=== PATIENT | female | born 1960 | race Caucasian/White ===

== ENCOUNTER 2016-04-01 16:48 | Inpatient (IN) | payer BC ==
[~2016-04-01] VITALS: Ht 170.2 cm; Wt 164.0 kg
[~2016-04-01 16:48] MED LIST: CHOL100027 PO; HYDR-5688 PO; LISI-787 PO
[2016-04-01] MEDS ORDERED: TPRSR/50 PO (17:02)
[2016-04-01] MEDS ORDERED: WARF-246 PO (17:02)
[2016-04-01] MEDS ORDERED: FUROSEMIDE 40 MG/4 ML VIAL IV STA ×2 (17:02→20:55)
[2016-04-01] MEDS ORDERED: SPR25 PO (17:02)
[2016-04-01] MEDS ORDERED: LSX20 PO (17:02)
[2016-04-01] MEDS ORDERED: LSN20 PO (17:02)
--- NOTE | 2016-04-01 17:03 | EMERGENCY ROOM VISIT NOTE ---
History Report prepared by [place]: Alessio Warren Under the Supervision of: Dr. Kenneth Bush M.D. First contact with patient: 16:51 Chief Complaint: SHORTNESS OF BREATH Stated Complaint: SOB,BLOATING,REFERRED BY History of Present Illness The patient is a 56 year old female who presents to the Emergency Room with complaints of constant shortness of breath starting in February. The patient additionally states that she has been having leg swelling and abdominal bloating. She states that in February she was diagnosed with bronchitis, and she was given a Z-pack which did not help. She states that she went to her doctor again, and they found that she had an irregular heart rate. 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 Source of History: patient Onset: February Quality: other (shortness of breath) Timing: constant Note: Associated symptoms: Leg swelling and abdominal bloating Review of Systems See HPI for pertinent positives & negatives. A total of 10 systems reviewed and were otherwise negative. Past Medical & Surgical Medical Problems: (1) Afib (2) Depression (3) HLD (hyperlipidemia) (4) HTN (hypertension) (5) Systolic CHF Surgical Problems: (1) S/P cholecystectomy Family History FH: gallbladder disease FH: heart disease FH: lung disease Hypertension Social History Smoking Status: Former Smoker Alcohol Use: occasionally Marital Status: Occupation Status: employed Current/Historical Medications Scheduled Furosemide (Furosemide), 10 MG PO DAILY Lisinopril (Lisinopril), 20 MG PO DAILY Metoprolol Succinate (Metoprolol Succinate ER), 100 MG PO DAILY Spironolactone (Spironolactone), 12.5 MG PO DAILY Miscellaneous Medications Warfarin Sodium (Warfarin Sodium) Allergies Coded Allergies: Codeine (Verified Allergy, Severe, SHORTNESS OF BREATH, 04/01/16) Penicillins (Verified Allergy, Severe, THROAT SWELLING, 04/01/16) Physical Exam Vital Signs Date Time Temp Pulse Resp B/P Pulse Ox O2 Delivery O2 Flow Rate FiO2 04/01/16 17:46 Room Air 94 04/01/16 16:49 36.9 124 18 141/78 99 Room Air Physical Exam CONSTITUTIONAL: Morbidly obese HEENT: No icterus, moist mucous membranes NECK: No meningismus, trachea is midline. CARDIOVASCULAR: Regular rate, normal perfusion RESPIRATORY: Unlabored breathing. Clear to auscultation. GASTROINTESTINAL: Non-tender GENITOURINARY: No flank tenderness MUSCULOSKELETAL: Leg size similar to body habitus suspect for edema. Full range of motion NEUROLOGIC: No acute gross focal deficits. PSYCHIATRIC: Normal affect SKIN: Normal for ethnicity. Medical Decision & Procedures ER Provider Diagnostic Interpretation: X-ray results as stated below per interpretation by me and the radiologist. SINGLE VIEW CHEST CLINICAL HISTORY: Dyspnea. FINDINGS: An AP, portable, upright chest radiograph is obtained. No prior studies are available for comparison at the time of dictation. The examination is degraded by portable technique, large body habitus, and patient rotation. The heart is mildly enlarged. The pulmonary vasculature is noncongested. The lungs and pleural spaces are clear. No pneumothorax is seen. The bony thorax is grossly intact. IMPRESSION: Mild cardiac enlargement with no acute cardiopulmonary abnormality. Electronically signed by: Lee Guillory M.D. 04/01/2016 5:24 PM Dictated Date/Time: 04/01/2016 5:[address] ANGIOGRAM OF THE CHEST CLINICAL HISTORY: Dyspnea. COMPARISON STUDY: Chest x-ray dated 04/01/2016. TECHNIQUE: Following the IV administration of 116 cc of Optiray 320, CT angiogram of the chest was performed from the upper abdomen to the thoracic inlet utilizing the pulmonary embolus protocol. Images are reviewed in the axial, sagittal, and coronal planes. 3-D MIPS images are created and assessed. IV contrast was administered without complication. The examination is degraded by large body habitus, and by streak artifact from the body wall abutting the CT gantry. CT DOSE: 713.63 mGy.cm FINDINGS: Thyroid: Imaged portions of the thyroid gland are normal in size and attenuation. Thoracic aorta: There is mild after carotid calcification of the thoracic aorta, which is normal in caliber and demonstrates standard 3-vessel arch anatomy. No dissection is seen. Pulmonary vasculature: The pulmonary trunk is normal in caliber. There are no filling defects identified in main, lobar, or segmental pulmonary branches to suggest pulmonary embolus. Heart: The heart is enlarged and without pericardial effusion. Lungs and pleural spaces: Evaluation of the lung parenchyma is mildly degraded by motion artifact. A small calcified granulomas noted in the left lower lobe. The lungs and pleural spaces are otherwise clear. The trachea and central airways are patent. Mediastinum: There are prominent subcentimeter mediastinal lymph nodes. These are not pathologically enlarged by size criteria end measure up to 8 mm in short axis. [place]: Clear. Axillae: There is no axillary lymphadenopathy. Upper abdomen: There is evidence of hepatic steatosis. Cholecystectomy clips are noted. A small hiatal hernia is identified. There is glandular atrophy of the partially imaged pancreas. Skeletal structures: The skeletal structures are osteopenic. Degenerative change and mild hyperkyphosis are noted in the thoracic spine. No lytic or blastic bony lesions are seen. There are healed left-sided rib fractures. IMPRESSION: 1. There is no evidence of pulmonary embolus in the main, lobar, or segmental pulmonary arteries. 2. The lungs are clear. 3. Cardiomegaly. 4. Hepatic steatosis. Electronically signed by: Lee Guillory M.D. 04/01/2016 7:50 PM Dictated Date/Time: 04/01/2016 7:46 PM Laboratory Results 04/01/16 17:50 Red Blood Count 4.24, Mean Corpuscular Volume 77.8, Mean Corpuscular Hemoglobin 24.1, Mean Corpuscular Hemoglobin Concent 30.9, Mean Platelet Volume 10.0, Neutrophils (%) (Auto) 67.6, Lymphocytes (%) (Auto) 23.6, Monocytes (%) (Auto) 6.3, Eosinophils (%) (Auto) 1.9, Basophils (%) (Auto) 0.3, Neutrophils # (Auto) 7.68, Lymphocytes # (Auto) 2.68, Monocytes # (Auto) 0.71, Eosinophils # (Auto) 0.21, Basophils # (Auto) 0.03 04/01/16 17:50 Test 04/01/16 17:29 04/01/16 17:50 Urine Color YELLOW Urine Appearance CLEAR (CLEAR) Urine pH 6.0 (4.5-7.5) Urine Specific [place] 1.006 (1.000-1.030) Urine Protein NEG (NEG) Urine Glucose (UA) NEG (NEG) Urine Ketones NEG (NEG) Urine Occult Blood NEG (NEG) Urine Nitrite NEG (NEG) Urine Bilirubin NEG (NEG) Urine Urobilinogen NEG (NEG) Urine Leukocyte Esterase NEG (NEG) White Blood Count 11.34 K/uL (4.8-10.8) Red Blood Count 4.24 M/uL (4.2-5.4) Hemoglobin 10.2 g/dL (12.0-16.0) Hematocrit 33.0 % (37-47) Mean Corpuscular Volume 77.8 fL (80-100) Mean Corpuscular Hemoglobin 24.1 pg (25-34) Mean Corpuscular Hemoglobin Concent 30.9 g/dl (32-36) Platelet Count 334 K/uL (130-400) Mean Platelet Volume 10.0 fL (7.4-10.4) Neutrophils (%) (Auto) 67.6 % Lymphocytes (%) (Auto) 23.6 % Monocytes (%) (Auto) 6.3 % Eosinophils (%) (Auto) 1.9 % Basophils (%) (Auto) 0.3 % Neutrophils # (Auto) 7.68 K/uL (1.4-6.5) Lymphocytes # (Auto) 2.68 K/uL (1.2-3.4) Monocytes # (Auto) 0.71 K/uL (0.11-0.59) Eosinophils # (Auto) 0.21 K/uL (0-0.5) Basophils # (Auto) 0.03 K/uL (0-0.2) RDW Standard Deviation 42.9 fL (36.4-46.3) RDW Coefficient of Variation 15.1 % (11.5-14.5) Immature Granulocyte % (Auto) 0.3 % Immature Granulocyte # (Auto) 0.03 K/uL (0.00-0.02) Prothrombin Time 25.7 SECONDS (9.0-12.0) Prothromb Time International Ratio 2.3 (0.9-1.1) Activated Partial Thromboplast Time 34.1 SECONDS (21.0-31.0) Partial Thromboplastin Ratio 1.3 D-Dimer 620 ug/L FEU (0-500) Anion Gap 9.0 mmol/L (3-11) Est Creatinine Clear Calc Drug Dose 88.9 ml/min Estimated GFR () 64.5 Estimated GFR (Non- 55.7 BUN/Creatinine Ratio 17.9 (10-20) Calcium Level 8.4 mg/dl (8.5-10.1) Magnesium Level 2.1 mg/dl (1.8-2.4) Troponin I < 0.015 ng/ml (0-0.045) Pro-B-Type Natriuretic Peptide 2549 pg/ml (0-900) Thyroid Stimulating Hormone (TSH) 3.330 uIu/ml (0.300-4.500) Labs reviewed by ED physician. Medications Administered Medications (Trade) Dose Ordered Sig/Binta Route Start Time Stop Time Status Last Admin Dose Admin Furosemide (Lasix Inj) 40 mg NOW STAT IV 04/01/16 17:02 04/01/16 17:03 DC 04/01/16 18:11 40 MG Furosemide (Lasix Inj) 40 mg NOW STAT IV 04/01/16 20:55 04/01/16 20:56 DC 04/01/16 21:00 40 MG ECG Indication: SOB/dyspnea Rate (beats per minute): 98 Rhythm: atrial fibrillation Findings: other (Normal axis, non-specific ST findings) ED Course 1650: Past medical records reviewed. The patient was evaluated in room B3. A complete history and physical examination was performed. 1701: Lasix Inj 40mg IV 2054: Lasix Inj 40mg IV 2150: I discussed the patient's case with Dr. Quiroz. He is going to evaluate the patient for further treatment. Medical Decision Differential diagnoses include but are not limited to; congestive heart failure , pulmonary embolus, heart disease. 56-year-old presents to the emergency room after being seen by Dr. Mariscal in the outpatient setting to be admitted for CHF. History of A. fib. She notes increasing nonspecific chest pain and shortness of breath for several weeks and while Dr. Mariscal attempted to admit patient directly there is no beds available and she was subsequently relatively emergency room. Lasix 40 mg IV given. Consults Time Called: 2139 Consulting Physician: Dr. Quiroz Returned Call: 2150 I discussed the patient's case with Dr. Quiroz. He is going to evaluate the patient for further treatment. Impression Primary Impression: Congestive heart failure Scribe Attestation The scribe's documentation has been prepared under my direction and personally reviewed by me in its entirety. I confirm that the note above accurately reflects all work, treatment, procedures, and medical decision making performed by me. Departure Information Dispostion Being Evaluated By Hospitalist Referrals Danny Ibarra M.D. ([facility]) (PCP)
--- NOTE | 2016-04-01 17:25 | DIAGNOSTIC IMAGING REPORT ---
SINGLE VIEW CHEST CLINICAL HISTORY: Dyspnea. FINDINGS: An AP, portable, upright chest radiograph is obtained. No prior studies are available for comparison at the time of dictation. The examination is degraded by portable technique, large body habitus, and patient rotation. The heart is mildly enlarged. The pulmonary vasculature is noncongested. The lungs and pleural spaces are clear. No pneumothorax is seen. The bony thorax is grossly intact. IMPRESSION: Mild cardiac enlargement with no acute cardiopulmonary abnormality. Electronically signed by: Lee Guillory M.D. 04/01/2016 5:24 PM Dictated Date/Time: 04/01/2016 5:23 PM
[2016-04-01 17:57] LABS: URINE APPEARANCE CLEAR (CLEAR); URINE BILIRUBIN NEG (NEG); URINE COLOR YELLOW; URINE NITRITE NEG (NEG); URINE SPECIFIC GRAVITY 1.006 (1.000-1.030); UROBILINOGEN NEG (NEG)
[2016-04-01 18:02] LABS: MANUAL MICROSCOPIC REQUIRED? NO; REVIEW REQ? NO
[2016-04-01 18:04] LABS: BASO % 0.3 %; BASO ABS # 0.03 K/uL (0-0.2); COMPLETE YES; EOS % 1.9 %; IG% 0.3 %; LYMPH % 23.6 %; LYMPH ABS # 2.68 K/uL (1.2-3.4); MEAN CELL VOLUME 77.8 fL (80-100); MEAN CORPUSCULAR HEMOGLOBIN 24.1 pg (25-34); MEAN CORPUSCULAR HGB CONC 30.9 g/dl (32-36); MONO % 6.3 %; NEUT % 67.6 %; PLATELET COUNT 334 K/uL (130-400); RED BLOOD COUNT 4.24 M/uL (4.2-5.4); WHITE BLOOD COUNT 11.34 K/uL (4.8-10.8)
[2016-04-01 18:20] LABS: BLOOD UREA NITROGEN 20 mg/dl (7-18); BUN/CREATININE RATIO 17.9 (10-20); CALCIUM 8.4 mg/dl (8.5-10.1); CARBON DIOXIDE 27 mmol/L (21-32); CHLORIDE 105 mmol/L (98-107); GLUCOSE 92 mg/dl (70-99); MAGNESIUM 2.1 mg/dl (1.8-2.4); POTASSIUM 4.3 mmol/L (3.5-5.1); SODIUM 141 mmol/L (136-145)
[2016-04-01 18:22] LABS: INR 2.3 (0.9-1.1); PROTHROMBIN TIME (PATIENT) 25.7 SECONDS (9.0-12.0)
[2016-04-01 18:37] LABS: PARTIAL THROMBOPLASTIN RATIO 1.3
[2016-04-01] MEDS ORDERED: OPTIRAY 320 IV PRN (19:15)
--- NOTE | 2016-04-01 19:51 | DIAGNOSTIC IMAGING REPORT ---
CT ANGIOGRAM OF THE CHEST CLINICAL HISTORY: Dyspnea. COMPARISON STUDY: Chest x-ray dated 04/01/2016. TECHNIQUE: Following the IV administration of 116 cc of Optiray 320, CT angiogram of the chest was performed from the upper abdomen to the thoracic inlet utilizing the pulmonary embolus protocol. Images are reviewed in the axial, sagittal, and coronal planes. 3-D MIPS images are created and assessed. IV contrast was administered without complication. The examination is degraded by large body habitus, and by streak artifact from the body wall abutting the CT gantry. CT DOSE: 713.63 mGy.cm FINDINGS: Thyroid: Imaged portions of the thyroid gland are normal in size and attenuation. Thoracic aorta: There is mild after carotid calcification of the thoracic aorta, which is normal in caliber and demonstrates standard 3-vessel arch anatomy. No dissection is seen. Pulmonary vasculature: The pulmonary trunk is normal in caliber. There are no filling defects identified in main, lobar, or segmental pulmonary branches to suggest pulmonary embolus. Heart: The heart is enlarged and without pericardial effusion. Lungs and pleural spaces: Evaluation of the lung parenchyma is mildly degraded by motion artifact. A small calcified granulomas noted in the left lower lobe. The lungs and pleural spaces are otherwise clear. The trachea and central airways are patent. Mediastinum: There are prominent subcentimeter mediastinal lymph nodes. These are not pathologically enlarged by size criteria end measure up to 8 mm in short axis. [place]: Clear. Axillae: There is no axillary lymphadenopathy. Upper abdomen: There is evidence of hepatic steatosis. Cholecystectomy clips are noted. A small hiatal hernia is identified. There is glandular atrophy of the partially imaged pancreas. Skeletal structures: The skeletal structures are osteopenic. Degenerative change and mild hyperkyphosis are noted in the thoracic spine. No lytic or blastic bony lesions are seen. There are healed left-sided rib fractures. IMPRESSION: 1. There is no evidence of pulmonary embolus in the main, lobar, or segmental pulmonary arteries. 2. The lungs are clear. 3. Cardiomegaly. 4. Hepatic steatosis. Electronically signed by: Lee Guillory M.D. 04/01/2016 7:50 PM Dictated Date/Time: 04/01/2016 7:46 PM
[2016-04-01] MEDS ORDERED: ATORVASTATIN 40 MG TAB PO SCH (21:00)
[2016-04-01] MEDS ORDERED: ONDANSETRON INJ 2 MG/ML 2 ML VIAL IV PRN (22:45)
[2016-04-01] MEDS ORDERED: ENOXAPARIN 40 MG/0.4 ML SYR SC SCH (22:45)
[2016-04-01] MEDS ORDERED: NITROGLYCERIN 0.4 MG SL PER TAB CHARGE SL PRN (22:45)
[2016-04-01] MEDS ORDERED: ACETAMINOPHEN 325 MG TAB PO PRN (22:45)
[2016-04-01] MEDS ORDERED: POLYETHYLENE (MIRALAX) 17 GM PACK PO PRN (22:45)
[2016-04-01] MEDS ORDERED: DMD20 PO (22:55)
[2016-04-01] MEDS ORDERED: VTMD PO (22:55)
--- NOTE | 2016-04-01 23:05 | History and Physical ---
History & Physical Date & Time of Service: Apr 01, 2016 at 22:42 Chief Complaint: Sob,Bloating,Referred By Primary Care Physician: Danny Ibarra M.D.([facility]) History of Present Illness Source: patient, family, clinic records, hospital records Patient seen and examined. 56 year old female with PMHx of obesity, HTN, HLD, depression, and newly diagnosed CHF and afib presents to the ED from Dr. Mariscal's office for increased SOB. Patient had URI like symptoms and SOB in . She was treated for bronchitis with a Zpak after finishing the course patient continued to SOB. She returned to her PCP's office at this time she was found to be tachycardic to the 140s and was found to have new onset afib. She was started on a BB and Coumadin as well as Lasix for increased edema. She followed up with Cardiology and saw Mel Funes. A Echo was completed and showed an EF of 35-39% and valvular disease. Her Lasix was changed to Demadex. She states throughout the last week her symptoms have persisted. She complains of SOB, PND and orthopnea (uses 4 pillows HS). She reports abdominal bloating and peripheral edema. She reports some residual cough with some phlegm production. She denies fevers, chills, chest pain, palpitations, nausea, vomiting, diarrhea, dysuria, calf pain. She does not weigh herself at home. She denies excessive salt intake. She was seen today by Dr. Mariscal for followup. Symptoms had not been improving since previous visit and he suggested admission for IV diuretics. In the ED VS are stable, Afib is rate controlled, Brianna are negative x1, INR is 2.[address] chest is negative for PE. BNP is 2K. She received a total of 80mg IV Lasix. She will be admitted for further workup and treatment. Past Medical/Surgical History Medical Problems: (1) Afib Status: Chronic (2) Depression Status: Chronic (3) HLD (hyperlipidemia) Status: Chronic (4) HTN (hypertension) Status: Chronic (5) Systolic CHF Status: Chronic Surgical Problems: (1) S/P cholecystectomy Status: Chronic Family History FH: gallbladder disease FH: heart disease FH: lung disease Hypertension Social History Smoking Status: Former Smoker Alcohol Use: none Marital Status: Housing status: lives with family Occupational Status: employed Multi-Drug Resistant Organisms History of MDRO: No Allergies Coded Allergies: Codeine (Verified Allergy, Severe, SHORTNESS OF BREATH, 04/01/16) Penicillins (Verified Allergy, Severe, THROAT SWELLING, 04/01/16) Home Medications Scheduled Ergocalciferol (Vitamin D), 1 CAP PO twice per week Lisinopril (Lisinopril), 20 MG PO DAILY Metoprolol Succinate (Metoprolol Succinate ER), 100 MG PO DAILY Spironolactone (Spironolactone), 12.5 MG PO DAILY Torsemide (Torsemide), 10 MG PO DAILY Warfarin Sodium (Warfarin Sodium), 10 MG PO UD Review of Systems See above for pertinent positives & negatives. A total of 10 systems reviewed and were otherwise negative. Physical Exam Vital Signs Date Time Temp Pulse Resp B/P Pulse Ox O2 Delivery O2 Flow Rate FiO2 04/01/16 17:46 Room Air 94 04/01/16 16:49 36.9 124 18 141/78 99 Room Air General Appearance: + pertinent finding (Obese 56 year old female lying in bed in NAD with family at bedside ) Head: normocephalic, atraumatic Eyes: EOMI, sclerae normal ENT: TMs normal, + pertinent finding (BL tonsilar enlargement, no exudates or erythema ) Neck: supple, no JVD, trachea midline Respiratory/Chest: chest non-tender, lungs clear, normal breath sounds, no respiratory distress, no accessory muscle use Cardiovascular: no gallop, no JVD, no murmur, normal peripheral pulses, + irregularly irregular (rate in the 80s ) Abdomen/GI: normal bowel sounds, non tender, soft Back: normal inspection, no muscle spasm Extremities/Musculoskelatal: no calf tenderness, normal capillary refill, + pedal edema (L>R) Neurologic/Psych: alert, oriented x 3, + pertinent finding (no motor or sensory deficits noted on gross exam ) Skin: normal color, warm/dry, no rash Lymphatic: no adenopathy Diagnostics Laboratory Results Results Past 24 Hours Test 04/01/16 17:29 04/01/16 17:50 Range/Units Urine Color YELLOW Urine Appearance CLEAR CLEAR Urine pH 6.0 4.5-7.5 Urine Specific [place] 1.006 1.000-1.030 Urine Protein NEG NEG Urine Glucose (UA) NEG NEG Urine Ketones NEG NEG Urine Occult Blood NEG NEG Urine Nitrite NEG NEG Urine Bilirubin NEG NEG Urine Urobilinogen NEG NEG Urine Leukocyte Esterase NEG NEG White Blood Count 11.34 4.8-10.8 K/uL Red Blood Count 4.24 4.2-5.4 M/uL Hemoglobin 10.2 12.0-16.0 g/dL Hematocrit 33.0 37-47 % Mean Corpuscular Volume 77.8 80-100 fL Mean Corpuscular Hemoglobin 24.1 25-34 pg Mean Corpuscular Hemoglobin Concent 30.9 32-36 g/dl Platelet Count 334 130-400 K/uL Mean Platelet Volume 10.0 7.4-10.4 fL Neutrophils (%) (Auto) 67.6 % Lymphocytes (%) (Auto) 23.6 % Monocytes (%) (Auto) 6.3 % Eosinophils (%) (Auto) 1.9 % Basophils (%) (Auto) 0.3 % Neutrophils # (Auto) 7.68 1.4-6.5 K/uL Lymphocytes # (Auto) 2.68 1.2-3.4 K/uL Monocytes # (Auto) 0.71 0.11-0.59 K/uL Eosinophils # (Auto) 0.21 0-0.5 K/uL Basophils # (Auto) 0.03 0-0.2 K/uL RDW Standard Deviation 42.9 36.4-46.3 fL RDW Coefficient of Variation 15.1 11.5-14.5 % Immature Granulocyte % (Auto) 0.3 % Immature Granulocyte # (Auto) 0.03 0.00-0.02 K/uL Prothrombin Time 25.7 9.0-12.0 SECONDS Prothromb Time International Ratio 2.3 0.9-1.1 Activated Partial Thromboplast Time 34.1 21.0-31.0 SECONDS Partial Thromboplastin Ratio 1.3 D-Dimer 620 0-500 ug/L FEU Sodium Level 141 136-145 mmol/L Potassium Level 4.3 3.5-5.1 mmol/L Chloride Level 105 98-107 mmol/L Carbon Dioxide Level 27 21-32 mmol/L Anion Gap 9.0 3-11 mmol/L Blood Urea Nitrogen 20 7-18 mg/dl Creatinine 1.10 0.60-1.20 mg/dl Est Creatinine Clear Calc Drug Dose 88.9 ml/min Estimated GFR () 64.5 Estimated GFR (Non- 55.7 BUN/Creatinine Ratio 17.9 10-20 Random Glucose 92 70-99 mg/dl Calcium Level 8.4 8.5-10.1 mg/dl Magnesium Level 2.1 1.8-2.4 mg/dl Troponin I < 0.015 0-0.045 ng/ml Pro-B-Type Natriuretic Peptide 2549 0-900 pg/ml Thyroid Stimulating Hormone (TSH) 3.330 0.300-4.500 uIu/ml Diagnostic Radiology CHEST CTA Per radiologist read: IMPRESSION: 1. There is no evidence of pulmonary embolus in the main, lobar, or segmental pulmonary arteries. 2. The lungs are clear. 3. Cardiomegaly. 4. Hepatic steatosis CXR Per radiologist read: IMPRESSION: Mild cardiac enlargement with no acute cardiopulmonary abnormality. EKG Afib 98 BPM, Qtc 503 Impression Assessment and Plan 56 year old female with recent diagnosis of systolic CHF and atrial fibrillation presents to the ED from Dr. Mariscal's office for worsening SOB ACUTE EXACERBATION OF SYSTOLIC CHF -Admit to tele -BNP 2543, CXR clear, significant peripheral edema noted -? cause for worsening CHF, R/O ACS -Received 80mg IV Lasix in ED -Serial Brianna, EKGs, Brianna negative x 1 -ASA 324 mg now and 81 mg daily -Atorvastatin 80mg for plaque stabilization -Last echo on 03/26/16 EF 35-39%, severe left atrial enlargement, moderate to severe mitral regurgitation -Cardiology consult for further recommendations, Dr. Mariscal will personally see patient tomorrow, defer further diuresis to him -strict I&Os, Daily Weights -AHA, low sodium diet, fluid restriction -CBC, PRP, Mg in AM ELEVATED DDIMER -CTA negative for PE -check BLLE Doppler US, RLE edema > LLE ATRIAL FIBRILLATION -rate controlled with Metoprolol -Anticoagulated with Coumadin -INR 2.3 -monitor in tele -INR daily HTN -stable -continue lisinopril, BB -monitor in tele HLD -per chart -check lipid panel DEPRESSION -stable DVT PROPHYLAXIS: Coumadin CODE STATUS: FULL CODE DISPO:In my clinical judgment this beneficiary meets acute admission criteria, established by [facility], that includes being hospitalized through two midnights. Patient seen in collaboration with Dr. Barron Level of Care Telemetry Resuscitation Status FULL RESUSCITATION VTE Prophylaxis VTE Risk Assessment Done? Y/N: Yes Risk Level: Moderate Given or contraindicated: Warfarin (Coumadin) Note ADDENDUM: I have seen and examined the patient and agree with the assessment and plan as stated above. Yani Barron DO (Hospitalist)
[2016-04-02] VITALS (8 sets, daily range): BP systolic 93–126; BP diastolic 61–82; PULSE 86–98; TEMP 36.4–36.9; O2SAT 93–98; Ht 170.2 cm; Wt 164.0 kg
[2016-04-02 00:31] LABS: CKMB/CK RATIO 1.3 (0-3.0)
[2016-04-02] MEDS ORDERED: ASPIRIN 325 MG ECTAB PO STA (00:32)
[2016-04-02] MEDS ORDERED: COUGH DROP (SUGAR FREE) LOZ 24 LOZ/1 BOX ONE (00:34)
[2016-04-02 06:15] LABS: HEMATOCRIT 31.4 % (37-47); MEAN CELL VOLUME 76.6 fL (80-100); MEAN CORPUSCULAR HEMOGLOBIN 23.9 pg (25-34); MEAN CORPUSCULAR HGB CONC 31.2 g/dl (32-36); MEAN PLATELET VOLUME 9.6 fL (7.4-10.4); PLATELET COUNT 291 K/uL (130-400); WHITE BLOOD COUNT 11.27 K/uL (4.8-10.8)
[2016-04-02 06:23] LABS: INR 2.1 (0.9-1.1); PROTHROMBIN TIME (PATIENT) 23.7 SECONDS (9.0-12.0)
[2016-04-02 06:44] LABS: BLOOD UREA NITROGEN 22 mg/dl (7-18); BUN/CREATININE RATIO 20.3 (10-20); CALCIUM 8.6 mg/dl (8.5-10.1); CARBON DIOXIDE 31 mmol/L (21-32); CHLORIDE 102 mmol/L (98-107); CHOLESTEROL 141 mg/dl (0-200); GLUCOSE 89 mg/dl (70-99); POTASSIUM 3.7 mmol/L (3.5-5.1); SODIUM 142 mmol/L (136-145)
[2016-04-02 06:52] LABS: CKMB/CK RATIO 1.2 (0-3.0); HDL CHOLESTEROL 28 mg/dl; LDL CHOLESTEROL CALCULATED 95 mg/dl; MAGNESIUM 2.3 mg/dl (1.8-2.4); TRIGLYCERIDES 92 mg/dl (0-150); VERY LOW DENSITY LIPOPROT CALC 18 mg/dl
--- NOTE | 2016-04-02 07:15 | DIAGNOSTIC IMAGING REPORT ---
BILATERAL LOWER EXTREMITY VENOUS DOPPLER HISTORY: Pain. Edema. LE swelling and discomfort L>R acutely, elevated D-dimer COMPARISON STUDY: None. FINDINGS: There is normal compressibility, flow, and augmentation within the bilateral lower extremity deep venous systems. IMPRESSION: No DVT within the right or left lower extremity. Electronically signed by: Amrit Felipe M.D. 04/02/2016 7:13 AM Dictated Date/Time: 04/02/2016 7:13 AM
[2016-04-02] MEDS ORDERED: ASPIRIN 81 MG ECTAB PO SCH (09:00)
[2016-04-02] MEDS ORDERED: METOPROLOL SUCC 50MG EXT REL TAB PO SCH (09:00)
--- NOTE | 2016-04-02 09:59 | Cardiology Consultation ---
Cardiology Consultation Date of Consultation: Apr 02, 2016 History of Present Illness Charity Holcomb is a 56-year-old female seen in cardiology consultation per the request of Dr. Barron for cardiac management of acute systolic heart failure, and atrial fibrillation. The patient's recent history dates back to December 2015 when she experienced symptoms of facial pain, headache, nasal drip, sore throat, and upper respiratory congestion with nonproductive cough. She was seen by family practice and had been placed on a course of azithromycin. Her symptoms persisted and on 03/07/16 she was seen again in follow-up by family practice and in addition to respiratory tract symptoms she noted shortness of breath and edema. Her heart rate was stable during that visit at 70 bpm. Hydrochlorothiazide was discontinued and she was transitioned to Lasix 20 mg by mouth daily. On 03/13/16 she was seen again by primary care with worsening lower extremity edema, shortness of breath, and weight gain. Vital signs reveal tachycardia, EKG confirmed the presence of atrial fibrillation with rapid ventricular rate of 144 bpm. Metoprolol succinate 50 mg by mouth daily was started, Coumadin was initiated, the patient was scheduled to see cardiology and to have a 2-D echocardiogram. She had thus been seen by Mel MOROCHO of our practice along with the undersigned on 03/22/16 and outpatient cardiology consultation. She continued to have shortness of breath as well as lower extremity edema and felt abdominal bloating. EKG confirmed that she was still in atrial fibrillation with heart rate of 89 bpm at that time. Metoprolol succinate was increased from 50 mg daily to 100 mg daily. Furosemide 20 mg was discontinued. The patient was transitioned to torsemide 10 mg by mouth daily and spironolactone 12.5 mg daily. I had seen the patient in outpatient follow-up yesterday 04/01/16. She noted only partial improvement with transition to torsemide. She noted significant abdominal bloating, continue lower extremity edema, and exertional shortness of breath. An echocardiogram had been performed in the interim on 03/26/16 revealing moderate LV systolic dysfunction with moderate global hypokinesis LVEF 35-39%. The left atrium was noted to be severely enlarged. Moderate to severe mitral regurgitation was present along with mild tricuspid regurgitation and mild pulmonary hypertension with calculated PA systolic pressure 40 years of Hg. I discussed treatment options with the patient yesterday and we decided that she had not improved with multiple attempts at outpatient therapy and therefore hospitalization was going to be necessary. To direct admit the patient but there is no bed availability and therefore she was referred to the emergency department. Arrival to the emergency department EKG revealed atrial fibrillation with controlled ventricular rate. Her d-dimer is elevated as was her BNP level. CT of the chest was performed with contrast which excluded pulmonary embolism. Hepatic steatosis was noted incidentally. The patient received a total of 80 mg of IV furosemide overnight last night. Her intake and output was not recorded however until after midnight snow takeout took data from her diuresis overnight is available. She notes feeling comfortable today. History PAST MEDICAL HISTORY: 1. Hypertension 2. Depression 3. Bronchitis PAST SURGICAL HISTORY: Laparoscopic cholecystectomy FAMILY HISTORY: Her brother has psoriasis. Family history of stroke and both her mother and father. No family history of premature CAD. SOCIAL HISTORY: She is . 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 She is a former smoker having smoked a half a pack of cigarettes per day starting at age 15 quit for 7 years but then resumed and then ultimately quit in 03/15/16 and has been cigarette free for the last few weeks Review Of Systems See above for pertinent positives & negatives. A total of 10 systems reviewed and were otherwise negative. Allergies Coded Allergies: Codeine (Verified Allergy, Severe, SHORTNESS OF BREATH, 04/01/16) Penicillins (Verified Allergy, Severe, THROAT SWELLING, 04/01/16) Medications Reported Home Medications Medications Dose Route/Sig Max Daily Dose Days Date Category Dose Instructions Vitamin D (Ergocalciferol) 50,000 Interunit Cap 1 Cap PO TWICE PER WEEK 04/01/16 Reported Torsemide 20 Mg Tab 10 Mg PO DAILY 04/01/16 Reported Spironolactone 25 Mg Tab 12.5 Mg PO DAILY 04/01/16 Reported Metoprolol Succinate ER (Metoprolol Succinate) 50 Mg Tabcr 100 Mg PO DAILY 04/01/16 Reported Warfarin Sodium 5 Mg Tab 10 Mg PO UD 04/01/16 Reported Sat-Thurs 10mg daily, 7.5mg qFri Lisinopril 20 Mg Tab 20 Mg PO DAILY 04/01/16 Reported Physical Exam Vital Signs (Last 8hrs): Last 8 Hrs Date Time Temp Pulse Resp B/P Pulse Ox O2 Delivery O2 Flow Rate FiO2 04/02/16 08:00 Room Air 04/02/16 07:57 36.5 96 18 115/73 98 Room Air 04/02/16 04:05 36.5 86 18 119/75 96 Room Air 04/02/16 04:00 96 Room Air General Appearance: Alert and Oriented x3. NAD. Head: Normocephalic Atraumatic. Eyes: PERRLA, EOMI, conjunctiva and sclera clear Neck: Supple. No carotid bruits noted. No JVD. No HJD. Respiratory: Breath sounds clear to auscultation bilaterally. No w/r/r. Cardiovascular: Regular rhythm, 1/6 systolic murmur Abdomen: Normal bowel sounds, soft nontender. no abdominal bruits. Extremities: 1+ lower extremity edema Neuro: No focal deficits. Psychiatric: Normal affect. Data Last Resulted 04/02/16 05:58 Last Resulted 04/02/16 05:58 Past 24 Hours Test 04/01/16 17:50 04/01/16 23:50 04/02/16 05:58 Range/Units Prothromb Time International Ratio 2.3 H 2.1 H 0.9-1.1 Prothrombin Time 25.7 H 23.7 H 9.0-12.0 SECONDS Troponin I < 0.015 < 0.015 < 0.015 0-0.045 ng/ml Creatine Kinase MB 0.6 0.5 0.5-3.6 ng/ml Creatine Kinase MB Ratio 1.3 1.2 0-3.0 Total Creatine Kinase 48 42 26-192 U/L Her first therapeutic INR was on 03/21/16 at 2.1 INR 03/25/16:2.5 INR 04/01/16:2.4 Imaging: As per history of present illness EKG: As per history of present illness Telemetry reviewed: Rate controlled atrial fibrillation, for the most part between 70 and 80 bpm overnight and this morning Summary of outpatient transthoracic echocardiogram performed 03/26/2016: The qualitative LV ejection fraction is 35-39% (moderately reduced). There is moderate diffuse left ventricular hypokinesis. The left atrium is severely enlarged (>48 ml/m^2,). Moderate to severe mitral regurgitation. Mild tricuspid regurgitation is present. The estimated pulmonary artery systolic pressure is 48mm Hg. Assessment & Plan Impression: 56-year-old female 1. Acute systolic heart failure, newly diagnosed 2. Rate controlled atrial fibrillation 3. Underlying hypertension 4. Past cigarette smoker, quit several weeks ago 5. Suspected underlying obstructive sleep apnea with history of snoring, witnessed apneic events per 6. Microcytic anemia, hemoglobin on 11/17/1511.8, 03/13/16 which was a day Coumadin was started her hemoglobin was 10.2 Plan: 1. Continue cautious anticoagulation for stroke prophylaxis with Coumadin. Monitor INR and hemoglobin 2. Continue diuretic therapy. I'm going to back off on her furosemide dose to 40 mg 1 today and she had 80 mg yesterday in addition to her oral torsemide she received iodinated IV contrast last evening as well. 3. 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 It is difficult to determine based on the echo images available if she has a primary anatomical valve problem or if the severity of mitral regurgitation appears worse because of her volume overloaded state. Plan for rate control, anticoagulation, and diuretics. Ultimately will plan for direct-current cardioversion after she has been therapeutic dose of Coumadin for 3 weeks. Coumadin was started 3 weeks ago, and her INR has been at goal for at least 2 weeks. We'll start low-dose amiodarone loading to help promote sinus rhythm and increase the likelihood of success with holiness of sinus rhythm. Will plan for a short-term course of amiodarone, perhaps 6 weeks- three months depending on her progress. STEVAN Mariscal DO
[2016-04-02] MEDS ORDERED: FUROSEMIDE INJ 40 MG in SYRINGE 0 ML IV ONE (10:00)
[2016-04-02] MEDS: LISINOPRIL 20 MG TAB PO SCH (11:10)
[2016-04-02] MEDS: SPIRONOLACTONE 25 MG TAB PO SCH (11:10)
[2016-04-02] MEDS: METOPROLOL SUCC 50MG EXT REL TAB PO SCH (16:32)
[2016-04-02] MEDS: WARFARIN SOD 10 MG TAB PO SCH (16:32)
--- NOTE | 2016-04-02 20:13 | Progress Note ---
Medicine Progress Note Date & Time of Visit: Apr 02, 2016 at 20:02. Subjective Pt was seen and examined Lying in bed very comfortable with no distress Pt said that her SOB improved denies any chest pain, palpitation, dizziness Objective Last 8 Hrs Date Time Temp Pulse Resp B/P Pulse Ox O2 Delivery O2 Flow Rate FiO2 04/02/16 19:31 36.9 92 20 103/61 95 Room Air 04/02/16 16:00 Room Air 04/02/16 15:32 36.6 87 18 114/76 93 Room Air Physical Exam: General- no acute distress Head- atraumatic Eyes- PERRL, EOMI ENT- oropharynx clear Neck- supple, no JVD Lungs- clear to auscultation and percussion Heart- regular rhythm, +systolic murmur Abdomen- normal bowel sounds, soft Extremities- + edema, no calf tenderness Neuro- alert, oriented x 3; PERRL, EOMI Skin- warm & dry Laboratory Results: Last 24 Hours Test 04/01/16 23:50 04/02/16 05:58 Total Creatine Kinase 48 U/L 42 U/L Creatine Kinase MB 0.6 ng/ml 0.5 ng/ml Creatine Kinase MB Ratio 1.3 1.2 Troponin I < 0.015 ng/ml < 0.015 ng/ml White Blood Count 11.27 K/uL Red Blood Count 4.10 M/uL Hemoglobin 9.8 g/dL Hematocrit 31.4 % Mean Corpuscular Volume 76.6 fL Mean Corpuscular Hemoglobin 23.9 pg Mean Corpuscular Hemoglobin Concent 31.2 g/dl RDW Standard Deviation 43.1 fL RDW Coefficient of Variation 15.2 % Platelet Count 291 K/uL Mean Platelet Volume 9.6 fL Prothrombin Time 23.7 SECONDS Prothromb Time International Ratio 2.1 Sodium Level 142 mmol/L Potassium Level 3.7 mmol/L Chloride Level 102 mmol/L Carbon Dioxide Level 31 mmol/L Anion Gap 9.0 mmol/L Blood Urea Nitrogen 22 mg/dl Creatinine 1.10 mg/dl Est Creatinine Clear Calc Drug Dose 92.4 ml/min Estimated GFR () 64.5 Estimated GFR (Non- 55.7 BUN/Creatinine Ratio 20.3 Random Glucose 89 mg/dl Calcium Level 8.6 mg/dl Magnesium Level 2.3 mg/dl Pro-B-Type Natriuretic Peptide 2022 pg/ml Triglycerides Level 92 mg/dl Cholesterol Level 141 mg/dl HDL Cholesterol 28 mg/dl LDL Cholesterol, Calculated 95 mg/dl VLDL Cholesterol, Calculated 18 mg/dl Cholesterol/HDL Ratio 5.0 Assessment & Plan ACUTE EXACERBATION OF SYSTOLIC CHF -has been having worsening SOB -Received 80mg IV lasix on admission - will start on lasix 40mg - CM are negative an EKG shown no significant ST changes -Continue asa 81 mg and statin daily -Last echo on 03/26/16 EF 35-39%, severe left atrial enlargement, moderate to severe mitral regurgitation -Monitor BMP ELEVATED DDIMER -CTA thorax negative for PE - BLLE Doppler US negative for DVT ATRIAL FIBRILLATION -rate controlled with Metoprolol -Anticoagulated with Coumadin Cardiology on board -INR 2.1 -INR daily HTN -Control -continue lisinopril, BB HLD Continue statin DEPRESSION -stable DVT PROPHYLAXIS: Coumadin CODE STATUS: FULL CODE Current Inpatient Medications: Current Inpatient Medications Medications (Trade) Dose Ordered Sig/Binta Route Start Time Stop Time Status Last Admin Dose Admin Ioversol (Optiray 320) 125 ml UD PRN IV 04/01/16 19:15 04/05/16 19:14 Acetaminophen (Tylenol Tab) 650 mg Q4H PRN PO 04/01/16 22:45 05/01/16 22:44 Ondansetron HCl (Zofran Inj) 4 mg Q6H PRN IV 04/01/16 22:45 05/01/16 22:44 Nitroglycerin (Nitrostat Tab) 0.4 mg UD PRN SL 04/01/16 22:45 05/01/16 22:44 Polyethylene (Miralax Powder Packet) 17 gm DAILY PRN PO 04/01/16 22:45 05/01/16 22:44 Lisinopril (Zestril Tab) 20 mg DAILY PO 04/02/16 09:00 05/02/16 08:59 04/02/16 11:10 20 MG Spironolactone (Aldactone Tab) 12.5 mg DAILY PO 04/02/16 09:00 05/02/16 08:59 04/02/16 11:10 12.5 MG Warfarin Sodium (Coumadin Tab) 10 mg SuMoTuWeThSa@1600 PO 04/02/16 16:00 05/02/16 15:59 04/02/16 16:32 10 MG Warfarin Sodium (Coumadin Tab) 7.5 mg Fr@1600 PO 04/05/16 16:00 05/05/16 15:59 Amiodarone HCl (Cordarone Tab) 200 mg BID PO 04/02/16 21:00 05/02/16 20:59 Metoprolol Succinate (Toprol Xl Tab) 100 mg DAILY@1700 PO 04/02/16 17:00 05/02/16 16:59 04/02/16 16:32 100 MG
[2016-04-02] MEDS: AMIODARONE 200 MG TAB PO SCH (21:19)
[2016-04-03] VITALS (8 sets, daily range): BP systolic 105–129; BP diastolic 67–77; PULSE 78–108; TEMP 36.3–36.7; O2SAT 92–98
[2016-04-03 07:11] LABS: BASO % 0.3 %; BASO ABS # 0.03 K/uL (0-0.2); COMPLETE YES; HEMATOCRIT 32.5 % (37-47); IG% 0.2 %; LYMPH % 23.8 %; LYMPH ABS # 2.54 K/uL (1.2-3.4); MEAN CELL VOLUME 78.5 fL (80-100); MEAN CORPUSCULAR HEMOGLOBIN 24.6 pg (25-34); MEAN CORPUSCULAR HGB CONC 31.4 g/dl (32-36); MONO % 8.4 %; NEUT % 65.3 %; PLATELET COUNT 312 K/uL (130-400); RED BLOOD COUNT 4.14 M/uL (4.2-5.4); WHITE BLOOD COUNT 10.66 K/uL (4.8-10.8)
[2016-04-03 07:42] LABS: CALCIUM 8.8 mg/dl (8.5-10.1); MAGNESIUM 2.4 mg/dl (1.8-2.4); POTASSIUM 3.9 mmol/L (3.5-5.1)
[2016-04-03 07:45] LABS: ALB/GLOB RATIO 0.7 (0.9-2)
[2016-04-03] MEDS: AMIODARONE 200 MG TAB PO SCH ×2 (09:00→20:31)
[2016-04-03] MEDS: LISINOPRIL 20 MG TAB PO SCH (09:01)
[2016-04-03] MEDS: SPIRONOLACTONE 25 MG TAB PO SCH (09:02)
[2016-04-03 09:47] LABS: INR 1.7 (0.9-1.1); PROTHROMBIN TIME (PATIENT) 18.7 SECONDS (9.0-12.0)
--- NOTE | 2016-04-03 10:05 | Progress Note ---
Medicine Progress Note Date & Time of Visit: Apr 03, 2016 at 09:55. Subjective Pt was seen and examined Sitting in chair comfortable with no distress Pt said that her breathing is much better She denies any chest pain, palpitation, dizziness Objective Last 8 Hrs Date Time Temp Pulse Resp B/P Pulse Ox O2 Delivery O2 Flow Rate FiO2 04/03/16 07:40 Room Air 04/03/16 07:11 36.5 78 16 114/69 93 Room Air 04/03/16 04:09 36.7 90 20 110/71 92 Room Air 04/03/16 04:00 Room Air Physical Exam: General- no acute distress Head- atraumatic Eyes- PERRL, EOMI ENT- oropharynx clear Neck- supple, no JVD Lungs- clear to auscultation and percussion Heart- irregular rhythm, +systolic murmur Abdomen- normal bowel sounds, soft Extremities- + edema, no calf tenderness Neuro- alert, oriented x 3; PERRL, EOMI Skin- warm & dry Laboratory Results: Last 24 Hours Test 04/03/16 06:40 04/03/16 09:17 White Blood Count 10.66 K/uL Red Blood Count 4.14 M/uL Hemoglobin 10.2 g/dL Hematocrit 32.5 % Mean Corpuscular Volume 78.5 fL Mean Corpuscular Hemoglobin 24.6 pg Mean Corpuscular Hemoglobin Concent 31.4 g/dl Platelet Count 312 K/uL Mean Platelet Volume 10.0 fL Neutrophils (%) (Auto) 65.3 % Lymphocytes (%) (Auto) 23.8 % Monocytes (%) (Auto) 8.4 % Eosinophils (%) (Auto) 2.0 % Basophils (%) (Auto) 0.3 % Neutrophils # (Auto) 6.96 K/uL Lymphocytes # (Auto) 2.54 K/uL Monocytes # (Auto) 0.90 K/uL Eosinophils # (Auto) 0.21 K/uL Basophils # (Auto) 0.03 K/uL RDW Standard Deviation 44.3 fL RDW Coefficient of Variation 15.3 % Immature Granulocyte % (Auto) 0.2 % Immature Granulocyte # (Auto) 0.02 K/uL Sodium Level 139 mmol/L Potassium Level 3.9 mmol/L Chloride Level 102 mmol/L Carbon Dioxide Level 27 mmol/L Anion Gap 10.0 mmol/L Blood Urea Nitrogen 21 mg/dl Creatinine 1.00 mg/dl Est Creatinine Clear Calc Drug Dose 100.7 ml/min Estimated GFR () 72.4 Estimated GFR (Non- 62.5 BUN/Creatinine Ratio 21.0 Random Glucose 93 mg/dl Calcium Level 8.8 mg/dl Magnesium Level 2.4 mg/dl Total Bilirubin 0.9 mg/dl Aspartate Amino Transf (AST/SGOT) 15 U/L Alanine Aminotransferase (ALT/SGPT) 19 U/L Alkaline Phosphatase 114 U/L Total Protein 7.2 gm/dl Albumin 3.0 gm/dl Globulin 4.2 gm/dl Albumin/Globulin Ratio 0.7 Prothrombin Time 18.7 SECONDS Prothromb Time International Ratio 1.7 Assessment & Plan ACUTE EXACERBATION OF SYSTOLIC CHF -has been having worsening SOB -Received 80mg IV lasix on admission - Continue lasix 40mg - CM are negative an EKG shown no significant ST changes -Continue asa 81 mg and statin daily -Last echo on 03/26/16 EF 35-39%, severe left atrial enlargement, moderate to severe mitral regurgitation -Electrolytes stable -Continue to diuresis ELEVATED DDIMER -CTA thorax negative for PE - BLLE Doppler US negative for DVT ATRIAL FIBRILLATION -rate controlled with Metoprolol -Anticoagulated with Coumadin -Cardiology on board -Was started on amiodarone 200mg BID daily last night -Hope she can convert to SR in the next few weeks, if not possible cardiovert -INR 1.7 today -INR daily HTN -Control -continue lisinopril, BB HLD Continue statin DEPRESSION -stable DVT PROPHYLAXIS: Coumadin CODE STATUS: FULL CODE Current Inpatient Medications: Current Inpatient Medications Medications (Trade) Dose Ordered Sig/Binta Route Start Time Stop Time Status Last Admin Dose Admin Ioversol (Optiray 320) 125 ml UD PRN IV 04/01/16 19:15 04/05/16 19:14 Acetaminophen (Tylenol Tab) 650 mg Q4H PRN PO 04/01/16 22:45 05/01/16 22:44 Ondansetron HCl (Zofran Inj) 4 mg Q6H PRN IV 04/01/16 22:45 05/01/16 22:44 Nitroglycerin (Nitrostat Tab) 0.4 mg UD PRN SL 04/01/16 22:45 05/01/16 22:44 Polyethylene (Miralax Powder Packet) 17 gm DAILY PRN PO 04/01/16 22:45 05/01/16 22:44 Lisinopril (Zestril Tab) 20 mg DAILY PO 04/02/16 09:00 05/02/16 08:59 04/03/16 09:01 20 MG Spironolactone (Aldactone Tab) 12.5 mg DAILY PO 04/02/16 09:00 05/02/16 08:59 04/03/16 09:02 12.5 MG Warfarin Sodium (Coumadin Tab) 10 mg SuMoTuWeThSa@1600 PO 04/02/16 16:00 05/02/16 15:59 04/02/16 16:32 10 MG Warfarin Sodium (Coumadin Tab) 7.5 mg Fr@1600 PO 04/05/16 16:00 05/05/16 15:59 Amiodarone HCl (Cordarone Tab) 200 mg BID PO 04/02/16 21:00 05/02/16 20:59 04/03/16 09:00 200 MG Metoprolol Succinate (Toprol Xl Tab) 100 mg DAILY@1700 PO 04/02/16 17:00 05/02/16 16:59 04/02/16 16:32 100 MG
[2016-04-03] MEDS ORDERED: FUROSEMIDE INJ 60 MG in SYRINGE 0 ML IV ONE (11:45)
--- NOTE | 2016-04-03 11:47 | Cardiology Follow-Up ---
Subjective General Date of Service: Apr 03, 2016. Chief Complaint: follow up shortness of breath, abdominal bloating Pt evaluation today including: conversation w/ patient, physical exam History of Present Illness The patient is a 56 year old female seen in cardiology follow up. Pt states she feels a little improved. Telemetry reveals continued rate controlled AF. Allergies Coded Allergies: Codeine (Verified Allergy, Severe, SHORTNESS OF BREATH, 04/01/16) Penicillins (Verified Allergy, Severe, THROAT SWELLING, 04/01/16) Social History Smoking Status: Former Smoker Hx Tobacco Use In Past Year?: No Problem List Medical Problems: (1) Congestive heart failure Status: Acute (2) Flank pain Status: Acute Physical Exam Vital Signs Last Vital Signs Documentation Date Time Temp Pulse Resp B/P Pulse Ox O2 Delivery O2 Flow Rate FiO2 04/03/16 11:32 Room Air 04/03/16 11:30 36.7 108 16 105/67 94 04/02/16 00:00 94 Physical Exam Constitutional: Level of Distress: NAD Neck: supple Lungs: Auscultation: pertinent finding (mildly decreased breath sounds at the bases ) Cardiovascular: Heart Auscultation: I/ WSM, irregular rate rhythm Extremities: pertinent finding (1+ BL LE edema ) Assessment and Plan Assessment and Plan Impression: 56-year-old female 1. Acute systolic heart failure, newly diagnosed 2. Rate controlled atrial fibrillation 3. Underlying hypertension 4. Past cigarette smoker, quit several weeks ago 5. Suspected underlying obstructive sleep apnea with history of snoring, witnessed apneic events per 6. Microcytic anemia, hemoglobin on 11/17/1511.8, 03/13/16 which was a day Coumadin was started her hemoglobin was 10.2 Plan: Outpatient echocardiogram images were reviewed independently. History and echo findings suggest non ischemic CM. Plan to continue IV diuretics. Will ultimately plan to have pt return for outpt cardioversion after 3 weeks of anticoagulation and amiodarone. INR is below goal today, continue current dose of coumadin, anticipate INR will increase with amiodarone administration. Repeat BMP and INR in am. Digna Mariscal DO Laboratory Results Last 24 Hours Test 04/03/16 06:40 04/03/16 09:17 White Blood Count 10.66 K/uL Red Blood Count 4.14 M/uL Hemoglobin 10.2 g/dL Hematocrit 32.5 % Mean Corpuscular Volume 78.5 fL Mean Corpuscular Hemoglobin 24.6 pg Mean Corpuscular Hemoglobin Concent 31.4 g/dl Platelet Count 312 K/uL Mean Platelet Volume 10.0 fL Neutrophils (%) (Auto) 65.3 % Lymphocytes (%) (Auto) 23.8 % Monocytes (%) (Auto) 8.4 % Eosinophils (%) (Auto) 2.0 % Basophils (%) (Auto) 0.3 % Neutrophils # (Auto) 6.96 K/uL Lymphocytes # (Auto) 2.54 K/uL Monocytes # (Auto) 0.90 K/uL Eosinophils # (Auto) 0.21 K/uL Basophils # (Auto) 0.03 K/uL RDW Standard Deviation 44.3 fL RDW Coefficient of Variation 15.3 % Immature Granulocyte % (Auto) 0.2 % Immature Granulocyte # (Auto) 0.02 K/uL Sodium Level 139 mmol/L Potassium Level 3.9 mmol/L Chloride Level 102 mmol/L Carbon Dioxide Level 27 mmol/L Anion Gap 10.0 mmol/L Blood Urea Nitrogen 21 mg/dl Creatinine 1.00 mg/dl Est Creatinine Clear Calc Drug Dose 100.7 ml/min Estimated GFR () 72.4 Estimated GFR (Non- 62.5 BUN/Creatinine Ratio 21.0 Random Glucose 93 mg/dl Calcium Level 8.8 mg/dl Magnesium Level 2.4 mg/dl Total Bilirubin 0.9 mg/dl Aspartate Amino Transf (AST/SGOT) 15 U/L Alanine Aminotransferase (ALT/SGPT) 19 U/L Alkaline Phosphatase 114 U/L Total Protein 7.2 gm/dl Albumin 3.0 gm/dl Globulin 4.2 gm/dl Albumin/Globulin Ratio 0.7 Prothrombin Time 18.7 SECONDS Prothromb Time International Ratio 1.7
--- NOTE | 2016-04-03 14:39 | Clinical Documentation Query ---
CLINICAL DOCUMENTATION QUERY Dr. CASTRO, In your clinical opinion is this patient being managed for: ( ) Chronic kidney disease, stage 2 ( ) Chronic kidney disease, stage 2-3 ( ) Other explanation of clinical findings (Please Explain) ( ) Unable to determine (Please Define) ( ) Need to Discuss ( ) Not Agree The medical record reflects the following clinical findings, treatment, and risk factors. Clinical Indicators: 56 yo female presenting with newly diagnosed systolic CHF with acute exacerbation. Review of historical GFR showed a range of 55.7-85 over the past 2 years. Treatment: monitor PRP's, lisinopril and metoprolol Risk Factors: HTN Chronic Kidney Disease (CKD), stages 1-5. Documenting the stage of CKD will improve data integrity and will help clarify vague terms such as "renal insufficiency" or "chronic renal failure." The stages of CKD according to the [employer] are as follows: Stage I: GFR >90 Stage II: GFR 60-89 Stage III: GFR 30-59 Stage IV: GFR 15-29 Stage V: GFR <15 Please clarify and document your clinical opinion in the progress notes and discharge summary. Terms such as "probable", "suspected", "likely", "questionable", "possible", or "still to be ruled out" are acceptable. IF IN AGREEMENT, YOU MUST DOCUMENT ABOVE DIAGNOSTIC STATEMENT IN DAILY PROGRESS NOTES AND DISCHARGE SUMMARY. This document is not part of the patient's record. Thank You, Thuy Stockton, RN [phone]
[2016-04-03] MEDS: WARFARIN SOD 10 MG TAB PO SCH (16:26)
[2016-04-03] MEDS: METOPROLOL SUCC 50MG EXT REL TAB PO SCH (16:27)
[2016-04-04 04:00] VITALS: BP 93/61; PULSE 73; TEMP 36.7; O2SAT 93
[2016-04-04 07:51] VITALS: BP 106/66; PULSE 76; TEMP 36.7; O2SAT 95
[2016-04-04 07:52] LABS: INR 1.8 (0.9-1.1); PROTHROMBIN TIME (PATIENT) 19.4 SECONDS (9.0-12.0)
[2016-04-04 08:57] LABS: BUN/CREATININE RATIO 23.8 (10-20); CALCIUM 8.5 mg/dl (8.5-10.1); CREATININE 1.1 mg/dl (0.60-1.20); POTASSIUM 4.1 mmol/L (3.5-5.1)
[2016-04-04] MEDS ORDERED: SPIRONOLACTONE 25 MG TAB PO SCH (09:00)
[2016-04-04] MEDS: AMIODARONE 200 MG TAB PO SCH (09:25)
[2016-04-04] MEDS: LISINOPRIL 20 MG TAB PO SCH (09:25)
[2016-04-04] MEDS ORDERED: WARFARIN SOD 2.5 MG TAB PO ONE (09:45)
[2016-04-04] MEDS ORDERED: FUROSEMIDE INJ 60 MG in SYRINGE 0 ML IV ONE (10:00)
--- NOTE | 2016-04-04 10:05 | Cardiology Follow-Up ---
Subjective General Date of Service: Apr 04, 2016. Chief Complaint: follow up shortness of breath, abdominal bloating Pt evaluation today including: conversation w/ patient, physical exam History of Present Illness The patient is a 56 year old female seen in cardiology follow up. Patient states she continues to feel better. Denies palpitations. Remains in AF with controlled ventricular rate. Allergies Coded Allergies: Codeine (Verified Allergy, Severe, SHORTNESS OF BREATH, 04/01/16) Penicillins (Verified Allergy, Severe, THROAT SWELLING, 04/01/16) Social History Smoking Status: Former Smoker Hx Tobacco Use In Past Year?: No Problem List Medical Problems: (1) Congestive heart failure Status: Acute (2) Flank pain Status: Acute Physical Exam Vital Signs Last Vital Signs Documentation Date Time Temp Pulse Resp B/P Pulse Ox O2 Delivery O2 Flow Rate FiO2 04/04/16 07:51 36.7 76 18 106/66 95 Room Air 04/02/16 00:00 94 Physical Exam Constitutional: Level of Distress: NAD Neck: supple Lungs: Auscultation: pertinent finding (mildly decreased breath sounds at the bases ) Cardiovascular: Heart Auscultation: I/ WSM, irregular rate rhythm Extremities: pertinent finding (1+ BL LE edema ) Assessment and Plan Assessment and Plan Last Resulted 04/03/16 06:40 Red Blood Count 4.14, Mean Corpuscular Volume 78.5, Mean Corpuscular Hemoglobin 24.6, Mean Corpuscular Hemoglobin Concent 31.4, Mean Platelet Volume 10.0, Neutrophils (%) (Auto) 65.3, Lymphocytes (%) (Auto) 23.8, Monocytes (%) (Auto) 8.4, Eosinophils (%) (Auto) 2.0, Basophils (%) (Auto) 0.3, Neutrophils # (Auto) 6.96, Lymphocytes # (Auto) 2.54, Monocytes # (Auto) 0.90, Eosinophils # (Auto) 0.21, Basophils # (Auto) 0.03 Last Resulted 04/04/16 07:28 Past 24 Hours Test 04/04/16 07:28 Range/Units Prothromb Time International Ratio 1.8 H 0.9-1.1 Prothrombin Time 19.4 H 9.0-12.0 SECONDS Impression: 56-year-old female 1. Acute systolic heart failure, newly diagnosed, suspected nonischemic CM 2. Rate controlled atrial fibrillation 3. Underlying hypertension 4. Past cigarette smoker, quit several weeks ago 5. Suspected underlying obstructive sleep apnea with history of snoring, witnessed apneic events per 6. Microcytic anemia, hemoglobin on 11/17/1511.8, 03/13/16 which was the day Coumadin was started her hemoglobin was 10.2 Nocturnal pulse oximetry test was performed overnight. The lowest oxygen saturation was 90%. There was no time spent with a saturation less than or equal to 89%. There are no desaturation events over 3 minutes in duration. There are no desaturation events of less than 3 minutes. Plan: Outpatient echocardiogram images were reviewed independently. History and echo findings suggest non ischemic CM. Lasix 60 mg IV today, 04/04/16. Stable for discharge from cardiac standpoint on following medications. 1. Coumadin, Had been on 7.5 milligrams 1 day per week and 10 milligrams remaining days, given INR that is below goal of 1.8 and addition of amiodarone will need close follow up with the anti coagulation clinic. I am going to give her 12.5 milligrams of Coumadin today 04/04/2016, and recommend that we discharge her on 10 milligrams daily for the time being with plan for INR again on Friday. 2. metoprolol succinate 100 milligrams by mouth daily 3. Amiodarone 200 milligrams p.o. twice daily 4. Torsemide 20 milligrams by mouth daily, next dose am 04/05/16. 5. spironolactone 25 milligrams by mouth daily 6. Lisinopril 20 milligrams by mouth daily. Plan for outpatient heart failure visit early next week. Future plans include outpatient direct current cardioversion. Unfortunately her INR has trended to being below goal, and therefore we will need to get her back at a therapeutic dose of Coumadin and reconsider cardioversion after 3 weeks of therapeutic anticoagulation. She may however convert spontaneously in the interim time now that her volume status is improved. Digna Mariscal, Laboratory Results Last 24 Hours Test 04/04/16 07:28 Prothrombin Time 19.4 SECONDS Prothromb Time International Ratio 1.8 Sodium Level 141 mmol/L Potassium Level 4.1 mmol/L Chloride Level 103 mmol/L Carbon Dioxide Level 28 mmol/L Anion Gap 10.0 mmol/L Blood Urea Nitrogen 26 mg/dl Creatinine 1.10 mg/dl Est Creatinine Clear Calc Drug Dose 91.4 ml/min Estimated GFR () 64.5 Estimated GFR (Non- 55.7 BUN/Creatinine Ratio 23.8 Random Glucose 91 mg/dl Calcium Level 8.5 mg/dl
[2016-04-04 11:22] VITALS: BP 125/90; PULSE 82; TEMP 36.2; O2SAT 97
[2016-04-04 14:30] VITALS: BP 125/90; PULSE 82; TEMP 36.2; O2SAT 97
--- NOTE | 2016-04-04 15:56 | Progress Note ---
Medicine Progress Note Date & Time of Visit: Apr 04, 2016 at 15:40. Subjective Pt was seen and examined Sitting in bed with no distress Pt said that she feels much better She denies any chest pain, palpitation, dizziness and sob Objective Last 8 Hrs Date Time Temp Pulse Resp B/P Pulse Ox O2 Delivery O2 Flow Rate FiO2 04/04/16 14:30 36.2 82 18 97 Room Air 04/04/16 11:22 36.2 82 18 125/90 97 Room Air 04/04/16 08:00 Room Air 04/04/16 07:51 36.7 76 18 106/66 95 Room Air Physical Exam: General- no acute distress Head- atraumatic Eyes- PERRL, EOMI ENT- oropharynx clear Neck- supple, no JVD Lungs- clear to auscultation and percussion Heart- irregular rhythm, +systolic murmur Abdomen- normal bowel sounds, soft Extremities- + edema, no calf tenderness Neuro- alert, oriented x 3; PERRL, EOMI Skin- warm & dry Laboratory Results: Last 24 Hours Test 04/04/16 07:28 Prothrombin Time 19.4 SECONDS Prothromb Time International Ratio 1.8 Sodium Level 141 mmol/L Potassium Level 4.1 mmol/L Chloride Level 103 mmol/L Carbon Dioxide Level 28 mmol/L Anion Gap 10.0 mmol/L Blood Urea Nitrogen 26 mg/dl Creatinine 1.10 mg/dl Est Creatinine Clear Calc Drug Dose 91.4 ml/min Estimated GFR () 64.5 Estimated GFR (Non- 55.7 BUN/Creatinine Ratio 23.8 Random Glucose 91 mg/dl Calcium Level 8.5 mg/dl Assessment & Plan ACUTE EXACERBATION OF SYSTOLIC CHF -has been having worsening SOB -Received 80mg IV lasix on admission - received lasix 60mg IV today - CM are negative an EKG shown no significant ST changes -Continue asa 81 mg and statin daily -Last echo on 03/26/16 EF 35-39%, severe left atrial enlargement, moderate to severe mitral regurgitation -Electrolytes stable Clinically stable Cardiology recommend to discharge on metoprolol succinate 100 milligrams by mouth daily Torsemide 20 milligrams by mouth daily, next dose am 04/05/16. spironolactone 25 milligrams by mouth daily Lisinopril 20 milligrams by mouth daily. Follow up with cardiology next week ELEVATED DDIMER -CTA thorax negative for PE - BLLE Doppler US negative for DVT ATRIAL FIBRILLATION -rate controlled with Metoprolol -Anticoagulated with Coumadin -Cardiology on board -Continue amiodarone 200mg BID daily -Hope she can convert to SR in the next few weeks, if not possible cardiovert in 3 weeks -INR 1.8 today -received coumadin 12.5mg today -will discharge on coumadin 10mg daily -continue follow with the coag clinic HTN -Control -continue lisinopril, BB HLD Continue statin DEPRESSION -stable DVT PROPHYLAXIS: Coumadin CODE STATUS: FULL CODE DISPOSITION Follow up with your primary care provider Dr. Ibarra on Apr 11 at 3pm Follow up with Cardiology on Apr 09 at 10:15 am with SOLO Funes Consultants: Cardio Current Inpatient Medications: Current Inpatient Medications Medications (Trade) Dose Ordered Sig/Binta Route Start Time Stop Time Status Last Admin Dose Admin Ioversol (Optiray 320) 125 ml UD PRN IV 04/01/16 19:15 04/05/16 19:14 Acetaminophen (Tylenol Tab) 650 mg Q4H PRN PO 04/01/16 22:45 05/01/16 22:44 Nitroglycerin (Nitrostat Tab) 0.4 mg UD PRN SL 04/01/16 22:45 05/01/16 22:44 Polyethylene (Miralax Powder Packet) 17 gm DAILY PRN PO 04/01/16 22:45 05/01/16 22:44 Lisinopril (Zestril Tab) 20 mg DAILY PO 04/02/16 09:00 05/02/16 08:59 04/04/16 09:25 20 MG Amiodarone HCl (Cordarone Tab) 200 mg BID PO 04/02/16 21:00 05/02/16 20:59 04/04/16 09:25 200 MG Metoprolol Succinate (Toprol Xl Tab) 100 mg DAILY@1700 PO 04/02/16 17:00 05/02/16 16:59 04/03/16 16:27 100 MG Spironolactone (Aldactone Tab) 25 mg QAM PO 04/04/16 09:00 05/04/16 08:59 04/04/16 09:24 25 MG
[2016-04-04] MEDS ORDERED: CRD200 PO (16:01)
[2016-04-04] MEDS ORDERED: SPR25 PO (16:01)
[2016-04-04] MEDS ORDERED: DMD20 PO (16:01)
[2016-04-04] MEDS ORDERED: WARF-246 PO (16:01)
--- NOTE | 2016-04-04 16:11 | Discharge Instructions ---
Discharge Instructions Admission Reason for Admission: Acute Exacerbation Of Chf Discharge Discharge Diagnosis / Problem: ACUTE EXACERBATION OF SYSTOLIC CHF , Afib, HTN, Elevated DDimer Discharge Goals Goal(s): Decrease discomfort, Improve function, Improve disease control Activity Recommendations Activity Limitations: resume your previous activity (as tolerated) . Instructions / Follow-Up Instructions / Follow-Up Follow up with your primary care provider Dr. Ibarra on Apr 11 at 3pm Follow up with Cardiology on Apr 09 at 10:15 am with SOLO Funes Follow up with the coumadin clinic INR today 1.8 Check INR on Friday Continue coumadin 10mg daily for now, until dosage change as directed. Change and new medications Amiodarone 200 milligrams p.o. twice daily, next dose tonight Torsemide 20 milligrams by mouth daily, next dose am 04/05/16. spironolactone 25 milligrams by mouth daily, next dose 04/05/16 Lisinopril 20 milligrams by mouth daily, next dose 04/05/16 Current Hospital Diet Patient's current hospital diet: AHA Diet (Heart Healthy) Discharge Diet Recommended Diet: AHA Diet (Heart Healthy) Pending Studies Studies pending at discharge: no Laboratory Results Lipid Panel Test 04/02/16 05:58 Range/Units Triglycerides Level 92 0-150 mg/dl Cholesterol Level 141 0-200 mg/dl HDL Cholesterol 28 mg/dl Cholesterol/HDL Ratio 5.0 LDL Cholesterol, Calculated 95 mg/dl Medical Emergencies . Who to Call and When: Medical Emergencies: If at any time you feel your situation is an emergency, please call 911 immediately. . Non-Emergent Contact Non-Emergency issues call your: Primary Care Provider Call Non-Emergent contact if: you have any medication questions . . "Provider Documentation" section prepared by Veronica Edwards. VTE Core Measure Inpt VTE Proph given/why not?: Warfarin (Coumadin)
[2016-04-05] MEDS ORDERED: WARFARIN SOD 7.5 MG TAB PO SCH (16:00)
--- NOTE | 2016-04-07 20:36 | Discharge Summary ---
Discharge Summary Admission Date: Apr 01, 2016 at 22:48 Discharge Date: Apr 04, 2016 Discharge Disposition: Home Principal Diagnosis: Acute exacerbation systolic CHF Secondary Diagnoses/Problems: ACUTE EXACERBATION OF SYSTOLIC CHF AFib HTN Elevated DDimer Procedures: [~ rep ct add3]] CT ANGIOGRAM OF THE CHEST CLINICAL HISTORY: Dyspnea. COMPARISON STUDY: Chest x-ray dated 04/01/2016. TECHNIQUE: Following the IV administration of 116 cc of Optiray 320, CT angiogram of the chest was performed from the upper abdomen to the thoracic inlet utilizing the pulmonary embolus protocol. Images are reviewed in the axial, sagittal, and coronal planes. 3-D MIPS images are created and assessed. IV contrast was administered without complication. The examination is degraded by large body habitus, and by streak artifact from the body wall abutting the CT gantry. CT DOSE: 713.63 mGy.cm FINDINGS: Thyroid: Imaged portions of the thyroid gland are normal in size and attenuation. Thoracic aorta: There is mild after carotid calcification of the thoracic aorta, which is normal in caliber and demonstrates standard 3-vessel arch anatomy. No dissection is seen. Pulmonary vasculature: The pulmonary trunk is normal in caliber. There are no filling defects identified in main, lobar, or segmental pulmonary branches to suggest pulmonary embolus. Heart: The heart is enlarged and without pericardial effusion. Lungs and pleural spaces: Evaluation of the lung parenchyma is mildly degraded by motion artifact. A small calcified granulomas noted in the left lower lobe. The lungs and pleural spaces are otherwise clear. The trachea and central airways are patent. Mediastinum: There are prominent subcentimeter mediastinal lymph nodes. These are not pathologically enlarged by size criteria end measure up to 8 mm in short axis. [place]: Clear. Axillae: There is no axillary lymphadenopathy. Upper abdomen: There is evidence of hepatic steatosis. Cholecystectomy clips are noted. A small hiatal hernia is identified. There is glandular atrophy of the partially imaged pancreas. Skeletal structures: The skeletal structures are osteopenic. Degenerative change and mild hyperkyphosis are noted in the thoracic spine. No lytic or blastic bony lesions are seen. There are healed left-sided rib fractures. IMPRESSION: 1. There is no evidence of pulmonary embolus in the main, lobar, or segmental pulmonary arteries. 2. The lungs are clear. 3. Cardiomegaly. 4. Hepatic steatosis. Electronically signed by: Lee Guillory M.D. 04/01/2016 7:50 PM BILATERAL LOWER EXTREMITY VENOUS DOPPLER HISTORY: Pain. Edema. LE swelling and discomfort L>R acutely, elevated D-dimer COMPARISON STUDY: None. FINDINGS: There is normal compressibility, flow, and augmentation within the bilateral lower extremity deep venous systems. IMPRESSION: No DVT within the right or left lower extremity. Consultations: Cardio Medication Reconciliation New Medications: Amiodarone HCl (Amiodarone HCl) 200 Mg Tab 200 MG PO BID for 30 Days, #60 TAB Changed Medications: Spironolactone (Spironolactone) 25 Mg Tab 25 MG PO DAILY for 30 Days, #30 (Changed from: 12.5 MG; 15) Torsemide (Torsemide) 20 Mg Tab 20 MG PO DAILY for 30 Days, #30 (Changed from: 10 MG) Warfarin Sodium (Warfarin Sodium) 5 Mg Tab 10 MG PO UD for 30 Days, #60 (Changed from: Removed Instructions) Continued Medications: Ergocalciferol (Vitamin D) 50,000 Interunit Cap 1 CAP PO twice per week Lisinopril (Lisinopril) 20 Mg Tab 20 MG PO DAILY, #30 Metoprolol Succinate (Metoprolol Succinate ER) 50 Mg Tabcr 100 MG PO DAILY, #30 Admission Information HPI (per Admitting provider): Patient seen and examined. 56 year old female with PMHx of obesity, HTN, HLD, depression, and newly diagnosed CHF and afib presents to the ED from Dr. Mariscal's office for increased SOB. Patient had URI like symptoms and SOB in . She was treated for bronchitis with a Zpak after finishing the course patient continued to SOB. She returned to her PCP's office at this time she was found to be tachycardic to the 140s and was found to have new onset afib. She was started on a BB and Coumadin as well as Lasix for increased edema. She followed up with Cardiology and saw Mel Fuens. A Echo was completed and showed an EF of 35-39% and valvular disease. Her Lasix was changed to Demadex. She states throughout the last week her symptoms have persisted. She complains of SOB, PND and orthopnea (uses 4 pillows HS). She reports abdominal bloating and peripheral edema. She reports some residual cough with some phlegm production. She denies fevers, chills, chest pain, palpitations, nausea, vomiting, diarrhea, dysuria, calf pain. She does not weigh herself at home. She denies excessive salt intake. She was seen today by Dr. Mariscal for followup. Symptoms had not been improving since previous visit and he suggested admission for IV diuretics. In the ED VS are stable, Afib is rate controlled, Brianna are negative x1, INR is 2.[address] chest is negative for PE. BNP is 2K. She received a total of 80mg IV Lasix. She will be admitted for further workup and treatment. Physical Exam (per Admitting): General Appearance: + pertinent finding (Obese 56 year old female lying in bed in NAD with family at bedside ) Head: normocephalic, atraumatic Eyes: EOMI, sclerae normal ENT: TMs normal, + pertinent finding (BL tonsilar enlargement, no exudates or erythema ) Neck: supple, no JVD, trachea midline Respiratory/Chest: chest non-tender, lungs clear, normal breath sounds, no respiratory distress, no accessory muscle use Cardiovascular: no gallop, no JVD, no murmur, normal peripheral pulses, + irregularly irregular (rate in the 80s ) Abdomen/GI: normal bowel sounds, non tender, soft Back: normal inspection, no muscle spasm Extremities/Musculoskelatal: no calf tenderness, normal capillary refill, + pedal edema (L>R) Neurologic/Psych: alert, oriented x 3, + pertinent finding (no motor or sensory deficits noted on gross exam ) Skin: normal color, warm/dry, no rash Lymphatic: no adenopathy Hospital Course ACUTE EXACERBATION OF SYSTOLIC CHF -has been having worsening SOB -Received 80mg IV lasix on admission - received lasix 60mg IV today - CM are negative an EKG shown no significant ST changes -Continue asa 81 mg and statin daily -Last echo on 03/26/16 EF 35-39%, severe left atrial enlargement, moderate to severe mitral regurgitation -Electrolytes stable Clinically stable Cardiology recommend to discharge on metoprolol succinate 100 milligrams by mouth daily Torsemide 20 milligrams by mouth daily, next dose am 04/05/16. spironolactone 25 milligrams by mouth daily Lisinopril 20 milligrams by mouth daily. Follow up with cardiology next week ELEVATED DDIMER -CTA thorax negative for PE - BLLE Doppler US negative for DVT ATRIAL FIBRILLATION -rate controlled with Metoprolol -Anticoagulated with Coumadin -Cardiology on board -Continue amiodarone 200mg BID daily -Hope she can convert to SR in the next few weeks, if not possible cardiovert in 3 weeks -INR 1.8 today -received coumadin 12.5mg today -will discharge on coumadin 10mg daily -continue follow with the coag clinic HTN -Control -continue lisinopril, BB HLD Continue statin DEPRESSION -stable DVT PROPHYLAXIS: Coumadin CODE STATUS: FULL CODE DISPOSITION Follow up with your primary care provider Dr. Ibarra on Apr 11 at 3pm Follow up with Cardiology on Apr 09 at 10:15 am with SOLO Funes Total time spent on discharge = 35 minutes This includes examination of the patient, discharge planning, medication reconciliation, and communication with other providers. Discharge Instructions Discharge Instructions Admission Reason for Admission: Acute Exacerbation Of Chf Discharge Discharge Diagnosis / Problem: ACUTE EXACERBATION OF SYSTOLIC CHF , Afib, HTN, Elevated DDimer Discharge Goals Goal(s): Decrease discomfort, Improve function, Improve disease control Activity Recommendations Activity Limitations: resume your previous activity (as tolerated) . Instructions / Follow-Up Instructions / Follow-Up Follow up with your primary care provider Dr. Ibarra on Apr 11 at 3pm Follow up with Cardiology on Apr 09 at 10:15 am with SOLO Funes Follow up with the coumadin clinic INR today 1.8 Check INR on Friday Continue coumadin 10mg daily for now, until dosage change as directed. Change and new medications Amiodarone 200 milligrams p.o. twice daily, next dose tonight Torsemide 20 milligrams by mouth daily, next dose am 04/05/16. spironolactone 25 milligrams by mouth daily, next dose 04/05/16 Lisinopril 20 milligrams by mouth daily, next dose 04/05/16 Current Hospital Diet Patient's current hospital diet: AHA Diet (Heart Healthy) Discharge Diet Recommended Diet: AHA Diet (Heart Healthy) Pending Studies Studies pending at discharge: no Laboratory Results Lipid Panel Test 04/02/16 05:58 Range/Units Triglycerides Level 92 0-150 mg/dl Cholesterol Level 141 0-200 mg/dl HDL Cholesterol 28 mg/dl Cholesterol/HDL Ratio 5.0 LDL Cholesterol, Calculated 95 mg/dl Medical Emergencies . Who to Call and When: Medical Emergencies: If at any time you feel your situation is an emergency, please call 911 immediately. . Non-Emergent Contact Non-Emergency issues call your: Primary Care Provider Call Non-Emergent contact if: you have any medication questions . . "Provider Documentation" section prepared by Veronica Edwards. VTE Core Measure Inpt VTE Proph given/why not?: Warfarin (Coumadin) Additional Copies To Danny Ibarra M.D.(NAMAN)
[2016-05-09] MEDS ORDERED: PHEN1CAP5 (06:52)
[2016-05-09] MEDS ORDERED: TORS20TA2 PO (06:53)
[2016-05-09] MEDS ORDERED: SPIR25TA PO (06:53)
[2016-05-09] MEDS ORDERED: WARF5TAB90 PO (06:56)
[2016-06-11] MEDS ORDERED: CEPH500C2 PO (06:50)
[2016-10-01] MEDS ORDERED: SPR25 PO (17:00)
[2016-10-01] MEDS ORDERED: LPR25 PO (17:00)
== END 2016-04-04 16:55 | disposition home or self-care (01) | DRG 292 ==
LOC: ENRESERVTM → ENRESERVDT → C.EDB 16:48 → C.MED 22:48
PROVIDERS: ADMIT Hospitalist; ATTEND Internal Medicine
DX: I50.23 Acute on chronic systolic (congestive) heart failure (principal); Z68.43 Body mass index [BMI] 50.0-59.9, adult; E78.5 Hyperlipidemia, unspecified; D50.9 Iron deficiency anemia, unspecified; I48.2 Chronic atrial fibrillation; R79.1 Abnormal coagulation profile; E66.9 Obesity, unspecified; G47.33 Obstructive sleep apnea (adult) (pediatric); I11.0 Hypertensive heart disease with heart failure; Z87.891 Personal history of nicotine dependence; Z86.59 Personal history of other mental and behavioral disorders; Z79.01 Long term (current) use of anticoagulants; Z79.899 Other long term (current) drug therapy

== ENCOUNTER → 2016-05-09 | Day surgery (SDC) | payer BC ==
[~2016-05-09] VITALS: Ht 170.2 cm; Wt 164.0 kg
[~2016-05-09] MED LIST changes: +AMIO200T4 PO; +BTP80 PO; +CEPH500C2 PO; -CHOL100027 PO; +CRD200 PO; +DMD20 PO; +ERTA1INJ IV; -HYDR-5688 PO; +KETAMINE HCL INJ 50 MG/ML 10 ML VIAL ONE; +LIDOCAINE HCL 2% 2 ML VIAL (20MG/ML) ONE; -LISI-787 PO; +LPR25 PO; +LSN20 PO; +METO50TA7 PO; +METR-162 PO; +MIDAZOLAM HCL 1 MG/ML 2ML VIAL ONE; +PHEN1CAP5; +PROM12.56 PO; +PROPOFOL IV EMULSION 10 MG/ML 20 ML VIAL IV ONE; +SODIENE PR; +SPIR25TA PO; +SPR25 PO; +SULF800T23 PO; +TORS20TA2 PO; +TPRSR/50 PO; +ULT50X PO; +VTMD PO; +WARF-246 PO; +WARF5TAB7 PO; +WARF5TAB90 PO
[2016-05-09 06:55] VITALS: BP 141/74; PULSE 100; TEMP 36.3; O2SAT 95; Ht 170.2 cm; Wt 164.0 kg
--- NOTE | 2016-05-09 07:13 | History & Physical Bridge Note ---
H&P Re-Evaluation Bridge Note: I have examined the patient, reviewed the History & Physical and in the interval since the performance of the History & Physical I have noted the following changes of clinical significance: No changes noted
--- NOTE | 2016-05-09 08:27 | Cardiology Procedure Brief Nt ---
Preliminary Cardiology Note Procedure Date May 09, 2016. Pre-Procedure Diagnosis symptomatic persistent atrial fibrillation Post-Procedure Diagnosis unsuccessful cardioversion Procedure(s) Performed DCCV Senior Policy Analyst Digna Mariscal DO Frame Polisher(s) not availalbe Estimated Blood Loss none Preliminary Findings DCCV was performed with patient receiving two doses of biphasic energy at 300 J and 360 J. On the second attempt she converted to sinus rhythm for a few seconds before reverting to AF. Recommendations Continue current medications. Keep follow up with coumadin clinic as planned. Keep outpt follow up visit with Tiana Funes PA-C as planned for 05/20/16. Specimens not applicable Anesthesia propofol as administered by Dr Remy Pendleton Complication(s) None Disposition Recovery in landscape laborer recovery area, then transfer to home
--- NOTE | 2016-05-09 08:34 | Discharge Instructions ---
Discharge Instructions Procedure Procedure Date: May 09, 2016. Reason for Visit: Symptomatic atrial fibrillation Systolic heart failure Discharge Discharge Date: May 09, 2016. Discharge Diagnosis: Persistent atrial fibrillation , refractory to cardioversion. Last Recorded Wt (Kilograms): 164 Anesthesia Post Anesthesia Instructions: If you have had General Anesthesia or IV Sedation: * Do not drive today. * Resume driving when surgeon permits. * Do not make important decisions or sign legal documents today. * Call surgeon for: 1. Temperature elevations greater than 101 degrees F. 2. Uncontrollable pain. 3. Excessive bleeding. 4. Persistent nausea and vomiting. 5. Medication intolerance (nausea, vomiting or rash). * For nausea and vomiting use only clear liquids such as: tea, soda, bouillon until nausea subsides, then gradually increase diet as tolerated. * If you have any concerns or questions, call your surgeon's office. If physician is unavailable and it is an emergency, call 911 or go to the nearest emergency room. Instructions Activity Recommendations: limitations as noted below Recommended Home Diet: resume previous diet Allergies: Coded Allergies: Codeine (Verified Allergy, Severe, SHORTNESS OF BREATH, 04/01/16) Penicillins (Verified Allergy, Severe, THROAT SWELLING, 04/01/16) Provider Instructions ACTIVITY RECOMMENDATIONS: Resume activities as tolerated with no limitations unless specified. _x_ No lifting over _10_ pounds for 24 hours. _x_ Do not engage in vigorous exercise, sexual activity, or sports for 24 hours. _x_ Do not drive or operate any motorized equipment for 24 hours. _x_ You may return to work/school tomorrow. Follow Up Follow-up with: Continue current medications. Keep follow up with coumadin clinic as planned. Keep outpatient follow up visit with Tiana Funes PA-C as planned for 05/20/16. Latoya Powers Recommendations: Call your doctor if: * Temperature above 101 degrees * Pain not relieved by pain medicine ordered * There is increased drainage or redness from any incision * You have any unanswered questions or concerns. Your Doctors Instructions noted above were prepared by provider Colin Mariscal. Patient Signature Section: Patient Instructions Signature Page Charity Holcomb Patient (or Guardian) Signature/Date: I have read and understand the instructions given to me by my caregivers. Caregiver/RN/Doctor Signature/Date: The above-named patient and/or guardian has received patient instructions on this date. + Original Patient Signature Page (only) stays with chart. Please make copy for patient.
[2016-05-09 09:00] VITALS: BP 144/79; PULSE 74; O2SAT 99
--- NOTE | 2016-05-09 09:32 | Anesthesiology Progress Note ---
Anesthesia Post Op Note Date & Time May 09, 2016 at 09:33 Vital Signs Pain Intensity: 0 Vital Signs Past 12 Hours Date Time Temp Pulse Resp B/P Pulse Ox O2 Delivery O2 Flow Rate FiO2 05/09/16 09:00 74 16 144/79 99 Nasal Cannula 05/09/16 08:45 76 16 152/73 99 Nasal Cannula 05/09/16 08:30 74 16 138/77 99 Nasal Cannula 05/09/16 08:15 75 16 130/83 97 Nasal Cannula 05/09/16 08:02 74 18 131/86 97 Nasal Cannula 05/09/16 07:52 78 18 114/76 96 Nasal Cannula 05/09/16 07:42 77 18 133/84 99 Nasal Cannula 4 05/09/16 06:55 36.3 100 20 141/74 95 Room Air Notes Mental Status: alert / awake / arousable, participated in evaluation Pt Amnestic to Procedure: Yes Nausea / Vomiting: adequately controlled Pain: adequately controlled Airway Patency, RR, SpO2: stable & adequate BP & HR: stable & adequate Hydration State: stable & adequate Anesthetic Complications: no major complications apparent
--- NOTE | 2016-05-09 09:55 | CARDIOVERSION ---
DATE OF OPERATION: 05/09/2016 PROCEDURE DATE: 05/09/2016. PREPROCEDURE DIAGNOSIS: Symptomatic persistent atrial fibrillation, systolic heart failure. PROCEDURE PERFORMED: Direct current cardioversion. COMMERCIAL ESTIMATOR: Colin Mariscal D.O. RIVETER HELPER: Not applicable. PROCEDURE: After informed consent was obtained and a time-out was performed the patient was sedated with the assistance of Dr. Oralia Pendleton from anesthesia receiving propofol. The patient received 300 joules of synchronized biphasic energy and remained in atrial fibrillation. A second attempt was performed with the patient receiving 300 joules of biphasic energy. On the second attempt she converted to sinus rhythm for a few seconds then reverted back to atrial fibrillation with controlled ventricular rate at 85 beats per minute. RECOMMENDATIONS: She is to continue her current cardiac medications including amiodarone, metoprolol and Coumadin. She is to keep her outpatient followup visit with Mel Funes PA-C as planned for 05/20/2016 at which time her rhythm will be reassessed. She is to keep her followup at the Coumadin clinic as planned on Friday. COMPLICATIONS: None. DISPOSITION: The patient is to recovery in the cardiac labor relations analyst recovery area and then be transferred to home. I attest to the content of the Intraoperative Record and any orders documented therein. Any exceptions are noted below. CHELSIE
== END | disposition home or self-care (01) ==
LOC: C.CATH 06:22
PROVIDERS: ATTEND Specialist
DX: I48.1 Persistent atrial fibrillation (principal); I43 Cardiomyopathy in diseases classified elsewhere; I50.22 Chronic systolic (congestive) heart failure

== ENCOUNTER → 2016-06-11 | Day surgery (SDC) | payer BC ==
[~2016-06-11] VITALS: Ht 170.2 cm; Wt 165.7 kg
[~2016-06-11] MED LIST changes: -DMD20 PO; -KETAMINE HCL INJ 50 MG/ML 10 ML VIAL ONE; -MIDAZOLAM HCL 1 MG/ML 2ML VIAL ONE; -PHEN1CAP5; -VTMD PO; -WARF-246 PO
[2016-06-11 06:53] VITALS: Ht 170.2 cm; Wt 165.7 kg
--- NOTE | 2016-06-11 07:25 | Cardiology Progress Note ---
Cardiology Progress Note Date of Service Jun 11, 2016. Cardiology Progress Note Patient arrived for elective cardioversion and telemetry and EKG confirmed she is in sinus bradycardia at 48-55 bpm. QTc is stable. Will cancel cardioversion. Continue current medications and CPAP. Will arrange outpatient follow up. Digna Mariscal DO
== END | disposition home or self-care (01) ==
LOC: C.CPL 06:31
PROVIDERS: ATTEND Physician Assistant
DX: R00.1 Bradycardia, unspecified (principal); Z53.8 Procedure and treatment not carried out for other reasons; E78.5 Hyperlipidemia, unspecified; I10 Essential (primary) hypertension; F32.9 Major depressive disorder, single episode, unspecified; I48.91 Unspecified atrial fibrillation; I50.22 Chronic systolic (congestive) heart failure

== ENCOUNTER 2016-09-25 18:30 | Inpatient (IN) | payer BC ==
[~2016-09-25] VITALS: Ht 170.2 cm; Wt 175.3 kg
[~2016-09-25 18:30] MED LIST changes: -AMIO200T4 PO; -BTP80 PO; -ERTA1INJ IV; -LIDOCAINE HCL 2% 2 ML VIAL (20MG/ML) ONE; -LPR25 PO; -METO50TA7 PO; -METR-162 PO; -PROM12.56 PO; -PROPOFOL IV EMULSION 10 MG/ML 20 ML VIAL IV ONE; -SODIENE PR; -SPR25 PO; -SULF800T23 PO; -ULT50X PO; -WARF5TAB7 PO
[2016-09-25] MEDS ORDERED: AMIO200T4 PO (19:01)
[2016-09-25] MEDS ORDERED: WARF5TAB7 PO (19:05)
[2016-09-25] MEDS ORDERED: SODIENE PR (19:07)
[2016-09-25] MEDS ORDERED: METO50TA7 PO (19:10)
[2016-09-25 19:34] LABS: BASO % 0.1 %; BASO ABS # 0.01 K/uL (0-0.2); COMPLETE YES; EOS % 1.3 %; HEMATOCRIT 35.7 % (37-47); IG% 0.3 %; LYMPH % 18.7 %; MEAN CELL VOLUME 89.7 fL (80-100); MEAN CORPUSCULAR HEMOGLOBIN 28.6 pg (25-34); MEAN CORPUSCULAR HGB CONC 31.9 g/dl (32-36); MEAN PLATELET VOLUME 9.9 fL (7.4-10.4); MONO % 8.6 %; PLATELET COUNT 310 K/uL (130-400); RED BLOOD COUNT 3.98 M/uL (4.2-5.4); WHITE BLOOD COUNT 10.18 K/uL (4.8-10.8)
[2016-09-25 19:50] LABS: URINE APPEARANCE CLEAR (CLEAR); URINE BILIRUBIN NEG (NEG); URINE COLOR YELLOW; URINE EPITHELIAL CELL AUTO 20-30 /lpf (0-5); URINE NITRITE NEG (NEG); URINE SPECIFIC GRAVITY 1.019 (1.000-1.030); UROBILINOGEN NEG (NEG); ZZUR CULT IF INDIC CLEAN CATCH NO
[2016-09-25 19:52] LABS: BUN/CREATININE RATIO 16.7 (10-20); CALCIUM 8.9 mg/dl (8.5-10.1); CREATININE 1.3 mg/dl (0.60-1.20); POTASSIUM 3.5 mmol/L (3.5-5.1)
[2016-09-25 20:02] LABS: MANUAL MICROSCOPIC REQUIRED? NO; REVIEW REQ? NO
--- NOTE | 2016-09-25 20:10 | DIAGNOSTIC IMAGING REPORT ---
CT SCAN OF THE ABDOMEN AND PELVIS WITHOUT CONTRAST CLINICAL HISTORY: lower abd pain, constipation, nausea COMPARISON STUDY: 11/24/2015 TECHNIQUE: CT scan of the abdomen and pelvis was performed from the lung bases to the proximal femurs. Images are reviewed in the axial, sagittal, and coronal planes. IV contrast was not administered for this examination. A dose lowering technique was utilized adhering to the principles of ALARA. CT DOSE: 2058.41 mGy.cm FINDINGS: Lower chest: The heart is normal in size and configuration, without pericardial effusion. The lung bases and pleural spaces are clear. Liver: The unenhanced liver is normal in size, contour, and attenuation. There is no intrahepatic biliary ductal dilatation. Gallbladder: Surgically absent Spleen: Normal in size and attenuation. Pancreas: Unremarkable. Adrenal glands: Unremarkable. Kidneys: No renal, ureteral, or bladder calculi are visualized. There is a 22 mm lower pole right renal pelvic cyst Bowel: There are no transition zones indicate bowel obstruction. There is colonic diverticulosis. There is sigmoid wall thickening and infiltration the perisigmoid fat. The findings are indicative of acute diverticulitis. There is a 26 mm adjacent fluid collection. A developing abscess must be considered. Incidental note is made of a lipomatous ileocecal valve. There is a normal appendix Peritoneum: There is no intraperitoneal free air or abdominal ascites. Vasculature: The abdominal aorta is normal in course and caliber. Adenopathy: None. Pelvic viscera: The bladder, and pelvic viscera are unremarkable. Skeletal structures: No destructive osseous lesions are seen. IMPRESSION: 1. Acute sigmoid diverticulitis. Possible developing 26 mm peridiverticular abscess 2. No evidence of bowel obstruction. No evidence of free air 3. Normal appendix Electronically signed by: Klever Gay M.D. 09/25/2016 8:08 PM Dictated Date/Time: 09/25/2016 8:02 PM
[2016-09-25] MEDS ORDERED: METRONIDAZOLE 500MG / 100ML NSS IV STA (20:29)
[2016-09-25] MEDS ORDERED: CIPROFLOXACIN 400MG / 200ML D5W IV STA (20:29)
[2016-09-25] MEDS ORDERED: ACETAMINOPHEN 325 MG TAB PO PRN (21:30)
[2016-09-25] MEDS ORDERED: ONDANSETRON INJ 2 MG/ML 2 ML VIAL IV PRN (21:30)
[2016-09-25 21:31] LABS: INR 1.6 (0.9-1.1); PARTIAL THROMBOPLASTIN RATIO 1.7; PROTHROMBIN TIME (PATIENT) 17.7 SECONDS (9.0-12.0)
[2016-09-25] MEDS ORDERED: HEPARIN IV LOW DOSE NO BOLUS STA (21:44)
--- NOTE | 2016-09-25 21:47 | Medical Consult ---
Consultation Date of Consultation: Sep 25, 2016. Attending Physician: Reason for Consultation: diverticulitis w/ abscess History of Present Illness pt presents to ER w/ c/o constipation for 2 weeks- has tried different products with minimal result- some loose stool. CT shows acute diverticulitis w/ 2.6 cm abscess pt morbidly obese w/ h/o afib on coumadin- low INR Past Medical/Surgical History Medical Problems: (1) Congestive heart failure Status: Acute (2) Flank pain Status: Acute Family History FH: gallbladder disease FH: heart disease FH: lung disease Hypertension Social History Smoking Status: Former Smoker Marital Status: Occupation Status: employed Allergies Coded Allergies: Codeine (Verified Allergy, Severe, SHORTNESS OF BREATH, 09/25/16) Penicillins (Verified Allergy, Severe, THROAT SWELLING, 09/25/16) Current Inpatient Medications Current Inpatient Medications Medications (Trade) Dose Ordered Sig/Binta Route Start Time Stop Time Status Last Admin Dose Admin Acetaminophen (Tylenol Tab) 650 mg Q4H PRN PO 09/25/16 21:30 10/25/16 21:29 UNV Ondansetron HCl (Zofran Inj) 4 mg Q6H PRN IV 09/25/16 21:30 10/25/16 21:29 UNV Dextrose/Sodium Chloride 1,000 ml @ 80 mls/hr [id number] IV 09/25/16 21:30 10/25/16 21:29 UNV Ciprofloxacin/ Dextrose 400 mg/ Prmx 200 ml @ 100 mls/hr Q12 IV 09/26/16 09:00 10/06/16 08:59 UNV Metronidazole 500 mg/Prmx 100 ml @ 100 mls/hr Q8H IV 09/25/16 21:30 10/05/16 21:29 UNV Physical Exam Date Time Temp Pulse Resp B/P (MAP) Pulse Ox O2 Delivery O2 Flow Rate FiO2 09/25/16 20:45 91 15 96 09/25/16 20:45 79 09/25/16 20:33 128/90 09/25/16 18:40 36.7 87 16 151/79 99 Room Air Laboratory Results Last 24 Hours Test 09/25/16 19:15 09/25/16 19:40 09/25/16 21:05 White Blood Count 10.18 K/uL Red Blood Count 3.98 M/uL Hemoglobin 11.4 g/dL Hematocrit 35.7 % Mean Corpuscular Volume 89.7 fL Mean Corpuscular Hemoglobin 28.6 pg Mean Corpuscular Hemoglobin Concent 31.9 g/dl Platelet Count 310 K/uL Mean Platelet Volume 9.9 fL Neutrophils (%) (Auto) 71.0 % Lymphocytes (%) (Auto) 18.7 % Monocytes (%) (Auto) 8.6 % Eosinophils (%) (Auto) 1.3 % Basophils (%) (Auto) 0.1 % Neutrophils # (Auto) 7.23 K/uL Lymphocytes # (Auto) 1.90 K/uL Monocytes # (Auto) 0.88 K/uL Eosinophils # (Auto) 0.13 K/uL Basophils # (Auto) 0.01 K/uL RDW Standard Deviation 47.7 fL RDW Coefficient of Variation 14.4 % Immature Granulocyte % (Auto) 0.3 % Immature Granulocyte # (Auto) 0.03 K/uL Sodium Level 137 mmol/L Potassium Level 3.5 mmol/L Chloride Level 100 mmol/L Carbon Dioxide Level 29 mmol/L Anion Gap 8.0 mmol/L Blood Urea Nitrogen 22 mg/dl Creatinine 1.30 mg/dl Est Creatinine Clear Calc Drug Dose 75.2 ml/min Estimated GFR () 52.7 Estimated GFR (Non- 45.5 BUN/Creatinine Ratio 16.7 Random Glucose 99 mg/dl Calcium Level 8.9 mg/dl Total Bilirubin 0.4 mg/dl Direct Bilirubin 0.1 mg/dl Aspartate Amino Transf (AST/SGOT) 13 U/L Alanine Aminotransferase (ALT/SGPT) 18 U/L Alkaline Phosphatase 125 U/L Total Protein 8.7 gm/dl Albumin 3.1 gm/dl Lipase 135 U/L Urine Color YELLOW Urine Appearance CLEAR Urine pH 5.0 Urine Specific [place] 1.019 Urine Protein NEG Urine Glucose (UA) NEG Urine Ketones NEG Urine Occult Blood TRACE Urine Nitrite NEG Urine Bilirubin NEG Urine Urobilinogen NEG Urine Leukocyte Esterase SMALL Urine WBC (Auto) 1-5 /hpf Urine RBC (Auto) 0-4 /hpf Urine Hyaline Casts (Auto) 1-5 /lpf Urine Epithelial Cells (Auto) 20-30 /lpf Urine Bacteria (Auto) NEG Prothrombin Time 17.7 SECONDS Prothromb Time International Ratio 1.6 Activated Partial Thromboplast Time 43.6 SECONDS Partial Thromboplastin Ratio 1.7 Assessment & Plan Pt admitted by medical team with acute diverticulitis and 2.6 cm abscess- initial nonoperative treatment with bowel rest and IV atbx. Will probably need 4-5 days in hospital.
[2016-09-25] MEDS ORDERED: HEPARIN 25000 UNIT/500 ML D5W ONE (21:59)
[2016-09-25] MEDS ORDERED: METOPROLOL SUCC 50MG EXT REL TAB PO SCH (22:00)
--- NOTE | 2016-09-25 22:23 | History and Physical ---
History & Physical Date & Time of Service: Sep 25, 2016 ~ 21:15 Chief Complaint: Constipation Primary Care Physician: Minh Reilly M.D. History of Present Illness 56 year old female who presents to the ER with constipation. Patient reports symptoms have been going on for two weeks. She has tried OTC laxatives, fiber bars, and enemas. She reports increasing abdominal distention. She reports feeling full. She has had lower abdominal pain before passing flatus. Otherwise no other pain. She reports mild nausea but appetite has been unchanged. No vomiting. She denies fever and chills. No chest pain or shortness of breath. She has chronic lower extremity edema which is unchanged. Reports intermittent palpitations that she associates with anxiety at work. She denies lightheadedness, dizziness, diaphoresis, and syncopal events. No urinary symptoms. In the ER, patient had a CT abd/pelvis that is showing acute sigmoid diverticulitis with possible developing abscess. Labs are unremarkable. Vitals are stable. She was given IV Cipro and Flagyl. Past Medical/Surgical History Medical Problems: (1) Depression Status: Chronic (2) Dyslipidemia Status: Chronic (3) HTN (hypertension) Status: Chronic (4) Non-ischemic cardiomyopathy Permanent Comment: hx of EF 35-39% echo 08/2016 - EF 60%, grade I diastolic dysfunction Status: Chronic (5) EVELYN on CPAP Status: Chronic (6) Paroxysmal a-fib Status: Chronic Surgical Problems: (1) History of carpal tunnel surgery of left wrist Status: Chronic (2) S/P cholecystectomy Status: Chronic Family History Stroke FATHER MOTHER Social History Smoking Status: Former Smoker Alcohol Use: occasionally Marital Status: Immunizations History of Influenza Vaccine: Yes Influenza Vaccine Date: Nov 27, 2015 History of Tetanus Vaccine?: Yes Tetanus Immunization Date: Mar 15, 2009 History of Pneumococcal: Yes Pneumococcal Date: Oct 18, 2009 Multi-Drug Resistant Organisms History of MDRO: No Allergies Coded Allergies: Codeine (Verified Allergy, Severe, SHORTNESS OF BREATH, 09/25/16) Penicillins (Verified Allergy, Severe, THROAT SWELLING, 09/25/16) Home Medications Scheduled Amiodarone Hcl (Cordarone), 200 MG PO DAILY Lisinopril (Lisinopril), 20 MG PO DAILY Metoprolol Succ (Toprol Xl) (Toprol-Xl), 100 MG PO QPM Metoprolol Succinate (Metoprolol Succinate ER), 50 MG PO QAM Spironolactone (Aldactone), 12.5 MG PO DAILY Torsemide (Demadex), 20 MG PO DAILY Warfarin Sod (Jantoven), 10 MG PO DAILY Warfarin Sodium (Coumadin), 5 MG PO DAILY Review of Systems ROS per HPI, all other systems reviewed and negative Physical Exam Vital Signs Date Time Temp Pulse Resp B/P (MAP) Pulse Ox O2 Delivery O2 Flow Rate FiO2 09/25/16 20:45 91 15 96 09/25/16 20:45 79 09/25/16 20:33 128/90 09/25/16 18:40 36.7 87 16 151/79 99 Room Air General Appearance: no apparent distress Head: normocephalic Eyes: normal inspection ENT: hearing grossly normal Neck: supple, no JVD Respiratory/Chest: lungs clear, normal breath sounds, no respiratory distress Cardiovascular: + irregularly irregular (rate controlled), + pertinent finding (+2 edema BLLE) Abdomen/GI: normal bowel sounds, non tender, soft, + distended Extremities/Musculoskelatal: normal inspection, no calf tenderness Neurologic/Psych: no motor/sensory deficits, alert, normal mood/affect, oriented x 3 Skin: normal color, warm/dry Diagnostics Laboratory Results Results Past 24 Hours Test 09/25/16 19:15 09/25/16 19:40 09/25/16 21:05 Range/Units White Blood Count 10.18 4.8-10.8 K/uL Red Blood Count 3.98 4.2-5.4 M/uL Hemoglobin 11.4 12.0-16.0 g/dL Hematocrit 35.7 37-47 % Mean Corpuscular Volume 89.7 80-100 fL Mean Corpuscular Hemoglobin 28.6 25-34 pg Mean Corpuscular Hemoglobin Concent 31.9 32-36 g/dl Platelet Count 310 130-400 K/uL Mean Platelet Volume 9.9 7.4-10.4 fL Neutrophils (%) (Auto) 71.0 % Lymphocytes (%) (Auto) 18.7 % Monocytes (%) (Auto) 8.6 % Eosinophils (%) (Auto) 1.3 % Basophils (%) (Auto) 0.1 % Neutrophils # (Auto) 7.23 1.4-6.5 K/uL Lymphocytes # (Auto) 1.90 1.2-3.4 K/uL Monocytes # (Auto) 0.88 0.11-0.59 K/uL Eosinophils # (Auto) 0.13 0-0.5 K/uL Basophils # (Auto) 0.01 0-0.2 K/uL RDW Standard Deviation 47.7 36.4-46.3 fL RDW Coefficient of Variation 14.4 11.5-14.5 % Immature Granulocyte % (Auto) 0.3 % Immature Granulocyte # (Auto) 0.03 0.00-0.02 K/uL Sodium Level 137 136-145 mmol/L Potassium Level 3.5 3.5-5.1 mmol/L Chloride Level 100 98-107 mmol/L Carbon Dioxide Level 29 21-32 mmol/L Anion Gap 8.0 3-11 mmol/L Blood Urea Nitrogen 22 7-18 mg/dl Creatinine 1.30 0.60-1.20 mg/dl Est Creatinine Clear Calc Drug Dose 75.2 ml/min Estimated GFR () 52.7 Estimated GFR (Non- 45.5 BUN/Creatinine Ratio 16.7 10-20 Random Glucose 99 70-99 mg/dl Calcium Level 8.9 8.5-10.1 mg/dl Total Bilirubin 0.4 0.2-1 mg/dl Direct Bilirubin 0.1 0-0.2 mg/dl Aspartate Amino Transf (AST/SGOT) 13 15-37 U/L Alanine Aminotransferase (ALT/SGPT) 18 12-78 U/L Alkaline Phosphatase 125 45-117 U/L Total Protein 8.7 6.4-8.2 gm/dl Albumin 3.1 3.4-5.0 gm/dl Lipase 135 73-393 U/L Urine Color YELLOW Urine Appearance CLEAR CLEAR Urine pH 5.0 4.5-7.5 Urine Specific [place] 1.019 1.000-1.030 Urine Protein NEG NEG Urine Glucose (UA) NEG NEG Urine Ketones NEG NEG Urine Occult Blood TRACE NEG Urine Nitrite NEG NEG Urine Bilirubin NEG NEG Urine Urobilinogen NEG NEG Urine Leukocyte Esterase SMALL NEG Urine WBC (Auto) 1-5 0-5 /hpf Urine RBC (Auto) 0-4 0-4 /hpf Urine Hyaline Casts (Auto) 1-5 0-5 /lpf Urine Epithelial Cells (Auto) 20-30 0-5 /lpf Urine Bacteria (Auto) NEG NEG Prothrombin Time 17.7 9.0-12.0 SECONDS Prothromb Time International Ratio 1.6 0.9-1.1 Activated Partial Thromboplast Time 43.6 21.0-31.0 SECONDS Partial Thromboplastin Ratio 1.[address] ABD/PELVIS IMPRESSION: 1. Acute sigmoid diverticulitis. Possible developing 26 mm peridiverticular abscess 2. No evidence of bowel obstruction. No evidence of free air 3. Normal appendix Impression Assessment and Plan ACUTE SIGMOID DIVERTICULITIS W/ POSSIBLE ABSCESS - admit to tele - patient presenting with constipation x 2 weeks; in the ED, underwent CT abd/ pelvis that is showing acute sigmoid diverticulitis with possible 2.6cm abscess - afebrile, no leukocytosis, vitals stable - s/p Cipro and Flagyl in the ED, will continue with - case discussed with Dr. Rosen - will keep NPO - first episode of diverticulitis, noted no history of colonoscopy ATRIAL FIBRILLATION - currently in rate controlled atrial fibrillation - was recently taken off of Amiodarone however outpatient Holter monitor demonstrated paroxysmal afib with RVR so therefore Amdioadone was restarted on - also on metoprolol for rate control - per outpatient cardiology note - consideration is being given to start Sotalol therapy - will place cardiology consult for eval tomorrow - on Coumadin, INR 1.6 - will start heparin IV gtt bridge due to acute diverticulitis and possible need for surgical intervention NON ISCHEMIC CARDIOMYOPATHY - appears euvolemic - will hold diuretics due to acute infection / NPO status - EF 60% echo 08/2016 - continue beta jackie and ACEi HTN - BP stable, continue lisinopril and metoprolol EVELYN - CPAP as per home settings DVT PROPHYLAXIS - heparin gtt DISPO - In my clinical judgment this beneficiary meets acute admission criteria, established by [facility], that includes being hospitalized through two midnights. Attending Addendum: The patient was seen and examined Has been constipated recently Bowel moved about 1 week ago Presented with lower abdominal pain ,no nausea,vomiting ,fever or chills O/E Very Obese Hemodynamically stable Chest-clear to ausucltate bilaterally Heart-regular Abdomen -mildly tender hypogastrium Extremities-trace edema bilaterally Labs and Imaging studies were reviewed. Hs Diverticulitis Agree with the assessment and plan. Dr Scar Mendoza VTE Prophylaxis VTE Risk Assessment Done? Y/N: Yes Risk Level: Moderate Given or contraindicated: Warfarin (Coumadin)
[2016-09-25 22:35] VITALS: BP 103/73; PULSE 82; TEMP 36.8; O2SAT 100; Ht 170.2 cm; Wt 175.3 kg
[2016-09-25] MEDS: D5W AND NSS 1,000 ML IV SCH (23:41)
[2016-09-26] VITALS (7 sets, daily range): BP systolic 90–118; BP diastolic 53–77; PULSE 56–87; TEMP 36.6–36.8; O2SAT 92–99
--- NOTE | 2016-09-26 00:43 | EMERGENCY ROOM VISIT NOTE ---
History Report prepared by [place]: Amber Frausto Under the Supervision of: Dr. Eugenio Ramirez M.D. First contact with patient: 18:56 Chief Complaint: CONSTIPATION Stated Complaint: BOWEL PROBLEMS History of Present Illness The patient is a 56 year old female who presents to the Emergency Room with complaints of constant constipation beginning 2 weeks ago. The patient states that in 2 weeks she has not had any normal bowel movement. She reports that she has tried Miralax with production of only brown liquid. She notes that she has tried fiber one bars, laxative pills, and an enema without relief of her symptoms. The patient complains of nausea, sharp intermittent lower abdominal pain, back pain and pressure, and increased passing of gas. She denies LOC, headache, fevers, chills, diaphoresis, visual changes, neck pain, chest pain, breathing difficulties, nausea, melena, hematochezia, urinary symptoms, numbness , weakness, lymphadenopathy, rash, or other complaints. The patient states that her sister has a history of diverticulitis. She reports that she has a history of atrial fibrillation and notes that she is on Warfarin and Amiodarone. Source of History: patient Onset: 2 weeks ago Position: other (global) Quality: other (constipation) Timing: constant Associated Symptoms: + nausea, + abdominal pain, + back pain Note: Pt complains of increased passing of gas. Review of Systems See HPI for pertinent positives and negatives. A total of ten systems were reviewed and were otherwise negative. Past Medical & Surgical Medical Problems: (1) Depression (2) Diverticulitis (3) Dyslipidemia (4) HTN (hypertension) (5) Non-ischemic cardiomyopathy (6) EVELYN on CPAP (7) Paroxysmal a-fib Surgical Problems: (1) History of carpal tunnel surgery of left wrist (2) S/P cholecystectomy Family History FH: gallbladder disease FH: heart disease FH: lung disease Hypertension Social History Smoking Status: Former Smoker Alcohol Use: occasionally Marital Status: Housing Status: lives with significant other Occupation Status: employed Current/Historical Medications Scheduled Amiodarone Hcl (Cordarone), 200 MG PO DAILY Lisinopril (Lisinopril), 20 MG PO DAILY Metoprolol Succ (Toprol Xl) (Toprol-Xl), 100 MG PO QPM Metoprolol Succinate (Metoprolol Succinate ER), 50 MG PO QAM Spironolactone (Aldactone), 12.5 MG PO DAILY Torsemide (Demadex), 20 MG PO DAILY Warfarin Sod (Jantoven), 10 MG PO DAILY Warfarin Sodium (Coumadin), 5 MG PO DAILY Allergies Coded Allergies: Codeine (Verified Allergy, Severe, SHORTNESS OF BREATH, 09/25/16) Penicillins (Verified Allergy, Severe, THROAT SWELLING, 09/25/16) Physical Exam Vital Signs Date Time Temp Pulse Resp B/P (MAP) Pulse Ox O2 Delivery O2 Flow Rate FiO2 09/25/16 21:45 77 24 115/71 99 Room Air 09/25/16 20:45 91 15 96 09/25/16 20:45 79 09/25/16 20:33 128/90 09/25/16 18:40 36.7 87 16 151/79 99 Room Air Physical Exam GENERAL: Awake, alert, well-appearing, in no distress HENT: Normocephalic, atraumatic. Oropharynx unremarkable. EYES: Normal conjunctiva. Sclera non-icteric. NECK: Supple. No nuchal rigidity. FROM. No JVD. RESPIRATORY: Clear to auscultation. CARDIAC: Regular rate, normal rhythm. Extremities warm and well perfused. Pulses equal. ABDOMEN: Soft, non-distended. LLQ tenderness to palpation. No rebound or guarding. No masses. RECTAL: Deferred. MUSCULOSKELETAL: Chest examination reveals no tenderness. The back is symmetrical on inspection without obvious abnormality. Left CVA tenderness to palpation. No joint edema. LOWER EXTREMITIES: Calves are equal size bilaterally and non-tender. No edema. No discoloration. NEURO: Normal sensorium. No sensory or motor deficits noted. SKIN: No rash or jaundice noted. Medical Decision & Procedures ER Provider Diagnostic Interpretation: Radiology results as stated below per my review and radiologist interpretation: CT SCAN OF THE ABDOMEN AND PELVIS WITHOUT CONTRAST FINDINGS: Lower chest: The heart is normal in size and configuration, without pericardial effusion. The lung bases and pleural spaces are clear. Liver: The unenhanced liver is normal in size, contour, and attenuation. There is no intrahepatic biliary ductal dilatation. Gallbladder: Surgically absent Spleen: Normal in size and attenuation. Pancreas: Unremarkable. Adrenal glands: Unremarkable. Kidneys: No renal, ureteral, or bladder calculi are visualized. There is a 22 mm lower pole right renal pelvic cyst Bowel: There are no transition zones indicate bowel obstruction. There is colonic diverticulosis. There is sigmoid wall thickening and infiltration the perisigmoid fat. The findings are indicative of acute diverticulitis. There is a 26 mm adjacent fluid collection. A developing abscess must be considered. Incidental note is made of a lipomatous ileocecal valve. There is a normal appendix Peritoneum: There is no intraperitoneal free air or abdominal ascites. Vasculature: The abdominal aorta is normal in course and caliber. Adenopathy: None. Pelvic viscera: The bladder, and pelvic viscera are unremarkable. Skeletal structures: No destructive osseous lesions are seen. IMPRESSION: 1. Acute sigmoid diverticulitis. Possible developing 26 mm peridiverticular abscess 2. No evidence of bowel obstruction. No evidence of free air 3. Normal appendix Electronically signed by: Klever Gay M.D. 09/25/2016 8:08 PM Dictated Date/Time: 09/25/2016 8:02 PM Laboratory Results 09/25/16 19:15 Red Blood Count 3.98, Mean Corpuscular Volume 89.7, Mean Corpuscular Hemoglobin 28.6, Mean Corpuscular Hemoglobin Concent 31.9, Mean Platelet Volume 9.9, Neutrophils (%) (Auto) 71.0, Lymphocytes (%) (Auto) 18.7, Monocytes (%) (Auto) 8.6, Eosinophils (%) (Auto) 1.3, Basophils (%) (Auto) 0.1, Neutrophils # (Auto) 7.23, Lymphocytes # (Auto) 1.90, Monocytes # (Auto) 0.88, Eosinophils # (Auto) 0.13, Basophils # (Auto) 0.01 09/25/16 19:15 Test 09/25/16 19:15 09/25/16 19:40 09/25/16 21:05 White Blood Count 10.18 K/uL (4.8-10.8) Red Blood Count 3.98 M/uL (4.2-5.4) Hemoglobin 11.4 g/dL (12.0-16.0) Hematocrit 35.7 % (37-47) Mean Corpuscular Volume 89.7 fL (80-100) Mean Corpuscular Hemoglobin 28.6 pg (25-34) Mean Corpuscular Hemoglobin Concent 31.9 g/dl (32-36) Platelet Count 310 K/uL (130-400) Mean Platelet Volume 9.9 fL (7.4-10.4) Neutrophils (%) (Auto) 71.0 % Lymphocytes (%) (Auto) 18.7 % Monocytes (%) (Auto) 8.6 % Eosinophils (%) (Auto) 1.3 % Basophils (%) (Auto) 0.1 % Neutrophils # (Auto) 7.23 K/uL (1.4-6.5) Lymphocytes # (Auto) 1.90 K/uL (1.2-3.4) Monocytes # (Auto) 0.88 K/uL (0.11-0.59) Eosinophils # (Auto) 0.13 K/uL (0-0.5) Basophils # (Auto) 0.01 K/uL (0-0.2) RDW Standard Deviation 47.7 fL (36.4-46.3) RDW Coefficient of Variation 14.4 % (11.5-14.5) Immature Granulocyte % (Auto) 0.3 % Immature Granulocyte # (Auto) 0.03 K/uL (0.00-0.02) Anion Gap 8.0 mmol/L (3-11) Est Creatinine Clear Calc Drug Dose 75.2 ml/min Estimated GFR () 52.7 Estimated GFR (Non- 45.5 BUN/Creatinine Ratio 16.7 (10-20) Calcium Level 8.9 mg/dl (8.5-10.1) Total Bilirubin 0.4 mg/dl (0.2-1) Direct Bilirubin 0.1 mg/dl (0-0.2) Aspartate Amino Transf (AST/SGOT) 13 U/L (15-37) Alanine Aminotransferase (ALT/SGPT) 18 U/L (12-78) Alkaline Phosphatase 125 U/L (45-117) Total Protein 8.7 gm/dl (6.4-8.2) Albumin 3.1 gm/dl (3.4-5.0) Lipase 135 U/L (73-393) Urine Color YELLOW Urine Appearance CLEAR (CLEAR) Urine pH 5.0 (4.5-7.5) Urine Specific [place] 1.019 (1.000-1.030) Urine Protein NEG (NEG) Urine Glucose (UA) NEG (NEG) Urine Ketones NEG (NEG) Urine Occult Blood TRACE (NEG) Urine Nitrite NEG (NEG) Urine Bilirubin NEG (NEG) Urine Urobilinogen NEG (NEG) Urine Leukocyte Esterase SMALL (NEG) Urine WBC (Auto) 1-5 /hpf (0-5) Urine RBC (Auto) 0-4 /hpf (0-4) Urine Hyaline Casts (Auto) 1-5 /lpf (0-5) Urine Epithelial Cells (Auto) 20-30 /lpf (0-5) Urine Bacteria (Auto) NEG (NEG) Prothrombin Time 17.7 SECONDS (9.0-12.0) Prothromb Time International Ratio 1.6 (0.9-1.1) Activated Partial Thromboplast Time 43.6 SECONDS (21.0-31.0) Partial Thromboplastin Ratio 1.7 Laboratory results reviewed by me Medications Administered Medications (Trade) Dose Ordered Sig/Binta Route Start Time Stop Time Status Last Admin Dose Admin Ciprofloxacin/ Dextrose (Cipro / D5W) 400 mg NOW STAT IV 09/25/16 20:29 09/25/16 20:30 DC 09/25/16 20:40 400 MG Metronidazole (Flagyl / Nss) 500 mg NOW STAT IV 09/25/16 20:29 09/25/16 20:30 DC 09/25/16 20:40 500 MG ED Course 6: The patient was evaluated in room B8. A complete history and physical exam was performed. 2028: Metronidazole 500mg IV, Ciprofloxacin/Dextrose 400mg IV. 2126: Discussed the patient's case with Dr. Mendoza of [facility]. The patient will be evaluated for further treatment and disposition. 2137: Upon reexamination, the patient was doing well. I discussed the test results and treatment plan with her. The patient will be evaluated for further management. Medical Decision Triage Nursing notes reviewed. The patient's presentation and history were concerning for abdominal pain and constipation. Etiologies such as diverticulitis, appendicitis, obstruction, inflammatory bowel disease, renal colic, PUD, biliary pathology, pancreatitis, mesenteric ischemia, aortic pathology, infections, genitourinary, UTI, perforated viscus, as well as others were entertained. The patient was evaluated. She had tenderness in left lower quadrant. Blood work was obtained. She underwent CT imaging. The patient was found to have a mild anemia on CBC but no leukocytosis. Urinalysis, chemistry panel, LFTs, lipase are unremarkable. CT imaging was concerning for diverticulitis with questionable 26 mm fluid collection concerning for developing abscess. There is no free air to suggest perforation. The patient was given IV Cipro and Flagyl. Given the findings on CT imaging further evaluation and management in the hospital will be necessary. I consulted with the [facility] hospitalist. The patient was evaluated in the Emergency Room for further management. Medication Reconcilliation Current Medication List: was personally reviewed by me Blood Pressure Screening Patient's blood pressure: Elevated blood pressure Blood pressure disposition: Elevated BP felt to be situational Consults Time Called: [id number] Consulting Physician: Dr. Kelly Ackerman Returned Call: [phone] Discussed the patient's case with Dr. Mendoza of [facility]. The patient will be evaluated for further treatment and disposition. Impression Primary Impression: Diverticulitis Scribe Attestation The scribe's documentation has been prepared under my direction and personally reviewed by me in its entirety. I confirm that the note above accurately reflects all work, treatment, procedures, and medical decision making performed by me. Departure Information Dispostion Being Evaluated By Hospitalist Minh De La Cruz M.D. (PCP) Patient Instructions My [facility]
[2016-09-26 03:59] LABS: MEAN CELL VOLUME 88.6 fL (80-100); MEAN CORPUSCULAR HEMOGLOBIN 28.5 pg (25-34); MEAN CORPUSCULAR HGB CONC 32.2 g/dl (32-36); MEAN PLATELET VOLUME 9.4 fL (7.4-10.4); PLATELET COUNT 247 K/uL (130-400); RED BLOOD COUNT 3.61 M/uL (4.2-5.4); WHITE BLOOD COUNT 8.44 K/uL (4.8-10.8)
[2016-09-26 04:18] LABS: BUN/CREATININE RATIO 16.6 (10-20); CALCIUM 8.5 mg/dl (8.5-10.1); CREATININE 1.1 mg/dl (0.60-1.20); POTASSIUM 3.7 mmol/L (3.5-5.1)
[2016-09-26 04:30] LABS: INR 1.6 (0.9-1.1); PARTIAL THROMBOPLASTIN RATIO 1.8; PROTHROMBIN TIME (PATIENT) 17.3 SECONDS (9.0-12.0)
[2016-09-26] MEDS ORDERED: HEPARIN IV BOLUS 4,000 UNIT in SYRINGE 0 ML IV STA (04:58)
[2016-09-26] MEDS ORDERED: METRONIDAZOLE / NSS 500 MG in PREMIXED NSS 100 ML IV SCH (05:00)
[2016-09-26] MEDS: HEPARIN 25,000 UNIT/500ML D5W 500 ML IV PRN ×2 (05:08→17:28)
--- NOTE | 2016-09-26 06:35 | Medical Consult ---
Consultation Date of Consultation: Sep 26, 2016. Attending Physician: Cameron Mon MD Reason for Consultation: diverticulitis History of Present Illness pt adm with acute diverticulitis and 2.6 cm abscess/ phlegmon. Has had sxs of pressure and constipation for 1-2 weeks- has tried different cathartics with little help. CT from ER workup shows sigmoid diverticulitis with 2.6 cm area of inflammation- possible abscess vs phlegmon. Past Medical/Surgical History Medical Problems: (1) Congestive heart failure Status: Acute (2) Flank pain Status: Acute Family History Stroke FATHER MOTHER Social History Smoking Status: Former Smoker Alcohol Use: occasionally Marital Status: Housing Status: lives with significant other Occupation Status: employed Allergies Coded Allergies: Codeine (Verified Allergy, Severe, SHORTNESS OF BREATH, 09/25/16) Penicillins (Verified Allergy, Severe, THROAT SWELLING, 09/25/16) Current Inpatient Medications Current Inpatient Medications Medications (Trade) Dose Ordered Sig/Binta Route Start Time Stop Time Status Last Admin Dose Admin Acetaminophen (Tylenol Tab) 650 mg Q4H PRN PO 09/25/16 21:30 10/25/16 21:29 Ondansetron HCl (Zofran Inj) 4 mg Q6H PRN IV 09/25/16 21:30 10/25/16 21:29 Dextrose/Sodium Chloride 1,000 ml @ 80 mls/hr [id number] IV 09/25/16 22:30 10/25/16 22:29 09/25/16 23:41 80 MLS/HR Ciprofloxacin/ Dextrose 400 mg/ Prmx 200 ml @ 100 mls/hr Q12H IV 09/26/16 08:00 10/05/16 19:59 Metronidazole 500 mg/Prmx 100 ml @ 100 mls/hr Q8H IV 09/26/16 05:00 10/05/16 19:59 09/26/16 05:09 100 MLS/HR Amiodarone HCl (Cordarone Tab) 200 mg DAILY PO 09/26/16 09:00 10/26/16 08:59 Lisinopril (Zestril Tab) 20 mg DAILY PO 09/26/16 09:00 10/26/16 08:59 Metoprolol Succinate (Toprol Xl Tab) 100 mg QPM PO 09/25/16 22:00 10/25/16 21:59 09/25/16 23:57 100 MG Metoprolol Succinate (Toprol Xl Tab) 50 mg QAM PO 09/26/16 09:00 10/26/16 08:59 Heparin Sodium/ Dextrose 500 ml @ 22 mls/hr [id number] PRN IV 09/25/16 22:45 10/25/16 22:44 09/26/16 05:08 22 MLS/HR Review of Systems Constitutional: No fever, No chills Respiratory: No cough, No shortness of breath Cardiovascular: No chest pain Abdomen: + constipation, No pain, No nausea, No vomiting Musculoskeletal: No joint pain Endocrine: No fatigue Integumentary: No rash Physical Exam Date Time Temp Pulse Resp B/P (MAP) Pulse Ox O2 Delivery O2 Flow Rate FiO2 09/26/16 04:17 36.8 87 21 112/74 (87) 96 Room Air 09/26/16 04:00 Room Air 09/26/16 00:45 79 97 09/25/16 22:35 36.8 82 16 103/73 100 Room Air 09/25/16 21:45 77 24 115/71 99 Room Air 09/25/16 20:45 91 15 96 09/25/16 20:45 79 09/25/16 20:33 128/90 09/25/16 18:40 36.7 87 16 151/79 99 Room Air General Appearance: no apparent distress Head: atraumatic Eyes: sclerae normal Neck: supple Respiratory/Chest: no respiratory distress Cardiovascular: regular rate, rhythm Abdomen/GI: non tender, soft Extremities/Musculoskelatal: no pedal edema Laboratory Results Last 24 Hours Test 09/25/16 19:15 09/25/16 19:40 09/25/16 21:05 09/26/16 03:49 White Blood Count 10.18 K/uL 8.44 K/uL Red Blood Count 3.98 M/uL 3.61 M/uL Hemoglobin 11.4 g/dL 10.3 g/dL Hematocrit 35.7 % 32.0 % Mean Corpuscular Volume 89.7 fL 88.6 fL Mean Corpuscular Hemoglobin 28.6 pg 28.5 pg Mean Corpuscular Hemoglobin Concent 31.9 g/dl 32.2 g/dl Platelet Count 310 K/uL 247 K/uL Mean Platelet Volume 9.9 fL 9.4 fL Neutrophils (%) (Auto) 71.0 % Lymphocytes (%) (Auto) 18.7 % Monocytes (%) (Auto) 8.6 % Eosinophils (%) (Auto) 1.3 % Basophils (%) (Auto) 0.1 % Neutrophils # (Auto) 7.23 K/uL Lymphocytes # (Auto) 1.90 K/uL Monocytes # (Auto) 0.88 K/uL Eosinophils # (Auto) 0.13 K/uL Basophils # (Auto) 0.01 K/uL RDW Standard Deviation 47.7 fL 46.9 fL RDW Coefficient of Variation 14.4 % 14.4 % Immature Granulocyte % (Auto) 0.3 % Immature Granulocyte # (Auto) 0.03 K/uL Sodium Level 137 mmol/L 141 mmol/L Potassium Level 3.5 mmol/L 3.7 mmol/L Chloride Level 100 mmol/L 106 mmol/L Carbon Dioxide Level 29 mmol/L 31 mmol/L Anion Gap 8.0 mmol/L 4.0 mmol/L Blood Urea Nitrogen 22 mg/dl 18 mg/dl Creatinine 1.30 mg/dl 1.10 mg/dl Est Creatinine Clear Calc Drug Dose 75.2 ml/min 95.7 ml/min Estimated GFR () 52.7 64.5 Estimated GFR (Non- 45.5 55.7 BUN/Creatinine Ratio 16.7 16.6 Random Glucose 99 mg/dl 111 mg/dl Calcium Level 8.9 mg/dl 8.5 mg/dl Total Bilirubin 0.4 mg/dl Direct Bilirubin 0.1 mg/dl Aspartate Amino Transf (AST/SGOT) 13 U/L Alanine Aminotransferase (ALT/SGPT) 18 U/L Alkaline Phosphatase 125 U/L Total Protein 8.7 gm/dl Albumin 3.1 gm/dl Lipase 135 U/L Urine Color YELLOW Urine Appearance CLEAR Urine pH 5.0 Urine Specific [place] 1.019 Urine Protein NEG Urine Glucose (UA) NEG Urine Ketones NEG Urine Occult Blood TRACE Urine Nitrite NEG Urine Bilirubin NEG Urine Urobilinogen NEG Urine Leukocyte Esterase SMALL Urine WBC (Auto) 1-5 /hpf Urine RBC (Auto) 0-4 /hpf Urine Hyaline Casts (Auto) 1-5 /lpf Urine Epithelial Cells (Auto) 20-30 /lpf Urine Bacteria (Auto) NEG Prothrombin Time 17.7 SECONDS 17.3 SECONDS Prothromb Time International Ratio 1.6 1.6 Activated Partial Thromboplast Time 43.6 SECONDS 46.2 SECONDS Partial Thromboplastin Ratio 1.7 1.8 Assessment & Plan Pt admitted by medical team with acute diverticulitis and 2.6 cm abscess/ phlegmon. initial nonoperative treatment with bowel rest and IV atbx. Will probably need 4-5 days in hospital. Will ask ID to see pt for help with atbx choices and duration.
[2016-09-26] MEDS: LISINOPRIL 20 MG TAB PO SCH (07:57)
[2016-09-26] MEDS ORDERED: CIPROFLOXACIN / D5W 400 MG in PREMIXED IN D5W 200 ML IV SCH (08:00)
[2016-09-26] MEDS ORDERED: METOPROLOL SUCC 50MG EXT REL TAB PO SCH (09:00)
[2016-09-26] MEDS ORDERED: AMIODARONE 200 MG TAB PO SCH (09:00)
--- NOTE | 2016-09-26 09:52 | Medical Consult ---
Consultation Date of Consultation: Sep 26, 2016. Attending Physician: Vivian Paiz M.D. Reason for Consultation: Diverticulitis with 2.6 cm abscess History of Present Illness 56-year-old female with history of hypertension, atrial fibrillation, hyperlipidemia, chronic lower extremity edema, was in usual state of health until approximately 2 weeks prior to admission when she noted onset of obstipation. She developed progressively worsening pressure left lower quadrant , and eventually came to the emergency department because of worsening symptoms. CT scan was performed, read by me, which showed evidence of developing diverticulitis and possible developing abscess. She has been started empirically on ciprofloxacin and metronidazole. Symptoms are about the same this morning. She denies any significant fever or chills. No nausea or vomiting. Patient carries history of penicillin allergy, but is taken cephalosporins without difficulty. Past Medical/Surgical History Medical Problems: (1) Congestive heart failure Status: Acute (2) Flank pain Status: Acute Medical Problems: (1) Depression (2) Diverticulitis (3) Dyslipidemia (4) HTN (hypertension) (5) Non-ischemic cardiomyopathy (6) EVELYN on CPAP (7) Paroxysmal a-fib Surgical Problems: (1) History of carpal tunnel surgery of left wrist (2) S/P cholecystectomy Family History Stroke FATHER MOTHER Social History Smoking Status: Former Smoker Alcohol Use: occasionally Marital Status: Housing Status: lives with significant other Occupation Status: employed Allergies Coded Allergies: Codeine (Verified Allergy, Severe, SHORTNESS OF BREATH, 09/25/16) Penicillins (Verified Allergy, Severe, THROAT SWELLING, 09/25/16) Current Inpatient Medications Current Inpatient Medications Medications (Trade) Dose Ordered Sig/Binta Route Start Time Stop Time Status Last Admin Dose Admin Acetaminophen (Tylenol Tab) 650 mg Q4H PRN PO 09/25/16 21:30 10/25/16 21:29 Ondansetron HCl (Zofran Inj) 4 mg Q6H PRN IV 09/25/16 21:30 10/25/16 21:29 Dextrose/Sodium Chloride 1,000 ml @ 80 mls/hr [id number] IV 09/25/16 22:30 10/25/16 22:29 09/25/16 23:41 80 MLS/HR Ciprofloxacin/ Dextrose 400 mg/ Prmx 200 ml @ 100 mls/hr Q12H IV 09/26/16 08:00 10/05/16 19:59 09/26/16 07:57 100 MLS/HR Metronidazole 500 mg/Prmx 100 ml @ 100 mls/hr Q8H IV 09/26/16 05:00 10/05/16 19:59 09/26/16 05:09 100 MLS/HR Amiodarone HCl (Cordarone Tab) 200 mg DAILY PO 09/26/16 09:00 10/26/16 08:59 Lisinopril (Zestril Tab) 20 mg DAILY PO 09/26/16 09:00 10/26/16 08:59 09/26/16 07:57 20 MG Metoprolol Succinate (Toprol Xl Tab) 100 mg QPM PO 09/25/16 22:00 10/25/16 21:59 09/25/16 23:57 100 MG Metoprolol Succinate (Toprol Xl Tab) 50 mg QAM PO 09/26/16 09:00 10/26/16 08:59 Heparin Sodium/ Dextrose 500 ml @ 22 mls/hr [id number] PRN IV 09/25/16 22:45 10/25/16 22:44 09/26/16 05:08 22 MLS/HR Review of Systems All symptoms were reviewed and are negative except as per HPI Physical Exam Date Time Temp Pulse Resp B/P (MAP) Pulse Ox O2 Delivery O2 Flow Rate FiO2 09/26/16 08:00 Room Air 09/26/16 07:52 36.7 76 20 118/72 (87) 96 09/26/16 04:17 36.8 87 21 112/74 (87) 96 Room Air 09/26/16 04:00 Room Air 09/26/16 00:45 79 97 09/25/16 22:35 36.8 82 16 103/73 100 Room Air 09/25/16 21:45 77 24 115/71 99 Room Air 09/25/16 20:45 91 15 96 09/25/16 20:45 79 09/25/16 20:33 128/90 09/25/16 18:40 36.7 87 16 151/79 99 Room Air General Appearance: WD/WN, no apparent distress, + obese Head: normocephalic, atraumatic Eyes: normal inspection, EOMI, sclerae normal ENT: normal ENT inspection, hearing grossly normal, pharynx normal Neck: supple, no adenopathy, thyroid normal, trachea midline Respiratory/Chest: chest non-tender, lungs clear, normal breath sounds, no respiratory distress Cardiovascular: no gallop, no murmur, + irregularly irregular Abdomen/GI: normal bowel sounds, soft, no organomegaly, + tenderness (Slight left lower quadrant) Back: normal inspection, no CVA tenderness Extremities/Musculoskelatal: no calf tenderness, non-tender Neurologic/Psych: alert, oriented x 3 Skin: normal color, warm/dry, no rash Lymphatic: no adenopathy Laboratory Results . Last 24 Hours Test 09/25/16 19:15 09/25/16 19:40 09/25/16 21:05 09/26/16 03:49 White Blood Count 10.18 K/uL 8.44 K/uL Red Blood Count 3.98 M/uL 3.61 M/uL Hemoglobin 11.4 g/dL 10.3 g/dL Hematocrit 35.7 % 32.0 % Mean Corpuscular Volume 89.7 fL 88.6 fL Mean Corpuscular Hemoglobin 28.6 pg 28.5 pg Mean Corpuscular Hemoglobin Concent 31.9 g/dl 32.2 g/dl Platelet Count 310 K/uL 247 K/uL Mean Platelet Volume 9.9 fL 9.4 fL Neutrophils (%) (Auto) 71.0 % Lymphocytes (%) (Auto) 18.7 % Monocytes (%) (Auto) 8.6 % Eosinophils (%) (Auto) 1.3 % Basophils (%) (Auto) 0.1 % Neutrophils # (Auto) 7.23 K/uL Lymphocytes # (Auto) 1.90 K/uL Monocytes # (Auto) 0.88 K/uL Eosinophils # (Auto) 0.13 K/uL Basophils # (Auto) 0.01 K/uL RDW Standard Deviation 47.7 fL 46.9 fL RDW Coefficient of Variation 14.4 % 14.4 % Immature Granulocyte % (Auto) 0.3 % Immature Granulocyte # (Auto) 0.03 K/uL Sodium Level 137 mmol/L 141 mmol/L Potassium Level 3.5 mmol/L 3.7 mmol/L Chloride Level 100 mmol/L 106 mmol/L Carbon Dioxide Level 29 mmol/L 31 mmol/L Anion Gap 8.0 mmol/L 4.0 mmol/L Blood Urea Nitrogen 22 mg/dl 18 mg/dl Creatinine 1.30 mg/dl 1.10 mg/dl Est Creatinine Clear Calc Drug Dose 75.2 ml/min 95.7 ml/min Estimated GFR () 52.7 64.5 Estimated GFR (Non- 45.5 55.7 BUN/Creatinine Ratio 16.7 16.6 Random Glucose 99 mg/dl 111 mg/dl Calcium Level 8.9 mg/dl 8.5 mg/dl Total Bilirubin 0.4 mg/dl Direct Bilirubin 0.1 mg/dl Aspartate Amino Transf (AST/SGOT) 13 U/L Alanine Aminotransferase (ALT/SGPT) 18 U/L Alkaline Phosphatase 125 U/L Total Protein 8.7 gm/dl Albumin 3.1 gm/dl Lipase 135 U/L Urine Color YELLOW Urine Appearance CLEAR Urine pH 5.0 Urine Specific [place] 1.019 Urine Protein NEG Urine Glucose (UA) NEG Urine Ketones NEG Urine Occult Blood TRACE Urine Nitrite NEG Urine Bilirubin NEG Urine Urobilinogen NEG Urine Leukocyte Esterase SMALL Urine WBC (Auto) 1-5 /hpf Urine RBC (Auto) 0-4 /hpf Urine Hyaline Casts (Auto) 1-5 /lpf Urine Epithelial Cells (Auto) 20-30 /lpf Urine Bacteria (Auto) NEG Prothrombin Time 17.7 SECONDS 17.3 SECONDS Prothromb Time International Ratio 1.6 1.6 Activated Partial Thromboplast Time 43.6 SECONDS 46.2 SECONDS Partial Thromboplastin Ratio 1.7 1.8 Patient Name: KATHYA DISLA Unit Number: [id number] Dictated: 09/25/162001 Transcribed: 09/25/162001 ARG Printed Date/Time: [~ rep prt dt]/[~ rep prt tm] [~ rep ct labl] - [~ rep ct ivnm] [facility] [place] [address] Dictated: 09/25/162001 Transcribed: 09/25/162001 ARG Printed Date/Time: [~ rep prt dt]/[~ rep prt tm] [~ rep ct labl] - [~ rep ct ivnm] [~ rep ct add3]] CT SCAN OF THE ABDOMEN AND PELVIS WITHOUT CONTRAST CLINICAL HISTORY: lower abd pain, constipation, nausea COMPARISON STUDY: 11/24/2015 TECHNIQUE: CT scan of the abdomen and pelvis was performed from the lung bases to the proximal femurs. Images are reviewed in the axial, sagittal, and coronal planes. IV contrast was not administered for this examination. A dose lowering technique was utilized adhering to the principles of ALARA. CT DOSE: 2058.41 mGy.cm FINDINGS: Lower chest: The heart is normal in size and configuration, without pericardial effusion. The lung bases and pleural spaces are clear. Liver: The unenhanced liver is normal in size, contour, and attenuation. There is no intrahepatic biliary ductal dilatation. Gallbladder: Surgically absent Spleen: Normal in size and attenuation. Pancreas: Unremarkable. Adrenal glands: Unremarkable. Kidneys: No renal, ureteral, or bladder calculi are visualized. There is a 22 mm lower pole right renal pelvic cyst Bowel: There are no transition zones indicate bowel obstruction. There is colonic diverticulosis. There is sigmoid wall thickening and infiltration the perisigmoid fat. The findings are indicative of acute diverticulitis. There is a 26 mm adjacent fluid collection. A developing abscess must be considered. Incidental note is made of a lipomatous ileocecal valve. There is a normal appendix Peritoneum: There is no intraperitoneal free air or abdominal ascites. Vasculature: The abdominal aorta is normal in course and caliber. Adenopathy: None. Pelvic viscera: The bladder, and pelvic viscera are unremarkable. Skeletal structures: No destructive osseous lesions are seen. IMPRESSION: 1. Acute sigmoid diverticulitis. Possible developing 26 mm peridiverticular abscess 2. No evidence of bowel obstruction. No evidence of free air 3. Normal appendix Electronically signed by: Klever Gay M.D. 09/25/2016 8:08 PM Dictated Date/Time: 09/25/2016 8:02 PM The status of this report is Signed. Draft = Not yet reviewed or approved by Radiologist. Signed = Reviewed and approved by Radiologist. <AttendingPhy></AttendingPhy> <FamilyPhy>Minh Reilly M.D.</FamilyPhy> < PrimaryPhy>Minh Reilly M.D.</PrimaryPhy> <UnitNumber>[id number]</ UnitNumber> <VisitNumber>[id number]</VisitNumber> <PatientName>KATHYA DISLA </PatientName> <DateOfBirth>1960</DateOfBirth> <Location>[facility]</Location> <ServiceDate>09/25/16</ServiceDate> <MNE>ESINDI</MNE> <OrderingPhy>Eugenio Ramirez MD</OrderingPhy> <OrderingPhyMNE>f rep ord dr viveros</OrderingPhyMNE> < DictatingPhyMNE>f rep dict dr viveros</DictatingPhyMNE> <CCListMNE>f rep ct mne</ CCListMNE> <AdmittingPhyMNE>f pt admit dr viveros</AdmittingPhyMNE> <AttendingPhyMNE >f pt attend dr viveros</AttendingPhyMNE> <ConsultingPhyMNE>f pt consult dr viveros</ConsultingPhyMNE> <FamilyPhyMNE>f pt fam dr viveros</FamilyPhyMNE> <OtherPhyMNE>f pt other dr viveros</OtherPhyMNE> < PrimaryPhyMNE>f pt prim care dr viveros</PrimaryPhyMNE> <ReferringPhyMNE>f pt referring dr viveros</ReferringPhyMNE> Assessment & Plan Acute diverticulitis with developing abscess formation. No surgical intervention planned at present, have change patient to IV ertapenem which would allow easier outpatient therapy if patient is discharged in the near future. Likely will require in the range of 7-10 days of therapy. Will follow.
[2016-09-26 11:33] LABS: PARTIAL THROMBOPLASTIN RATIO 1.8
[2016-09-26] MEDS: ERTAPENEM IV 1 GM in SODIUM CHLOR 0.9% AD-VAN 50ML 50 ML IV SCH (11:41)
[2016-09-26] MEDS: D5W AND NSS 1,000 ML IV SCH ×2 (11:41→23:14)
[2016-09-26] MEDS ORDERED: SOTALOL HCL 80 MG TAB PO ONE (12:00)
--- NOTE | 2016-09-26 12:05 | Cardiology Consultation ---
Cardiology Consultation Date of Consultation: Sep 26, 2016 History of Present Illness Patient is a 56 year old female seen in cardiology consultation per the request of CHANTAL Valles for the evaluation of atrial fibrillation with rapid ventricular rate. The patient is well known to the undersigned as I been caring for her as an inpatient and an outpatient. Apparently she has had 2 weeks of progressive constipation and abdominal pain. She presented to the emergency department for these complaints yesterday and has been diagnosed with acute diverticulitis. CT scan of the abdomen and pelvis describes acute sigmoid diverticulitis and a possibly developing 26 mm peridiverticular abscess. The patient has Ardie been seen by general surgery and observation was recommended. Infectious diseases just seen the patient and has discontinued her ciprofloxacin in favor of ertapenem. 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 Atrial fibrillation was initially diagnosed in February 2016. She was placed on metoprolol for rate control and Coumadin for stroke prophylaxis and was on outpatient furosemide and spironolactone for symptomatic shortness of breath and lower extremity edema. An echocardiogram performed on 03/26/16 as an outpatient revealed moderate left ventricular systolic dysfunction with global hypokinesis and ejection fraction of 35-39% range. The patient's symptoms were refractory to outpatient treatment and she is ultimately admitted in March 2016 for IV diuretic therapy and amiodarone was also initiated. She returned for outpatient direct current cardioversion on 05/09/16, however the cardioversion was unsuccessful. She returned for another outpatient cardioversion on 06/11/16 and was in sinus rhythm at that time. A repeat transthoracic echocardiogram was performed on 09/02/16 and revealed normalization of her ejection fraction to the 60% range. A thyroid-stimulating hormone had been performed in follow-up of amiodarone use and this was elevated at 7.34 on 08/05/16. Amiodarone which had been reduced from 200 twice a day to 200 mg daily was then discontinued with hopes to minimize her exposure to prevent potential toxicity over time. Follow-up Holter monitor however on 09/16/16 revealed a prolonged episode of atrial fibrillation with rapid ventricular response and therefore amiodarone had recently been reinitiated at 200 mg daily. History PAST MEDICAL HISTORY: 1. Hypertension 2. Depression 3. Bronchitis 4. Recurrent atrial fibrillation 5. History of systolic heart failure, nonischemic cardiomyopathy, LVEF normalized to 08/2016 has residual edema due to diastolic dysfunction PAST SURGICAL HISTORY: Laparoscopic cholecystectomy FAMILY HISTORY: Her brother has psoriasis. Family history of stroke and both her mother and father. No family history of premature CAD. SOCIAL HISTORY: She is . 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 She is a former smoker having smoked a half a pack of cigarettes per day starting at age 15 quit for 7 years but then resumed and then ultimately quit in 03/15/16 and has been cigarette free for the last few weeks Review Of Systems See above for pertinent positives & negatives. A total of 10 systems reviewed and were otherwise negative. Allergies Coded Allergies: Codeine (Verified Allergy, Severe, SHORTNESS OF BREATH, 09/25/16) Penicillins (Verified Allergy, Severe, THROAT SWELLING, 09/26/16) PT HAS TOLERATED CEPHALOSPORINS PER DR SALAZAR Medications Reported Home Medications Medications Dose Route/Sig Max Daily Dose Days Date Category Dose Instructions Toprol-Xl (Metoprolol Succinate) 50 Mg Tabcr 100 Mg PO QPM 09/25/16 Reported take 50mg qam and take 100mg qpm Jantoven (Warfarin Sodium) 5 Mg Tab 10 Mg PO DAILY 09/25/16 Reported take 10mg daily on Friday, Friday, and Friday Cordarone (Amiodarone Hcl) 200 Mg Tab 200 Mg PO DAILY 09/25/16 Reported Coumadin (Warfarin Sodium) 5 Mg Tab 5 Mg PO DAILY 90 05/09/16 Reported take 5mg daily on Friday, Friday, , and Friday Demadex (Torsemide) 20 Mg Tab 20 Mg PO DAILY 90 05/09/16 Reported Aldactone (Spironolactone) 25 Mg Tab 12.5 Mg PO DAILY 05/09/16 Reported Metoprolol Succinate ER (Metoprolol Succinate) 50 Mg Tabcr 50 Mg PO QAM 04/01/16 Reported take 50mg in AM, and 100mg in the PM. Lisinopril 20 Mg Tab 20 Mg PO DAILY 04/01/16 Reported Physical Exam Vital Signs (Last 8hrs): Last 8 Hrs Date Time Temp Pulse Resp B/P (MAP) Pulse Ox O2 Delivery O2 Flow Rate FiO2 09/26/16 08:00 Room Air 09/26/16 07:52 36.7 76 20 118/72 (87) 96 09/26/16 04:17 36.8 87 21 112/74 (87) 96 Room Air 09/26/16 04:00 Room Air General Appearance: Alert and Oriented x3. NAD. Head: Normocephalic Atraumatic. Eyes: PERRLA, EOMI, conjunctiva and sclera clear Neck: Supple. No carotid bruits noted. No JVD. No HJD. Respiratory: Breath sounds clear to auscultation bilaterally. No w/r/r. Cardiovascular: Reg rate and rhythm. S1 and S2 noted. No murmurs, rubs, gallops. PMI non displace. Abdomen: Normal bowel sounds, soft nontender. no abdominal bruits. Extremities: No edema, no clubbing or cyanosis. distal pulses 2/4 bilaterally. Neuro: No focal deficits. Psychiatric: Normal affect. Data Last 24 Hours Test 09/25/16 19:15 09/25/16 19:40 09/25/16 21:05 09/26/16 03:49 White Blood Count 10.18 K/uL 8.44 K/uL Red Blood Count 3.98 M/uL 3.61 M/uL Hemoglobin 11.4 g/dL 10.3 g/dL Hematocrit 35.7 % 32.0 % Mean Corpuscular Volume 89.7 fL 88.6 fL Mean Corpuscular Hemoglobin 28.6 pg 28.5 pg Mean Corpuscular Hemoglobin Concent 31.9 g/dl 32.2 g/dl Platelet Count 310 K/uL 247 K/uL Mean Platelet Volume 9.9 fL 9.4 fL Neutrophils (%) (Auto) 71.0 % Lymphocytes (%) (Auto) 18.7 % Monocytes (%) (Auto) 8.6 % Eosinophils (%) (Auto) 1.3 % Basophils (%) (Auto) 0.1 % Neutrophils # (Auto) 7.23 K/uL Lymphocytes # (Auto) 1.90 K/uL Monocytes # (Auto) 0.88 K/uL Eosinophils # (Auto) 0.13 K/uL Basophils # (Auto) 0.01 K/uL RDW Standard Deviation 47.7 fL 46.9 fL RDW Coefficient of Variation 14.4 % 14.4 % Immature Granulocyte % (Auto) 0.3 % Immature Granulocyte # (Auto) 0.03 K/uL Sodium Level 137 mmol/L 141 mmol/L Potassium Level 3.5 mmol/L 3.7 mmol/L Chloride Level 100 mmol/L 106 mmol/L Carbon Dioxide Level 29 mmol/L 31 mmol/L Anion Gap 8.0 mmol/L 4.0 mmol/L Blood Urea Nitrogen 22 mg/dl 18 mg/dl Creatinine 1.30 mg/dl 1.10 mg/dl Est Creatinine Clear Calc Drug Dose 75.2 ml/min 95.7 ml/min Estimated GFR () 52.7 64.5 Estimated GFR (Non- 45.5 55.7 BUN/Creatinine Ratio 16.7 16.6 Random Glucose 99 mg/dl 111 mg/dl Calcium Level 8.9 mg/dl 8.5 mg/dl Total Bilirubin 0.4 mg/dl Direct Bilirubin 0.1 mg/dl Aspartate Amino Transf (AST/SGOT) 13 U/L Alanine Aminotransferase (ALT/SGPT) 18 U/L Alkaline Phosphatase 125 U/L Total Protein 8.7 gm/dl Albumin 3.1 gm/dl Lipase 135 U/L Urine Color YELLOW Urine Appearance CLEAR Urine pH 5.0 Urine Specific [place] 1.019 Urine Protein NEG Urine Glucose (UA) NEG Urine Ketones NEG Urine Occult Blood TRACE Urine Nitrite NEG Urine Bilirubin NEG Urine Urobilinogen NEG Urine Leukocyte Esterase SMALL Urine WBC (Auto) 1-5 /hpf Urine RBC (Auto) 0-4 /hpf Urine Hyaline Casts (Auto) 1-5 /lpf Urine Epithelial Cells (Auto) 20-30 /lpf Urine Bacteria (Auto) NEG Prothrombin Time 17.7 SECONDS 17.3 SECONDS Prothromb Time International Ratio 1.6 1.6 Activated Partial Thromboplast Time 43.6 SECONDS 46.2 SECONDS Partial Thromboplastin Ratio 1.7 1.8 Test 09/26/16 11:08 Activated Partial Thromboplast Time 47.2 SECONDS Partial Thromboplastin Ratio 1.8 Initial EKG performed on admission revealed atrial fibrillation with rapid ventricular rate, the patient has since converted to sinus rhythm at 4:20 AM, sinus rhythm with atrial bigeminy was noted for a brief period of time and she has been in sinus rhythm and sinus bradycardia since as confirmed by her morning EKG today 09/26/16. Assessment & Plan Impression 56-year-old female 1. Primary diagnosis is acute diverticulitis, possible diverticular abscess 2. Recurrent symptomatic paroxysmal atrial fibrillation Plan: The patient's atrial fibrillation had been refractory to rate control with metoprolol. It was felt that diltiazem was a poor choice because of her chronic lower extremity edema, and therefore several months ago in March 2016 she was transitioned to what was planned to be a short-term course of amiodarone. Her TSH had trended up to 7 on recent outpatient surveillance testing, and she was maintaining sinus rhythm and therefore amiodarone had recently been discontinued, but she reverted back to atrial fibrillation episodically as noted on recent Holter monitor and therefore low-dose amiodarone was reinitiated. The patient has recurrent atrial fibrillation, and since she has otherwise hospitalized, I think it is reasonable to try to optimize her antiarrhythmic therapy. Although she does have the acute diverticulitis, she is somewhat stable from an infection standpoint and her electrolytes are stable. I'm going to supplement her potassium which is 3.7 and discontinue her amiodarone and metoprolol and instead place her on sotalol to start with a dose of 80 mg twice a day. She did have 2 doses of ciprofloxacin, a single dose last night and one this morning, but her corrected QT interval is stable on this morning's EKG, I think that initiation of sotalol under telemetry supervision is reasonable at present her INRi below therapeutic range, given her diverticulitis, Coumadin has been placed on hold and she is on heparin bridge. Her diuretics, torsemide, and spry lactone are going to be held today, she is stable from a volume status standpoint I plan to resume them tomorrow. Digna Mariscal, DO
[2016-09-26] MEDS ORDERED: POTASSIUM CHLORIDE 10 MEQ TABCR PO ONE (12:30)
[2016-09-26] MEDS: LACTOBACILLUS ACIDOPHILUS (FLORANEX) TAB PO SCH (15:15)
--- NOTE | 2016-09-26 18:38 | Progress Note ---
Internal Med Progress Note Date of Service: Sep 26, 2016. Provider Documentation: SUBJECTIVE: denies of any abdominal pain or discomfort still not able to have a bowel movement feels discomfort , pain when passing gas no fever or chills OBJECTIVE: Vital Signs-as noted below Exam: General-no sign of distress Eyes-sclera non icteric ENT-NAD Neck-no JVD Lungs-CTA Heart-regular S1/S2 Abdomen-soft, mild tenderness on left lower quadrant on palpation , no rebound Extremities-no edema Neuro-no focal deficit Lab data as noted below. ASSESSMENT & PLAN: ACUTE SIGMOID DIVERTICULITIS W/ POSSIBLE ABSCESS - - patient presented with constipation x 2 weeks; t CT abd/pelvis : acute sigmoid diverticulitis with possible 2.6cm abscess - afebrile, no leukocytosis, vitals stable - - first episode of diverticulitis, noted no history of colonoscopy appreciate input form Surgery no surgical intervention needed conservative approach with IV abx and bowel rest ATRIAL FIBRILLATION - currently in rate controlled atrial fibrillation - was recently taken off of Amiodarone however outpatient Holter monitor demonstrated paroxysmal afib with RVR so therefore Amdioadone was restarted on - appreciate input form Cardiology started on Sotalol daily EKG to monitor Qtc - on Coumadin, INR 1.6 - will start heparin IV gtt bridge due to acute diverticulitis and possible need for surgical intervention NON ISCHEMIC CARDIOMYOPATHY - appears euvolemic - will hold diuretics due to acute infection / NPO status - EF 60% echo 08/2016 - continue beta jackie and ACEi HTN - BP stable, continue lisinopril EVELYN - CPAP as per home settings DVT PROPHYLAXIS - heparin gtt DISPOSITION to home when medically stable Vital Signs: Date Time Temp Pulse Resp B/P (MAP) Pulse Ox O2 Delivery O2 Flow Rate FiO2 09/26/16 19:12 36.7 57 20 110/66 (81) 99 Room Air 09/26/16 16:04 Room Air 09/26/16 15:43 36.6 70 20 110/71 (84) 92 Room Air 09/26/16 12:00 Room Air 09/26/16 11:57 36.8 56 18 90/53 (65) 95 09/26/16 08:00 Room Air 09/26/16 07:52 36.7 76 20 118/72 (87) 96 09/26/16 04:17 36.8 87 21 112/74 (87) 96 Room Air 09/26/16 04:00 Room Air 09/26/16 00:45 79 97 09/25/16 22:35 36.8 82 16 103/73 100 Room Air 09/25/16 21:45 77 24 115/71 99 Room Air 09/25/16 20:45 91 15 96 09/25/16 20:45 79 09/25/16 20:33 128/90 Lab Results: Results Past 24 Hours Test 09/25/16 19:40 09/25/16 21:05 09/26/16 03:49 09/26/16 11:08 Range/Units Urine Color YELLOW Urine Appearance CLEAR CLEAR Urine pH 5.0 4.5-7.5 Urine Specific [place] 1.019 1.000-1.030 Urine Protein NEG NEG Urine Glucose (UA) NEG NEG Urine Ketones NEG NEG Urine Occult Blood TRACE NEG Urine Nitrite NEG NEG Urine Bilirubin NEG NEG Urine Urobilinogen NEG NEG Urine Leukocyte Esterase SMALL NEG Urine WBC (Auto) 1-5 0-5 /hpf Urine RBC (Auto) 0-4 0-4 /hpf Urine Hyaline Casts (Auto) 1-5 0-5 /lpf Urine Epithelial Cells (Auto) 20-30 0-5 /lpf Urine Bacteria (Auto) NEG NEG Prothrombin Time 17.7 17.3 9.0-12.0 SECONDS Prothromb Time International Ratio 1.6 1.6 0.9-1.1 Activated Partial Thromboplast Time 43.6 46.2 47.2 21.0-31.0 SECONDS Partial Thromboplastin Ratio 1.7 1.8 1.8 White Blood Count 8.44 4.8-10.8 K/uL Red Blood Count 3.61 4.2-5.4 M/uL Hemoglobin 10.3 12.0-16.0 g/dL Hematocrit 32.0 37-47 % Mean Corpuscular Volume 88.6 80-100 fL Mean Corpuscular Hemoglobin 28.5 25-34 pg Mean Corpuscular Hemoglobin Concent 32.2 32-36 g/dl RDW Standard Deviation 46.9 36.4-46.3 fL RDW Coefficient of Variation 14.4 11.5-14.5 % Platelet Count 247 130-400 K/uL Mean Platelet Volume 9.4 7.4-10.4 fL Sodium Level 141 136-145 mmol/L Potassium Level 3.7 3.5-5.1 mmol/L Chloride Level 106 98-107 mmol/L Carbon Dioxide Level 31 21-32 mmol/L Anion Gap 4.0 3-11 mmol/L Blood Urea Nitrogen 18 7-18 mg/dl Creatinine 1.10 0.60-1.20 mg/dl Est Creatinine Clear Calc Drug Dose 95.7 ml/min Estimated GFR () 64.5 Estimated GFR (Non- 55.7 BUN/Creatinine Ratio 16.6 10-20 Random Glucose 111 70-99 mg/dl Calcium Level 8.5 8.5-10.1 mg/dl
[2016-09-26] MEDS: SOTALOL HCL 80 MG TAB PO SCH (20:50)
[2016-09-27] VITALS (8 sets, daily range): BP systolic 114–137; BP diastolic 70–81; PULSE 55–64; TEMP 36.4–37.4; O2SAT 92–100
[2016-09-27 06:33] LABS: HEMATOCRIT 31.5 % (37-47); MEAN CELL VOLUME 89.2 fL (80-100); MEAN CORPUSCULAR HEMOGLOBIN 27.5 pg (25-34); MEAN CORPUSCULAR HGB CONC 30.8 g/dl (32-36); MEAN PLATELET VOLUME 9.7 fL (7.4-10.4); PLATELET COUNT 260 K/uL (130-400); RED BLOOD COUNT 3.53 M/uL (4.2-5.4); WHITE BLOOD COUNT 8.24 K/uL (4.8-10.8)
[2016-09-27 07:06] LABS: PARTIAL THROMBOPLASTIN RATIO 1.7
--- NOTE | 2016-09-27 07:15 | Surgery Progress Note ---
Surgery Progress Note Date of Service Sep 27, 2016. Subjective afeb, vss some pain Rt pelvic area with bowel movements- did move her bowels Objective Vital Signs: Date Time Temp Pulse Resp B/P (MAP) Pulse Ox O2 Delivery O2 Flow Rate FiO2 09/27/16 04:00 CPAP 09/27/16 03:25 36.6 63 18 114/70 (85) 98 BiPAP 09/27/16 00:00 Room Air 09/26/16 23:10 36.6 59 20 118/77 (91) 99 BiPAP 09/26/16 20:00 Room Air 09/26/16 19:12 36.7 57 20 110/66 (81) 99 Room Air 09/26/16 16:04 Room Air 09/26/16 15:43 36.6 70 20 110/71 (84) 92 Room Air 09/26/16 12:00 Room Air 09/26/16 11:57 36.8 56 18 90/53 (65) 95 09/26/16 08:00 Room Air 09/26/16 07:52 36.7 76 20 118/72 (87) 96 General Appearance: no apparent distress Respiratory/Chest: no respiratory distress Cardiovascular: regular rate, rhythm Abdomen: soft, + pertinent finding (mild tenderness deep in pelvis) Laboratory Results: Results Past 24 Hours Test 09/26/16 11:08 09/27/16 06:26 09/27/16 06:47 Range/Units Activated Partial Thromboplast Time 47.2 44.0 21.0-31.0 SECONDS Partial Thromboplastin Ratio 1.8 1.7 White Blood Count 8.24 4.8-10.8 K/uL Red Blood Count 3.53 4.2-5.4 M/uL Hemoglobin 9.7 12.0-16.0 g/dL Hematocrit 31.5 37-47 % Mean Corpuscular Volume 89.2 80-100 fL Mean Corpuscular Hemoglobin 27.5 25-34 pg Mean Corpuscular Hemoglobin Concent 30.8 32-36 g/dl RDW Standard Deviation 47.4 36.4-46.3 fL RDW Coefficient of Variation 14.5 11.5-14.5 % Platelet Count 260 130-400 K/uL Mean Platelet Volume 9.7 7.4-10.4 fL Magnesium Level 2.2 1.8-2.4 mg/dl Assessment & Plan 09/27/16- would cont IV atbx, very slowly adv diet- sips today, clears tomorrow. Dr Nix covering over weekend. Would not gallego to allow her to go home too soon off IV atbx. She will need repeat CT at some point depending on progress. She may not require surgery and would benefit from GI followup as outpt with [facility]- will need colonoscopy.
[2016-09-27] MEDS ORDERED: HEPARIN IV BOLUS 4,000 UNIT in SYRINGE 0 ML IV ONE ×2 (07:45→15:30)
[2016-09-27] MEDS: HEPARIN 25,000 UNIT/500ML D5W 500 ML IV PRN ×2 (07:53→15:38)
[2016-09-27] MEDS: SOTALOL HCL 80 MG TAB PO SCH ×2 (07:54→20:50)
[2016-09-27] MEDS: LISINOPRIL 20 MG TAB PO SCH (07:54)
[2016-09-27] MEDS: LACTOBACILLUS ACIDOPHILUS (FLORANEX) TAB PO SCH ×3 (07:54→17:08)
[2016-09-27] MEDS ORDERED: POTASSIUM CHLORIDE 10 MEQ TABCR PO STA (08:10)
--- NOTE | 2016-09-27 08:18 | Cardiology Follow-Up ---
Subjective General Date of Service: Sep 27, 2016. Chief Complaint: follow up AF Pt evaluation today including: conversation w/ patient, physical exam History of Present Illness The patient is a 56 year old female seen in cardiology follow up. Pt denies palpitations. Telemetry reveals SR yesterday, overnight, and again so far this am. EKG this am after 2 doses of sotalol reveals SR at 62 bpm with stable QTc of 479 ms. Abd pain improved. Has small non bloody bm. She is going to be allowed liquid diet this am. Allergies Coded Allergies: Codeine (Verified Allergy, Severe, SHORTNESS OF BREATH, 09/25/16) Penicillins (Verified Allergy, Severe, THROAT SWELLING, 09/26/16) PT HAS TOLERATED CEPHALOSPORINS PER DR SALAZAR Social History Smoking Status: Former Smoker Hx Tobacco Use In Past Year?: Yes Hx Alcohol Use - Type And Amou: No Hx Substance Use - Type And Am: No Problem List Medical Problems: (1) Congestive heart failure Status: Acute (2) Flank pain Status: Acute Physical Exam Vital Signs Last Vital Signs Documentation Date Time Temp Pulse Resp B/P (MAP) Pulse Ox O2 Delivery O2 Flow Rate FiO2 09/27/16 07:17 36.8 55 18 119/72 (88) 98 Room Air Physical Exam Constitutional: Level of Distress: NAD Neck: supple Lungs: Auscultation: no wheezing, no rales/crackles, no rhonchi Cardiovascular: Heart Auscultation: no murmurs Abdomen: Inspection & Palpation: soft, non-distended Extremities: no edema Neurologic: Gait & Station: pertinent finding (no focal defiicts ) Assessment and Plan Assessment and Plan Impression 56-year-old female 1. Primary diagnosis is acute diverticulitis, possible diverticular abscess 2. Recurrent symptomatic paroxysmal atrial fibrillation 3. mild hypokalemia Plan: Received third dose of sotalol this am. Off of amiodarone and metoprolol. torsemide is on hold due to diverticulitis, will administer furosemide 20 mg IV x 1 this am to keep I/O even, prevent volume overload from IVF and IV antibiotics. Check INR, if below 2, continue heparin bridge. Remain on telemetry for sotalol load. Daily EKG in am. Digna Mariscal DO Laboratory Results Last 24 Hours Test 09/26/16 11:08 8/11/17 06:26 09/27/16 06:47 09/27/16 08:09 Activated Partial Thromboplast Time 47.2 SECONDS 44.0 SECONDS Partial Thromboplastin Ratio 1.8 1.7 White Blood Count 8.24 K/uL Red Blood Count 3.53 M/uL Hemoglobin 9.7 g/dL Hematocrit 31.5 % Mean Corpuscular Volume 89.2 fL Mean Corpuscular Hemoglobin 27.5 pg Mean Corpuscular Hemoglobin Concent 30.8 g/dl RDW Standard Deviation 47.4 fL RDW Coefficient of Variation 14.5 % Platelet Count 260 K/uL Mean Platelet Volume 9.7 fL Magnesium Level 2.2 mg/dl
[2016-09-27] MEDS ORDERED: FUROSEMIDE INJ 20 MG in SYRINGE 0 ML IV ONE (08:30)
[2016-09-27 08:47] LABS: INR 1.4 (0.9-1.1); PROTHROMBIN TIME (PATIENT) 14.9 SECONDS (9.0-12.0)
[2016-09-27] MEDS: ERTAPENEM IV 1 GM in SODIUM CHLOR 0.9% AD-VAN 50ML 50 ML IV SCH (10:32)
[2016-09-27] MEDS: D5W AND NSS 1,000 ML IV SCH (11:09)
[2016-09-27 14:52] LABS: PARTIAL THROMBOPLASTIN RATIO 1.7
--- NOTE | 2016-09-27 17:44 | Progress Note ---
Internal Med Progress Note Date of Service: Sep 27, 2016. Provider Documentation: SUBJECTIVE: complains of abdominal cramps /pain on rt lower quadrant had small bowel movement this AM started on clears by surgery tolerating well no nausea OBJECTIVE: Vital Signs-as noted below Exam: General-no sign of distress Eyes-sclera non icteric ENT-NAD Neck-no JVD Lungs-CTA Heart-regular S1/S2 Abdomen-soft, left lower quadrant non tender, + tenderness on rt lower quadrant , active bowel sound Extremities-no edema Neuro-no focal deficit Lab data as noted below. ASSESSMENT & PLAN: ACUTE SIGMOID DIVERTICULITIS W/ POSSIBLE ABSCESS - - patient presented with constipation x 2 weeks; t CT abd/pelvis : acute sigmoid diverticulitis with possible 2.6cm abscess - afebrile, no leukocytosis, vitals remains stable - - first episode of diverticulitis, did not had any colonoscopy in past appreciate input form Surgery no surgical intervention needed conservative approach with IV abx and bowel rest clinically improving managed to have 1 bowel movement today started on clears , very slow advancement of diet complains of abdominal cramps ordered for PRN Flexeril , avoid narcotic pain meds ATRIAL FIBRILLATION - currently in rate controlled atrial fibrillation - - appreciate input form Cardiology started on Sotalol daily EKG to monitor Qtc -on IV heparin bridge will start on PO Coumadin , as clinically improving , no indication for surgery NON ISCHEMIC CARDIOMYOPATHY - Lasix resumed pt started on clears , D/c IVF - EF 60% echo 08/2016 - continue beta jackie and ACEi HTN - BP stable, continue lisinopril EVELYN - CPAP as per home settings DVT PROPHYLAXIS - heparin gtt /Coumadin DISPOSITION to home when medically stable Vital Signs: Date Time Temp Pulse Resp B/P (MAP) Pulse Ox O2 Delivery O2 Flow Rate FiO2 09/27/16 15:34 36.8 64 18 134/79 (97) 95 Room Air 09/27/16 12:08 36.4 58 17 132/72 (92) 98 Room Air 09/27/16 12:00 Room Air 09/27/16 08:00 Room Air 09/27/16 07:17 36.8 55 18 119/72 (88) 98 Room Air 09/27/16 04:00 CPAP 09/27/16 03:25 36.6 63 18 114/70 (85) 98 BiPAP 09/27/16 00:00 Room Air 09/26/16 23:10 36.6 59 20 118/77 (91) 99 BiPAP 09/26/16 20:00 Room Air 09/26/16 19:12 36.7 57 20 110/66 (81) 99 Room Air Lab Results: Results Past 24 Hours Test 09/27/16 06:26 09/27/16 06:47 09/27/16 08:25 09/27/16 14:27 Range/Units White Blood Count 8.24 4.8-10.8 K/uL Red Blood Count 3.53 4.2-5.4 M/uL Hemoglobin 9.7 12.0-16.0 g/dL Hematocrit 31.5 37-47 % Mean Corpuscular Volume 89.2 80-100 fL Mean Corpuscular Hemoglobin 27.5 25-34 pg Mean Corpuscular Hemoglobin Concent 30.8 32-36 g/dl RDW Standard Deviation 47.4 36.4-46.3 fL RDW Coefficient of Variation 14.5 11.5-14.5 % Platelet Count 260 130-400 K/uL Mean Platelet Volume 9.7 7.4-10.4 fL Magnesium Level 2.2 1.8-2.4 mg/dl Activated Partial Thromboplast Time 44.0 43.4 21.0-31.0 SECONDS Partial Thromboplastin Ratio 1.7 1.7 Prothrombin Time 14.9 9.0-12.0 SECONDS Prothromb Time International Ratio 1.4 0.9-1.1
[2016-09-27] MEDS ORDERED: CYCLOBENZAPRINE HCL 5 MG TAB PO PRN (17:45)
[2016-09-27] MEDS ORDERED: WARFARIN SOD 5 MG TAB PO ONE (18:00)
[2016-09-27 21:27] LABS: PARTIAL THROMBOPLASTIN RATIO 1.9
[2016-09-28 03:38] VITALS: BP 117/69; PULSE 60; TEMP 36.8; O2SAT 97
[2016-09-28 06:43] LABS: INR 1.3 (0.9-1.1); PARTIAL THROMBOPLASTIN RATIO 1.6; PROTHROMBIN TIME (PATIENT) 13.6 SECONDS (9.0-12.0)
[2016-09-28] MEDS ORDERED: HEPARIN IV BOLUS 4,000 UNIT in SYRINGE 0 ML IV STA (07:00)
[2016-09-28 07:10] VITALS: BP 136/76; PULSE 61; TEMP 37; O2SAT 95
[2016-09-28] MEDS: SOTALOL HCL 80 MG TAB PO SCH ×2 (07:58→20:26)
[2016-09-28] MEDS: TORSEMIDE 20 MG TAB PO SCH (07:59)
[2016-09-28] MEDS: SPIRONOLACTONE 25 MG TAB PO SCH (07:59)
[2016-09-28] MEDS: LISINOPRIL 20 MG TAB PO SCH (07:59)
--- NOTE | 2016-09-28 10:28 | Surgery Progress Note ---
Surgery Progress Note Date of Service Sep 28, 2016. Subjective Post OP Day: HD 4 + feeling well, + complaints (some cramping last night but resolved this AM), + flatus, + diet (sips), No nausea, No vomiting Objective Vital Signs: Date Time Temp Pulse Resp B/P (MAP) Pulse Ox O2 Delivery O2 Flow Rate FiO2 09/28/16 07:10 37.0 61 18 136/76 (96) 95 Room Air 09/28/16 04:00 CPAP 09/28/16 03:38 36.8 60 19 117/69 (85) 97 CPAP 09/28/16 00:00 CPAP 09/27/16 23:48 37.4 64 19 120/72 (88) 92 Room Air 09/27/16 20:00 100 Room Air 09/27/16 19:19 37.1 62 18 137/81 (99) 100 Room Air 09/27/16 16:00 95 Room Air 09/27/16 15:34 36.8 64 18 134/79 (97) 95 Room Air 09/27/16 12:08 36.4 58 17 132/72 (92) 98 Room Air 09/27/16 12:00 Room Air General Appearance: WD/WN, no apparent distress Head: normocephalic, atraumatic Neck: supple, trachea midline Respiratory/Chest: chest non-tender, lungs clear Cardiovascular: regular rate, rhythm, no gallop, no murmur Abdomen: normal bowel sounds, non distended, soft, + tenderness (mild) Extremities: non-tender, no pedal edema Laboratory Results: Results Past 24 Hours Test 09/27/16 14:27 09/27/16 20:57 09/28/16 05:53 Range/Units Activated Partial Thromboplast Time 43.4 48.7 41.3 21.0-31.0 SECONDS Partial Thromboplastin Ratio 1.7 1.9 1.6 Prothrombin Time 13.6 9.0-12.0 SECONDS Prothromb Time International Ratio 1.3 0.9-1.1 Assessment & Plan Acute diverticulitis w/possible abscess -con't IV abx -IVF -clear liquids -likely repeat CT scan early next week
[2016-09-28] MEDS: ERTAPENEM IV 1 GM in SODIUM CHLOR 0.9% AD-VAN 50ML 50 ML IV SCH (10:34)
[2016-09-28 11:26] VITALS: BP 90/58; PULSE 58; TEMP 37.6; O2SAT 99
[2016-09-28] MEDS: HEPARIN 25,000 UNIT/500ML D5W 500 ML IV PRN (11:33)
--- NOTE | 2016-09-28 13:04 | Progress Note ---
Internal Med Progress Note Date of Service: Sep 28, 2016. Provider Documentation: SUBJECTIVE: abdominal cramps has resolved took 1 tab Flexeril yesterday no discomfort had bowel movement this Am -soft tolerating clears no complain of nausea OBJECTIVE: Vital Signs-as noted below Exam: General-no sign of distress Eyes-sclera non icteric ENT-NAD Neck-no JVD Lungs-CTA Heart-regular S1/S2 Abdomen-soft, abdomen non tender , Extremities-no edema Neuro-no focal deficit Lab data as noted below. ASSESSMENT & PLAN: ACUTE SIGMOID DIVERTICULITIS W/ABSCESS - - patient presented with constipation x 2 weeks; CT abd/pelvis : acute sigmoid diverticulitis with possible 2.6cm abscess - afebrile, no leukocytosis, vitals remains stable - - first episode of diverticulitis, did not had any colonoscopy in past appreciate input form Surgery no surgical intervention needed conservative approach with IV abx and bowel rest on IV Invanz appreciate input form surgery clinically improving having bowel movement started on clears , very slow advancement of diet abdominal cramps resolved with PRN Flexeril plan for repeat CT abdomen on Friday to assess improvement if infection ATRIAL FIBRILLATION - currently in rate controlled atrial fibrillation - - appreciate input form Cardiology started on Sotalol EKG to monitor Qtc today 479 -on IV heparin bridge /Coumadin monitor Pt/INR NON ISCHEMIC CARDIOMYOPATHY - Torsemide /Aldactone resumed - EF 60% echo 08/2016 - continue beta jackie and ACEi HTN - BP stable, continue lisinopril EVELYN - CPAP as per home settings DVT PROPHYLAXIS - heparin gtt /Coumadin DISPOSITION to home when medically stable Vital Signs: Date Time Temp Pulse Resp B/P (MAP) Pulse Ox O2 Delivery O2 Flow Rate FiO2 09/28/16 11:26 37.6 58 17 90/58 (69) 99 Room Air 09/28/16 07:10 37.0 61 18 136/76 (96) 95 Room Air 09/28/16 04:00 CPAP 09/28/16 03:38 36.8 60 19 117/69 (85) 97 CPAP 09/28/16 00:00 CPAP 09/27/16 23:48 37.4 64 19 120/72 (88) 92 Room Air 09/27/16 20:00 100 Room Air 09/27/16 19:19 37.1 62 18 137/81 (99) 100 Room Air 09/27/16 16:00 95 Room Air 09/27/16 15:34 36.8 64 18 134/79 (97) 95 Room Air Lab Results: Results Past 24 Hours Test 09/27/16 14:27 09/27/16 20:57 09/28/16 05:53 09/28/16 12:58 Range/Units Activated Partial Thromboplast Time 43.4 48.7 41.3 21.0-31.0 SECONDS Partial Thromboplastin Ratio 1.7 1.9 1.6 Prothrombin Time 13.6 9.0-12.0 SECONDS Prothromb Time International Ratio 1.3 0.9-1.1
[2016-09-28 13:32] LABS: PARTIAL THROMBOPLASTIN RATIO 1.7
[2016-09-28] MEDS ORDERED: HEPARIN IV BOLUS 4,000 UNIT in SYRINGE 0 ML IV ONE (14:15)
[2016-09-28 15:27] VITALS: BP 100/66; PULSE 69; TEMP 36.6; O2SAT 96
--- NOTE | 2016-09-28 16:32 | Cardiology Progress Note ---
Cardiology Progress Note Date of Service Sep 28, 2016. Cardiology Progress Note I interviewed the patient. She was sitting out of bed in a chair enjoying the company of friends. She was not examined. Telemetry reveals stable sinus rhythm. EKG performed this morning 09/28/16 at 6:37 AM revealed sinus rhythm at 62 bpm with stable corrected QT interval 479 ms. She has received 5 doses of sotalol thus far. An is no recurrence of atrial fibrillation during sotalol initiation. Heart rate and blood pressure are stable. Her home diuretic regimen has been reinitiated. She is doing better from an abdominal pain standpoint, and her diet has been advanced to clear liquids. She is stable from my perspective to have a shower on the unit without having to be on the music teacher. When she returns to her room, she should be back on the music teacher, sotalol initiation will continue. I will order an EKG for follow-up tomorrow. At present, she is on a heparin infusion for bridge therapy in case she needs surgical intervention for diverticular abscess. Therefore Coumadin was on hold and she is on heparin. This time continue heparin. She continues to improve from an abdominal standpoint, will likely resume Coumadin when okay with surgery.
[2016-09-28] MEDS: WARFARIN SOD 5 MG TAB PO SCH (16:33)
[2016-09-28 19:25] VITALS: BP 97/68; PULSE 80; TEMP 37.2; O2SAT 99
[2016-09-28 23:16] VITALS: BP 113/75; PULSE 84; TEMP 36; O2SAT 98
[2016-09-29 04:01] VITALS: BP 102/67; PULSE 87; TEMP 35.7; O2SAT 97
[2016-09-29] MEDS: HEPARIN 25,000 UNIT/500ML D5W 500 ML IV PRN ×2 (04:47→20:22)
[2016-09-29 05:00] LABS: HEMATOCRIT 32.6 % (37-47); MEAN CELL VOLUME 88.6 fL (80-100); MEAN CORPUSCULAR HEMOGLOBIN 28.8 pg (25-34); MEAN CORPUSCULAR HGB CONC 32.5 g/dl (32-36); MEAN PLATELET VOLUME 9.5 fL (7.4-10.4); PLATELET COUNT 292 K/uL (130-400); RED BLOOD COUNT 3.68 M/uL (4.2-5.4); WHITE BLOOD COUNT 9.17 K/uL (4.8-10.8)
[2016-09-29 05:16] LABS: INR 1.3 (0.9-1.1)
[2016-09-29 07:08] VITALS: BP 102/71; PULSE 74; TEMP 37; O2SAT 96
--- NOTE | 2016-09-29 07:20 | Surgery Progress Note ---
Surgery Progress Note Date of Service Sep 29, 2016. Subjective Post OP Day: HD 5 + feeling well, + complaints (pain almost resolved), + bowel movement, + flatus , + diet (clears), No nausea, No vomiting Objective Vital Signs: Date Time Temp Pulse Resp B/P (MAP) Pulse Ox O2 Delivery O2 Flow Rate FiO2 09/29/16 07:08 37.0 74 18 102/71 (81) 96 Room Air 09/29/16 04:01 35.7 87 22 102/67 (79) 97 CPAP 09/29/16 04:00 Room Air 09/28/16 23:59 CPAP 09/28/16 23:16 36.0 84 21 113/75 (88) 98 CPAP 09/28/16 20:00 Room Air 09/28/16 19:25 37.2 80 18 97/68 (78) 99 Room Air 09/28/16 15:27 36.6 69 20 100/66 (77) 96 Room Air 09/28/16 11:26 37.6 58 17 90/58 (69) 99 Room Air General Appearance: WD/WN, no apparent distress Head: normocephalic, atraumatic Neck: supple, trachea midline Respiratory/Chest: chest non-tender, lungs clear Cardiovascular: regular rate, rhythm, no gallop, no murmur Abdomen: normal bowel sounds, non tender, non distended, soft Extremities: non-tender, no pedal edema Laboratory Results: Results Past 24 Hours Test 09/28/16 12:58 09/28/16 19:35 09/29/16 04:40 Range/Units Activated Partial Thromboplast Time 45.3 52.0 51.6 21.0-31.0 SECONDS Partial Thromboplastin Ratio 1.7 2.0 2.0 White Blood Count 9.17 4.8-10.8 K/uL Red Blood Count 3.68 4.2-5.4 M/uL Hemoglobin 10.6 12.0-16.0 g/dL Hematocrit 32.6 37-47 % Mean Corpuscular Volume 88.6 80-100 fL Mean Corpuscular Hemoglobin 28.8 25-34 pg Mean Corpuscular Hemoglobin Concent 32.5 32-36 g/dl RDW Standard Deviation 46.6 36.4-46.3 fL RDW Coefficient of Variation 14.4 11.5-14.5 % Platelet Count 292 130-400 K/uL Mean Platelet Volume 9.5 7.4-10.4 fL Nucleated RBC Absolute Count (auto) 0.02 0-0 K/uL Nucleated Red Blood Cells % 0.2 % Prothrombin Time 14.0 9.0-12.0 SECONDS Prothromb Time International Ratio 1.3 0.9-1.1 Assessment & Plan Acute diverticulitis w/possible abscess -con't IV abx -IVF -advance to full -Dr Rosen to see tomorrow -likely repeat CT scan early next week
[2016-09-29] MEDS: LISINOPRIL 20 MG TAB PO SCH (08:06)
[2016-09-29] MEDS: SPIRONOLACTONE 25 MG TAB PO SCH (08:06)
[2016-09-29] MEDS: SOTALOL HCL 80 MG TAB PO SCH ×2 (08:07→20:19)
[2016-09-29] MEDS: TORSEMIDE 20 MG TAB PO SCH (08:08)
[2016-09-29] MEDS ORDERED: OPTIRAY 320 IV PRN (09:30)
[2016-09-29] MEDS: ERTAPENEM IV 1 GM in SODIUM CHLOR 0.9% AD-VAN 50ML 50 ML IV SCH (10:56)
[2016-09-29 11:52] VITALS: BP 95/65; PULSE 80; TEMP 36.7; O2SAT 98
--- NOTE | 2016-09-29 12:42 | Cardiology Follow-Up ---
Subjective General Date of Service: Sep 29, 2016. Chief Complaint: follow up AF Pt evaluation today including: conversation w/ patient, physical exam History of Present Illness The patient is a 56 year old female seen in follow up. She notes feeling well overall. Her abdominal pain continues to improve. She reverted back to atrial fibrillation yesterday 09/28/16 at 1729 hrs. At present telemetry reveals A. fib at 86 bpm reviewed her heart rates overall been well controlled. EKG this morning does bring up the concern of prolonged QT, but when looking at this, this appears to be present when she has beats that come close together, and I do not think the atrial fibrillation EKG represents her QT interval accurately. Allergies Coded Allergies: Codeine (Verified Allergy, Severe, SHORTNESS OF BREATH, 09/25/16) Penicillins (Verified Allergy, Severe, THROAT SWELLING, 09/26/16) PT HAS TOLERATED CEPHALOSPORINS PER DR SALAZAR Social History Smoking Status: Former Smoker Hx Tobacco Use In Past Year?: Yes Hx Alcohol Use - Type And Amou: No Hx Substance Use - Type And Am: No Problem List Medical Problems: (1) Congestive heart failure Status: Acute (2) Flank pain Status: Acute Physical Exam Vital Signs Last Vital Signs Documentation Date Time Temp Pulse Resp B/P (MAP) Pulse Ox O2 Delivery O2 Flow Rate FiO2 09/29/16 11:52 36.7 80 18 95/65 (75) 98 Room Air Physical Exam Constitutional: Level of Distress: NAD Neck: supple Lungs: Auscultation: no wheezing, no rales/crackles, no rhonchi Cardiovascular: Heart Auscultation: no murmurs Abdomen: Inspection & Palpation: soft, non-distended Extremities: no edema Neurologic: Gait & Station: pertinent finding (no focal defiicts ) Assessment and Plan Assessment and Plan Impression 56-year-old female 1. Primary diagnosis is acute diverticulitis, possible diverticular abscess 2. Recurrent symptomatic paroxysmal atrial fibrillation 3. mild hypokalemia Plan: Received seventh dose of sotalol this am. Off of amiodarone and metoprolol. Continue prior to hospital dose of torsemide and spironolactone Continue heparin bridge, pending repeat CT tomorrow. I anticipate that if the abscess collection looks improved, we will build to get her back on her Coumadin. Add digoxin 0.250 mg IV x 1 for AF now. Given her relative low BP in the 90 mm Hg range and SB when she is in sinus , there is not room to add CCB. Will increase sotalol to 120 mg with PM dose. Digna Mariscal, Laboratory Results Last 24 Hours Test 09/28/16 12:58 09/28/16 19:35 09/29/16 04:40 Activated Partial Thromboplast Time 45.3 SECONDS 52.0 SECONDS 51.6 SECONDS Partial Thromboplastin Ratio 1.7 2.0 2.0 White Blood Count 9.17 K/uL Red Blood Count 3.68 M/uL Hemoglobin 10.6 g/dL Hematocrit 32.6 % Mean Corpuscular Volume 88.6 fL Mean Corpuscular Hemoglobin 28.8 pg Mean Corpuscular Hemoglobin Concent 32.5 g/dl RDW Standard Deviation 46.6 fL RDW Coefficient of Variation 14.4 % Platelet Count 292 K/uL Mean Platelet Volume 9.5 fL Nucleated RBC Absolute Count (auto) 0.02 K/uL Nucleated Red Blood Cells % 0.2 % Prothrombin Time 14.0 SECONDS Prothromb Time International Ratio 1.3
[2016-09-29] MEDS ORDERED: DIGOXIN IV 250 MCG in SYRINGE 9 ML IV ONE (13:00)
--- NOTE | 2016-09-29 15:35 | Progress Note ---
Internal Med Progress Note Date of Service: Sep 29, 2016. Provider Documentation: SUBJECTIVE: no complain of abdominal pain or nausea had bowel movement today denies of any discomfort of dizzy spell or lightheadedness no fever or chills diet advanced to clears tolerating well OBJECTIVE: Vital Signs-as noted below Exam: General-no sign of distress Eyes-sclera non icteric ENT-NAD Neck-no JVD Lungs-CTA Heart-regular S1/S2 Abdomen-soft, abdomen non tender , Extremities-no edema Neuro-no focal deficit Lab data as noted below. ASSESSMENT & PLAN: ACUTE SIGMOID DIVERTICULITIS W/ABSCESS - - patient presented with constipation x 2 weeks; CT abd/pelvis : acute sigmoid diverticulitis with possible 2.6cm abscess - afebrile, no leukocytosis, vitals remains stable - - first episode of diverticulitis, did not had any colonoscopy in past appreciate input form Surgery no surgical intervention needed conservative approach with IV abx and bowel rest on IV Invanz appreciate input form surgery clinically improving having bowel movement diet advanced to full liquid today ordered for repeat CT abdomen on Friday to assess improvement of abscess ATRIAL FIBRILLATION - - appreciate input form Cardiology Sotalol dose increased 120 mg given Digoxin 0.125 mg X 1 now -on IV heparin bridge /Coumadin INR 1.3 NON ISCHEMIC CARDIOMYOPATHY - Torsemide /Aldactone resumed - EF 60% echo 08/2016 - continue beta jackie and ACEI HTN - BP stable, continue lisinopril EVELYN - CPAP as per home settings DVT PROPHYLAXIS - heparin gtt /Coumadin DISPOSITION to home when medically stable Vital Signs: Date Time Temp Pulse Resp B/P (MAP) Pulse Ox O2 Delivery O2 Flow Rate FiO2 09/29/16 13:14 102 09/29/16 11:52 36.7 80 18 95/65 (75) 98 Room Air 09/29/16 07:08 37.0 74 18 102/71 (81) 96 Room Air 09/29/16 04:01 35.7 87 22 102/67 (79) 97 CPAP 09/29/16 04:00 Room Air 09/28/16 23:59 CPAP 09/28/16 23:16 36.0 84 21 113/75 (88) 98 CPAP 09/28/16 20:00 Room Air 09/28/16 19:25 37.2 80 18 97/68 (78) 99 Room Air Lab Results: Results Past 24 Hours Test 09/28/16 19:35 09/29/16 04:40 Range/Units Activated Partial Thromboplast Time 52.0 51.6 21.0-31.0 SECONDS Partial Thromboplastin Ratio 2.0 2.0 White Blood Count 9.17 4.8-10.8 K/uL Red Blood Count 3.68 4.2-5.4 M/uL Hemoglobin 10.6 12.0-16.0 g/dL Hematocrit 32.6 37-47 % Mean Corpuscular Volume 88.6 80-100 fL Mean Corpuscular Hemoglobin 28.8 25-34 pg Mean Corpuscular Hemoglobin Concent 32.5 32-36 g/dl RDW Standard Deviation 46.6 36.4-46.3 fL RDW Coefficient of Variation 14.4 11.5-14.5 % Platelet Count 292 130-400 K/uL Mean Platelet Volume 9.5 7.4-10.4 fL Nucleated RBC Absolute Count (auto) 0.02 0-0 K/uL Nucleated Red Blood Cells % 0.2 % Prothrombin Time 14.0 9.0-12.0 SECONDS Prothromb Time International Ratio 1.3 0.9-1.1
[2016-09-29 15:45] VITALS: BP 100/70; PULSE 68; TEMP 36.5; O2SAT 99
[2016-09-29] MEDS: WARFARIN SOD 5 MG TAB PO SCH (16:38)
[2016-09-29 19:12] VITALS: BP 101/66; PULSE 66; TEMP 36.4; O2SAT 99
[2016-09-29 23:14] VITALS: BP 118/54; PULSE 59; TEMP 36.4; O2SAT 97
[2016-09-30 04:01] VITALS: BP 109/72; PULSE 58; TEMP 36.6; O2SAT 96
[2016-09-30 06:58] LABS: INR 1.4 (0.9-1.1); PROTHROMBIN TIME (PATIENT) 14.9 SECONDS (9.0-12.0)
[2016-09-30 07:12] VITALS: BP 105/62; PULSE 57; TEMP 36.9; O2SAT 100
[2016-09-30 07:23] LABS: BUN/CREATININE RATIO 10.9 (10-20); CALCIUM 8.8 mg/dl (8.5-10.1); POTASSIUM 3.4 mmol/L (3.5-5.1)
[2016-09-30] MEDS ORDERED: OPTIRAY 320 IV PRN (08:30)
[2016-09-30] MEDS: TORSEMIDE 20 MG TAB PO SCH (08:40)
[2016-09-30] MEDS: SOTALOL HCL 80 MG TAB PO SCH ×2 (08:41→20:05)
[2016-09-30] MEDS: SPIRONOLACTONE 25 MG TAB PO SCH (08:41)
[2016-09-30] MEDS: LISINOPRIL 20 MG TAB PO SCH (08:42)
--- NOTE | 2016-09-30 08:43 | DIAGNOSTIC IMAGING REPORT ---
ABD/PELVIS IV AND ORAL CONT CLINICAL HISTORY: 56 years-old Female presenting with SIGMOID DIVERTICULAR ABSCESS . TECHNIQUE: Multidetector CT of the abdomen and pelvis was performed after the administration of oral and intravenous contrast. IV contrast: 93 mL of Optiray 320. A dose lowering technique was used consistent with the principles of ALARA (as low as reasonably achievable). COMPARISON: 09/25/2016. CT DOSE (mGy.cm): The estimated cumulative dose is 1965.30 mGy.cm. FINDINGS: Scrapper topogram: Unremarkable. Lung bases: Lung bases clear. No pericardial or pleural effusion. Liver: Normal morphology. No liver lesion. Patent hepatic vasculature. Biliary: No intrahepatic or extrahepatic biliary ductal dilatation. Gallbladder surgically absent. Pancreas: Mild parenchymal atrophy. Spleen: Normal. Adrenal glands: Normal. Kidneys and ureters: No nephrolithiasis. No hydronephrosis. Right lower pole parapelvic cyst. Gastrointestinal tract: Previously noted pericolonic inflammatory change surrounding the sigmoid colon with associated sigmoid diverticulosis, consistent with persistent diverticulitis. Inflammatory change has slightly increased from prior with greater fat stranding within the mesentery and omental fat. Rim-enhancing 2.3 cm fluid collection immediately inferior to the sigmoid colon, along the bladder dome and anterior to the uterine fundus (series 3 image [id number]), better defined on the current exam and consistent with abscess. This is not significantly changed in size. Lipomatous hypertrophy of the ileocecal valve. Small bowel adjacent to the sigmoid colon has a somewhat tethered appearance and is nondistended, possibly suggesting adhesions in this region. No bowel obstruction. Prominent diverticula at the descending portion of the duodenum at the level of the pancreatic head. Peritoneal cavity: No free fluid. Pericolonic abscess as mentioned previously. No free gas. Bladder: No significant bladder wall thickening despite perivesicular inflammatory change along the bladder dome. No gas within the bladder. Pelvic organs: Uterine fundus immediately adjacent and possibly abutting the abscess. Normal ovaries. Vasculature: Atherosclerosis of the normal caliber abdominal aorta. IVC patent. Lymph nodes: Few subcentimeter bilateral external iliac lymph nodes, nonspecific and likely reactive. Additional prominent portacaval and peripancreatic lymph nodes. No pathologically enlarged lymph nodes. Abdominal wall: Normal. Musculoskeletal: Degenerative changes of the spine. IMPRESSION: 1. Persistent sigmoid diverticulitis with slight interval increase in pericolonic inflammatory change. Adjacent abscess is unchanged in size and better defined on the current exam measuring slightly more than 2 cm. No other evidence of complication at this time. 2. Prominent bilateral external iliac lymph nodes likely reactive. Electronically signed by: Patrick Mccann M.D. 09/30/2016 8:42 AM Dictated Date/Time: 09/30/2016 8:31 AM
[2016-09-30] MEDS ORDERED: POTASSIUM CHLORIDE 20 MEQ TABCR PO ONE (09:30)
[2016-09-30] MEDS: ERTAPENEM IV 1 GM in SODIUM CHLOR 0.9% AD-VAN 50ML 50 ML IV SCH (09:54)
--- NOTE | 2016-09-30 10:05 | Cardiology Follow-Up ---
Subjective General Date of Service: Sep 30, 2016. Chief Complaint: follow up AF Pt evaluation today including: conversation w/ patient, physical exam, chart review, lab review, review of studies, review of inpatient medication list History of Present Illness Patient feeling well this AM. Denies chest pain or SOB. No orthopnea, PND. No fevers. Abdominal pain improved. Mild pressure, but improved from admission. Surgery following, had repeat CT scan today and per patient, considering IV vs oral outpatient antibiotic therapy. Allergies Coded Allergies: Codeine (Verified Allergy, Severe, SHORTNESS OF BREATH, 09/25/16) Penicillins (Verified Allergy, Severe, THROAT SWELLING, 09/26/16) PT HAS TOLERATED CEPHALOSPORINS PER DR SALAZAR Social History Smoking Status: Former Smoker Hx Tobacco Use In Past Year?: Yes Hx Alcohol Use - Type And Amou: No Hx Substance Use - Type And Am: No Problem List Medical Problems: (1) Congestive heart failure Status: Acute (2) Flank pain Status: Acute Review of Systems Respiratory: No cough, No sputum, No wheezing, No shortness of breath, No dyspnea on exertion, No dyspnea at rest, No hemoptysis Cardiac: No chest pain, No orthopnea, No PND, No edema, No palpitations Physical Exam Vital Signs Last Vital Signs Documentation Date Time Temp Pulse Resp B/P (MAP) Pulse Ox O2 Delivery O2 Flow Rate FiO2 09/30/16 08:00 Room Air 09/30/16 07:12 36.9 57 19 105/62 (76) 100 Physical Exam Constitutional: General Apperance: obese Level of Distress: NAD Psychiatric: Mental Status: active & alert Orientation: to time, to place, to person Head: normocephalic Eyes: Pupils: PERRLA Neck: supple Lungs: Auscultation: no wheezing, no rales/crackles, no rhonchi Cardiovascular: Heart Auscultation: RRR, no murmurs Abdomen: Inspection & Palpation: soft, non-distended Extremities: no edema Neurologic: Gait & Station: pertinent finding (no focal defiicts ) Assessment and Plan Assessment and Plan 56-year-old female 1. Acute diverticulitis, diverticular abscess, surgery following. 2. Recurrent symptomatic paroxysmal atrial fibrillation, now on sotalol. 3. mild hypokalemia Plan: Sotalol dose increased to 120 mg BID. converted to NSR at 18:30 on 09/29. Received 9th dose of sotalol this AM Maintaining NSR overnight. QT/QTc borderline prolonged on EKG interpretation, but on my review/calculation , appears < 500. Continue prior to hospital dose of torsemide and spironolactone Additional potassium 20 meq x 1 dose this AM Continue heparin bridge and Coumadin. If no surgery indicated for abdominal abscess, will increase dose of coumadin to 10 mg tonight (home dose). Repeat CT scan demonstrates stable abscess. Await surgery recommendations. Will discuss with Dr. Mariscal. Will follow CARDIOLOGY ATTENDING ADDENDUM: The patient was seen and personally examined. Agree with Mel Funes PA-C's findings and plans as documented above. S: ABD pain improved. Converted back to SR just after 1800 on 09/29/16. QTc elevated this am having had dose of sotalol 120 mg last night and this am. CT noted, continued abscess. Surgery recommends outpt PICC , antibiotics eventual surgery at tertiary center. Plan: Replace potassium. Reduced sotalol back to 80 mg BID, Repeat EKG in am. Continue Heparin, increase coumadin to 10 mg, had 5 mg last 2 days and INR still below goal. Laboratory Results Last 24 Hours Test 09/30/16 06:32 Prothrombin Time 14.9 SECONDS Prothromb Time International Ratio 1.4 Activated Partial Thromboplast Time 51.3 SECONDS Partial Thromboplastin Ratio 2.0 Sodium Level 139 mmol/L Potassium Level 3.4 mmol/L Chloride Level 101 mmol/L Carbon Dioxide Level 32 mmol/L Anion Gap 6.0 mmol/L Blood Urea Nitrogen 11 mg/dl Creatinine 1.00 mg/dl Est Creatinine Clear Calc Drug Dose 104.8 ml/min Estimated GFR () 72.4 Estimated GFR (Non- 62.5 BUN/Creatinine Ratio 10.9 Random Glucose 102 mg/dl Calcium Level 8.8 mg/dl
--- NOTE | 2016-09-30 10:08 | Surgery Progress Note ---
Surgery Progress Note Date of Service Sep 30, 2016. Subjective pt with much less abd pain- looks and feels better, positive bowel movements CT- shows area of abscess and inflammation essentially unchanged over 4-5 days abscess 2.3 cm- not larger Objective Vital Signs: Date Time Temp Pulse Resp B/P (MAP) Pulse Ox O2 Delivery O2 Flow Rate FiO2 09/30/16 08:00 Room Air 09/30/16 07:12 36.9 57 19 105/62 (76) 100 Room Air 09/30/16 04:01 36.6 58 15 109/72 (84) 96 CPAP 09/30/16 04:00 Room Air 09/29/16 23:59 CPAP 09/29/16 23:14 36.4 59 21 118/54 (75) 97 CPAP 09/29/16 20:00 Room Air 09/29/16 19:12 36.4 66 18 101/66 (78) 99 Room Air 09/29/16 15:45 36.5 68 20 100/70 (80) 99 Room Air 09/29/16 13:14 102 09/29/16 11:52 36.7 80 18 95/65 (75) 98 Room Air General Appearance: no apparent distress Respiratory/Chest: no respiratory distress Abdomen: non tender, non distended Laboratory Results: Results Past 24 Hours Test 09/30/16 06:32 Range/Units Prothrombin Time 14.9 9.0-12.0 SECONDS Prothromb Time International Ratio 1.4 0.9-1.1 Activated Partial Thromboplast Time 51.3 21.0-31.0 SECONDS Partial Thromboplastin Ratio 2.0 Sodium Level 139 136-145 mmol/L Potassium Level 3.4 3.5-5.1 mmol/L Chloride Level 101 98-107 mmol/L Carbon Dioxide Level 32 21-32 mmol/L Anion Gap 6.0 3-11 mmol/L Blood Urea Nitrogen 11 7-18 mg/dl Creatinine 1.00 0.60-1.20 mg/dl Est Creatinine Clear Calc Drug Dose 104.8 ml/min Estimated GFR () 72.4 Estimated GFR (Non- 62.5 BUN/Creatinine Ratio 10.9 10-20 Random Glucose 102 70-99 mg/dl Calcium Level 8.8 8.5-10.1 mg/dl Assessment & Plan 09/30/16- would probably benefit from IV atbx 2-3 weeks to avoid acute surgical intervention. May consider colorectal surgery eval as outpt for potential robotic surgery if needed- pts morbid obesity is significant risk factor and complicates open surgery. 09/27/16- would cont IV atbx, very slowly adv diet- sips today, clears tomorrow. Dr Nix covering over weekend. Would not gallego to allow her to go home too soon off IV atbx. She will need repeat CT at some point depending on progress. She may not require surgery and would benefit from GI followup as outpt with [facility]- will need colonoscopy. 09/27/16- would cont IV atbx, very slowly adv diet- sips today, clears tomorrow. Dr Nix covering over weekend. Would not gallego to allow her to go home too soon off IV atbx. She will need repeat CT at some point depending on progress. She may not require surgery and would benefit from GI followup as outpt with [facility]- will need colonoscopy.
[2016-09-30 11:30] VITALS: BP 96/64; PULSE 60; TEMP 36.6; O2SAT 100
[2016-09-30] MEDS ORDERED: BTP80 PO (13:08)
--- NOTE | 2016-09-30 13:10 | Discharge Instructions ---
Discharge Instructions Date of Service Sep 30, 2016. Admission Reason for Admission: Diverticulitis Discharge Discharge Diagnosis / Problem: SIGMOID DIVERTICULITIS /ABSCESS /ATRIAL FIBRILLATION Discharge Goals Goal(s): Increase independence, Improve disease control, Diagnostic testing, Therapeutic intervention Activity Recommendations Activity Limitations: resume your previous activity Shower/Bathe: no limitations . Instructions / Follow-Up Instructions / Follow-Up HOSPITAL FOLLOW UP : 10/04/2016 10:00 AM Minh Reilly MD [facility] CARDIOLOGY FOLLOW UP : 10/14/2016 1:15 PM Mel Funes PA-C Cardiology, [facility] YOU ARE DISCHARGED WITH IV ANTIBIOTIC ( INVANZ 1 GM DAILY ) VIA PICC LINE FOR 2 WEEKS PICC LINE WILL BE DISCONTINUED AFTER COMPLETION OF ANTIBIOTIC TREATMENT CT ABDOMEN WITH CONTRAST REPEAT AFTER COMPLETING 2 WEEKS OF IV ANTIBIOTIC TO ASSESS IMPROVEMENT OF ABSCESS NEED FOLLOW UP /REFERRAL FOR COLO RECTAL SURGERY WILL NEED POSSIBLE SURGERY IN FUTURE IN TERTIARY CENTER PREFERABLY AT [facility] Diet Patient's current hospital diet: Low Fiber Diet Discharge Diet Recommended Diet: Low Fiber Diet Pending Studies Studies pending at discharge: no Medical Emergencies . Who to Call and When: Medical Emergencies: If at any time you feel your situation is an emergency, please call 911 immediately. . Non-Emergent Contact Non-Emergency issues call your: Primary Care Provider . . "Provider Documentation" section prepared by Vivian Paiz. . VTE Core Measure Inpt VTE Proph given/why not?: Warfarin (Coumadin)
[2016-09-30] MEDS ORDERED: ERTA1INJ IV (13:16)
--- NOTE | 2016-09-30 13:20 | Progress Note ---
Progress Note Date of Service Sep 30, 2016. Progress Note ATTENDING NOTE : CT ABDOMEN /PELVIS SHOWS : unchanged size of sigmoid diverticular abscess appreciate Surgery input pt will need IV abx for 2 weeks , PICC line ordered -unable to placed PICC may have to come to [facility] daily for IV Invanz will need out pt colorectal surgery follow up -procedure needs to be done at tertiary care ( preferably [facility] ) -high risk for surgery //Afib on anticoagulation pt will be continued to be monitored in Tele as Sotalol dose adjusted/Prolong Qtc /Afib by Cardiology cont IV heparin bridge with Coumadin for sub therapeutic INR plan for DC home in 1-2 days
--- NOTE | 2016-09-30 14:47 | Infectious Disease Progress Nt ---
Progress Note Date of Service Sep 30, 2016. Subjective Pt evaluation today including: conversation w/ patient, physical exam, chart review, lab review, review of studies, conversation w/ biztalk consultant, review of inpatient medication list Feels better with decreasing abdominal pain. No fever. Tolerating Invanz. CT scan , read by me, shows no worsening infection. No other new complaints. All Other Systems: Reviewed and Negative Medications Current Inpatient Medications Medications (Trade) Dose Ordered Sig/Binta Route Start Time Stop Time Status Last Admin Dose Admin Acetaminophen (Tylenol Tab) 650 mg Q4H PRN PO 09/25/16 21:30 10/25/16 21:29 Lisinopril (Zestril Tab) 20 mg DAILY PO 09/26/16 09:00 10/26/16 08:59 09/30/16 08:42 20 MG Heparin Sodium/ Dextrose 500 ml @ 30 mls/hr [id number] PRN IV 09/25/16 22:45 10/25/16 22:44 09/29/16 20:22 30 MLS/HR Ertapenem 1 gm/ Sodium Chloride 50 ml @ 120 mls/hr Q24H IV 09/26/16 10:30 10/06/16 10:29 09/30/16 09:54 120 MLS/HR Cyclobenzaprine HCl (Flexeril Tab) 5 mg TID PRN PO 09/27/16 17:45 10/27/16 17:44 09/27/16 18:26 5 MG Torsemide (Demadex Tab) 20 mg DAILY PO 09/28/16 09:00 10/28/16 08:59 09/30/16 08:40 20 MG Ioversol (Optiray 320) 111 ml UD PRN IV 09/29/16 09:30 10/03/16 09:29 Ioversol (Optiray 320) 100 ml UD PRN IV 09/30/16 08:30 10/04/16 08:29 Warfarin Sodium (Coumadin Tab) 10 mg DAILY@1600 PO 09/30/16 16:00 10/28/16 15:59 Sotalol HCl (Betapace Tab) 80 mg BID PO 09/30/16 21:00 10/30/16 20:59 Spironolactone (Aldactone Tab) 25 mg QAM PO 10/01/16 09:00 10/31/16 08:59 Objective Vital Signs Date Time Temp Pulse Resp B/P (MAP) Pulse Ox O2 Delivery O2 Flow Rate FiO2 09/30/16 12:00 Room Air 09/30/16 11:30 36.6 60 18 96/64 (75) 100 Room Air 09/30/16 08:00 Room Air 09/30/16 07:12 36.9 57 19 105/62 (76) 100 Room Air 09/30/16 04:01 36.6 58 15 109/72 (84) 96 CPAP 09/30/16 04:00 Room Air 09/29/16 23:59 CPAP 09/29/16 23:14 36.4 59 21 118/54 (75) 97 CPAP 09/29/16 20:00 Room Air 09/29/16 19:12 36.4 66 18 101/66 (78) 99 Room Air 09/29/16 15:45 36.5 68 20 100/70 (80) 99 Room Air Physical Exam General Appearance: WD/WN, no apparent distress Eyes: normal inspection, EOMI, sclerae normal ENT: normal ENT inspection, pharynx normal Neck: supple, no adenopathy, thyroid normal, trachea midline Respiratory/Chest: chest non-tender, lungs clear, normal breath sounds, no respiratory distress Cardiovascular: regular rate, rhythm, no gallop, no murmur Abdomen: normal bowel sounds, soft, no organomegaly, + tenderness (mild LLQ) Extremities: non-tender, no calf tenderness Neurologic/Psychiatric: alert, oriented x 3 Skin: normal color, warm/dry, no rash Lymphatic: no adenopathy Laboratory Results Last 24 Hours Test 09/30/16 06:32 Prothrombin Time 14.9 SECONDS Prothromb Time International Ratio 1.4 Activated Partial Thromboplast Time 51.3 SECONDS Partial Thromboplastin Ratio 2.0 Sodium Level 139 mmol/L Potassium Level 3.4 mmol/L Chloride Level 101 mmol/L Carbon Dioxide Level 32 mmol/L Anion Gap 6.0 mmol/L Blood Urea Nitrogen 11 mg/dl Creatinine 1.00 mg/dl Est Creatinine Clear Calc Drug Dose 104.8 ml/min Estimated GFR () 72.4 Estimated GFR (Non- 62.5 BUN/Creatinine Ratio 10.9 Random Glucose 102 mg/dl Calcium Level 8.8 mg/dl Assessment and Plan Acute diverticulitis with developing abscess formation. No surgical intervention planned at present. Patient to be continued on IV Abx for 2-3 weeks dep[ending on clinical response and F/u CT.
[2016-09-30 17:07] VITALS: BP 132/76; PULSE 66; TEMP 36.4; O2SAT 96
[2016-09-30] MEDS: WARFARIN SOD 10 MG TAB PO SCH (17:25)
[2016-09-30 20:02] VITALS: BP 126/74; PULSE 63; TEMP 36.8; O2SAT 99
[2016-09-30 23:11] VITALS: BP 115/62; PULSE 58; TEMP 35.8; O2SAT 97
[2016-10-01 02:51] VITALS: BP 122/73; PULSE 57; TEMP 36.2; O2SAT 97
[2016-10-01] MEDS: HEPARIN 25,000 UNIT/500ML D5W 500 ML IV PRN (05:44)
[2016-10-01 06:17] LABS: HEMATOCRIT 31.2 % (37-47); MEAN CELL VOLUME 89.4 fL (80-100); MEAN CORPUSCULAR HEMOGLOBIN 28.4 pg (25-34); MEAN CORPUSCULAR HGB CONC 31.7 g/dl (32-36); MEAN PLATELET VOLUME 9.4 fL (7.4-10.4); PLATELET COUNT 297 K/uL (130-400); RED BLOOD COUNT 3.49 M/uL (4.2-5.4); WHITE BLOOD COUNT 8.11 K/uL (4.8-10.8)
[2016-10-01 06:37] LABS: INR 1.5 (0.9-1.1); PARTIAL THROMBOPLASTIN RATIO 2.1; PROTHROMBIN TIME (PATIENT) 16.3 SECONDS (9.0-12.0)
[2016-10-01 06:39] LABS: BUN/CREATININE RATIO 11.2 (10-20); CALCIUM 8.5 mg/dl (8.5-10.1); CREATININE 1.1 mg/dl (0.60-1.20); MAGNESIUM 1.9 mg/dl (1.8-2.4); POTASSIUM 3.4 mmol/L (3.5-5.1)
[2016-10-01] MEDS ORDERED: POTASSIUM CHLORIDE 10 MEQ TABCR PO STA ×2 (07:23→12:14)
[2016-10-01 07:27] VITALS: BP 100/69; PULSE 98; TEMP 36.8; O2SAT 93
[2016-10-01 08:00] VITALS: O2SAT 93
[2016-10-01] MEDS: SOTALOL HCL 80 MG TAB PO SCH (08:02)
[2016-10-01] MEDS: LISINOPRIL 20 MG TAB PO SCH (08:03)
[2016-10-01] MEDS: TORSEMIDE 20 MG TAB PO SCH (08:04)
[2016-10-01] MEDS ORDERED: METOPROLOL TARTRATE 25 MG TAB PO SCH (09:00)
[2016-10-01] MEDS ORDERED: SPIRONOLACTONE 25 MG TAB PO SCH (09:00)
--- NOTE | 2016-10-01 09:38 | Cardiology Follow-Up ---
Subjective General Date of Service: Oct 01, 2016. Chief Complaint: follow up AF Pt evaluation today including: conversation w/ patient, physical exam, chart review, lab review, review of studies, review of inpatient medication list History of Present Illness Patient feeling ok. Wants to be discharged. Denies recurrent abdominal pain. Small BM noted. No chest pain or SOB. No sense of palpitations. Telemetry reviewed - maintaining NSR, HR's in the 60's, no ventricular ectopy. Rare PAC. Allergies Coded Allergies: Codeine (Verified Allergy, Severe, SHORTNESS OF BREATH, 09/25/16) Penicillins (Verified Allergy, Severe, THROAT SWELLING, 09/26/16) PT HAS TOLERATED CEPHALOSPORINS PER DR SALAZAR Social History Smoking Status: Former Smoker Hx Tobacco Use In Past Year?: Yes Hx Alcohol Use - Type And Amou: No Hx Substance Use - Type And Am: No Problem List Medical Problems: (1) Congestive heart failure Status: Acute (2) Flank pain Status: Acute Review of Systems Respiratory: No cough, No sputum, No wheezing, No shortness of breath, No dyspnea at rest, No hemoptysis Cardiac: No chest pain, No orthopnea, No PND, No edema, No palpitations Physical Exam Vital Signs Last Vital Signs Documentation Date Time Temp Pulse Resp B/P (MAP) Pulse Ox O2 Delivery O2 Flow Rate FiO2 10/01/16 07:27 36.8 98 18 100/69 (79) 93 Room Air Physical Exam Constitutional: General Apperance: obese Level of Distress: NAD Psychiatric: Mental Status: active & alert Orientation: to time, to place, to person Head: normocephalic Eyes: Pupils: PERRLA Neck: supple Lungs: Auscultation: no wheezing, no rales/crackles, no rhonchi Cardiovascular: Heart Auscultation: RRR, no murmurs Abdomen: Inspection & Palpation: soft, non-distended Extremities: no edema Neurologic: Gait & Station: pertinent finding (no focal defiicts ) Assessment and Plan Assessment and Plan 56-year-old female 1. Acute diverticulitis, diverticular abscess, surgery following. 2. Recurrent symptomatic paroxysmal atrial fibrillation, now on sotalol. Controlled in NSR. 3. mild hypokalemia 4. Borderline prolonged QT on EKG Plan: Sotalol dose reduced to 80 mg BID due to persistent prolonged QT. Repeat EKG in AM. Metoprolol added at 12.5 mg BID. INR 1.5, continue heparin to coumadin. Continue torsemide. Spironolactone increased to 25 mg due to hypokalemia. Plans for outpatient antibiotic therapy daily at [facility]. F/U CT scan in several weeks and appt with colorectal surgery. DVT proph - heparin/coumadin. Case to be discussed with Dr. Mariscal. Will follow. CARDIOLOGY ATTENDING ADDENDUM: The patient was seen and personally examined. Agree with Mel Funes PA-C's findings and plans as documented above with additions as noted below. S: pt in good spirits. SR noted on EKG and telemetry, mild QT prolongation. PICC inserted successfully this am at 1030 am, after unsuccessful attempt yesterday. heparin infusion running. Had coumadin 10 mg yesterday. Exam: CV: reg , no murmurs Ext no edema Data: EKG at above. Telemetry SR with occasional PACs Impression: Recurrent AF, now SR on sotalol, PAF. Mild Qt prolongation, therefore sotalol dose reduced backto 80 mg BID Diverticulitis, abscess. Plan: Pt with h/o presumed non ischemic CM diagnosed in setting of volume overload and AF RVR in 02/2016. Ultimately , SR had been maintained on amiodarone and LVEF normalized on follow up echo. Amiodarone recently discontinued as outpt to minimize long-term duration of exposure and toxicity risk, with noted TSH elevation to 7 miu/l. Pt was noted to have recurrent AF on outpt Holter , prompting re-start of amiodarone recently as outpt. Pt presented with abd pain this admission and was found to have diverticulitis, abscess, and recurrent AF while on amiodarone. Amiodarone discontinued and sotalol started , with 1 additional episode in hospital, mostly in Sr. Although QTc is mildly prolonged, favor proceeding with sotalol with caution as rhythm has been stable. Add low dose metoprolol for further rate control. Pt requires antiarrhythmic therapy to prevent recurrence of tachycardia induced CM. Amiodarone is a poor terminal computer operator drug given toxicity risk. Flecainide and Propafenone are contra-indicated due to clinical heart failure history as is dronedarone. Would anticipate similar QT issues with Dofetilide. Pt not a candidate for ablation at present do to infectious issues. Moving ahead , continued coumadin loading, If pt discharged OK to continue coumadin dosing at outpt without bridge therapy and follow up with anticoagulation clinic (pt already established). Avoid QT prolonging agents such as quinolone and macrolide antibiotics-this was discussed with patient at length. Laboratory Results Last 24 Hours Test 10/01/16 06:04 White Blood Count 8.11 K/uL Red Blood Count 3.49 M/uL Hemoglobin 9.9 g/dL Hematocrit 31.2 % Mean Corpuscular Volume 89.4 fL Mean Corpuscular Hemoglobin 28.4 pg Mean Corpuscular Hemoglobin Concent 31.7 g/dl RDW Standard Deviation 47.5 fL RDW Coefficient of Variation 14.6 % Platelet Count 297 K/uL Mean Platelet Volume 9.4 fL Prothrombin Time 16.3 SECONDS Prothromb Time International Ratio 1.5 Activated Partial Thromboplast Time 55.2 SECONDS Partial Thromboplastin Ratio 2.1 Sodium Level 139 mmol/L Potassium Level 3.4 mmol/L Chloride Level 101 mmol/L Carbon Dioxide Level 32 mmol/L Anion Gap 6.0 mmol/L Blood Urea Nitrogen 12 mg/dl Creatinine 1.10 mg/dl Est Creatinine Clear Calc Drug Dose 95.4 ml/min Estimated GFR () 64.5 Estimated GFR (Non- 55.7 BUN/Creatinine Ratio 11.2 Random Glucose 100 mg/dl Calcium Level 8.5 mg/dl Magnesium Level 1.9 mg/dl
[2016-10-01] MEDS: ERTAPENEM IV 1 GM in SODIUM CHLOR 0.9% AD-VAN 50ML 50 ML IV SCH (09:58)
--- NOTE | 2016-10-01 10:35 | Progress Note ---
Medicine Progress Note Date & Time of Visit: Oct 01, 2016 at 10:32. (Elizabeth Caldwell, P.A.-C.) Subjective Patient seen and examined. Sitting upright in chair, working on laptop. Says lower abdominal pain has subsided and patient is back to chronic, dull intermittent pain. Denies nausea, vomiting, diarrhea. Had a small BM overnight. Denies any CP, palpitations, calf pain, LE swelling overnight. States that she is feeling much better and would like to go home. (Elizabeth Caldwell, P.A.-C.) Objective Last 8 Hrs Date Time Temp Pulse Resp B/P (MAP) Pulse Ox O2 Delivery O2 Flow Rate FiO2 10/01/16 08:00 93 Room Air 10/01/16 07:27 36.8 98 18 100/69 (79) 93 Room Air 10/01/16 04:00 CPAP 10/01/16 02:51 36.2 57 21 122/73 (89) 97 CPAP Physical Exam: General Appearance: WD/WN, no apparent distress, morbidly obese Head: normocephalic, atraumatic Eyes: normal inspection, PERRL, EOMI ENT: hearing grossly normal, pharynx normal Neck: supple, no JVD, no adenopathy Respiratory/Chest: lungs clear to auscultation. No wheezes, rales or rhonci. No respiratory distress or accessory muscle use Cardiovascular: regular rate, rhythm, no murmur, normal peripheral pulses Abdomen/GI: normal bowel sounds, soft. Some TTP in LLQ but non-tender otherwise Extremities/Musculoskelatal: normal inspection, no calf tenderness, normal capillary refill. Chronic bilateral LE edema. Neurologic/Psych: alert, normal mood/affect, oriented x 3 Skin: normal color, warm/dry Laboratory Results: Last 24 Hours Test 10/01/16 06:04 White Blood Count 8.11 K/uL Red Blood Count 3.49 M/uL Hemoglobin 9.9 g/dL Hematocrit 31.2 % Mean Corpuscular Volume 89.4 fL Mean Corpuscular Hemoglobin 28.4 pg Mean Corpuscular Hemoglobin Concent 31.7 g/dl RDW Standard Deviation 47.5 fL RDW Coefficient of Variation 14.6 % Platelet Count 297 K/uL Mean Platelet Volume 9.4 fL Prothrombin Time 16.3 SECONDS Prothromb Time International Ratio 1.5 Activated Partial Thromboplast Time 55.2 SECONDS Partial Thromboplastin Ratio 2.1 Sodium Level 139 mmol/L Potassium Level 3.4 mmol/L Chloride Level 101 mmol/L Carbon Dioxide Level 32 mmol/L Anion Gap 6.0 mmol/L Blood Urea Nitrogen 12 mg/dl Creatinine 1.10 mg/dl Est Creatinine Clear Calc Drug Dose 95.4 ml/min Estimated GFR () 64.5 Estimated GFR (Non- 55.7 BUN/Creatinine Ratio 11.2 Random Glucose 100 mg/dl Calcium Level 8.5 mg/dl Magnesium Level 1.9 mg/dl (Elizabeth Caldwell, P.A.-C.) Assessment & Plan Patient is a 56yo F with a PMH of paroxysmal a fib (on coumadin), non-ischemic cardiomyopathy, HTN and EVELYN who presented with constipation x 2 weeks and was found to have acute sigmoid diverticulitis with abscess. Acute Sigmoid Diverticulitis with abscess: -CT abd/pelvis with unchanged sigmoid diverticulitis and abscess (2cm) -Afebrile, no leukocytosis, vitals stable -First episode of diverticulitis, noted no history of colonoscopy -Case discussed with general surgery and ID. Decided to treat with IV abx x 2 weeks and then get repeat CT -PICC line placed. Plans for daily out-patient IV Ertapenem with home health -Case management helping to coordinate -Will need out-pt colorectal surgery at tertiary care setting due to high risk with cardiac history (Afib on anticoagulation) Atrial Fibrillation: -Rate controlled -Cardio on board- on IV sotolol and metoprolol -Sotalol dose reduced to 80 mg BID due to persistent prolonged QT -Repeat EKG -Metoprolol added at 12.5 mg BID -On Coumadin. INR is still subtherapeutic at 1.5. Continue with 10mg daily dose -Follow up with out-pt cardiology/coag clinic Hypokalemia: -Slightly low K of 3.4 -Replaced -Spironolactone increased to 25 mg 2/2 hypokalemia -Continue to monitor Non-Ichemic Cardiomyopathy: - EF of 60% echo 08/2016 - Continue beta jackie, ACEi, Torsemide HTN: - BP stable -Continue lisinopril and metoprolol EVELYN: - CPAP as per home settings DVT Ppx: Heparin Code status: FULL PCP: Dr. Reilly Dispo: Plan to return home today with [facility] managing PICC line abx Current Inpatient Medications: Current Inpatient Medications Medications (Trade) Dose Ordered Sig/Binta Route Start Time Stop Time Status Last Admin Dose Admin Acetaminophen (Tylenol Tab) 650 mg Q4H PRN PO 09/25/16 21:30 10/25/16 21:29 Lisinopril (Zestril Tab) 20 mg DAILY PO 09/26/16 09:00 10/26/16 08:59 10/01/16 08:03 20 MG Heparin Sodium/ Dextrose 500 ml @ 30 mls/hr [id number] PRN IV 09/25/16 22:45 10/25/16 22:44 10/01/16 05:44 30 MLS/HR Ertapenem 1 gm/ Sodium Chloride 50 ml @ 120 mls/hr Q24H IV 09/26/16 10:30 10/06/16 10:29 10/01/16 09:58 120 MLS/HR Cyclobenzaprine HCl (Flexeril Tab) 5 mg TID PRN PO 09/27/16 17:45 10/27/16 17:44 09/27/16 18:26 5 MG Torsemide (Demadex Tab) 20 mg DAILY PO 09/28/16 09:00 10/28/16 08:59 10/01/16 08:04 20 MG Ioversol (Optiray 320) 111 ml UD PRN IV 09/29/16 09:30 10/03/16 09:29 Ioversol (Optiray 320) 100 ml UD PRN IV 09/30/16 08:30 10/04/16 08:29 Warfarin Sodium (Coumadin Tab) 10 mg DAILY@1600 PO 09/30/16 16:00 10/28/16 15:59 09/30/16 17:25 10 MG Sotalol HCl (Betapace Tab) 80 mg BID PO 09/30/16 21:00 10/30/16 20:59 10/01/16 08:02 80 MG Spironolactone (Aldactone Tab) 25 mg QAM PO 10/01/16 09:00 10/31/16 08:59 10/01/16 08:03 25 MG Metoprolol Tartrate (Lopressor Tab) 12.5 mg BID PO 10/01/16 09:00 10/31/16 08:59 10/01/16 09:58 12.5 MG (Elizabeth Caldwell, P.A.-C.) ADDENDUM: Saw/examined this patient in room 220 She is seated in a chair, doing well No problems with PO intake, no abdominal pain Denies fevers/chills Plan is for continued Invanz as outpatient; at least 2 weeks, more likely 3-4 weeks; will need CT as outpatient in 2 weeks to follow abscess size Plan for d/c home with home health today PICC line is in place (Alex Meraz, DO)
[2016-10-01 11:36] VITALS: BP 114/76; PULSE 56; TEMP 37; O2SAT 100
[2016-10-01 12:00] VITALS: O2SAT 93
[2016-10-01] MEDS: WARFARIN SOD 10 MG TAB PO SCH (15:28)
[2016-10-01 16:33] VITALS: BP 114/76; PULSE 56; TEMP 37; O2SAT 93
[2016-10-01] MEDS ORDERED: SPR25 PO (17:00)
[2016-10-01] MEDS ORDERED: LPR25 PO (17:00)
--- NOTE | 2016-10-01 18:25 | Discharge Summary ---
Discharge Summary Date of Service Oct 01, 2016. Discharge Summary Admission Date: Sep 25, 2016 at 21:50 Discharge Date: Oct 01, 2016 Discharge Disposition: Home with services Principal Diagnosis: Acute sigmoid diverticulitis with abscess Secondary Diagnoses/Problems: Atrial Fibrillation, Hypokalemia, Non-Ichemic Cardiomyopathy, HTN, EVELYN Pending Studies/Follow-Up: Repeat CBC, BMP with PCP. Repeat INR at Coumadin clinic in 3-4 days Admission Information HPI (per Admitting provider): 56 year old female who presents to the ER with constipation. Patient reports symptoms have been going on for two weeks. She has tried OTC laxatives, fiber bars, and enemas. She reports increasing abdominal distention. She reports feeling full. She has had lower abdominal pain before passing flatus. Otherwise no other pain. She reports mild nausea but appetite has been unchanged. No vomiting. She denies fever and chills. No chest pain or shortness of breath. She has chronic lower extremity edema which is unchanged. Reports intermittent palpitations that she associates with anxiety at work. She denies lightheadedness, dizziness, diaphoresis, and syncopal events. No urinary symptoms. In the ER, patient had a CT abd/pelvis that is showing acute sigmoid diverticulitis with possible developing abscess. Labs are unremarkable. Vitals are stable. She was given IV Cipro and Flagyl. Physical Exam (per Admitting): General Appearance: no apparent distress Head: normocephalic Eyes: normal inspection ENT: hearing grossly normal Neck: supple, no JVD Respiratory/Chest: lungs clear, normal breath sounds, no respiratory distress Cardiovascular: + irregularly irregular (rate controlled), + pertinent finding (+2 edema BLLE) Abdomen/GI: normal bowel sounds, non tender, soft, + distended Extremities/Musculoskelatal: normal inspection, no calf tenderness Neurologic/Psych: no motor/sensory deficits, alert, normal mood/affect, oriented x 3 Skin: normal color, warm/dry Hospital Course Patient is a 56yo F with a PMH of paroxysmal a fib (on coumadin), non-ischemic cardiomyopathy, HTN and EVELYN who presented with constipation x 2 weeks and was found to have acute sigmoid diverticulitis with abscess. Acute Sigmoid Diverticulitis with abscess: -CT abd/pelvis with unchanged sigmoid diverticulitis and abscess (2cm) -Afebrile, no leukocytosis, vitals stable -First episode of diverticulitis, noted no history of colonoscopy -Case discussed with general surgery and ID. Decided to treat with IV abx x 2 weeks and then get repeat CT -PICC line placed. Plans for daily out-patient IV Ertapenem with home health -Case management helping to coordinate -Will need out-pt colorectal surgery at tertiary care setting due to high risk with cardiac history (Afib on anticoagulation) Atrial Fibrillation: -Rate controlled -Cardio on board- on IV sotolol and metoprolol -Sotalol dose reduced to 80 mg BID due to persistent prolonged QT -Repeat EKG -Metoprolol added at 12.5 mg BID -On Coumadin. INR is still subtherapeutic at 1.5. Continue with 10mg daily dose -Follow up with out-patient cardiology. Hypokalemia: -Slightly low K of 3.4 -Replaced -Spironolactone increased to 25 mg 2/2 hypokalemia -Continue to monitor Non-Ichemic Cardiomyopathy: - EF of 60% echo 08/2016 - Continue beta jackie, ACEi, Torsemide HTN: - BP stable -Continue lisinopril and metoprolol EVELYN: - CPAP as per home settings DVT Ppx: Heparin Code status: FULL PCP: Dr. Reilly Dispo: Plan to return home once medically stable with home health *ADDENDUM* - PICC line placed - can be d/c'd home with home health - 2-3 weeks of Invanz for now, repeat CT in 2-3 weeks, ID follow-up as outpatient Total time spent on discharge = 35 minutes This includes examination of the patient, discharge planning, medication reconciliation, and communication with other providers. Discharge Instructions DI: Medical v4 Discharge Instructions Date of Service Sep 30, 2016. Admission Reason for Admission: Diverticulitis Discharge Discharge Diagnosis / Problem: SIGMOID DIVERTICULITIS /ABSCESS /ATRIAL FIBRILLATION Discharge Goals Goal(s): Increase independence, Improve disease control, Diagnostic testing, Therapeutic intervention Activity Recommendations Activity Limitations: resume your previous activity Shower/Bathe: no limitations . Instructions / Follow-Up Instructions / Follow-Up HOSPITAL FOLLOW UP : 10/04/2016 10:00 AM Minh Reilly MD [facility] CARDIOLOGY FOLLOW UP : 10/14/2016 1:15 PM Mel Funes PA-C Cardiology, [facility] YOU ARE DISCHARGED WITH IV ANTIBIOTIC ( INVANZ 1 GM DAILY ) VIA PICC LINE FOR 2 WEEKS PICC LINE WILL BE DISCONTINUED AFTER COMPLETION OF ANTIBIOTIC TREATMENT CT ABDOMEN WITH CONTRAST REPEAT AFTER COMPLETING 2 WEEKS OF IV ANTIBIOTIC TO ASSESS IMPROVEMENT OF ABSCESS NEED FOLLOW UP /REFERRAL FOR COLO RECTAL SURGERY WILL NEED POSSIBLE SURGERY IN FUTURE IN TERTIARY CENTER PREFERABLY AT [facility] Diet Patient's current hospital diet: Low Fiber Diet Discharge Diet Recommended Diet: Low Fiber Diet Pending Studies Studies pending at discharge: no Medical Emergencies . Who to Call and When: Medical Emergencies: If at any time you feel your situation is an emergency, please call 911 immediately. . Non-Emergent Contact Non-Emergency issues call your: Primary Care Provider . . "Provider Documentation" section prepared by Vivian Paiz. . VTE Core Measure Inpt VTE Proph given/why not?: Warfarin (Coumadin)
[2016-11-05] MEDS ORDERED: ULT50X PO ×2 (18:00→18:16)
[2016-11-05] MEDS ORDERED: SULF800T23 PO (18:16)
[2016-11-05] MEDS ORDERED: METR-162 PO (18:16)
[2016-11-05] MEDS ORDERED: PROM12.56 PO (18:28)
== END 2016-10-01 17:07 | disposition home health service (06) | DRG 392 ==
LOC: C.EDB 18:32 → EDBEDREQSVC 21:34 → CANRESERV 21:46 → ENRESERV 21:46 → C.2T 21:50 → EDBEDREQTM 21:52 → EDBEDREQSVC 21:52 → ENRESERV 21:56
PROVIDERS: ADMIT Internal Medicine; ATTEND Family Medicine
PROC: 02HV33Z Insertion of Infusion Device into Superior Vena Cava, Percutaneous Approach (ICD-10-PCS; principal; 2016-09-21)
DX: K57.20 Diverticulitis of large intestine with perforation and abscess without bleeding (principal); I42.9 Cardiomyopathy, unspecified; F32.9 Major depressive disorder, single episode, unspecified; I11.0 Hypertensive heart disease with heart failure; G47.33 Obstructive sleep apnea (adult) (pediatric); I48.0 Paroxysmal atrial fibrillation; Z87.891 Personal history of nicotine dependence; Z88.0 Allergy status to penicillin; I50.9 Heart failure, unspecified; E87.6 Hypokalemia

== ENCOUNTER 2016-10-09 15:44 | Emergency (ER) | payer BC ==
[~2016-10-09] VITALS: Ht 170.2 cm; Wt 148.1 kg
[~2016-10-09 15:44] MED LIST changes: +BTP80 PO; -CEPH500C2 PO; -CRD200 PO; +ERTA1INJ IV; +LPR25 PO; -SPIR25TA PO; +SPR25 PO; -TPRSR/50 PO; +WARF5TAB7 PO
[2016-10-09 15:47] VITALS: TEMP 36.7; Ht 170.2 cm; Wt 148.1 kg
--- NOTE | 2016-10-09 17:39 | DIAGNOSTIC IMAGING REPORT ---
ULTRASOUND RIGHT UPPER EXTREMITY VENOUS CLINICAL HISTORY: Right arm pain and swelling. COMPARISON STUDY: No priors. TECHNIQUE: Real-time, grayscale, and color Doppler sonography of the deep veins of the right upper extremity is performed. Compression and augmentation were utilized. FINDINGS: There is no sonographic evidence of deep venous thrombosis identified in the right upper extremity. A right PICC line is present from a cephalic vein approach. The right internal jugular, axillary, and brachial veins are patent and normally compressible. Normal venous waveforms and augmentation are seen within the right subclavian vein. The cephalic and basilic veins are clear. The visualized radial and ulnar veins are patent. IMPRESSION: There is no sonographic evidence of deep venous thrombosis identified in the right upper extremity. Electronically signed by: Lee Guillory M.D. 10/09/2016 5:38 PM Dictated Date/Time: 10/09/2016 5:36 PM
[2016-10-09 17:51] VITALS: BP 132/94; PULSE 51; O2SAT 100
--- NOTE | 2016-10-10 20:59 | EMERGENCY ROOM VISIT NOTE ---
ED Visit Note First contact with patient: 16:01 Chief Complaint: I need my PICC line checked. History of Present Illness: Ms. Holcomb is a 56-year-old white female who ambulates into the ED accompanied by her complaining of burning and swelling around her PICC line. Patient was further into the ED by [facility] for evaluation of her PICC line. Patient has a PICC line in for antibiotic therapy related to diverticulitis. It is reported today the home nurse found the patient's PICC line not secured to her arm and the dressings removed. They cleaned the area with a ChloraPrep and it caused her to have some swelling and over the medial aspect of the arm they felt there could be some bruising and swelling of the arm. Currently patient is complaining of a burning sensation in the area of her PICC line. She rates her discomfort 7/10. Her pain is nonradiating. She has not identified any aggravating or alleviating factors related to the pain. She has not taken a medication for pain prior to arrival at the hospital. Associated with her pain she does feel the medial aspect in the area of her PICC line is swollen. She denies any associated fevers, chills, sweats, recent trauma, shoulder pain, elbow pain, previous clots, claudication, cramping, chest pain, shortness of breath, palpitations, upper extremity weakness/numbness/tingling, abdominal pain , nausea/vomiting, decreased appetite. Review of Systems: As noted above in history of present illness. 8 body systems were reviewed and found to be negative as noted above. Past Medical History: (1) Depression (2) Diverticulitis (3) Dyslipidemia (4) HTN (hypertension) (5) Non-ischemic cardiomyopathy (6) EVELYN on CPAP (7) Paroxysmal a-fib Surgical Problems: (1) History of carpal tunnel surgery of left wrist (2) S/P cholecystectomy Current Medications: Medications Dose Route/Sig Max Daily Dose Days Date Category Dose Instructions Spironolactone 25 Mg Tab 25 Mg PO QAM 30 10/01/16 Rx Lopressor (Metoprolol Tartrate) 25 Mg Tab 12.5 Mg PO BID 30 10/01/16 Rx Invanz (Ertapenem Sodium) 1 Gm Inj 1 Gm IV DAILY 14 09/30/16 Rx ACUTE SIGMOID DIVERTICULITIS /ABSCESS NEED IV ANTIBIOTIC FOR 2 WEEKS Sotalol HCl 80 Mg Tab 80 Mg PO BID 09/30/16 Rx Jantoven (Warfarin Sodium) 5 Mg Tab 10 Mg PO DAILY 09/25/16 Reported take 10mg daily on Friday, Friday, and Friday Coumadin (Warfarin Sodium) 5 Mg Tab 5 Mg PO DAILY 90 05/09/16 Reported take 5mg daily on Friday, Friday, , and Friday Demadex (Torsemide) 20 Mg Tab 20 Mg PO DAILY 90 05/09/16 Reported Lisinopril 20 Mg Tab 20 Mg PO DAILY 04/01/16 Reported Allergies to Medications: Codeine, penicillin. Social History: Patient is not employed; she feels safe in her home environment ; she denies tobacco use. Physical Examination: Vital Signs: Date Time Temp Pulse Resp B/P (MAP) Pulse Ox O2 Delivery O2 Flow Rate FiO2 10/09/16 17:51 51 19 132/94 100 Room Air 10/09/16 15:47 36.7 56 20 136/84 98 Room Air GENERAL: 56-year-old female in no acute distress, nontoxic-appearing, afebrile and hemodynamically stable. NEUROLOGICAL: Awake, alert and oriented to person, place and time. Answering questions appropriately and following commands. SKIN: Warm, dry and pink. Right Upper Arm: Just medial to patient's insertion site of her PICC line there is a small amount of what appears to be early bruising and minimal swelling. There is no erythema. The skin does not appear cellulitic. No lymphangitis. HEENT: Atraumatic and normocephalic. THORAX: Lungs sounds are clear to auscultation and equal bilaterally with symmetrical chest wall. HEART: Regular rate and rhythm. No gallops, rubs or murmurs are appreciated. ABDOMEN: Obese, soft and nontender. Positive bowel sounds in all quadrants. No guarding, rigidity or organomegaly. EXTREMITIES: Moves all extremities well on command and with purpose. All distal neurovascular statuses are intact and equal bilaterally. No right upper extremity cords or tenderness surrounding the PICC line. ED Course: Patient is assessed as noted above. IV team came down and assured the patency of her PICC line; they also reported she had no pain and they did not note any swelling after injection of saline. Right Upper Extremity Venous Doppler Ultrasound: Was reviewed by myself and read by the radiologist showing no evidence of deep vein thrombus. Patient was educated about today's findings and instructed on her treatment plan ; she verbalized understanding and agreement with this plan. Clinical Impression: PICC line on evaluation. Decision-Making: Initially my differential diagnosis I considered cellulitis, contusion, deep vein thrombus, PICC line infiltration and other causes. Disposition: Patient discharged home in stable condition accompanied by her ; prior to departure she was reassessed and subjectively reported she was feeling much better and rated her discomfort 2/10. Plan: Patient was encouraged to continue her current medications but if her infusion worsens her pain or swelling tomorrow to stop it. Patient was encouraged use 650 mg of acetaminophen every 6 hours and use ice for pain/swelling. Patient was encouraged return ED for worsening symptoms, skin redness, fevers or any new/concerning symptoms.
[2016-11-05] MEDS ORDERED: ULT50X PO ×2 (18:00→18:16)
[2016-11-05] MEDS ORDERED: SULF800T23 PO (18:16)
[2016-11-05] MEDS ORDERED: METR-162 PO (18:16)
[2016-11-05] MEDS ORDERED: PROM12.56 PO (18:28)
== END 2016-10-09 17:57 | disposition home or self-care (01) ==
LOC: C.EDB 15:45 → C.EDD 17:57
DX: Z04.8 Encounter for examination and observation for other specified reasons (principal); K57.92 Diverticulitis of intestine, part unspecified, without perforation or abscess without bleeding; I48.91 Unspecified atrial fibrillation; I10 Essential (primary) hypertension; E78.5 Hyperlipidemia, unspecified; G47.33 Obstructive sleep apnea (adult) (pediatric); Z90.49 Acquired absence of other specified parts of digestive tract; Z88.0 Allergy status to penicillin; Z88.5 Allergy status to narcotic agent

== ENCOUNTER → 2016-10-18 | Outpatient (CLI) | payer BC ==
[~2016-10-18] MED LIST changes: -ERTA1INJ IV; +METR-162 PO; +OPTIRAY 320 IV PRN; +PROM12.56 PO; +SULF800T23 PO; +ULT50X PO
--- NOTE | 2016-10-18 10:48 | DIAGNOSTIC IMAGING REPORT ---
CT ABD/PELVIS IV AND ORAL CONT CLINICAL HISTORY: DIVERTICULITIS OF COLON COMPARISON STUDY: 09/30/2016 TECHNIQUE: Following the IV administration of 119 mL of Optiray-320, CT scan of the abdomen and pelvis was performed from the lung bases to the proximal femurs. Images are reviewed in the axial, sagittal, and coronal planes. IV contrast was administered without complication. A dose lowering technique was utilized adhering to the principles of ALARA. CT DOSE: 1780.69 mGy.cm FINDINGS: Lower chest: The heart is normal in size and configuration, without pericardial effusion. The lung bases and pleural spaces are clear. Liver: The contrast-enhanced liver is normal in size, contour, and attenuation. There is no intrahepatic biliary ductal dilatation. The hepatic veins and portal veins are patent. Gallbladder: Surgically absent Spleen: Normal in size and attenuation. Pancreas: Unremarkable. Adrenal glands: Unremarkable. Kidneys: There is a stable lower pole right parapelvic cyst. Bowel: There are no transition zones indicate bowel obstruction. There are multiple colonic diverticula present. There is improving sigmoid diverticulitis. There is interval decrease in the size of the small peridiverticular abscess. Peritoneum: There is no intraperitoneal free air or abdominal ascites. Vasculature: The abdominal aorta is normal in course and caliber. Adenopathy: There are mildly prominent external iliac lymph nodes, likely reactive. Pelvic viscera: The bladder, and pelvic viscera are unremarkable. Skeletal structures: No destructive osseous lesions are seen. IMPRESSION: Improving sigmoid diverticulitis. Resolving peridiverticular abscess. Electronically signed by: Klever Gay M.D. 10/18/2016 10:47 AM Dictated Date/Time: 10/18/2016 10:42 AM
== END | disposition home or self-care (01) ==
LOC: C.CTS 10:05
PROVIDERS: ATTEND Family Medicine
DX: K57.20 Diverticulitis of large intestine with perforation and abscess without bleeding (principal)

== ENCOUNTER 2016-11-03 15:32 | Inpatient (IN) | payer BC ==
[~2016-11-03] VITALS: Ht 170.2 cm; Wt 173.5 kg
[~2016-11-03 15:32] MED LIST changes: -METR-162 PO; -OPTIRAY 320 IV PRN; -PROM12.56 PO; -SULF800T23 PO; -ULT50X PO
[2016-11-03] MEDS ORDERED: MoRPHine SULFATE 4 MG/ML 1 ML CARP\\VIAL IV STA (15:52)
[2016-11-03] MEDS ORDERED: SODIUM CHLORIDE 0.9% 1000ML 500 ML IV STA (15:52)
--- NOTE | 2016-11-03 16:06 | EMERGENCY ROOM VISIT NOTE ---
History First contact with patient: 15:41 Chief Complaint: ABDOMINAL PAIN Stated Complaint: DIVERTICULITIS FLARE-UP History of Present Illness The patient is a 56 year old female who presents to the Emergency Room with complaints of abdominal pain and diarrhea for the past week. Patient states her symptoms have been getting progressively worse, today she states "I just couldn't take the pain anymore.". Patient states that she was recently diagnosed with diverticulitis and abscess about 1 month ago, she states that she was treated well for this and had a repeat CT scan that showed improvement. She is scheduled to see a Dr. woodruff with colorectal surgery at [facility] in [place] to have her diverticulitis further evaluated and managed, she states they are planning to do a bowel resection at some point, but this is not yet scheduled. She states about one week ago she started feeling constipated, she saw her PCP who put her on milk of magnesia and MiraLAX. For the past few days she has been having diarrhea, but states she has continued to take the milk of magnesia and MiraLAX because if she does not take them, she feels she is unable to move her bowels. She has had associated low-grade fevers and chills, nausea , but no vomiting, no chest pain or shortness of breath, no dizziness or passing out, no blood in the stool, no urinary symptoms. She does take Coumadin for history of A. fib. Review of Systems A complete 10 point review of systems was reviewed with the patient with pertinent positives and negatives as per history of present illness. All else were negative. Past Medical/Surgical History Medical Problems: (1) Depression (2) Diverticular disease of small and large intestine with complication (3) Diverticulitis (4) Dyslipidemia (5) HTN (hypertension) (6) Non-ischemic cardiomyopathy (7) EVELYN on CPAP (8) Paroxysmal a-fib Surgical Problems: (1) History of carpal tunnel surgery of left wrist (2) S/P cholecystectomy Family History Stroke FATHER MOTHER Social History Smoking Status: Never Smoker Alcohol Use: occasionally Marital Status: Housing Status: lives with significant other Occupation Status: employed Current/Historical Medications Scheduled Lisinopril (Lisinopril), 20 MG PO DAILY Metoprolol Tartrate (Lopressor), 12.5 MG PO BID Sotalol HCl (Sotalol HCl), 80 MG PO BID Spironolactone (Spironolactone), 25 MG PO QAM Torsemide (Demadex), 20 MG PO DAILY Warfarin Sod (Jantoven), 10 MG PO DAILY Warfarin Sodium (Coumadin), 5 MG PO DAILY Allergies Coded Allergies: Codeine (Verified Allergy, Severe, SHORTNESS OF BREATH, 11/03/16) Penicillins (Verified Allergy, Severe, THROAT SWELLING, 11/03/16) PT HAS TOLERATED CEPHALOSPORINS PER DR SALAZAR Physical Exam Vital Signs Date Time Temp Pulse Resp B/P (MAP) Pulse Ox O2 Delivery O2 Flow Rate FiO2 11/03/16 23:20 37.3 69 18 100/47 93 Room Air 11/03/16 22:15 70 11/03/16 22:10 70 20 104/60 11/03/16 21:30 71 16 104/60 94 Room Air 11/03/16 19:25 68 18 125/79 98 Room Air 11/03/16 17:30 70 18 115/76 98 Room Air 11/03/16 16:27 70 11/03/16 15:37 36.9 81 18 131/81 98 Room Air Physical Exam CONSTITUTIONAL: No acute distress, but does appear to be in pain. Mildly dehydrated. Morbidly obese. Alert and oriented X 4 with normal affect. HEENT: Normocephalic, atraumatic. Pupils equal, round and reactive to light, EOMI. TMs normal. Pharynx normal. Tacky mucous membranes. NECK: Supple, full active range of motion without discomfort. RESPIRATORY: Clear to auscultation bilaterally with no wheezing, crackles, rhonchi or stridor. Equal expansion bilaterally. CARDIOVASCULAR: Regular rate and rhythm with no murmurs, rubs or gallops. Normal peripheral perfusion. No edema. GASTROINTESTINAL: Moderate tenderness in the right lower quadrant and periumbilical region to palpation, abdomen is otherwise nontender. Soft, nondistended. Obese abdomen. Bowel sounds present in all quadrants. MUSCULOSKELETAL: Full range of motion of all joints without discomfort. INTEGUMENTARY: No rash or other significant dermatologic conditions noted. NEUROLOGIC: Cranial nerves II-XII grossly intact. No focal neurologic deficits noted. Medical Decision & Procedures ER Provider Diagnostic Interpretation: ABD/PELVIS ORAL CONT ONLY CLINICAL HISTORY: 56 years-old Female presenting with RLQ and mid pain, eval diverticulitis worsening, abscess. TECHNIQUE: Multidetector CT of the abdomen and pelvis was performed without the use of intravenous contrast. IV contrast: None. A dose lowering technique was used consistent with the principles of ALARA (as low as reasonably achievable). COMPARISON: 10/18/2016. CT DOSE (mGy.cm): The estimated cumulative dose is 2205.76 mGy.cm. FINDINGS: Soldering Machine Tender topogram: Cholecystectomy clips. Lung bases: Lung bases clear. Normal heart size. Intraventricular blood pool is less dense and adjacent myocardium suggesting anemia. No pericardial or pleural effusion. Liver: Normal morphology. Density borderline for hepatic steatosis. Biliary: No gross biliary ductal dilatation allowing for noncontrast technique. Gallbladder surgically absent. Pancreas: Mild parenchymal atrophy. Spleen: Normal noncontrast appearance. Adrenal glands: Normal noncontrast appearance. Kidneys and ureters: Parapelvic cysts noted at the right lower pole. No hydronephrosis. No nephrolithiasis. Normal ureters. Bladder: Calcification noted within the wall of the anterior bladder dome. Mild perivesicular fat stranding in the space of Retzius, likely secondary. Pelvic organs: Uterus normal. Mild fat stranding in the bilateral adnexa, likely secondary. Ovaries not enlarged. Bowel: Intramural fat deposition noted in the rectum, which could suggest chronic inflammation. Diverticulosis of the sigmoid colon with evidence of chronic diverticular disease. Additionally, pericolonic fat stranding is evident. Focal linear soft tissue extension from the right lateral wall of the sigmoid colon may track more proximally to the colon or to the bladder dome (series 2 image 77 and 80). Ill-defined low density region superior to the colon without a well-defined abscess.. Normal appendix. No bowel obstruction. Peritoneal cavity: No free fluid or intraperitoneal gas. Vasculature: Atherosclerosis of the normal caliber abdominal aorta. IVC patent. Lymph nodes: Mildly prominent bilateral external iliac lymph nodes, likely reactive. Few additional subcentimeter retroperitoneal lymph nodes also likely reactive. Abdominal wall: Normal. Musculoskeletal: Degenerative changes of the spine. IMPRESSION: 1. Findings consistent with acute on chronic diverticulitis in the sigmoid colon. No CT evidence of christiano perforation, however, suggestion of phlegmonous changes without a focal abscess. Additionally, findings raise concern for a sinus tract or fistula arising from the sigmoid and courses towards the bladder dome or more proximal sigmoid colon. Evaluation limited due to lack of intravenous contrast. Laboratory Results 11/03/16 16:20 Red Blood Count 3.79, Mean Corpuscular Volume 87.9, Mean Corpuscular Hemoglobin 28.0, Mean Corpuscular Hemoglobin Concent 31.8, Mean Platelet Volume 10.0, Neutrophils (%) (Auto) 81.0, Lymphocytes (%) (Auto) 9.1, Monocytes (%) (Auto) 8.3, Eosinophils (%) (Auto) 1.1, Basophils (%) (Auto) 0.1, Neutrophils # (Auto) 11.02, Lymphocytes # (Auto) 1.24, Monocytes # (Auto) 1.13, Eosinophils # (Auto) 0.15, Basophils # (Auto) 0.01 11/03/16 16:20 Test 11/03/16 16:20 11/03/16 16:27 11/03/16 16:30 11/03/16 17:04 White Blood Count 13.61 K/uL (4.8-10.8) Red Blood Count 3.79 M/uL (4.2-5.4) Hemoglobin 10.6 g/dL (12.0-16.0) Hematocrit 33.3 % (37-47) Mean Corpuscular Volume 87.9 fL (80-100) Mean Corpuscular Hemoglobin 28.0 pg (25-34) Mean Corpuscular Hemoglobin Concent 31.8 g/dl (32-36) Platelet Count 288 K/uL (130-400) Mean Platelet Volume 10.0 fL (7.4-10.4) Neutrophils (%) (Auto) 81.0 % Lymphocytes (%) (Auto) 9.1 % Monocytes (%) (Auto) 8.3 % Eosinophils (%) (Auto) 1.1 % Basophils (%) (Auto) 0.1 % Neutrophils # (Auto) 11.02 K/uL (1.4-6.5) Lymphocytes # (Auto) 1.24 K/uL (1.2-3.4) Monocytes # (Auto) 1.13 K/uL (0.11-0.59) Eosinophils # (Auto) 0.15 K/uL (0-0.5) Basophils # (Auto) 0.01 K/uL (0-0.2) RDW Standard Deviation 47.4 fL (36.4-46.3) RDW Coefficient of Variation 14.6 % (11.5-14.5) Immature Granulocyte % (Auto) 0.4 % Immature Granulocyte # (Auto) 0.06 K/uL (0.00-0.02) Est Creatinine Clear Calc Drug Dose 63.3 ml/min Estimated GFR () 41.0 Estimated GFR (Non- 35.4 BUN/Creatinine Ratio 15.0 (10-20) Calcium Level 8.5 mg/dl (8.5-10.1) Magnesium Level 2.8 mg/dl (1.8-2.4) Total Bilirubin 0.4 mg/dl (0.2-1) Direct Bilirubin 0.2 mg/dl (0-0.2) Aspartate Amino Transf (AST/SGOT) 11 U/L (15-37) Alanine Aminotransferase (ALT/SGPT) 16 U/L (12-78) Alkaline Phosphatase 112 U/L (45-117) Total Protein 8.2 gm/dl (6.4-8.2) Albumin 2.9 gm/dl (3.4-5.0) Lipase 94 U/L (73-393) Bedside Lactic Acid Venous 1.52 mmol/L (0.90-1.70) Bedside Hemoglobin 11.2 g/dl (12.0-16.0) Bedside Hematocrit 33 % (37-47) Bedside Sodium 138 mEq/L (135-144) Bedside Potassium 3.6 mEq/L (3.3-5.0) Bedside Chloride 97 mEq/L (101-112) Bedside Total CO2 30 mEq/l (24-31) Anion Gap 16.0 mmol/L (16-25) Bedside Blood Urea Nitrogen 24 mg/dl (7-18) Bedside Creatinine 1.7 mg/dl (0.6-1.3) Bedside Glucose (other) 106 mg/dl (70-99) Bedside Ionized Calcium (Donna) 1.07 mmol/l (1.12-1.32) Urine Color YELLOW Urine Appearance CLEAR (CLEAR) Urine pH 5.0 (4.5-7.5) Urine Specific [place] 1.016 (1.000-1.030) Urine Protein NEG (NEG) Urine Glucose (UA) NEG (NEG) Urine Ketones NEG (NEG) Urine Occult Blood 3+ (NEG) Urine Nitrite NEG (NEG) Urine Bilirubin NEG (NEG) Urine Urobilinogen NEG (NEG) Urine Leukocyte Esterase NEG (NEG) Urine WBC (Auto) 1-5 /hpf (0-5) Urine RBC (Auto) 10-30 /hpf (0-4) Urine Hyaline Casts (Auto) 5-10 /lpf (0-5) Urine Epithelial Cells (Auto) >30 /lpf (0-5) Urine Bacteria (Auto) NEG (NEG) Test 11/03/16 23:28 Prothrombin Time 22.0 SECONDS (9.0-12.0) Prothromb Time International Ratio 2.0 (0.9-1.1) Medications Administered Medications (Trade) Dose Ordered Sig/Binta Route Start Time Stop Time Status Last Admin Dose Admin Sodium Chloride 500 ml @ 999 mls/hr Q31M STAT IV 11/03/16 15:52 11/03/16 16:22 DC 11/03/16 16:26 999 MLS/HR Morphine Sulfate (MoRPHine SULFATE INJ) 4 mg NOW STAT IV 11/03/16 15:52 11/03/16 15:57 DC 11/03/16 16:27 4 MG Morphine Sulfate (MoRPHine SULFATE INJ) 2 mg NOW STAT IV 11/03/16 20:52 11/03/16 20:53 DC 11/03/16 20:52 2 MG Ceftriaxone Sodium (Rocephin Inj) 1 gm NOW STAT IV 11/03/16 22:12 11/03/16 23:03 DC 11/03/16 23:38 1 GM Medical Decision CC: Patient presenting with complaint of abdominal pain and diarrhea Interpretation of Labs: Leukocytosis, anemia that appears improved from previous labs, no significant electrolyte abnormalities, acute kidney injury with elevated BUN and creatinine from baseline, normal liver enzymes and lipase , PTT/INR therapeutic. Lactic acid normal. UA shows hematuria, no other evidence for UTI. Differential Diagnosis: Includes, but not limited to diverticulitis, appendicitis, intra-abdominal abscess, colitis, perforated bowel, bowel ischemia , dehydration, kidney injury, x-ray abnormality, among others. Medication Reconciliation: I attest that I have personally reviewed the patient' s current medication list. Vital signs review: I reviewed the patient's vital signs and interpret them as follows: T: Afebrile; BP: Normotensive; HR: Within normal limits; RR: Within normal limits; Pulse Ox: Within normal limits on room air. Summary: Patient was evaluated at bedside, history of physical exam performed. Patient is alert and in no acute distress, but does appear to be in pain. She is markedly tender in the right lower quadrant and midline lower abdomen. She is afebrile with stable vital signs. Orders were placed at bedside for labs, UA, IV fluids for hydration, CT abdomen/ pelvis with IV contrast to evaluate for worsening diverticulitis, sequela. Patient discussed with Dr. Damian, who agrees with my assessment and plan. Labs reviewed as above, concerning for developing leukocytosis and acute kidney injury. Given creatinine of 1.7, CT order was changed from IV contrast to oral contrast only. CT results reviewed, concerning for acute worsening of diverticulitis, no evidence of perforation and no definite abscess, but there is concern for developing fistula toward the bladder. I did speak over the phone with Dr. Retana, the Acute Surgical physician religious education teacher at [facility], regarding the patient's symptoms and CT findings, as she is a patient of Dr. Woodruff with colorectal surgery. Dr Retana is willing to accept the patient for admission, but does not believe the patient warrants any urgent surgical procedures, and states she would most likely be treated conservatively with IV antibiotics. I discussed all results and plan for admission with the patient and her . She prefers to be admitted here at [facility] rather than be transferred. I spoke with Dr. Medina, [facility] Hospitalist, who agrees to admit the patient. Patient reassessed multiple times throughout ED stay, she reports improved pain and has remained otherwise stable. Impression Primary Impression: Diverticulitis Additional Impression: Acute kidney injury Departure Information Dispostion Admitted as an inpatient Condition FAIR Referrals Minh Reilly M.D. (PCP) Patient Instructions My [facility] Problem Qualifiers Primary Impression: Diverticulitis Diverticulitis site: large intestine Diverticulitis bleeding: without bleeding Diverticulitis complication: without perforation or abscess Qualified Codes: K57.32 - Diverticulitis of large intestine without perforation or abscess without bleeding
[2016-11-03 16:41] LABS: BASO % 0.1 %; BASO ABS # 0.01 K/uL (0-0.2); COMPLETE YES; EOS % 1.1 %; HEMATOCRIT 33.3 % (37-47); IG% 0.4 %; LYMPH % 9.1 %; LYMPH ABS # 1.24 K/uL (1.2-3.4); MEAN CELL VOLUME 87.9 fL (80-100); MEAN CORPUSCULAR HGB CONC 31.8 g/dl (32-36); MONO % 8.3 %; PLATELET COUNT 288 K/uL (130-400); RED BLOOD COUNT 3.79 M/uL (4.2-5.4); WHITE BLOOD COUNT 13.61 K/uL (4.8-10.8)
[2016-11-03 16:44] LABS: ISTAT CREATININE 1.7 mg/dl (0.6-1.3); ISTAT HEMOGLOBIN 11.2 g/dl (12.0-16.0); ISTAT IONIZED CALCIUM 1.07 mmol/l (1.12-1.32)
[2016-11-03 16:58] LABS: CALCIUM 8.5 mg/dl (8.5-10.1); CREATININE 1.6 mg/dl (0.60-1.20); POTASSIUM 3.6 mmol/L (3.5-5.1)
[2016-11-03 17:21] LABS: URINE APPEARANCE CLEAR (CLEAR); URINE BILIRUBIN NEG (NEG); URINE COLOR YELLOW; URINE EPITHELIAL CELL AUTO >30 /lpf (0-5); URINE NITRITE NEG (NEG); URINE SPECIFIC GRAVITY 1.016 (1.000-1.030); UROBILINOGEN NEG (NEG); ZZUR CULT IF INDIC CLEAN CATCH NO
[2016-11-03 17:23] LABS: MANUAL MICROSCOPIC REQUIRED? NO; REVIEW REQ? NO
--- NOTE | 2016-11-03 19:44 | DIAGNOSTIC IMAGING REPORT ---
ABD/PELVIS ORAL CONT ONLY CLINICAL HISTORY: 56 years-old Female presenting with RLQ and mid pain, eval diverticulitis worsening, abscess. TECHNIQUE: Multidetector CT of the abdomen and pelvis was performed without the use of intravenous contrast. IV contrast: None. A dose lowering technique was used consistent with the principles of ALARA (as low as reasonably achievable). COMPARISON: 10/18/2016. CT DOSE (mGy.cm): The estimated cumulative dose is 2205.76 mGy.cm. FINDINGS: Implant Polisher topogram: Cholecystectomy clips. Lung bases: Lung bases clear. Normal heart size. Intraventricular blood pool is less dense and adjacent myocardium suggesting anemia. No pericardial or pleural effusion. Liver: Normal morphology. Density borderline for hepatic steatosis. Biliary: No gross biliary ductal dilatation allowing for noncontrast technique. Gallbladder surgically absent. Pancreas: Mild parenchymal atrophy. Spleen: Normal noncontrast appearance. Adrenal glands: Normal noncontrast appearance. Kidneys and ureters: Parapelvic cysts noted at the right lower pole. No hydronephrosis. No nephrolithiasis. Normal ureters. Bladder: Calcification noted within the wall of the anterior bladder dome. Mild perivesicular fat stranding in the space of Retzius, likely secondary. Pelvic organs: Uterus normal. Mild fat stranding in the bilateral adnexa, likely secondary. Ovaries not enlarged. Bowel: Intramural fat deposition noted in the rectum, which could suggest chronic inflammation. Diverticulosis of the sigmoid colon with evidence of chronic diverticular disease. Additionally, pericolonic fat stranding is evident. Focal linear soft tissue extension from the right lateral wall of the sigmoid colon may track more proximally to the colon or to the bladder dome (series 2 image 77 and 80). Ill-defined low density region superior to the colon without a well-defined abscess.. Normal appendix. No bowel obstruction. Peritoneal cavity: No free fluid or intraperitoneal gas. Vasculature: Atherosclerosis of the normal caliber abdominal aorta. IVC patent. Lymph nodes: Mildly prominent bilateral external iliac lymph nodes, likely reactive. Few additional subcentimeter retroperitoneal lymph nodes also likely reactive. Abdominal wall: Normal. Musculoskeletal: Degenerative changes of the spine. IMPRESSION: 1. Findings consistent with acute on chronic diverticulitis in the sigmoid colon. No CT evidence of christiano perforation, however, suggestion of phlegmonous changes without a focal abscess. Additionally, findings raise concern for a sinus tract or fistula arising from the sigmoid and courses towards the bladder dome or more proximal sigmoid colon. Evaluation limited due to lack of intravenous contrast. Electronically signed by: Patrick Mccann M.D. 11/03/2016 7:43 PM Dictated Date/Time: 11/03/2016 7:33 PM
[2016-11-03] MEDS ORDERED: MoRPHine SULFATE 2 MG/ML CARP ONE (20:39)
[2016-11-03] MEDS ORDERED: MoRPHine SULFATE 2 MG/ML CARP IV STA (20:52)
[2016-11-03] MEDS ORDERED: CEFTRIAXONE SOD INJ 1 GM ADDVIAL IV STA (22:12)
[2016-11-03 22:56] LABS: MAGNESIUM 2.8 mg/dl (1.8-2.4)
[2016-11-03] MEDS ORDERED: HYDROmorphone INJ 0.5 MG/0.5 ML SYR IV PRN (23:30)
[2016-11-03] MEDS ORDERED: ACETAMINOPHEN 325 MG TAB PO PRN (23:30)
[2016-11-03] MEDS ORDERED: METOPROLOL TARTRATE 50 MG TAB PO STA (23:34)
[2016-11-03] MEDS ORDERED: SOTALOL HCL 80 MG TAB PO STA (23:34)
[2016-11-04 00:29] VITALS: BP 118/72; PULSE 74; TEMP 37.3; Ht 170.2 cm; Wt 173.5 kg
[2016-11-04] MEDS ORDERED: NSS + 20MEQ KCL 1000ML 1,000 ML IV ONE (01:15)
[2016-11-04] MEDS: PROMETHAZINE HCL INJ 12.5 MG in SODIUM CHLORIDE 0.9% 50ML 50 ML IV PRN ×2 (01:29→15:44)
[2016-11-04] MEDS: METRONIDAZOLE / NSS 500 MG in PREMIXED NSS 100 ML IV SCH ×3 (01:38→17:15)
[2016-11-04 02:46] VITALS: BP 107/67; PULSE 57
--- NOTE | 2016-11-04 04:29 | HISTORY & PHYSICAL EXAMINATION ---
DATE OF ADMISSION: 11/03/2016 PATIENT'S PRIMARY CARE DOCTOR: Dr. Reilly. CHIEF COMPLAINT: Abdominal pain. HISTORY OF PRESENT ILLNESS: History obtained from the patient and records. Medical history is significant for complicated diverticulitis, history of non- ischemic cardiomyopathy (most recent EF 60% on 2D echo from August 2016), AFib, on anticoagulation, sleep apnea on CPAP, hyperlipidemia, hypertension, chronic anemia (baseline hemoglobin 9-10), past tobacco abuse. Recent confinement was last month for acute sigmoid diverticulitis with peridiverticular abscess. Px improved on medical managemen. Px discharged on IV ertapenem course. She had outpatient followup CT abdomen and pelvis October 18 wc showed improving sigmoid diverticulitis, resolving peridiverticular abscess. Patient saw [facility] colorectal surgeon last October 22. Plan for colonoscopy November 2016 prior to surgery, possible sigmoid resection. Yesterday, the patient noted achy hypogastric pain going to the back, more intense compared to pain from last month. Some nausea, no emesis; loose stools which the patient thinks might be related to laxatives prescribed by a family doctor, nonbloody. No dysuria. Brought to Emergency Room. MEDICAL HISTORY: As above. SURGERIES: Carpal tunnel surgery, cholecystectomy. HOME MEDICATIONS: Include, lisinopril, torsemide, Coumadin, sotalol, Lopressor. FAMILY HISTORY: Stroke, psoriasis. PERSONAL AND SOCIAL HISTORY: Past tobacco abuse. No chronic intake of alcoholic beverages. [employer] employee. REVIEW OF SYSTEMS: As per HPI, all other ROS negative. PHYSICAL EXAMINATION: VITAL SIGNS: Blood pressure was noted to be 131/70, pulse rate 81, RR 18, Temperature 37, O2 sats 98 on room air. GENERAL: Noted to be uncomfortable, obese, no respiratory distress. SKIN: Pallor. HEENT: Pale palpebral conjunctivae. Dry mucosa. NECK: Short neck. LUNGS: Decreased breath sounds. HEART: RRR ABDOMEN: Hypogastric tenderness. EXTREMITIES: Bilateral lower extremity edema. no tenderness NEUROLOGIC: No gross focality. LABORATORY DATA: Hemoglobin was noted to be 10.6, hematocrit 30.3, white cells 13, platelets 288. INR was noted to be 2. Sodium was noted to be 136, potassium 3.6, chloride 98, CO2 32, BUN 34, creatinine 1.6, glucose 104. IMAGING DATA: CT abdomen and pelvis showed acute on chronic diverticulitis of the sigmoid colon, no perforation, no focal abscess; however, note of phlegmonous change, possible concern for sinus tract or fistula coursing through the bladder dome or more proximal sigmoid colon. ASSESSMENT: 1. Complicated diverticulitis Recurrent bout history of peridiverticular abscess sp Ertapenem (09/2016) no sepsis. 2. Diarrhea, possibly post laxative rule out Clostridium difficile. 3. Hypertension, blood pressure on the lower side. 4. Paroxysmal atrial fibrillation, on Coumadin. NSR, INR therapeutic. 5. acute renal failure secondary to illness. 6. Chronic anemia, hemoglobin at baseline 7. Past tobacco abuse. PLAN: F Clear liquids IV Ceftriaxone, Flagyl for now Stool C. difficile. Surgery consult RE complicated diverticulitis (ER provider already in touch with Dr. Retana) Monitor creatinine response to IVF hold diuretics for now until creatinine at baseline. Outpatient follow-up with [facility] colorectal surgeon. May need [facility] Urology opinion as well for possible colovesical fistula on CT. DVT prophylaxis. Coumadin INR 2-3. Full code. MTDD
[2016-11-04 07:19] VITALS: BP 132/77; PULSE 61; TEMP 36.9; O2SAT 95
[2016-11-04] MEDS: SOTALOL HCL 80 MG TAB PO SCH ×2 (07:44→20:29)
[2016-11-04] MEDS: METOPROLOL TARTRATE 25 MG TAB PO SCH ×2 (07:44→20:28)
[2016-11-04 07:49] LABS: BASO % 0.2 %; BASO ABS # 0.02 K/uL (0-0.2); COMPLETE YES; HEMATOCRIT 31.4 % (37-47); IG% 0.2 %; LYMPH % 14.8 %; LYMPH ABS # 1.56 K/uL (1.2-3.4); MEAN CELL VOLUME 88.2 fL (80-100); MEAN CORPUSCULAR HEMOGLOBIN 28.1 pg (25-34); MEAN CORPUSCULAR HGB CONC 31.8 g/dl (32-36); MEAN PLATELET VOLUME 9.9 fL (7.4-10.4); MONO % 6.7 %; NEUT % 77.1 %; PLATELET COUNT 241 K/uL (130-400); RED BLOOD COUNT 3.56 M/uL (4.2-5.4); WHITE BLOOD COUNT 10.52 K/uL (4.8-10.8)
[2016-11-04 07:56] LABS: PROTHROMBIN TIME (PATIENT) 22.1 SECONDS (9.0-12.0)
[2016-11-04 08:13] LABS: BUN/CREATININE RATIO 17.3 (10-20); CALCIUM 8.6 mg/dl (8.5-10.1); CREATININE 1.2 mg/dl (0.60-1.20); POTASSIUM 3.9 mmol/L (3.5-5.1)
[2016-11-04] MEDS: TRAMADOL HCL 50 MG TAB PO PRN ×2 (13:27→22:42)
[2016-11-04 15:36] VITALS: BP 139/93; PULSE 73; TEMP 37; O2SAT 99
[2016-11-04] MEDS ORDERED: WARFARIN SOD 10 MG TAB PO ONE (16:30)
--- NOTE | 2016-11-04 19:14 | Progress Note ---
Medicine Progress Note Date & Time of Visit: Nov 04, 2016 at 11:52. Subjective Pt was seen and examined Lying in bed with no distress Pt said that her abdominal pain seem to be improved Denies any chest pain, palpitation, dizziness and sob Objective Last 8 Hrs Date Time Temp Pulse Resp B/P (MAP) Pulse Ox O2 Delivery O2 Flow Rate FiO2 11/04/16 15:36 37.0 73 16 139/93 (108) 99 Room Air Physical Exam: General- No acute distress, obesity Head- atraumatic Eyes- PERRL, EOMI ENT- oropharynx clear Neck- supple, no JVD Lungs- clear to auscultation Heart- no murmur Abdomen- normal bowel sounds, tender LLQ with palpation Extremities- no calf tenderness Neuro- alert, oriented x 3; PERRL, EOMI; no facial palsy Skin- warm & dry Laboratory Results: Last 24 Hours Test 11/03/16 23:28 11/04/16 07:13 Prothrombin Time 22.0 SECONDS 22.1 SECONDS Prothromb Time International Ratio 2.0 2.0 White Blood Count 10.52 K/uL Red Blood Count 3.56 M/uL Hemoglobin 10.0 g/dL Hematocrit 31.4 % Mean Corpuscular Volume 88.2 fL Mean Corpuscular Hemoglobin 28.1 pg Mean Corpuscular Hemoglobin Concent 31.8 g/dl Platelet Count 241 K/uL Mean Platelet Volume 9.9 fL Neutrophils (%) (Auto) 77.1 % Lymphocytes (%) (Auto) 14.8 % Monocytes (%) (Auto) 6.7 % Eosinophils (%) (Auto) 1.0 % Basophils (%) (Auto) 0.2 % Neutrophils # (Auto) 8.11 K/uL Lymphocytes # (Auto) 1.56 K/uL Monocytes # (Auto) 0.70 K/uL Eosinophils # (Auto) 0.11 K/uL Basophils # (Auto) 0.02 K/uL RDW Standard Deviation 47.6 fL RDW Coefficient of Variation 14.7 % Immature Granulocyte % (Auto) 0.2 % Immature Granulocyte # (Auto) 0.02 K/uL Sodium Level 138 mmol/L Potassium Level 3.9 mmol/L Chloride Level 101 mmol/L Carbon Dioxide Level 32 mmol/L Anion Gap 5.0 mmol/L Blood Urea Nitrogen 21 mg/dl Creatinine 1.20 mg/dl Est Creatinine Clear Calc Drug Dose 86.9 ml/min Estimated GFR () 58.1 Estimated GFR (Non- 50.1 BUN/Creatinine Ratio 17.3 Random Glucose 95 mg/dl Calcium Level 8.6 mg/dl Date/Time Source Procedure Growth Status 11/04/16 01:19 Stool C.difficile Toxin B Gene (PCR) - Final No C. difficile toxin B gene detected Complete Assessment & Plan Abdominal pain Possible related to acute diverticulitis CT abd/pelvis showed Findings consistent with acute on chronic diverticulitis in the sigmoid colon. No CT evidence of christiano perforation, however, suggestion of phlegmonous changes without a focal abscess. Started on Rocephin and flagyl Continue abx symptoms improved Surgery consulted Tolerated clear liquid diet Will advance to Full liquid Continue pain control Diarrhea Stools negative for C-diff Hypertension BP stable Lisinopril/ furosemide/ spironolactone on hold due to MAGO continue monitor BP Paroxysmal atrial fibrillation Rate control On NSR On metoprolol and sotalol Continue Coumadin. INR 2 today Acute Kidney Injury Possible related to diarrhea Creatine on admission 1.6 received IVF Resolved Possible sinus tract or Fistula seen on CT CT abd/pelvis showed findings raise concern for a sinus tract or fistula arising from the sigmoid and courses towards the bladder dome or more proximal sigmoid colon. Will discuss finding with urology Chronic anemia Hbg stable Morbid Obesity Diet and exercise DVT Px on coumadin INR therapeutic CODE STATUS FULL CODE Consultants: Surgery Current Inpatient Medications: Current Inpatient Medications Medications (Trade) Dose Ordered Sig/Binta Route Start Time Stop Time Status Last Admin Dose Admin Metronidazole 500 mg/Prmx 100 ml @ 100 mls/hr Q8H IV 11/04/16 02:00 11/14/16 01:59 11/04/16 17:15 100 MLS/HR Acetaminophen (Tylenol Tab) 650 mg Q4H PRN PO 11/03/16 23:30 12/03/16 23:29 Hydromorphone HCl (Dilaudid Inj) 0.5 mg Q3H PRN IV 11/03/16 23:30 11/17/16 23:29 Tramadol HCl (Ultram Tab) not relieved by tylenol @ Q6H PRN PO 11/03/16 23:30 12/03/16 23:29 11/04/16 13:27 50 MG Promethazine HCl 12.5 mg/Sodium Chloride 50.5 ml @ 204 mls/hr Q6H PRN IV 11/03/16 23:30 12/03/16 23:29 11/04/16 15:44 204 MLS/HR Metoprolol Tartrate (Lopressor Tab) 12.5 mg BID PO 11/04/16 08:00 12/04/16 08:59 11/04/16 07:44 12.5 MG Sotalol HCl (Betapace Tab) 80 mg BID PO 11/04/16 08:00 12/04/16 08:59 11/04/16 07:44 80 MG Ceftriaxone Sodium 1 gm/ Dextrose 50 ml @ 100 mls/hr Q24H IV 11/04/16 23:00 11/12/16 23:29
[2016-11-04 20:29] VITALS: BP 116/77; PULSE 66
[2016-11-04] MEDS ORDERED: CEFTRIAXONE SOD INJ 1 GM in DEXTROSE 5% ADD-VANTAGE 50ML 50 ML IV SCH (23:00)
[2016-11-04 23:11] VITALS: BP 120/76; PULSE 56; TEMP 37; O2SAT 99
[2016-11-05] MEDS: METRONIDAZOLE / NSS 500 MG in PREMIXED NSS 100 ML IV SCH ×3 (02:05→17:38)
[2016-11-05 07:15] VITALS: BP 103/70; PULSE 61; TEMP 36.7; O2SAT 97
[2016-11-05] MEDS: SOTALOL HCL 80 MG TAB PO SCH (07:42)
[2016-11-05] MEDS: METOPROLOL TARTRATE 25 MG TAB PO SCH (07:42)
[2016-11-05 08:25] LABS: INR 2.2 (0.9-1.1); PROTHROMBIN TIME (PATIENT) 24.8 SECONDS (9.0-12.0)
[2016-11-05 08:37] LABS: BUN/CREATININE RATIO 14.3 (10-20); CALCIUM 8.9 mg/dl (8.5-10.1); POTASSIUM 3.6 mmol/L (3.5-5.1)
[2016-11-05 09:05] LABS: BASO % 0.2 %; BASO ABS # 0.02 K/uL (0-0.2); COMPLETE YES; EOS % 1.9 %; HEMATOCRIT 31.3 % (37-47); IG% 0.4 %; LYMPH % 14.7 %; LYMPH ABS # 1.51 K/uL (1.2-3.4); MEAN CELL VOLUME 88.2 fL (80-100); MEAN CORPUSCULAR HEMOGLOBIN 28.2 pg (25-34); MEAN CORPUSCULAR HGB CONC 31.9 g/dl (32-36); MEAN PLATELET VOLUME 10.1 fL (7.4-10.4); MONO % 9.2 %; NEUT % 73.6 %; PLATELET COUNT 291 K/uL (130-400); RED BLOOD COUNT 3.55 M/uL (4.2-5.4); WHITE BLOOD COUNT 10.25 K/uL (4.8-10.8)
[2016-11-05 16:00] VITALS: O2SAT 97
[2016-11-05] MEDS ORDERED: WARFARIN SOD 5 MG TAB PO SCH (16:00)
[2016-11-05 16:19] VITALS: BP 105/76; PULSE 62; TEMP 37.1; O2SAT 100
--- NOTE | 2016-11-05 17:58 | Progress Note ---
Medicine Progress Note Date & Time of Visit: Nov 05, 2016 at 17:38. Subjective Pt was seen and examined Lying in bed with no distress Pt said that she feels much better Pt said that she feels good to go home She said that she already has everything set up with the colorectal surgeon Plan to get colonoscopy on 11/21 and possible colorectal surgery for possible sigmoid resection Pt said that her pain seems to improve Tolerated diet well Denies any chest pain, palpitation, dizziness and SOB Objective Last 8 Hrs Date Time Temp Pulse Resp B/P (MAP) Pulse Ox O2 Delivery O2 Flow Rate FiO2 11/05/16 16:19 37.1 62 18 105/76 (86) 100 Room Air Physical Exam: General- No acute distress, obesity Head- atraumatic Eyes- PERRL, EOMI ENT- oropharynx clear Neck- supple, no JVD Lungs- clear to auscultation Heart- no murmur Abdomen- normal bowel sounds, mild tender LLQ with palpation Extremities- no calf tenderness Neuro- alert, oriented x 3; PERRL, EOMI; no facial palsy Skin- warm & dry Laboratory Results: Last 24 Hours Test 11/05/16 07:29 White Blood Count 10.25 K/uL Red Blood Count 3.55 M/uL Hemoglobin 10.0 g/dL Hematocrit 31.3 % Mean Corpuscular Volume 88.2 fL Mean Corpuscular Hemoglobin 28.2 pg Mean Corpuscular Hemoglobin Concent 31.9 g/dl Platelet Count 291 K/uL Mean Platelet Volume 10.1 fL Neutrophils (%) (Auto) 73.6 % Lymphocytes (%) (Auto) 14.7 % Monocytes (%) (Auto) 9.2 % Eosinophils (%) (Auto) 1.9 % Basophils (%) (Auto) 0.2 % Neutrophils # (Auto) 7.55 K/uL Lymphocytes # (Auto) 1.51 K/uL Monocytes # (Auto) 0.94 K/uL Eosinophils # (Auto) 0.19 K/uL Basophils # (Auto) 0.02 K/uL RDW Standard Deviation 47.6 fL RDW Coefficient of Variation 14.6 % Immature Granulocyte % (Auto) 0.4 % Immature Granulocyte # (Auto) 0.04 K/uL Prothrombin Time 24.8 SECONDS Prothromb Time International Ratio 2.2 Sodium Level 137 mmol/L Potassium Level 3.6 mmol/L Chloride Level 100 mmol/L Carbon Dioxide Level 31 mmol/L Anion Gap 6.0 mmol/L Blood Urea Nitrogen 14 mg/dl Creatinine 1.00 mg/dl Est Creatinine Clear Calc Drug Dose 104.2 ml/min Estimated GFR () 72.4 Estimated GFR (Non- 62.5 BUN/Creatinine Ratio 14.3 Random Glucose 93 mg/dl Calcium Level 8.9 mg/dl Assessment & Plan Abdominal pain Possible related to acute diverticulitis CT abd/pelvis showed Findings consistent with acute on chronic diverticulitis in the sigmoid colon. No CT evidence of christiano perforation, however, suggestion of phlegmonous changes without a focal abscess. On Rocephin and flagyl Will change abx to bactrum and flagyl Pt has QTC prolong from previous EKG, will try to avoid cipro ER team talked to surgery dr. Andrade in [place] that recommended conservative management with abx. symptoms improved Tolerated diet Continue pain control Follow up with colorectal surgeon for possible sigmoid resection Diarrhea Stools negative for C-diff improved Hypertension BP stable Lisinopril/ furosemide/ spironolactone on hold due to MAGO continue monitor BP Paroxysmal atrial fibrillation Rate control On NSR On metoprolol and sotalol Continue Coumadin. INR 2.2 today Acute Kidney Injury Possible related to diarrhea Creatine on admission 1.6 received IVF Resolved Possible sinus tract or Fistula seen on CT CT abd/pelvis showed findings raise concern for a sinus tract or fistula arising from the sigmoid and courses towards the bladder dome or more proximal sigmoid colon. case discussed with Urologist that recommended follow with colorectal surgeon because once pt has surgery done the fistula will correct Chronic anemia Hbg stable Morbid Obesity Diet and exercise DVT Px on coumadin INR therapeutic CODE STATUS FULL CODE Disposition will discharge home today Pharmacy called later for the Bactrim DS that interacted with the coumadin Explained to pharmacy that pt has prolong QTC we cannot give cipro Also pt has penicillin allergies we cannot give amoxicillin Pharmacist will advised pt to decrease the Coumadin dose and check INR btw 2 to 3 days Current Inpatient Medications: Current Inpatient Medications Medications (Trade) Dose Ordered Sig/Binta Route Start Time Stop Time Status Last Admin Dose Admin Metronidazole 500 mg/Prmx 100 ml @ 100 mls/hr Q8H IV 11/04/16 02:00 11/14/16 01:59 11/05/16 09:50 100 MLS/HR Acetaminophen (Tylenol Tab) 650 mg Q4H PRN PO 11/03/16 23:30 12/03/16 23:29 Hydromorphone HCl (Dilaudid Inj) 0.5 mg Q3H PRN IV 11/03/16 23:30 11/17/16 23:29 Tramadol HCl (Ultram Tab) not relieved by tylenol @ Q6H PRN PO 11/03/16 23:30 12/03/16 23:29 11/04/16 22:42 50 MG Promethazine HCl 12.5 mg/Sodium Chloride 50.5 ml @ 204 mls/hr Q6H PRN IV 11/03/16 23:30 12/03/16 23:29 11/04/16 15:44 204 MLS/HR Metoprolol Tartrate (Lopressor Tab) 12.5 mg BID PO 11/04/16 08:00 12/04/16 08:59 11/05/16 07:42 12.5 MG Sotalol HCl (Betapace Tab) 80 mg BID PO 11/04/16 08:00 12/04/16 08:59 11/05/16 07:42 80 MG Ceftriaxone Sodium 1 gm/ Dextrose 50 ml @ 100 mls/hr Q24H IV 11/04/16 23:00 11/12/16 23:29 11/04/16 22:43 100 MLS/HR Warfarin Sodium (Coumadin Tab) 5 mg DAILY@16 PO 11/05/16 16:00 12/05/16 15:59 11/05/16 16:40 5 MG
[2016-11-05] MEDS ORDERED: ULT50X PO ×2 (18:00→18:16)
--- NOTE | 2016-11-05 18:14 | Discharge Instructions ---
Discharge Instructions Date of Service Nov 05, 2016. Admission Reason for Admission: Diverticular Disease Of Sm And Lg Intest. W/ Compl Discharge Discharge Diagnosis / Problem: Acute diverticulitis, abdominal pain, Paroxysmal Afib, Acute kidney injury Discharge Goals Goal(s): Decrease discomfort, Improve function, Improve disease control Activity Recommendations Activity Limitations: resume your previous activity (as tolerated) . Instructions / Follow-Up Instructions / Follow-Up Follow up with your primary care provider Dr. Reilly on 11/07 @ 11:05 Follow up with the colorectal surgeon continue follow up with the Coumadin clinic (INR on discharge 2.2) Advanced diet as tolerated Complete course of antibiotic Tramadol for pain (please do not perform any machine or drive after taking tramadol) Current Hospital Diet Patient's current hospital diet: Regular Diet Discharge Diet Recommended Diet: Regular Diet (advanced as tolerated) Pending Studies Studies pending at discharge: no Medical Emergencies . Who to Call and When: Medical Emergencies: If at any time you feel your situation is an emergency, please call 911 immediately. . Non-Emergent Contact Non-Emergency issues call your: Primary Care Provider Call Non-Emergent contact if: you have any medication questions . . "Provider Documentation" section prepared by Veronica Edwards. . VTE Core Measure Inpt VTE Proph given/why not?: Warfarin (Coumadin) [place] Drug Monitoring Program Search Results: no issues identified
[2016-11-05] MEDS ORDERED: SULF800T23 PO (18:16)
[2016-11-05] MEDS ORDERED: METR-162 PO (18:16)
[2016-11-05] MEDS ORDERED: PROM12.56 PO (18:28)
[2016-11-05 19:10] VITALS: BP 105/76; PULSE 62; TEMP 37.1; O2SAT 100
--- NOTE | 2016-11-06 08:02 | Discharge Summary ---
Discharge Summary Date of Service Nov 06, 2016. Discharge Summary Admission Date: Nov 03, 2016 at 22:57 Discharge Date: Nov 05, 2016 Discharge Disposition: Home Principal Diagnosis: Acute diverticulitis Secondary Diagnoses/Problems: Paroxysmal Afib Acute kidney injury Diarrhea HTN Possible sinus tract or Fistula seen on CT Chronic Anemia Morbid Obesity Procedures: [~ rep ct add3]] ABD/PELVIS ORAL CONT ONLY CLINICAL HISTORY: 56 years-old Female presenting with RLQ and mid pain, eval diverticulitis worsening, abscess. TECHNIQUE: Multidetector CT of the abdomen and pelvis was performed without the use of intravenous contrast. IV contrast: None. A dose lowering technique was used consistent with the principles of ALARA (as low as reasonably achievable). COMPARISON: 10/18/2016. CT DOSE (mGy.cm): The estimated cumulative dose is 2205.76 mGy.cm. FINDINGS: [facility] topogram: Cholecystectomy clips. Lung bases: Lung bases clear. Normal heart size. Intraventricular blood pool is less dense and adjacent myocardium suggesting anemia. No pericardial or pleural effusion. Liver: Normal morphology. Density borderline for hepatic steatosis. Biliary: No gross biliary ductal dilatation allowing for noncontrast technique. Gallbladder surgically absent. Pancreas: Mild parenchymal atrophy. Spleen: Normal noncontrast appearance. Adrenal glands: Normal noncontrast appearance. Kidneys and ureters: Parapelvic cysts noted at the right lower pole. No hydronephrosis. No nephrolithiasis. Normal ureters. Bladder: Calcification noted within the wall of the anterior bladder dome. Mild perivesicular fat stranding in the space of Retzius, likely secondary. Pelvic organs: Uterus normal. Mild fat stranding in the bilateral adnexa, likely secondary. Ovaries not enlarged. Bowel: Intramural fat deposition noted in the rectum, which could suggest chronic inflammation. Diverticulosis of the sigmoid colon with evidence of chronic diverticular disease. Additionally, pericolonic fat stranding is evident. Focal linear soft tissue extension from the right lateral wall of the sigmoid colon may track more proximally to the colon or to the bladder dome (series 2 image 77 and 80). Ill-defined low density region superior to the colon without a well-defined abscess.. Normal appendix. No bowel obstruction. Peritoneal cavity: No free fluid or intraperitoneal gas. Vasculature: Atherosclerosis of the normal caliber abdominal aorta. IVC patent. Lymph nodes: Mildly prominent bilateral external iliac lymph nodes, likely reactive. Few additional subcentimeter retroperitoneal lymph nodes also likely reactive. Abdominal wall: Normal. Musculoskeletal: Degenerative changes of the spine. IMPRESSION: 1. Findings consistent with acute on chronic diverticulitis in the sigmoid colon. No CT evidence of christiano perforation, however, suggestion of phlegmonous changes without a focal abscess. Additionally, findings raise concern for a sinus tract or fistula arising from the sigmoid and courses towards the bladder dome or more proximal sigmoid colon. Evaluation limited due to lack of intravenous contrast. Electronically signed by: Patrick Mccann M.D. 11/03/2016 7:43 PM Medication Reconciliation New Medications: Metronidazole (Flagyl) 500 Mg Tab 500 MG PO TID for 5 Days, #15 TAB Promethazine Hcl (Phenergan) 12.5 Mg Tab 1 TAB PO Q8 PRN for Nausea or Vomiting for 5 Days, #15 TAB Sulfa/Trimethoprim (Bactrim Ds 800MG/160MG) Tab 1 TAB PO BID for 5 Days, TAB Tramadol HCl (Tramadol HCl) 50 Mg Tab 50 MG PO Q8 PRN for Pain for 3 Days, #9 TAB Continued Medications: Lisinopril (Lisinopril) 20 Mg Tab 20 MG PO DAILY, #30 Metoprolol Tartrate (Lopressor) 25 Mg Tab 12.5 MG PO BID for 30 Days, #30 TAB Sotalol HCl (Sotalol HCl) 80 Mg Tab 80 MG PO BID, #60 TAB Spironolactone (Spironolactone) 25 Mg Tab 25 MG PO QAM for 30 Days, #30 TAB Torsemide (Demadex) 20 Mg Tab 20 MG PO DAILY for 90 Days, #90 TAB 1 Refill Warfarin Sod (Jantoven) 5 Mg Tab 10 MG PO DAILY, TAB take 10mg daily on Friday, Friday, and Friday Warfarin Sodium (Coumadin) 5 Mg Tab 5 MG PO DAILY for 90 Days, #90 TAB 1 Refill take 5mg daily on Friday, Friday, , and Friday Admission Information HPI (per Admitting provider): CHIEF COMPLAINT: Abdominal pain. HISTORY OF PRESENT ILLNESS: History obtained from the patient and records. Medical history is significant for complicated diverticulitis, history of non- ischemic cardiomyopathy (most recent EF 60% on 2D echo from August 2016), AFib, on anticoagulation, sleep apnea on CPAP, hyperlipidemia, hypertension, chronic anemia (baseline hemoglobin 9-10), past tobacco abuse. Recent confinement was last month for acute sigmoid diverticulitis with peridiverticular abscess. Px improved on medical managemen. Px discharged on IV ertapenem course. She had outpatient followup CT abdomen and pelvis October 18 wc showed improving sigmoid diverticulitis, resolving peridiverticular abscess. Patient saw [facility] colorectal surgeon last October 22. Plan for colonoscopy November 2016 prior to surgery, possible sigmoid resection. Yesterday, the patient noted achy hypogastric pain going to the back, more intense compared to pain from last month. Some nausea, no emesis; loose stools which the patient thinks might be related to laxatives prescribed by a family doctor, nonbloody. No dysuria. Brought to Emergency Room. Physical Exam (per Admitting): PHYSICAL EXAMINATION: VITAL SIGNS: Blood pressure was noted to be 131/70, pulse rate 81, RR 18, Temperature 37, O2 sats 98 on room air. GENERAL: Noted to be uncomfortable, obese, no respiratory distress. SKIN: Pallor. HEENT: Pale palpebral conjunctivae. Dry mucosa. NECK: Short neck. LUNGS: Decreased breath sounds. HEART: RRR ABDOMEN: Hypogastric tenderness. EXTREMITIES: Bilateral lower extremity edema. no tenderness NEUROLOGIC: No gross focality. Hospital Course Abdominal pain Possible related to acute diverticulitis CT abd/pelvis showed Findings consistent with acute on chronic diverticulitis in the sigmoid colon. No CT evidence of christiano perforation, however, suggestion of phlegmonous changes without a focal abscess. On Rocephin and flagyl Will change abx to bactrum and flagyl Pt has QTC prolong from previous EKG, will try to avoid cipro ER team talked to surgery dr. Andrade in [place] that recommended conservative management with abx. symptoms improved Tolerated diet Continue pain control Follow up with colorectal surgeon for possible sigmoid resection Diarrhea Stools negative for C-diff improved Hypertension BP stable Lisinopril/ furosemide/ spironolactone on hold due to MAGO continue monitor BP Paroxysmal atrial fibrillation Rate control On NSR On metoprolol and sotalol Continue Coumadin. INR 2.2 today Acute Kidney Injury Possible related to diarrhea Creatine on admission 1.6 received IVF Resolved Possible sinus tract or Fistula seen on CT CT abd/pelvis showed findings raise concern for a sinus tract or fistula arising from the sigmoid and courses towards the bladder dome or more proximal sigmoid colon. case discussed with Urologist that recommended follow with colorectal surgeon because once pt has surgery done the fistula will correct Chronic anemia Hbg stable Morbid Obesity Diet and exercise DVT Px on coumadin INR therapeutic CODE STATUS FULL CODE Disposition will discharge home today Pharmacy called later for the Bactrim DS that interacted with the coumadin Explained to pharmacy that pt has prolong QTC we cannot give cipro Also pt has penicillin allergies we cannot give amoxicillin Pharmacist will advised pt to decrease the Coumadin dose and check INR btw 2 to 3 days Total time spent on discharge = 35 minutes This includes examination of the patient, discharge planning, medication reconciliation, and communication with other providers. Discharge Instructions Discharge Instructions Date of Service Nov 05, 2016. Admission Reason for Admission: Diverticular Disease Of Sm And Lg Intest. W/ Compl Discharge Discharge Diagnosis / Problem: Acute diverticulitis, abdominal pain, Paroxysmal Afib, Acute kidney injury Discharge Goals Goal(s): Decrease discomfort, Improve function, Improve disease control Activity Recommendations Activity Limitations: resume your previous activity (as tolerated) . Instructions / Follow-Up Instructions / Follow-Up Follow up with your primary care provider Dr. Reilly on 11/07 @ 11:05 Follow up with the colorectal surgeon continue follow up with the Coumadin clinic (INR on discharge 2.2) Advanced diet as tolerated Complete course of antibiotic Tramadol for pain (please do not perform any machine or drive after taking tramadol) Late entry Pharmacy called later for the Bactrim DS that interacted with the coumadin Explained to pharmacy that pt has prolong QTC we cannot give cipro Also pt has penicillin allergies we cannot give amoxicillin Pharmacist will advised pt to decrease the Coumadin dose and check INR btw 2 to 3 days Current Hospital Diet Patient's current hospital diet: Regular Diet Discharge Diet Recommended Diet: Regular Diet (advanced as tolerated) Pending Studies Studies pending at discharge: no Medical Emergencies . Who to Call and When: Medical Emergencies: If at any time you feel your situation is an emergency, please call 911 immediately. . Non-Emergent Contact Non-Emergency issues call your: Primary Care Provider Call Non-Emergent contact if: you have any medication questions . . "Provider Documentation" section prepared by Veronica Edwards. . VTE Core Measure Inpt VTE Proph given/why not?: Warfarin (Coumadin) [place] Drug Monitoring Program Search Results: no issues identified Additional Copies To Minh Reilly M.D.
== END 2016-11-05 21:57 | disposition home or self-care (01) | DRG 392 ==
LOC: C.EDB 15:34 → C.MS4W 22:57 → EEVIPCON 22:57 → ENRESERV 23:08 → C.MS4W 11-04 00:09
PROVIDERS: ADMIT Internal Medicine; ATTEND Internal Medicine
DX: K57.32 Diverticulitis of large intestine without perforation or abscess without bleeding (principal); N17.9 Acute kidney failure, unspecified; Z68.43 Body mass index [BMI] 50.0-59.9, adult; E78.5 Hyperlipidemia, unspecified; I10 Essential (primary) hypertension; G47.33 Obstructive sleep apnea (adult) (pediatric); I48.0 Paroxysmal atrial fibrillation; R19.7 Diarrhea, unspecified; D64.9 Anemia, unspecified; E66.01 Morbid (severe) obesity due to excess calories; Z79.01 Long term (current) use of anticoagulants; Z79.899 Other long term (current) drug therapy

== ENCOUNTER 2020-07-18 17:26 | Inpatient (IN) ==
[2020-07-18] MEDS ORDERED: SODIUM CHLORIDE 0.9% 1000ML 1,000 ML IV STA (18:18)
[2020-07-18] MEDS ORDERED: ACETAMINOPHEN 1,000 MG/100 ML VIAL IV STA (18:32)
[2020-07-18] MEDS ORDERED: PROMETHAZINE 6.25 MG/50.25 ML BAG IV STA (18:32)
[2020-07-18] MEDS ORDERED: FAMOTIDINE 20MG IV PUSH 20 MG/5 ML SYR IV STA (18:36)
--- NOTE | 2020-07-18 18:37 | Emergency Department Note ---
Impression & Plan Cellulitis of left lower leg, Sepsis, Atrial fibrillation with rapid ventricular response, Nausea ED Provider Note Provider: Kahlil Zhu MD DATE OF SERVICE: 07/18/2020 CHIEF COMPLAINT: Chills, fever, nausea, vomiting HISTORY OF PRESENT ILLNESS: Patient is a 60-year-old female the past medical history of hypertension, paroxysmal atrial fibrillation on Coumadin, cholecystectomy, diverticulitis status post partial colectomy presenting here today with her reportedly with proximally 3 days of some abdominal symptoms of nausea and epigastric discomfort. Noted however this morning around 1030 developing fever and chills. Temperature mervin to as high as 102 she reports. Dexamethasone and Tylenol became nauseous and threw up. Denies any diarrhea. Denies any trauma or falls. Nuys chest pain or shortness of breath beyond her baseline. Is some reports of some redness and slight swelling to her left lower leg. Patient has been taking her Coumadin she reports for her histor y of A. fib. Reports a little bit of a slight headache. Denies any new numbness or weakness in the extremities. Reports a history of prior abdominal surgeries states this does feel a bit similar to her prior diverticulitis. Reportedly had Covid in February. REVIEW OF SYSTEMS: A total of 10 review of systems was obtained and negative except as stated above in the HPI. PAST MEDICAL HISTORY: As noted above MEDICATIONS: Reviewed home medication list SOCIAL HISTORY: Lives at home with , former smoker PHYSICAL EXAM: GENERAL: alert and oriented in no acute distress on stretcher Head: normocephalic and atraumatic EYES: No injection, discharge or icterus. NECK: Trachea midline. ENT: Mucous membranes pink and moist. LUNGS: Airway patent. No retractions. Breath sounds clear anteriorly HEART: Regular rate and rhythm. No chest wall tenderness ABDOMEN: Soft with some mild epigastric tenderness. No significant lower abdominal tenderness. SKIN: Acyanotic, warm, dry, without rashes EXTREMITIES: 1+ right lower extremity swelling 2+ on the left lower leg with some erythema and slight tenderness the distal left lower leg. Some skin plaques and chronic stasis changes noted on both. NEUROLOGICAL: No focal deficits. No aphasia. No facial droop or slurred speech. EKG: Atrial fibrillation with rapid ventricular response rate 123. No acute ST segment elevation or depression noted with right bundle branch block. QTc 518. CONTINUOUS CARDIAC MONITORING: was ordered and showed a heart rate of 80s to 120s bpm in atrial fibrillation Patient's laboratory studies and imaging reviewed. Differential includes Infection, dehydration, metabolic abnormality, GI, hypo/hyperglycemia, electrolyte disturbance, anemia, hypoxia, cardiac sources, intracerebral event, toxicologic, neurologic, as well as other pathologies. IMPRESSION/MEDICAL DECISION MAKING: Patient reports fever earlier and borderline here. A. fib RVR tachycardic here. Not any active chest pain and doubt cardiac ischemia and troponin is undetectable. Reports significant chills. Cultures were obtained as well as lactate. Lactate initially slightly elevated. Given fluid hydration here and this improved and again not hypotensive here. Procalcitonin elevated. No evidence of acute pancreatitis or hepatitis based on labs. Doubt acute CVA. Patient does NOT appear meningitic. Chest x-ray without evidence of pneumonia. Covid test still positive but had previous illness in February and doubt this is causing her symptoms today. Abdominal tenderness in the upper abdomen present on exam and given her renal dysfunction a CT scan was completed the abdomen pelvis. Per radiology report nonobstructed strangulated hernia is noted without evidence of bowel obstruction or diverticulitis.. Urinalysis is still pending at this time. Patient's left lower leg does appear significant cellulitic. MRSA swab ordered. INR is slightly below therapeutic range but I doubt acute DVT causing this redness of the leg. Do believe the patient has sepsis developing. Is not in septic shock. Given her multiple comorbidities with leukocytosis and tachycardia given broad-spectrum antibiotics. She states she is tolerated Keflex before and thus given cefepime here as well as daptomycin with some evidence of renal dysfunction on labs (seems more chronic). Given some IV metoprolol although avoiding aggressive rate control given concerns for sepsis. Again received IV fluid supplementation here. Received some IV Tylenol for discomfort. Patient requested Phenergan for some nausea and she was given this so that did make her somewhat drowsy. and patient were updated at bedside and the hospitalist contacted further care here at the hospital given her infectious and sepsis picture. DIAGNOSIS: Left lower leg cellulitis, nausea, sepsis, chronic kidney disease, A. fib RVR DISPOSITION: Hospitalist will evaluate Patient was agreeable with this plan. Past Med/Surg History Medical History (Updated 07/19/20 @ 01:32 by Kahlil Zhu M.D.) Atrial fibrillation 02/2016 takes COUMADIN GERD (gastroesophageal reflux disease) History of cardiomyopathy Tachycardia-induced, moderate LV function reduction, subsequently normalized with treatment. Maintained on Sotolol. History of cardioversion 2017 x 2 AT [facility]. History of diverticulitis s/p bowel resection Hx of congestive heart failure RELATED TO A FIB 2017 Hypertension Morbid obesity Sleep apnea CPAP Surgical History History of anesthesia reaction SLOW TO WAKE UP History of carpal tunnel release LEFT History of cholecystectomy History of colon surgery BOWEL RESECTION diverticulitis IN [facility] History of colonoscopy Hx of sinus surgery Family History Grandmother (Maternal) Family history of diabetes mellitus Social History Smoking Status: Former smoker Second Hand Exposure: No; Hx Alcohol Use: No Hx Substance Use: No Preferred Language: Tongan Communication Ability: Effective Photo Specialist Required: No Beliefs That Will Affect Care: None Current Living Situation: Spouse Feels Safe at Home: Yes Assistive Devices: CPAP and Glasses Allergies Allergies Allergy/AdvReac Type Severity Reaction Status Date / Time codeine Allergy Severe SWELLING Verified 07/18/20 19:02 ALL OVER Penicillins Allergy Severe THROAT Verified 07/18/20 19:02 SWELLING Home Meds Home Medications Medication Instructions Recorded Confirmed lisinopril 20 mg PO HS 06/03/19 07/18/20 metoprolol tartrate 12.5 mg PO BID 06/03/19 07/18/20 sotalol 80 mg PO BID 06/03/19 07/18/20 spironolactone 25 mg PO QAM 06/03/19 07/18/20 torsemide 20 mg PO QAM 06/03/19 07/18/20 warfarin 5 mg PO UD 06/03/19 07/18/20 cholecalciferol (vitamin D3) 0 mcg PO Q OTHER DAY 07/18/20 07/18/20 [Vitamin D3] fluoxetine 10 mg PO DAILY PRN 07/18/20 07/18/20 Results & Data (ED) Vital Signs Vital Signs - 24 hr 07/18/20 17:29 07/18/20 19:11 07/18/20 19:22 Temperature 37.7 C H Temperature Source Temporal Artery Scan Pulse Rate 102 H 139 H 130 H Pulse Rate from SpO2 Sensor 122 H 145 H Respiratory Rate 20 22 20 Respiratory Effort / Characteristics Non-Labored Spontaneous Respiratory Depth Normal Blood Pressure 133/75 143/72 H Blood Pressure Mean 94 95 Pulse Oximetry 97 100 96 Oxygen Delivery Method Room Air Sepsis Recent Fever Within 48 Hours Yes Sepsis New/Unexplained Change in Mental Status N/A Sepsis Action Taken by Nursing No Action Required 07/18/20 19:30 07/18/20 20:31 07/18/20 21:00 Temperature Temperature Source Pulse Rate 121 H 138 H 106 H Pulse Rate from SpO2 Sensor Respiratory Rate 22 22 Respiratory Effort / Characteristics Respiratory Depth Blood Pressure Blood Pressure Mean Pulse Oximetry Oxygen Delivery Method Sepsis Recent Fever Within 48 Hours Sepsis New/Unexplained Change in Mental Status Sepsis Action Taken by Nursing 07/18/20 21:30 07/18/20 21:43 07/18/20 21:51 Temperature Temperature Source Pulse Rate 89 117 H 116 H Pulse Rate from SpO2 Sensor Respiratory Rate 24 20 24 Respiratory Effort / Characteristics Respiratory Depth Blood Pressure 99/74 L 110/74 Blood Pressure Mean 82 86 Pulse Oximetry Oxygen Delivery Method Sepsis Recent Fever Within 48 Hours Sepsis New/Unexplained Change in Mental Status Sepsis Action Taken by Nursing 07/18/20 21:52 07/18/20 22:00 07/18/20 22:10 Temperature 37.2 C Temperature Source Oral Pulse Rate 130 H 120 H Pulse Rate from SpO2 Sensor Respiratory Rate 19 Respiratory Effort / Characteristics Respiratory Depth Blood Pressure 110/74 122/72 Blood Pressure Mean 88 Pulse Oximetry 96 Oxygen Delivery Method Sepsis Recent Fever Within 48 Hours Sepsis New/Unexplained Change in Mental Status Sepsis Action Taken by Nursing 07/18/20 22:30 07/18/20 22:31 07/18/20 23:00 Temperature Temperature Source Pulse Rate 138 H 109 H 114 H Pulse Rate from SpO2 Sensor 108 H 113 H 123 H Respiratory Rate 18 Respiratory Effort / Characteristics Respiratory Depth Blood Pressure 114/71 Blood Pressure Mean 85 Pulse Oximetry 97 97 99 Oxygen Delivery Method Sepsis Recent Fever Within 48 Hours Sepsis New/Unexplained Change in Mental Status Sepsis Action Taken by Nursing 07/18/20 23:01 Temperature Temperature Source Pulse Rate 114 H Pulse Rate from SpO2 Sensor 119 H Respiratory Rate 24 Respiratory Effort / Characteristics Respiratory Depth Blood Pressure 132/74 Blood Pressure Mean 93 Pulse Oximetry 97 Oxygen Delivery Method Sepsis Recent Fever Within 48 Hours Sepsis New/Unexplained Change in Mental Status Sepsis Action Taken by Nursing Laboratory Data Result diagrams: 07/18/20 19:08 07/18/20 19:08 Lab Results 07/18/20 07/18/20 07/18/20 Range/Units 19:04 19:04 19:08 WBC 24.83 H (4.8-10.8) K/uL RBC 3.77 L (4.2-5.4) M/uL Hgb 11.3 L (12.0-16.0) g/dL Hct 35.1 L (37-47) % MCV 93.1 (80-100) fL MCH 30.0 (25-34) pg MCHC 32.2 (32-36) g/dL RDW Std Deviation 55.9 H (36.4-46.3) fL RDW Coeff of Emmy 16.5 H (11.5-14.5) % Plt Count 269 (130-400) K/uL MPV 10.0 (7.4-10.4) fL Immature Gran % (Auto) 0.6 % Neut % (Auto) 95.4 % Lymph % (Auto) 2.1 % [place] % (Auto) 1.9 % Eos % (Auto) 0.0 % Baso % (Auto) 0.0 % Neut # (Auto) 23.69 H (1.4-6.5) K/uL Lymph # (Auto) 0.51 L (1.2-3.4) K/uL [place] # (Auto) 0.47 (0.11-0.59) K/uL Eos # (Auto) 0.01 (0-0.5) K/uL Baso # (Auto) 0.01 (0-0.2) K/uL Immature Gran # (Auto) 0.14 H (0.00-0.02) K/uL PT (9.0-12.0) Seconds INR (0.9-1.1) APTT (21.0-31.0) Seconds PTT Ratio Sodium (136-145) mmol/L Potassium (3.5-5.1) mmol/L Chloride (98-107) mmol/L Carbon Dioxide (21-32) mmol/L Anion Gap (3-11) BUN (7-18) mg/dl Creatinine (0.6-1.2) mg/dl Est Cr Clr Drug Dosing ml/min Est GFR ( Amer) ml/min Est GFR (Non-Af Amer) ml/min BUN/Creatinine Ratio (10-20) Glucose (70-99) mg/dl Lactate (0.4-2.0) mmol/L Calcium (8.5-10.1) mg/dl Total Bilirubin (0.2-1) mg/dl AST (15-37) U/L ALT (12-78) U/L Alkaline Phosphatase (45-117) U/L Troponin I (0-0.045) ng/ml Total Protein (6.4-8.2) gm/dl Albumin (3.4-5.0) gm/dl Globulin (2.5-4.0) gm/dl Albumin/Globulin Ratio (0.9-2) Lipase (73-393) U/L Procalcitonin (0-0.5) ng/ml Urine Color Urine Appearance (Clear) Urine pH (4.5-7.5) Ur Specific [place] (1.000-1.030) Urine Protein (Negative) Urine Glucose (UA) (Negative) Urine Ketones (Negative) Urine Blood (Negative) Urine Nitrite (Negative) Urine Bilirubin (Negative) Urine Urobilinogen (Negative) Ur Leukocyte Esterase (Negative) Urine WBC (Auto) (0-5) /hpf Urine RBC (Auto) (0-4) /hpf U Hyaline Cast (Auto) (0-5) /lpf U Epithel Cells (Auto) (0-5) /lpf Urine Bacteria (Auto) (Negative) Nasal Screen MRSA (PCR) (Negative) COVID-19 Eval Order Covid19 at [facility] SARS-CoV-2 (PCR) POSITIVE A* (Negative) 07/18/20 07/18/20 07/18/20 Range/Units 19:08 19:08 19:08 WBC (4.8-10.8) K/uL RBC (4.2-5.4) M/uL Hgb (12.0-16.0) g/dL Hct (37-47) % MCV (80-100) fL MCH (25-34) pg MCHC (32-36) g/dL RDW Std Deviation (36.4-46.3) fL RDW Coeff of Emmy (11.5-14.5) % Plt Count (130-400) K/uL MPV (7.4-10.4) fL Immature Gran % (Auto) % Neut % (Auto) % Lymph % (Auto) % [place] % (Auto) % Eos % (Auto) % Baso % (Auto) % Neut # (Auto) (1.4-6.5) K/uL Lymph # (Auto) (1.2-3.4) K/uL [place] # (Auto) (0.11-0.59) K/uL Eos # (Auto) (0-0.5) K/uL Baso # (Auto) (0-0.2) K/uL Immature Gran # (Auto) (0.00-0.02) K/uL PT (9.0-12.0) Seconds INR (0.9-1.1) APTT (21.0-31.0) Seconds PTT Ratio Sodium 139 (136-145) mmol/L Potassium 3.8 (3.5-5.1) mmol/L Chloride 106 (98-107) mmol/L Carbon Dioxide 26 (21-32) mmol/L Anion Gap 7.0 (3-11) BUN 26 H (7-18) mg/dl Creatinine 1.64 H (0.6-1.2) mg/dl Est Cr Clr Drug Dosing 63.9 ml/min Est GFR ( Amer) 38.7 ml/min Est GFR (Non-Af Amer) 33.4 ml/min BUN/Creatinine Ratio 15.9 (10-20) Glucose 104 H (70-99) mg/dl Lactate 2.8 H* (0.4-2.0) mmol/L Calcium 9.1 (8.5-10.1) mg/dl Total Bilirubin 1.1 H (0.2-1) mg/dl AST 9 L (15-37) U/L ALT 13 (12-78) U/L Alkaline Phosphatase 106 (45-117) U/L Troponin I < 0.015 (0-0.045) ng/ml Total Protein 8.2 (6.4-8.2) gm/dl Albumin 3.1 L (3.4-5.0) gm/dl Globulin 5.1 H (2.5-4.0) gm/dl Albumin/Globulin Ratio 0.6 L (0.9-2) Lipase 79 (73-393) U/L Procalcitonin 2.84 H (0-0.5) ng/ml Urine Color Urine Appearance (Clear) Urine pH (4.5-7.5) Ur Specific [place] (1.000-1.030) Urine Protein (Negative) Urine Glucose (UA) (Negative) Urine Ketones (Negative) Urine Blood (Negative) Urine Nitrite (Negative) Urine Bilirubin (Negative) Urine Urobilinogen (Negative) Ur Leukocyte Esterase (Negative) Urine WBC (Auto) (0-5) /hpf Urine RBC (Auto) (0-4) /hpf U Hyaline Cast (Auto) (0-5) /lpf U Epithel Cells (Auto) (0-5) /lpf Urine Bacteria (Auto) (Negative) Nasal Screen MRSA (PCR) (Negative) COVID-19 Eval Order SARS-CoV-2 (PCR) (Negative) 07/18/20 07/18/20 07/18/20 Range/Units 19:08 21:08 22:36 WBC (4.8-10.8) K/uL RBC (4.2-5.4) M/uL Hgb (12.0-16.0) g/dL Hct (37-47) % MCV (80-100) fL MCH (25-34) pg MCHC (32-36) g/dL RDW Std Deviation (36.4-46.3) fL RDW Coeff of Emmy (11.5-14.5) % Plt Count (130-400) K/uL MPV (7.4-10.4) fL Immature Gran % (Auto) % Neut % (Auto) % Lymph % (Auto) % [place] % (Auto) % Eos % (Auto) % Baso % (Auto) % Neut # (Auto) (1.4-6.5) K/uL Lymph # (Auto) (1.2-3.4) K/uL [place] # (Auto) (0.11-0.59) K/uL Eos # (Auto) (0-0.5) K/uL Baso # (Auto) (0-0.2) K/uL Immature Gran # (Auto) (0.00-0.02) K/uL PT 17.2 H (9.0-12.0) Seconds INR 1.8 H (0.9-1.1) APTT 33.2 H (21.0-31.0) Seconds PTT Ratio 1.3 Sodium (136-145) mmol/L Potassium (3.5-5.1) mmol/L Chloride (98-107) mmol/L Carbon Dioxide (21-32) mmol/L Anion Gap (3-11) BUN (7-18) mg/dl Creatinine (0.6-1.2) mg/dl Est Cr Clr Drug Dosing ml/min Est GFR ( Amer) ml/min Est GFR (Non-Af Amer) ml/min BUN/Creatinine Ratio (10-20) Glucose (70-99) mg/dl Lactate 2.0 (0.4-2.0) mmol/L Calcium (8.5-10.1) mg/dl Total Bilirubin (0.2-1) mg/dl AST (15-37) U/L ALT (12-78) U/L Alkaline Phosphatase (45-117) U/L Troponin I (0-0.045) ng/ml Total Protein (6.4-8.2) gm/dl Albumin (3.4-5.0) gm/dl Globulin (2.5-4.0) gm/dl Albumin/Globulin Ratio (0.9-2) Lipase (73-393) U/L Procalcitonin (0-0.5) ng/ml Urine Color Urine Appearance (Clear) Urine pH (4.5-7.5) Ur Specific [place] (1.000-1.030) Urine Protein (Negative) Urine Glucose (UA) (Negative) Urine Ketones (Negative) Urine Blood (Negative) Urine Nitrite (Negative) Urine Bilirubin (Negative) Urine Urobilinogen (Negative) Ur Leukocyte Esterase (Negative) Urine WBC (Auto) (0-5) /hpf Urine RBC (Auto) (0-4) /hpf U Hyaline Cast (Auto) (0-5) /lpf U Epithel Cells (Auto) (0-5) /lpf Urine Bacteria (Auto) (Negative) Nasal Screen MRSA (PCR) Negative (Negative) COVID-19 Eval Order SARS-CoV-2 (PCR) (Negative) 07/18/20 Range/Units 23:29 WBC (4.8-10.8) K/uL RBC (4.2-5.4) M/uL Hgb (12.0-16.0) g/dL Hct (37-47) % MCV (80-100) fL MCH (25-34) pg MCHC (32-36) g/dL RDW Std Deviation (36.4-46.3) fL RDW Coeff of Emmy (11.5-14.5) % Plt Count (130-400) K/uL MPV (7.4-10.4) fL Immature Gran % (Auto) % Neut % (Auto) % Lymph % (Auto) % [place] % (Auto) % Eos % (Auto) % Baso % (Auto) % Neut # (Auto) (1.4-6.5) K/uL Lymph # (Auto) (1.2-3.4) K/uL [place] # (Auto) (0.11-0.59) K/uL Eos # (Auto) (0-0.5) K/uL Baso # (Auto) (0-0.2) K/uL Immature Gran # (Auto) (0.00-0.02) K/uL PT (9.0-12.0) Seconds INR (0.9-1.1) APTT (21.0-31.0) Seconds PTT Ratio Sodium (136-145) mmol/L Potassium (3.5-5.1) mmol/L Chloride (98-107) mmol/L Carbon Dioxide (21-32) mmol/L Anion Gap (3-11) BUN (7-18) mg/dl Creatinine (0.6-1.2) mg/dl Est Cr Clr Drug Dosing ml/min Est GFR ( Amer) ml/min Est GFR (Non-Af Amer) ml/min BUN/Creatinine Ratio (10-20) Glucose (70-99) mg/dl Lactate (0.4-2.0) mmol/L Calcium (8.5-10.1) mg/dl Total Bilirubin (0.2-1) mg/dl AST (15-37) U/L ALT (12-78) U/L Alkaline Phosphatase (45-117) U/L Troponin I (0-0.045) ng/ml Total Protein (6.4-8.2) gm/dl Albumin (3.4-5.0) gm/dl Globulin (2.5-4.0) gm/dl Albumin/Globulin Ratio (0.9-2) Lipase (73-393) U/L Procalcitonin (0-0.5) ng/ml Urine Color Yellow Urine Appearance Clear (Clear) Urine pH 5.5 (4.5-7.5) Ur Specific [place] 1.020 (1.000-1.030) Urine Protein Negative (Negative) Urine Glucose (UA) Negative (Negative) Urine Ketones Negative (Negative) Urine Blood Negative (Negative) Urine Nitrite Negative (Negative) Urine Bilirubin Negative (Negative) Urine Urobilinogen Negative (Negative) Ur Leukocyte Esterase Trace H (Negative) Urine WBC (Auto) 1-5 (0-5) /hpf Urine RBC (Auto) 0-4 (0-4) /hpf U Hyaline Cast (Auto) 1-5 (0-5) /lpf U Epithel Cells (Auto) >30 H (0-5) /lpf Urine Bacteria (Auto) Negative (Negative) Nasal Screen MRSA (PCR) (Negative) COVID-19 Eval Order SARS-CoV-2 (PCR) (Negative) Administered Medications Discontinued Medications Sodium Chloride (Nss 1000ml) 1,000 mls @ 999 mls/hr IV .Q1H1M STA Stop: 07/18/20 19:18 Last Infusion: 07/18/20 20:01 Dose: 0 mls/hr Documented by: [id number] Admin: 07/18/20 18:58 Dose: 999 mls/hr Documented by: [id number] Promethazine HCl (Phenergan) 6.25 mg in 50.25 mls @ 201 mls/hr IV NOW STA Stop: 07/18/20 18:46 Last Infusion: 07/18/20 19:55 Dose: 0 mls/hr Documented by: [id number] Admin: 07/18/20 19:00 Dose: 201 mls/hr Documented by: [id number] Acetaminophen (Ofirmev) 1,000 mg in 100 mls @ 400 mls/hr IV NOW STA Stop: 07/18/20 18:46 Last Infusion: 07/18/20 19:54 Dose: 0 mls/hr Documented by: [id number] Admin: 07/18/20 19:03 Dose: 400 mls/hr Documented by: [id number] Famotidine (Pepcid 20mg Iv Push) 20 mg in 5 mls @ 2.5 mls/min IV NOW STA Stop: 07/18/20 18:37 Last Admin: 07/18/20 18:55 Dose: 2.5 mls/min Documented by: [id number] Sodium Chloride (Nss 1000ml) 1,000 mls @ 999 mls/hr IV .Q1H1M ONE Stop: 07/18/20 22:01 Last Infusion: 07/18/20 23:30 Dose: 0 mls/hr Documented by: [id number] Admin: 07/18/20 21:46 Dose: 999 mls/hr Documented by: [id number] Daptomycin 675 mg/ Syringe 13.5 mls @ 6.75 mls/min IV NOW ONE; Protocol Stop: 07/18/20 21:08 Last Admin: 07/18/20 22:10 Dose: 6.75 mls/min Documented by: [id number] Cefepime HCl (Maxipime) 2,000 mg in 20 mls @ 5 mls/min IV NOW STA; Protocol Stop: 07/18/20 21:10 Last Admin: 07/18/20 21:48 Dose: 5 mls/min Documented by: [id number] Metoprolol Tartrate (Metoprolol Tartrate 1 Mg/Ml Vial) 5 mg IV NOW STA Stop: 07/18/20 21:02 Last Admin: 07/18/20 21:52 Dose: 5 mg Documented by: [id number] Imaging Data Radiologist's Impression: Chest X-Ray 07/18/20 18:18 XR chest 1V portable HISTORY: 60 years-old Female Fever, nausea acute fever with nausea COMPARISON: Chest radiograph 04/01/2016 TECHNIQUE: Portable AP view of the chest FINDINGS: Cardiac mediastinal and hilar silhouettes are within normal limits. Small area of linear subsegmental atelectasis/scarring of the left lung base. There is no pneumothorax, pleural effusion, airspace consolidation or overt pulmonary edema. Bones of the chest appear grossly intact. IMPRESSION: No acute process. ACT 112: Negative or not required by law. The above report was generated using voice recognition software. It may contain grammatical, syntax or spelling errors. Electronically signed by: Adilson Tellez M.D. 07/18/2020 7:36 PM Abdomen/Pelvis CT 07/18/20 18:[address] WITHOUT CONTRAST CT DOSE: 2304.76 mGy.cm HISTORY: Acute generalized abdominal pain pain, hx resection, fever TECHNIQUE: Multiaxial CT images of the abdomen and pelvis were performed without contrast. A dose lowering technique was utilized adhering to the principles of ALARA. COMPARISON STUDY: CT abdomen and pelvis 11/03/2016 FINDINGS: 3 mm calcified granuloma of the left lower lobe. Mild bibasilar atelectasis. No pneumatosis or pneumoperitoneum. The imaged inferior cardiac chambers are unremarkable. The spleen is mildly enlarged, 14.6 cm. Unremarkable pancreas and adrenal glands. Cholecystectomy. Hepatic steatosis. Mild nonspecific bilateral perinephric stranding. Cyst of the inferior pole right kidney measuring 3.0 cm has increased in size from comparison where previously measured 2.0 cm. No renal or ureteral calculi or obstructive uropathy. Unremarkable urinary bladder and uterus. Mild calcified plaque the abdominal aorta. Prominent and mildly enlarged periaortic lymph nodes measure up to 10 mm. Left iliac chain lymph nodes measure up to 1.5 cm. Inguinal chain lymph nodes measure up to 1.3 cm. These findings are new from comparison. Moderate sized duodenal diverticulum. No bowel obstruction or bowel wall thickening. Colonic diverticulosis. Prior partial sigmoid colon resection with colocolonic anastomosis. No CT evidence of acute appendicitis. There is a new moderate-sized infraumbilical midline hernia containing mesenteric fat and nonobstructed small bowel, diastases of 5 cm. No acute fracture. No suspicious bone lesion. IMPRESSION: 1. No bowel obstruction or bowel wall thickening. 2. There is a new moderate sized infraumbilical midline abdominal wall hernia containing mesenteric fat and nonobstructed small bowel. 3. Prior sigmoid colon resection with colocolonic anastomosis. 4. Colonic diverticulosis. 5. Indeterminate periaortic, iliac and inguinal chain adenopathy, new from 2017. Follow-up is needed. 6. Hepatic steatosis. 7. Additional findings as above. ACT 112: Negative or not required by law. The above report was generated using voice recognition software. It may contain grammatical, syntax or spelling errors. Electronically signed by: Adilson Tellez M.D. 07/18/2020 8:54 PM Discharge Plan Visit Data Chief Complaint: Fever Stated Complaint: CHILLS, FEVER, DON'T FEEL GOOD ED Provider: Kahlil Zhu Discharge Problem: Cellulitis of left lower leg, Sepsis, Atrial fibrillation with rapid ventricular response, Nausea Patient Disposition: Admitted As Inpatient Forms Stand Alone Forms: [facility] Prescriptions Prescriptions: No Action torsemide 20 mg Tablet 20 mg PO QAM RF: 0 sotalol 80 mg Tablet 80 mg PO BID RF: 0 lisinopril 20 mg Tablet 20 mg PO HS RF: 0 spironolactone 25 mg Tablet 25 mg PO QAM RF: 0 warfarin 5 mg Tablet 5 mg PO UD RF: 0 metoprolol tartrate 25 mg Tablet 12.5 mg PO BID RF: 0 fluoxetine 10 mg capsule 10 mg PO DAILY PRN (Reason: Anxiety) RF: 0 cholecalciferol (vitamin D3) [Vitamin D3] 25 mcg (1,000 unit) Tablet 0 mcg PO Q OTHER DAY RF: 0 Referrals Referrals: Minh Reilly MD [Primary Care Provider] - Discharge Problem: Sepsis Qualifiers: Sepsis type: sepsis due to unspecified organism Sepsis acute organ dysfunction status: unspecified Qualified Code(s): A41.9 - Sepsis, unspecified organism
[2020-07-18 19:18] LABS: Hematocrit (blood only) 35.1 % (37-47); Hemoglobin 11.3 g/dL (12.0-16.0); Mean Corpuscular Hgb Conc 32.2 g/dL (32-36); Mean Corpuscular Volume 93.1 fL (80-100); Platelet Count 269 K/uL (130-400); RDW Coefficient of Variation 16.5 % (11.5-14.5); RDW Standard Deviation 55.9 fL (36.4-46.3); Red Blood Count 3.77 M/uL (4.2-5.4); White Blood Count 24.83 K/uL (4.8-10.8)
[2020-07-18 19:35] LABS: INR 1.8 (0.9-1.1); Partial Thromboplastin Ratio 1.3; Partial Thromboplastin Time 33.2 Seconds (21.0-31.0); Prothrombin Time 17.2 Seconds (9.0-12.0)
[2020-07-18 19:36] LABS: Basophils # (auto) 0.01 K/uL (0-0.2); Eosinophils # (auto) 0.01 K/uL (0-0.5); Immature Granulocytes # (auto) 0.14 K/uL (0.00-0.02); Immature Granulocytes % (auto) 0.6 %; Lymphocytes # (auto) 0.51 K/uL (1.2-3.4); Lymphocytes % (auto) 2.1 %; Monocytes # (auto) 0.47 K/uL (0.11-0.59); Monocytes % (auto) 1.9 %; Neutrophils # (auto) 23.69 K/uL (1.4-6.5); Neutrophils % (auto) 95.4 %
--- NOTE | 2020-07-18 19:38 | XRay Report ---
XR chest 1V portable HISTORY: 60 years-old Female Fever, nausea acute fever with nausea COMPARISON: Chest radiograph 04/01/2016 TECHNIQUE: Portable AP view of the chest FINDINGS: Cardiac mediastinal and hilar silhouettes are within normal limits. Small area of linear subsegmental atelectasis/scarring of the left lung base. There is no pneumothorax, pleural effusion, airspace con solidation or overt pulmonary edema. Bones of the chest appear grossly intact. IMPRESSION: No acute process. ACT 112: Negative or not required by law. The above report was generated using voice recognition software. It may contain grammatical, syntax o r spelling errors. Electronically signed by: Adilson Tellez M.D. 07/18/2020 7:36 PM
[2020-07-18 19:42] LABS: Alanine Aminotransferase 13 U/L (12-78); Albumin Level 3.1 gm/dl (3.4-5.0); Aspartate Aminotransferase 9 U/L (15-37); BUN Creatinine Ratio 15.9 (10-20); Blood Urea Nitrogen 26 mg/dl (7-18); Calcium 9.1 mg/dl (8.5-10.1); Carbon Dioxide 26 mmol/L (21-32); Chloride 106 mmol/L (98-107); Creatinine Clr Calc Pharmacy 63.9 ml/min; Est GFR (African American) 38.7 ml/min; Est GFR (Non-African American) 33.4 ml/min; Glucose 104 mg/dl (70-99); Lipase 79 U/L (73-393); Potassium 3.8 mmol/L (3.5-5.1); Sodium 139 mmol/L (136-145)
[2020-07-18 19:47] LABS: Albumin Globulin Ratio 0.6 (0.9-2); Alkaline Phosphatase 106 U/L (45-117); Bilirubin,Total 1.1 mg/dl (0.2-1); Globulin 5.1 gm/dl (2.5-4.0); Total Protein 8.2 gm/dl (6.4-8.2); Troponin I < 0.015 ng/ml (0-0.045)
--- NOTE | 2020-07-18 20:55 | CT Scan Report ---
ABDOMEN AND PELVIS CT WITHOUT CONTRAST CT DOSE: 2304.76 mGy.cm HISTORY: Acute generalized abdominal pain pain, hx resection, fever TECHNIQUE: Multiaxial CT images of the abdomen and pelvis were performed without contrast. A dose lo wering technique was utilized adhering to the principles of ALARA. COMPARISON STUDY: CT abdomen and pelvis 11/03/2016 FINDINGS: 3 mm calcified granuloma of the left lower lobe. Mild bibasilar atelectasis. No pneumatosis or pneumoperitoneum. The imaged inferior cardiac chambers are unremarkable. The spleen is mildly enl arged, 14.6 cm. Unremarkable pancreas and adrenal glands. Cholecystectomy. Hepatic steatosis. Mild nonspecific bilateral perinephric stranding. Cyst of the inferior pole right kidney measuring 3. 0 cm has increased in size from comparison where previously measured 2.0 cm. No renal or ureteral sofia culi or obstructive uropathy. Unremarkable urinary bladder and uterus. Mild calcified plaque the abdo pedro luis aorta. Prominent and mildly enlarged periaortic lymph nodes measure up to 10 mm. Left iliac ruben in lymph nodes measure up to 1.5 cm. Inguinal chain lymph nodes measure up to 1.3 cm. These findings are new from comparison. Moderate sized duodenal diverticulum. No bowel obstruction or bowel wall thickening. Colonic divertic ulosis. Prior partial sigmoid colon resection with colocolonic anastomosis. No CT evidence of acute a ppendicitis. There is a new moderate-sized infraumbilical midline hernia containing mesenteric fat an d nonobstructed small bowel, diastases of 5 cm. No acute fracture. No suspicious bone lesion. IMPRESSION: 1. No bowel obstruction or bowel wall thickening. 2. There is a new moderate sized infraumbilical midline abdominal wall hernia containing mesenteric f at and nonobstructed small bowel. 3. Prior sigmoid colon resection with colocolonic anastomosis. 4. Colonic diverticulosis. 5. Indeterminate periaortic, iliac and inguinal chain adenopathy, new from 2017. Follow-up is needed. 6. Hepatic steatosis. 7. Additional findings as above. ACT 112: Negative or not required by law. The above report was generated using voice recognition software. It may contain grammatical, syntax o r spelling errors. Electronically signed by: Adilson Tellez M.D. 07/18/2020 8:54 PM
[2020-07-18] MEDS ORDERED: SODIUM CHLORIDE 0.9% 1000ML 1,000 ML IV ONE (21:01)
[2020-07-18] MEDS ORDERED: METOPROLOL TARTRATE 1 MG/ML VIAL IV STA (21:01)
[2020-07-18] MEDS ORDERED: DAPTOmycin 675 MG in SYRINGE 0 ML IV ONE (21:07)
[2020-07-18] MEDS ORDERED: CEFEPIME 2,000 MG/20 ML VIAL IV STA (21:07)
[2020-07-18 23:38] LABS: Appearance Urine Clear (Clear); Bacteria Urine Automated Negative (Negative); Bilirubin Urine Negative (Negative); Blood Urine Negative (Negative); Color Urine Yellow; Epithelial Cell Urine Auto >30 /lpf (0-5); Glucose Urine UA Negative (Negative); Ketones Urine Negative (Negative); Leukocyte Esterase Urine Trace (Negative); Nitrite Urine Negative (Negative); Protein Urine Negative (Negative); RBC Urine Automated 0-4 /hpf (0-4); Urobilinogen Urine Negative (Negative); pH Urine 5.5 (4.5-7.5)
[2020-07-19] MEDS ORDERED: METOPROLOL TARTRATE 1 MG/ML VIAL IV PRN (01:23)
[2020-07-19] MEDS ORDERED: ONDANSETRON INJ 2 MG/ML 2 ML VIAL IV PRN (03:23)
[2020-07-19] MEDS ORDERED: POLYETHYLENE (MIRALAX) 17 GM PACK PO PRN (03:23)
[2020-07-19] MEDS ORDERED: NITROGLYCERIN SL 0.4 MG/TAB TAB SL PRN (03:23)
[2020-07-19] MEDS ORDERED: MEROPENEM CONSULT ACITVE PRN (03:23)
[2020-07-19] MEDS ORDERED: SODIUM CHLORIDE 0.9% 1000ML 1,000 ML IV SCH (03:23)
[2020-07-19] MEDS ORDERED: FLUoxetine HCL 10 MG CAP PO PRN (03:23)
[2020-07-19] MEDS: MEROPENEM 500 MG in SYRINGE 0 ML IV SCH ×4 (04:35→21:46)
[2020-07-19] MEDS: ACETAMINOPHEN 325 MG TAB PO PRN (04:36)
[2020-07-19 06:11] LABS: Hemoglobin 10.9 g/dL (12.0-16.0); Mean Corpuscular Hemoglobin 29.2 pg (25-34); Mean Corpuscular Hgb Conc 32.1 g/dL (32-36); Mean Corpuscular Volume 91.2 fL (80-100); Mean Platelet Volume 9.8 fL (7.4-10.4); Platelet Count 237 K/uL (130-400); RDW Coefficient of Variation 16.7 % (11.5-14.5); RDW Standard Deviation 55.4 fL (36.4-46.3); Red Blood Count 3.73 M/uL (4.2-5.4); White Blood Count 25.09 K/uL (4.8-10.8)
[2020-07-19 06:23] LABS: INR 1.9 (0.9-1.1); Prothrombin Time 18.3 Seconds (9.0-12.0)
[2020-07-19 06:27] LABS: Basophils # (auto) 0.02 K/uL (0-0.2); Basophils % (auto) 0.1 %; Immature Granulocytes % (auto) 0.8 %; Lymphocytes # (auto) 0.29 K/uL (1.2-3.4); Lymphocytes % (auto) 1.2 %; Monocytes # (auto) 0.16 K/uL (0.11-0.59); Monocytes % (auto) 0.6 %; Neutrophils # (auto) 24.42 K/uL (1.4-6.5); Neutrophils % (auto) 97.3 %; RBC Morphology Unremarkable
[2020-07-19 06:39] LABS: BUN Creatinine Ratio 14.6 (10-20); Calcium 8.1 mg/dl (8.5-10.1); Creatinine Clr Calc Pharmacy 63.7 ml/min; Est GFR (African American) 38.4 ml/min; Est GFR (Non-African American) 33.2 ml/min; Magnesium 1.8 mg/dl (1.8-2.4); Potassium 3.9 mmol/L (3.5-5.1)
--- NOTE | 2020-07-19 07:59 | History and Physical Report ---
DATE OF ADMISSION: 07/19/2020 CHIEF COMPLAINT: Left lower extremity cellulitis. HISTORY OF PRESENT ILLNESS: This is a 60-year-old female with past medical history significant for hyperlipidemia, hypothyroidism, obstructive sleep apnea, on CPAP, paroxysmal atrial fibrillation, chronic diastolic CHF, hypertension, and GERD, ckd stage 3, psoriasis brought in with lower extremity cellulitis. The patient says because of psoriasis, she gets on and off swelling or edema in the lower legs. In the last 2 days, it got worse. She is having some ambulatory dysfunction and fever and chills, so she came to the ER .She denies any cough. She gets some shortness of breath with ambulation. No headache, no blurred vision, no earache, no runny nose, no sore throat, no nausea, no abdominal pain. Normal bowel and bladder movements, currently sleepy and saturating fine on room air. She was diagnosed with COVID on 03/02/2020. She received antibiotic treatment for COVID.. She did not get any COVID shots. Today, her COVID is positive, but she says she did not go out of the house. ALLERGIES: CODEINE and PENICILLIN. PAST MEDICAL HISTORY: As mentioned above. PAST SURGICAL HISTORY: Carpal tunnel surgery, colonoscopy, EGD with endoscopic ultrasound, laparoscopic partial colectomy with coloproctostomy and laparoscopic cholecystectomy. MEDICATIONS: The patient is on vitamin D 25 mcg p.o. daily, fluoxetine 10 mg p.o. daily p.r.n., lisinopril 20 mg p.o. at bedtime, metoprolol tartrate 12.5 mg p.o. b.i.d., sotalol 80 mg p.o. b.i.d., spironolactone 25 mg p.o. a.m., torsemide 20 mg p.o. a.m., and warfarin 5 mg 1-2 tablets as directed. FAMILY HISTORY: Significant for father had stroke, mother had stroke. SOCIAL HISTORY: , quit smoking in February 2016, smoked 1 pack a day for 2-3 days, started smoking at age of 15. Alcohol, rare. No drug use. REVIEW OF SYMPTOMS: As per HPI. Rest of review of systems negative. PHYSICAL EXAMINATION: GENERAL: The patient is morbidly obese, not in acute distress. VITAL SIGNS: Temperature 37.2, pulse 114, respiratory rate 24, blood pressure 132/74, oxygen 97% on room air. HEENT: No pallor, no icterus. Pupils equal, round, reactive to light. Oral mucosa moist. NECK: No JVD. No neck masses. CARDIOVASCULAR: S1, S2 heard, regular rate and rhythm, no murmur, no gallop. RESPIRATORY SYSTEM: Normal AP diameter. No accessory muscle use. No wheezing, no crackles. ABDOMEN: Soft, bowel sounds present, nontender, nondistended. CENTRAL NERVOUS SYSTEM: Cranial nerves II through XII grossly intact, nonfocal. EXTREMITIES: Bilateral lower extremity lymphedema . Left lower extremity is erythematous. LABORATORY DATA: WBC 24, hemoglobin 11.3, hematocrit 34.1, platelets 269. PT 17.2, INR 1.8, APTT 33.2. Sodium 139, potassium 3.8, chloride 106, bicarbonate 26, BUN 26, creatinine 1.6, serum glucose 104. Lactate 2, calcium 9.1, total bilirubin 1.1, AST 9, ALT 13, alkaline phosphatase 106. Troponin I less than 0.015. Lipase 79. Procalcitonin 2.8. SARS-CoV-2 PCR positive. IMAGING: CT of the abdomen and pelvis: New moderate size infraumbilical midline abdominal wall hernia containing mesenteric fat and nonobstructed small bowel, indeterminate. Aortoiliac and inguinal chain adenopathy, new from 2017, followup needed. Colonic diverticulosis, hepatic steatosis. Chest x-ray: No acute process. EKG: Atrial fibrillation with rapid ventricular response at rate of 123, no significant ST changes.. ASSESSMENT AND PLAN: This is a 60-year-old female who presents with left lower extremity cellulitis. 1. Left lower extremity cellulitis, started on daptomycin and meropenem. gentle fluids. Monitor in the hospital. 2. Rapid atrial fibrillation. Patient with history of atrial fibrillation, on Coumadin. INR is 1.8, will continue home sotalol and metoprolol. We will place on IV Lopressor p.r.n. and monitor in the med tele.Cardiology consult in am. 3. Depression, on fluoxetine. 4. Diastolic congestive heart failure, on spironolactone and torsemide. Monitor for volume overload. 5. History of obstructive sleep apnea. CPAP at bedtime. 6. Morbid obesity, need counseling. 7. Hypothyroidism, currently not on any medication. We will follow the labs. 8. History of chronic kidney disease stage III. Baseline creatinine around 1.5, present creatinine of 1.6. Getting gentle fluids. Follow the labs in a.m. 9. History of psoriasis. 10. Inguinal chain lymphadenopathy. Needs followup. 11. Deep venous thrombosis prophylaxis, on Coumadin. Follow PT/INR. DISPOSITION: Admit to med tele. PT and OT prior to discharge. Social service to help with discharge planning. CHELSIE
--- NOTE | 2020-07-19 08:45 | Electrocardiogram Report ---
Test Reason : Blood Pressure : / mmHG Vent. Rate : 123 BPM Atrial Rate : 123 BPM P-R Int : 000 ms QRS Dur : 136 ms QT Int : 362 ms P-R-T Axes : 000 080 016 degrees QTc Int : 518 ms Atrial fibrillation with rapid ventricular response with premature ventricular or aberrantly conducte d complexes Right bundle branch block Abnormal ECG When compared with ECG of 03-SEP-2019 09:43, HR has increased by 23 bpm Otherwise no significant change Confirmed by Aron Jacobs ([id number]) on 07/19/2020 8:45:08 AM Referred By: REFERRED SELF Confirmed By:Aron Jacobs
[2020-07-19] MEDS: SPIRONOLACTONE 25 MG TAB PO SCH (08:52)
[2020-07-19] MEDS: TORSEMIDE 20 MG TAB PO SCH (08:52)
[2020-07-19] MEDS: METOPROLOL TARTRATE 25 MG TAB PO SCH ×3 (08:52→22:56)
[2020-07-19] MEDS: CHOLECALCIFEROL 1,000 UNITS 25 MCG TAB PO SCH (08:52)
--- NOTE | 2020-07-19 11:34 | Hospitalist Progress Note ---
Date of Service July 19, 2020 Assessment & Plan Admission and Anticipated Discharge Date Admission Date: July 19, 2020 Subjective Addendum: Covid positive. Patient was first diagnosed with covid on 03/02/20. Received antibody treatment. Today again she is covid positive. False positive from old infection vs reinfection. Currently asymptomatic. For now will do airborne precautions. Results & Data Results & Data ([facility]) Vital Signs (Past 12 Hours) Vital Signs Temp Pulse Pulse Resp BP BP Pulse Ox 07/19/20 10:09 115 H 07/19/20 08:49 37 C 126 H 18 110/66 97 07/19/20 03:38 38.2 C H 131 H 22 132/75 95 07/19/20 03:23 38.2 C H 131 H 22 132/75 95 07/19/20 02:27 118 H 18 95 07/19/20 01:00 112 H 14 118/60 95 Pulse Ox 07/19/20 10:09 07/19/20 08:49 07/19/20 03:38 07/19/20 03:23 95 07/19/20 02:27 07/19/20 01:00
[2020-07-19] MEDS: METOPROLOL TARTRATE 1 MG/ML VIAL IV PRN ×2 (12:10→17:57)
--- NOTE | 2020-07-19 14:12 | Communication Note ---
Date of Service: July 19, 2020 Patient seen and examined this morning. Overall doing okay. Awake, alert and oriented x3. And at bedside. Currently patient is on room air. Patient does not have any respiratory symptoms at the moment. However she does feel weak though. We will continue with daptomycin and meropenem for now. Leukocytosis persists. Patient is afebrile. Left lower extremity erythema is noted. Remains tachycardic in the setting of sepsis. As needed Lopressor is on board. Cardiology is consulted. Will d/c IVFs. C/w coumadin.
--- NOTE | 2020-07-19 14:41 | Cardiology Consultation ---
Date of Consultation July 19, 2020 Assessment & Plan (1) Cellulitis of left lower leg: (2) Sepsis: (3) Atrial fibrillation with rapid ventricular response: (4) Nausea: (5) Abdominal pain: I would continue metoprolol as needed for heart rate control and continue anticoagulation with warfarin. Blood cultures are still pending. Appropriate treatment for her cellulitis has been initiated. Until her sepsis and acute illness has improved she is unlikely to maintain sinus rhythm so at this point I would continue with rate control and anticoagulation. We will follow along with you during her hospital stay. History of Present Illness Attending Physician: Mingo Alfaro MD History of Present Illness This is a 60-year-old female with a history of paroxysmal atrial fibrillation, chronic diastolic heart failure, sleep apnea and psoriasis who was admitted through the emergency department with a lower extremity cellulitis, fever and chills. Upon admission, she has an elevated white count. Blood cultures are still pending. She had Covid in February but apparently tested positive again this admission. After admission she developed atrial fibrillation with RVR which was successfully treated with IV metoprolol. She remains in atrial fibrillation however the rates are controlled.She is currently anticoagulated with warfarin. Past medical history: 1.(Presumed) non ischemic CM, LVEF improved with medical therapy, muslim of SR 2.Paroxysmal atrial fibrillation 3.Right bundle branch block 4.Stage III CKD Allergies Allergy/AdvReac Type Severity Reaction Status Date / Time codeine Allergy Severe SWELLING Verified 07/18/20 19:02 ALL OVER Penicillins Allergy Severe THROAT Verified 07/18/20 19:02 SWELLING Home Medications Medication Instructions Recorded Confirmed Type lisinopril 20 mg PO HS 06/03/19 07/18/20 History metoprolol tartrate 12.5 mg PO BID 06/03/19 07/18/20 History sotalol 80 mg PO BID 06/03/19 07/18/20 History spironolactone 25 mg PO QAM 06/03/19 07/18/20 History torsemide 20 mg PO QAM 06/03/19 07/18/20 History warfarin 5 mg PO UD 06/03/19 07/18/20 History cholecalciferol (vitamin D3) 0 mcg PO Q OTHER DAY 07/18/20 07/18/20 History [Vitamin D3] fluoxetine 10 mg PO DAILY PRN 07/18/20 07/18/20 History Patient History Medical History Atrial fibrillation 02/2016 takes COUMADIN GERD (gastroesophageal reflux disease) History of cardiomyopathy Tachycardia-induced, moderate LV function reduction, subsequently normalized with treatment. Maintained on Sotolol. History of cardioversion 2017 x 2 AT [facility]. History of diverticulitis s/p bowel resection Hx of congestive heart failure RELATED TO A FIB 2017 Hypertension Morbid obesity Sleep apnea CPAP Surgical History History of anesthesia reaction SLOW TO WAKE UP History of carpal tunnel release LEFT History of cholecystectomy History of colon surgery BOWEL RESECTION diverticulitis IN [facility] History of colonoscopy Hx of sinus surgery Family History Grandmother (Maternal) Family history of diabetes mellitus Social History Smoking Status: Former smoker Second Hand Exposure: No; Do You Dip or Chew Tobacco: No; Tobacco Cessation Education Requested by Patient: No Hx Alcohol Use: No Hx Substance Use: No Preferred Language: Kazakh Communication Ability: Effective Rivet Sorter Required: No Beliefs That Will Affect Care: None Current Living Situation: Spouse Other Information That Helps Us Care for You: No Feels Safe at Home: No Is there a partner from a previous relationship who is making you feel unsafe now?: No Any Concerns about Your Family Situation: No Would You Like to Speak to Someone About Your Situation: No Safety Concerns: Feels Safe At This Time Assistive Devices: None Review of Systems Review of Systems: All systems reviewed & are unremarkable except as noted in HPI & below Nothing additional to add. Physical Exam Physical Exam: General: no acute distress and stated age Head: normocephalic, no masses, lesions, tenderness or abnormalities Eyes: conjunctiva are pink and non-injected, sclera clear Neck: supple, no adenopathy, no bruits, normal jugular venous pulse, no hepatojugular reflux Chest: normal shape and normal respiratory effort Lungs: clear to auscultation and percussion Cardiac Exam: - irregular rate & rhythm, no murmurs gallops or rubs - normal S1, normal S2 Pulses: 2(+) throughout Abdomen: abdomen soft, non-tender, no abnormal masses and no hepatosplenomegaly Musculoskeletal: no gait disturbance, no joint inflammation, no deforming arthritis Extremities: Both legs have massive chronic edema. The left leg has evidence of cellulitis. Neuro: grossly normal exam Results & Data ([facility]) Vital Signs (Past 12 Hours) Vital Signs Temp Pulse Pulse Resp BP BP Pulse Ox 07/19/20 12:04 37 C 135 H 20 147/89 H 99 07/19/20 10:09 115 H 07/19/20 08:49 37 C 126 H 18 110/66 97 07/19/20 03:38 38.2 C H 131 H 22 132/75 95 07/19/20 03:23 38.2 C H 131 H 22 132/75 95 Pulse Ox 07/19/20 12:04 07/19/20 10:09 07/19/20 08:49 07/19/20 03:38 07/19/20 03:23 95 Laboratory Results Laboratory Results - last 24 hr 07/18/20 07/18/20 07/18/20 19:04 19:04 19:08 WBC 24.83 H RBC 3.77 L Hgb 11.3 L Hct 35.1 L MCV 93.1 MCH 30.0 MCHC 32.2 RDW Std Deviation 55.9 H RDW Coeff of Emmy 16.5 H Plt Count 269 MPV 10.0 Immature Gran % (Auto) 0.6 Neut % (Auto) 95.4 Lymph % (Auto) 2.1 Boundary % (Auto) 1.9 Eos % (Auto) 0.0 Baso % (Auto) 0.0 Neut # (Auto) 23.69 H Lymph # (Auto) 0.51 L Boundary # (Auto) 0.47 Eos # (Auto) 0.01 Baso # (Auto) 0.01 Immature Gran # (Auto) 0.14 H RBC Morphology PT INR APTT PTT Ratio Sodium Potassium Chloride Carbon Dioxide Anion Gap BUN Creatinine Est Cr Clr Drug Dosing Est GFR ( Amer) Est GFR (Non-Af Amer) BUN/Creatinine Ratio Glucose POC Glucose Lactate Calcium Magnesium Total Bilirubin AST ALT Alkaline Phosphatase Troponin I Total Protein Albumin Globulin Albumin/Globulin Ratio Lipase Procalcitonin Urine Color Urine Appearance Urine pH Ur Specific [place] Urine Protein Urine Glucose (UA) Urine Ketones Urine Blood Urine Nitrite Urine Bilirubin Urine Urobilinogen Ur Leukocyte Esterase Urine WBC (Auto) Urine RBC (Auto) U Hyaline Cast (Auto) U Epithel Cells (Auto) Urine Bacteria (Auto) Nasal Screen MRSA (PCR) COVID-19 Eval Order Covid19 at [facility] SARS-CoV-2 (PCR) POSITIVE A* 07/18/20 07/18/20 07/18/20 19:08 19:08 19:08 WBC RBC Hgb Hct MCV MCH MCHC RDW Std Deviation RDW Coeff of Emmy Plt Count MPV Immature Gran % (Auto) Neut % (Auto) Lymph % (Auto) Boundary % (Auto) Eos % (Auto) Baso % (Auto) Neut # (Auto) Lymph # (Auto) Boundary # (Auto) Eos # (Auto) Baso # (Auto) Immature Gran # (Auto) RBC Morphology PT INR APTT PTT Ratio Sodium 139 Potassium 3.8 Chloride 106 Carbon Dioxide 26 Anion Gap 7.0 BUN 26 H Creatinine 1.64 H Est Cr Clr Drug Dosing 63.9 Est GFR ( Amer) 38.7 Est GFR (Non-Af Amer) 33.4 BUN/Creatinine Ratio 15.9 Glucose 104 H POC Glucose Lactate 2.8 H* Calcium 9.1 Magnesium Total Bilirubin 1.1 H AST 9 L ALT 13 Alkaline Phosphatase 106 Troponin I < 0.015 Total Protein 8.2 Albumin 3.1 L Globulin 5.1 H Albumin/Globulin Ratio 0.6 L Lipase 79 Procalcitonin 2.84 H Urine Color Urine Appearance Urine pH Ur Specific [place] Urine Protein Urine Glucose (UA) Urine Ketones Urine Blood Urine Nitrite Urine Bilirubin Urine Urobilinogen Ur Leukocyte Esterase Urine WBC (Auto) Urine RBC (Auto) U Hyaline Cast (Auto) U Epithel Cells (Auto) Urine Bacteria (Auto) Nasal Screen MRSA (PCR) COVID-19 Eval Order SARS-CoV-2 (PCR) 07/18/20 07/18/20 07/18/20 19:08 21:08 22:36 WBC RBC Hgb Hct MCV MCH MCHC RDW Std Deviation RDW Coeff of Emmy Plt Count MPV Immature Gran % (Auto) Neut % (Auto) Lymph % (Auto) Boundary % (Auto) Eos % (Auto) Baso % (Auto) Neut # (Auto) Lymph # (Auto) Boundary # (Auto) Eos # (Auto) Baso # (Auto) Immature Gran # (Auto) RBC Morphology PT 17.2 H INR 1.8 H APTT 33.2 H PTT Ratio 1.3 Sodium Potassium Chloride Carbon Dioxide Anion Gap BUN Creatinine Est Cr Clr Drug Dosing Est GFR ( Amer) Est GFR (Non-Af Amer) BUN/Creatinine Ratio Glucose POC Glucose Lactate 2.0 Calcium Magnesium Total Bilirubin AST ALT Alkaline Phosphatase Troponin I Total Protein Albumin Globulin Albumin/Globulin Ratio Lipase Procalcitonin Urine Color Urine Appearance Urine pH Ur Specific [place] Urine Protein Urine Glucose (UA) Urine Ketones Urine Blood Urine Nitrite Urine Bilirubin Urine Urobilinogen Ur Leukocyte Esterase Urine WBC (Auto) Urine RBC (Auto) U Hyaline Cast (Auto) U Epithel Cells (Auto) Urine Bacteria (Auto) Nasal Screen MRSA (PCR) Negative COVID-19 Eval Order SARS-CoV-2 (PCR) 07/18/20 07/19/20 07/19/20 23:29 06:02 06:02 WBC 25.09 H RBC 3.73 L Hgb 10.9 L Hct 34.0 L MCV 91.2 MCH 29.2 MCHC 32.1 RDW Std Deviation 55.4 H RDW Coeff of Emmy 16.7 H Plt Count 237 MPV 9.8 Immature Gran % (Auto) 0.8 Neut % (Auto) 97.3 Lymph % (Auto) 1.2 Boundary % (Auto) 0.6 Eos % (Auto) 0.0 Baso % (Auto) 0.1 Neut # (Auto) 24.42 H Lymph # (Auto) 0.29 L Boundary # (Auto) 0.16 Eos # (Auto) 0.00 Baso # (Auto) 0.02 Immature Gran # (Auto) 0.20 H RBC Morphology Unremarkable PT INR APTT PTT Ratio Sodium 141 Potassium 3.9 Chloride 109 H Carbon Dioxide 23 Anion Gap 9.0 BUN 24 H Creatinine 1.65 H Est Cr Clr Drug Dosing 63.7 Est GFR ( Amer) 38.4 Est GFR (Non-Af Amer) 33.2 BUN/Creatinine Ratio 14.6 Glucose 108 H POC Glucose Lactate Calcium 8.1 L Magnesium 1.8 Total Bilirubin AST ALT Alkaline Phosphatase Troponin I Total Protein Albumin Globulin Albumin/Globulin Ratio Lipase Procalcitonin Urine Color Yellow Urine Appearance Clear Urine pH 5.5 Ur Specific [place] 1.020 Urine Protein Negative Urine Glucose (UA) Negative Urine Ketones Negative Urine Blood Negative Urine Nitrite Negative Urine Bilirubin Negative Urine Urobilinogen Negative Ur Leukocyte Esterase Trace H Urine WBC (Auto) 1-5 Urine RBC (Auto) 0-4 U Hyaline Cast (Auto) 1-5 U Epithel Cells (Auto) >30 H Urine Bacteria (Auto) Negative Nasal Screen MRSA (PCR) COVID-19 Eval Order SARS-CoV-2 (PCR) 07/19/20 07/19/20 06:02 15:27 WBC RBC Hgb Hct MCV MCH MCHC RDW Std Deviation RDW Coeff of Emmy Plt Count MPV Immature Gran % (Auto) Neut % (Auto) Lymph % (Auto) Boundary % (Auto) Eos % (Auto) Baso % (Auto) Neut # (Auto) Lymph # (Auto) Boundary # (Auto) Eos # (Auto) Baso # (Auto) Immature Gran # (Auto) RBC Morphology PT 18.3 H INR 1.9 H APTT PTT Ratio Sodium Potassium Chloride Carbon Dioxide Anion Gap BUN Creatinine Est Cr Clr Drug Dosing Est GFR ( Amer) Est GFR (Non-Af Amer) BUN/Creatinine Ratio Glucose POC Glucose 98 Lactate Calcium Magnesium Total Bilirubin AST ALT Alkaline Phosphatase Troponin I Total Protein Albumin Globulin Albumin/Globulin Ratio Lipase Procalcitonin Urine Color Urine Appearance Urine pH Ur Specific [place] Urine Protein Urine Glucose (UA) Urine Ketones Urine Blood Urine Nitrite Urine Bilirubin Urine Urobilinogen Ur Leukocyte Esterase Urine WBC (Auto) Urine RBC (Auto) U Hyaline Cast (Auto) U Epithel Cells (Auto) Urine Bacteria (Auto) Nasal Screen MRSA (PCR) COVID-19 Eval Order SARS-CoV-2 (PCR) Medications Administered Current Inpatient Medications Acetaminophen (Acetaminophen 325 Mg Tab) 650 mg PO Q4H PRN PRN Reason: Pain or Fever Stop: 08/18/20 03:22 Last Admin: 07/19/20 04:36 Dose: 650 mg Documented by: Fluoxetine HCl (Fluoxetine Hcl 10 Mg Cap) 10 mg PO DAILY PRN PRN Reason: Anxiety Stop: 08/18/20 03:22 Meropenem 500 mg/ Syringe 10 mls @ 2 mls/min IV Q6H LEIF; Protocol Stop: 07/26/20 03:59 Last Admin: 07/19/20 15:10 Dose: 2 mls/min Documented by: Daptomycin 450 mg/ Syringe 9 mls @ 4.5 mls/min IV Q24H LEIF; Protocol Stop: 07/26/20 20:59 Lisinopril (Lisinopril 20 Mg Tab) 20 mg PO HS [facility] Stop: 08/18/20 20:59 Metoprolol Tartrate (Metoprolol Tartrate 25 Mg Tab) 12.5 mg PO BID [facility] Stop: 08/18/20 08:59 Last Admin: 07/19/20 08:52 Dose: 12.5 mg Documented by: Metoprolol Tartrate (Metoprolol Tartrate 1 Mg/Ml Vial) 5 mg IV Q6 PRN PRN Reason: Tachycardia Stop: 08/18/20 05:59 Last Admin: 07/19/20 12:10 Dose: 5 mg Documented by: Miscellaneous Information (Daptomycin Consult Active) 1 ea N/A UD PRN PRN Reason: Consult Stop: 08/17/20 21:06 Miscellaneous Information (Meropenem Consult Acitve) 1 ea N/A UD PRN PRN Reason: Consult Stop: 08/18/20 03:22 Nitroglycerin (Nitroglycerin Sl 0.4 Mg/Tab Tab) 0.4 mg SL UD PRN PRN Reason: Chest Pain Stop: 08/18/20 03:22 Ondansetron HCl (Ondansetron Inj 2 Mg/Ml 2 Ml Vial) 4 mg IV Q6H PRN PRN Reason: Nausea Stop: 08/18/20 03:22 Polyethylene Glycol (Polyethylene (Miralax) 17 Gm Pack) 17 gm PO DAILY PRN PRN Reason: Constipation Stop: 08/18/20 03:22 Spironolactone (Spironolactone 25 Mg Tab) 25 mg PO QAM [facility] Stop: 08/18/20 08:59 Last Admin: 07/19/20 08:52 Dose: 25 mg Documented by: Torsemide (Torsemide 20 Mg Tab) 20 mg PO QAM [facility] Stop: 08/18/20 08:59 Last Admin: 07/19/20 08:52 Dose: 20 mg Documented by: Vitamin D (Cholecalciferol 1,000 Units 25 Mcg Tab) 1,000 units PO Q2D [facility] Stop: 08/18/20 08:59 Last Admin: 07/19/20 08:52 Dose: 1,000 units Documented by: Warfarin Sodium (Warfarin Sod 5 Mg Tab) 5 mg PO [id number] LEIF Stop: 08/18/20 15:59 Last Admin: 07/19/20 15:09 Dose: 5 mg Documented by: Warfarin Sodium (Warfarin Sod 10 Mg Tab) 10 mg PO Mo [facility] Stop: 08/23/20 15:59 (1) Sepsis Sepsis acute organ dysfunction status: unspecified Sepsis type: sepsis due to unspecified organism Qualified Code(s): A41.9 - Sepsis, unspecified organism
[2020-07-19] MEDS: WARFARIN SOD 5 MG TAB PO SCH (15:09)
[2020-07-19] MEDS ORDERED: OPTIRAY 350 500ml IV ONE (16:06)
--- NOTE | 2020-07-19 16:13 | CT Scan Report ---
CT head/brain wo con CLINICAL HISTORY: 60 years-old Female with stroke. Acutely altered mental status with acute strokeli ke symptoms TECHNIQUE: Multiple axial CT images of the head were obtained without contrast. A dose lowering tech nique was utilized adhering to the principles of ALARA. COMPARISON: None. FINDINGS: Highly motion degraded exam. No acute intracranial hemorrhage, midline shift, intracranial mass, hydr ocephalus, territorial ischemia or abnormal extra-axial collection. The calvarium is intact. Mastoid air cells are clear. Complete opacification of the right frontal si nus and sphenoid sinuses. Mild to moderate mucosal thickening of the ethmoid air cells with mild muco periosteal thickening of the maxillary sinuses. Unremarkable soft tissues and orbits. Lucent changes of the left maxilla may be odontogenic in origin. IMPRESSION: No acute intracranial abnormality. ACT 112: Negative or not required by law. The above report was generated using voice recognition software. It may contain grammatical, syntax o r spelling errors. Electronically signed by: Adilson Tellez M.D. 07/19/2020 4:12 PM
--- NOTE | 2020-07-19 16:22 | CT Scan Report ---
CT angio chest PE protocol CT DOSE: 1968.91 mGy.cm HISTORY: 60 years-old Female with PE. Acute strokelike symptoms with chest pain and shortness of br eath TECHNIQUE: Multiple CTA images of the chest were obtained after the intravenous administration of 113 ml Optiray. Coronal and sagittal MIPS were obtained from the axial data set and were submitted for review. All measurements were obtained according to NASCET criteria. A dose lowering technique was u tilized adhering to the principles of ALARA. COMPARISON: CTA head and neck of same day, CT abdomen and pelvis 07/18/2020, CT chest 04/01/2016 FINDINGS: Limited exam secondary to upper extremity positioning and patient body habitus. CTA: The heart is normal in size without pericardial effusion. Moderate coronary artery calcifications. No thoracic aortic aneurysm or dissection. There is patency of the imaged great vessels. The pulmonary artery is opacified to the level of the segmental branches and demonstrates no filling defects to sug gest thromboembolic disease. CT CHEST: Unremarkable thyroid. There is no adenopathy. No pneumothorax, pleural effusion, airspace consolidati on or overt pulmonary edema. There are no suspicious pulmonary nodules or masses. The central airways are patent. No pneumoperitoneum. Cholecystectomy. Hepatic steatosis. Splenomegaly. Unremarkable soft tissues. Deg enerative changes of the spine and shoulders. IMPRESSION: 1. No acute intrathoracic abnormality, specifically there are no pulmonary emboli identified. 2. Hepatic steatosis. 3. Mild splenomegaly. ACT 112: Negative or not required by law. The above report was generated using voice recognition software. It may contain grammatical, syntax o r spelling errors. Electronically signed by: Adilson Tellez M.D. 07/19/2020 4:20 PM
--- NOTE | 2020-07-19 16:31 | CT Scan Report ---
CT ANGIOGRAM OF THE BRAIN; CT ANGIOGRAM OF THE NECK CLINICAL HISTORY: Strokelike symptoms. COMPARISON STUDY: Unenhanced CT of the brain performed the same day 07/19/2020. TECHNIQUE: Following the IV administration of 113 of Optiray 350, CT angiogram of the head and neck w as performed from the aortic arch to the vertex. Images are reviewed in the axial, sagittal, and orestes nal planes. 3-D MIPS images are created and assessed. IV contrast was administered without complicati on. All measurements were calculated based on NASCET criteria. A dose lowering technique was utilize d adhering to the principles of ALARA. The examination is degraded by large body habitus, and by stre ak artifact from the patient's shoulders. FINDINGS: Brain parenchyma: There is age-related involutional change noting minimal microangiopathic disease. T here is no hemorrhage, mass effect, or evidence of acute territorial ischemia by CT criteria. There i s no evidence of enhancing mass lesion on the angiogram phase images. The ventricles, sulci, and cist erns are prominent secondary to involutional change. Hanna-white matter differentiation is preserved. No extra-axial fluid collection is seen. Thoracic aorta: Visualized portions of the thoracic aorta are normal in caliber. The aortic arch demo nstrates standard 3-vessel anatomy. Right carotid arterial system: The right common carotid artery is widely patent, as are the right int ernal and external carotid arteries. Left carotid arterial system: The left common carotid artery is widely patent, as are the left news department intern al and extra the carotid arteries. Mild plaque is noted in the carotid bulb. Vertebral arteries: The vertebral arteries are patent as visualized and appear codominant. The origin s are not well assessed due to streak artifact. Subclavian arteries: Widely patent bilaterally. Intracranial vasculature: There is origin of the left posterior cerebral artery. The internal c arotid arteries are patent at the skull base, as are the anterior and middle cerebral arteries bilate rally. The vertebrobasilar system and posterior cerebral arteries are widely patent. The vertebral ar teries are codominant. There is no aneurysm, high-grade stenosis, or focal vessel cut off seen throug hout the intracranial circulation. Jugular veins: Patent bilaterally. Dural sinuses: Patent. Lung apices: Partially visualized upper lobe lung parenchyma appears clear. Soft tissues: The visualized pharyngeal soft tissues are normal in appearance noting angiographic pha se technique. The oropharyngeal airway appears widely patent. The thyroid gland is enlarged and heter ogeneous. The salivary glands are normal in appearance. No cervical lymphadenopathy is seen. Skeletal structures: The calvarium appears intact. The cervical spine is within normal limits. No lyt ic or blastic lesion is seen. Orbits: The bony orbits are intact. Orbital contents are normal as visualized. Sinuses and mastoids: Mild mucosal thickening is noted in the right maxillary antrum. There is near c omplete opacification of the right frontal sinus. There is complete opacification of the sphenoid sin uses. Thickening and sclerosis of the sinus frye indicates chronicity. Trace mucosal thickening is n oted in the ethmoid sinuses. The mastoid air cells are well pneumatized. Dentition: There are numerous dental caries and periapical lucencies. IMPRESSION: 1. There is no evidence of hemorrhage, mass effect, or acute territorial ischemia by CT criteria noti ng angiographic phase technique. 2. Unremarkable CT angiogram of the brain. 3. Unremarkable CT angiogram of the neck. 4. There are numerous dental caries and periapical lucencies. Outpatient follow-up with dentistry is recommended. ACT 112: Negative or not required by law. Electronically signed by: Lee Guillory M.D. 07/19/2020 4:30 PM
--- NOTE | 2020-07-19 16:38 | Communication Note ---
Date of Service: July 19, 2020 Stroke alert was called. Went to evaluate the patient. RN reported that patient was found to be confused. Could not tell where she was, had a stuttering of speech and had an episode of urinary incontinence. During my evaluation patient was awake, alert and oriented to place and time but not person. Speech was clear. Neurological exam no focal deficit was appreciated. Patient follows command. Stat CT head/CTA head and neck and CT PE study was ordered. I spoke with neurologist at [facility], who recommended for no need for stroke evaluation at this time. If CT studies are positive then contact them. Not a candidate for TPA given that she is on Coumadin.
[2020-07-19] MEDS ORDERED: DAPTOmycin 450 MG in SYRINGE 0 ML IV SCH (21:00)
[2020-07-19] MEDS: lisinopril 20 MG TAB PO SCH ×2 (21:47→22:57)
[2020-07-20] MEDS: MEROPENEM 500 MG in SYRINGE 0 ML IV SCH ×2 (04:32→09:14)
[2020-07-20] MEDS: METOPROLOL TARTRATE 1 MG/ML VIAL IV PRN (07:45)
--- NOTE | 2020-07-20 08:49 | Electrocardiogram Report ---
Test Reason : Blood Pressure : / mmHG Vent. Rate : 122 BPM Atrial Rate : 059 BPM P-R Int : 000 ms QRS Dur : 138 ms QT Int : 332 ms P-R-T Axes : 000 073 010 degrees QTc Int : 473 ms Atrial fibrillation with rapid ventricular response Right bundle branch block Abnormal ECG When compared with ECG of 18-JUL-2020 18:55, No significant change was found Confirmed by Aron Jacobs ([id number]) on 07/20/2020 8:49:14 AM Referred By: REFERRED SELF Confirmed By:Aron Jacobs
[2020-07-20] MEDS: METOPROLOL TARTRATE 25 MG TAB PO SCH ×2 (09:13→20:33)
[2020-07-20] MEDS: TORSEMIDE 20 MG TAB PO SCH (09:15)
[2020-07-20] MEDS: MICONAZOLE NITRATE POWDER 43 GM EXT PRN (09:15)
[2020-07-20] MEDS: SPIRONOLACTONE 25 MG TAB PO SCH (09:15)
[2020-07-20 09:43] LABS: Hematocrit (blood only) 34.9 % (37-47); Hemoglobin 11.4 g/dL (12.0-16.0); Mean Corpuscular Hemoglobin 29.8 pg (25-34); Mean Corpuscular Hgb Conc 32.7 g/dL (32-36); Mean Corpuscular Volume 91.1 fL (80-100); Mean Platelet Volume 10.6 fL (7.4-10.4); Platelet Count 244 K/uL (130-400); RDW Coefficient of Variation 17.1 % (11.5-14.5); RDW Standard Deviation 56.6 fL (36.4-46.3); Red Blood Count 3.83 M/uL (4.2-5.4); White Blood Count 24.12 K/uL (4.8-10.8)
[2020-07-20 09:52] LABS: INR 1.2 (0.9-1.1); Prothrombin Time 12.4 Seconds (9.0-12.0)
[2020-07-20] MEDS ORDERED: METOPROLOL TARTRATE 1 MG/ML VIAL IV STA (09:57)
[2020-07-20 10:12] LABS: BUN Creatinine Ratio 14.7 (10-20); Calcium 8.8 mg/dl (8.5-10.1); Creatinine Clr Calc Pharmacy 57.1 ml/min; Est GFR (African American) 33.7 ml/min; Est GFR (Non-African American) 29.1 ml/min; Potassium 3.6 mmol/L (3.5-5.1)
--- NOTE | 2020-07-20 10:36 | Cardiology Progress Note ---
Date of Service July 20, 2020 Assessment & Plan (1) Cellulitis of left lower leg: (2) Sepsis: (3) Atrial fibrillation with rapid ventricular response: (4) Nausea: (5) Abdominal pain: The patient had some confusion yesterday late afternoon. The patient underwent a CT scan that showed no acute events of the brain. She is alert and oriented today. She did not take her medications last night due to the confusion and only received them this morning. She remains in atrial fibrillation with high heart rates because she has not taken the metoprolol. She only got her metoprolol approximately an hour before I saw her. Heart rates are improved. While she is on telemetry, I am going to start her on amiodarone for better control of her atrial fibrillation. Continue with warfarin and adjust as appropriate. Admission and Anticipated Discharge Date Admission Date: July 19, 2020 Subjective The patient is alert and oriented today for me. Yesterday she had some confusion and was not taking her medications but today she is able to take her medications. Review of Systems Review of Systems: All systems reviewed & are unremarkable except as noted in Subjective Physical Exam Physical Exam: General: no acute distress and stated age Head: normocephalic, no masses, lesions, tenderness or abnormalities Eyes: conjunctiva are pink and non-injected, sclera clear Neck: supple, no adenopathy, no bruits, normal jugular venous pulse, no hepatojugular reflux Chest: normal shape and normal respiratory effort Lungs: clear to auscultation and percussion Cardiac Exam: - irregular rate & rhythm, no murmurs gallops or rubs - normal S1, normal S2 Pulses: 2(+) throughout Abdomen: abdomen soft, non-tender, no abnormal masses and no hepatosplenomegaly Musculoskeletal: no gait disturbance, no joint inflammation, no deforming arthritis Extremities: Patient has massive bilateral lower extremity edema which is chronic and most likely lymphedema. She also has a resolving cellulitis of the left lower leg. Neuro: grossly normal exam Results & Data ([facility]) Vital Signs (Past 12 Hours) Vital Signs Temp Pulse Pulse Resp BP BP Pulse Ox 07/20/20 10:02 130 H 125/83 07/20/20 07:50 37.2 C 89 16 117/75 95 07/20/20 07:45 138 H 117/75 07/20/20 07:00 134 H 07/20/20 02:02 126 H 07/19/20 23:30 37.2 C 100 H 20 108/72 95 Laboratory Results Laboratory Results - last 24 hr 07/19/20 07/20/20 07/20/20 15:27 09:12 09:12 WBC 24.12 H RBC 3.83 L Hgb 11.4 L Hct 34.9 L MCV 91.1 MCH 29.8 MCHC 32.7 RDW Std Deviation 56.6 H RDW Coeff of Emmy 17.1 H Plt Count 244 MPV 10.6 H PT INR Sodium 136 Potassium 3.6 Chloride 102 Carbon Dioxide 24 Anion Gap 10.0 BUN 27 H Creatinine 1.84 H Est Cr Clr Drug Dosing 57.1 Est GFR ( Amer) 33.7 Est GFR (Non-Af Amer) 29.1 BUN/Creatinine Ratio 14.7 Glucose 121 H POC Glucose 98 Calcium 8.8 07/20/20 09:12 WBC RBC Hgb Hct MCV MCH MCHC RDW Std Deviation RDW Coeff of Emmy Plt Count MPV PT 12.4 H INR 1.2 H Sodium Potassium Chloride Carbon Dioxide Anion Gap BUN Creatinine Est Cr Clr Drug Dosing Est GFR ( Amer) Est GFR (Non-Af Amer) BUN/Creatinine Ratio Glucose POC Glucose Calcium Medications Administered Current Inpatient Medications Acetaminophen (Acetaminophen 325 Mg Tab) 650 mg PO Q4H PRN PRN Reason: Pain or Fever Stop: 08/18/20 03:22 Last Admin: 07/19/20 04:36 Dose: 650 mg Documented by: Fluoxetine HCl (Fluoxetine Hcl 10 Mg Cap) 10 mg PO DAILY PRN PRN Reason: Anxiety Stop: 08/18/20 03:22 Meropenem 500 mg/ Syringe 10 mls @ 2 mls/min IV Q6H LEIF; Protocol Stop: 07/26/20 03:59 Last Admin: 07/20/20 09:14 Dose: 2 mls/min Documented by: Daptomycin 450 mg/ Syringe 9 mls @ 4.5 mls/min IV Q24H LEIF; Protocol Stop: 07/26/20 20:59 Last Admin: 07/19/20 21:46 Dose: 4.5 mls/min Documented by: Lisinopril (Lisinopril 20 Mg Tab) 20 mg PO HS LEIF Stop: 08/18/20 20:59 Last Admin: 07/19/20 22:57 Dose: Not Given Documented by: Metoprolol Tartrate (Metoprolol Tartrate 25 Mg Tab) 12.5 mg PO BID [facility] Stop: 08/18/20 08:59 Last Admin: 07/20/20 09:13 Dose: 12.5 mg Documented by: Metoprolol Tartrate (Metoprolol Tartrate 1 Mg/Ml Vial) 5 mg IV Q6 PRN PRN Reason: Tachycardia Stop: 08/18/20 05:59 Last Admin: 07/20/20 07:45 Dose: 5 mg Documented by: Miconazole Nitrate (Miconazole Nitrate Powder 43 Gm) 1 appln EXT PRN PRN PRN Reason: Affected Skin Folds Stop: 08/19/20 07:55 Last Admin: 07/20/20 09:15 Dose: 1 appln Documented by: Miscellaneous Information (Daptomycin Consult Active) 1 ea N/A UD PRN PRN Reason: Consult Stop: 08/17/20 21:06 Miscellaneous Information (Meropenem Consult Acitve) 1 ea N/A UD PRN PRN Reason: Consult Stop: 08/18/20 03:22 Nitroglycerin (Nitroglycerin Sl 0.4 Mg/Tab Tab) 0.4 mg SL UD PRN PRN Reason: Chest Pain Stop: 08/18/20 03:22 Ondansetron HCl (Ondansetron Inj 2 Mg/Ml 2 Ml Vial) 4 mg IV Q6H PRN PRN Reason: Nausea Stop: 08/18/20 03:22 Polyethylene Glycol (Polyethylene (Miralax) 17 Gm Pack) 17 gm PO DAILY PRN PRN Reason: Constipation Stop: 08/18/20 03:22 Spironolactone (Spironolactone 25 Mg Tab) 25 mg PO QAM [facility] Stop: 08/18/20 08:59 Last Admin: 07/20/20 09:15 Dose: 25 mg Documented by: Torsemide (Torsemide 20 Mg Tab) 20 mg PO QAM [facility] Stop: 08/18/20 08:59 Last Admin: 07/20/20 09:15 Dose: 20 mg Documented by: Vitamin D (Cholecalciferol 1,000 Units 25 Mcg Tab) 1,000 units PO Q2D [facility] Stop: 08/18/20 08:59 Last Admin: 07/19/20 08:52 Dose: 1,000 units Documented by: Warfarin Sodium (Warfarin Sod 5 Mg Tab) 5 mg PO SuTuWeThFrSa [facility] Stop: 08/18/20 15:59 Last Admin: 07/19/20 15:09 Dose: 5 mg Documented by: Warfarin Sodium (Warfarin Sod 10 Mg Tab) 10 mg PO Mo [facility] Stop: 08/23/20 15:59 (1) Sepsis Sepsis acute organ dysfunction status: unspecified Sepsis type: sepsis due to unspecified organism Qualified Code(s): A41.9 - Sepsis, unspecified organism
[2020-07-20] MEDS: AMIODARONE 200 MG TAB PO SCH ×2 (11:26→18:14)
[2020-07-20] MEDS: ACETAMINOPHEN 325 MG TAB PO PRN ×2 (11:35→20:32)
--- NOTE | 2020-07-20 12:51 | Hospitalist Progress Note ---
Date of Service July 20, 2020 Assessment & Plan (1) Cellulitis of left lower leg: Patient is 60-year-old female with past medical history of paroxysmal atrial fibrillation on Coumadin, chronic diastolic heart failure, hypertension, CKD stage III, psoriasis, hypertension, hyperlipidemia, hypothyroidism, obstructive sleep apnea on CPAP and GERD presented to the ED with concern for left lower extremity cellulitis. Sepsis on admission: leukocytosis/febrile Left lower extremity cellulitis Asymptomatic COVID-19 A. fib with RVR Subtherapeutic INR H/O paroxysmal atrial fibrillation on Coumadin, chronic diastolic heart failure, hypertension, CKD stage III, psoriasis, hypertension, hyperlipidemia, hypothyroidism, obstructive sleep apnea on CPAP and GERD. Patient remains afebrile. Leukocytosis is minimally improved. Patient is oriented x3. Remains tachycardic. Will discontinue meropenem/daptomycin today and start patient on IV clindamycin. Blood cultures have been negative thus far. Appreciate cardiology input. We will continue with Lopressor 12.5 mg p.o. twice daily. A. fib with RVR triggered in the setting of possible sepsis. As needed IV Lopressor on board. INR 1.2. Continue with daily Coumadin. Continue to monitor daily INR. 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 Patient is positive for COVID-19. Of note patient had COVID-19 back in February. No respiratory symptoms during this admission. Patient denies any shortness of breath or any cough. Currently on room air. Remains in isolation. Have not had Covid vaccine yet. Rule out stroke-07/19/20 Of note, on 07/19 stroke alert was called by staff because patient had an episode of slurred speech/altered mental status and episode of urinary incontinence. CT head, CTA head and neck and CT PE study was negative for any acute findings. No focal deficit appreciated on exam. Admission and Anticipated Discharge Date Admission Date: July 19, 2020 Subjective This morning patient was awake and alert. Oriented x3. Denies any fever chills or diaphoresis. Denies any chest pain or shortness of breath. Denies any abdominal pain or dysuria. Did have 1 loose bowel movement this morning. Denies any headache or dizziness. Denies any neck pain. Denies any slurred speech or any focal weakness. Review of Systems Review of Systems: All systems reviewed & are unremarkable except as noted in HPI & below Physical Exam Physical Exam: General: Oriented x3 HENT: NCAT, MMM, EOMI Eyes: PERRLA Neck: Supple, normal range of motion CVS: normal rate and rhythm Resp: b/l decreased breath sounds secondary to body habitus Abdomen: Soft, nondistended nontender Extremities: Left lower extremity erythema is improved from admission Neuro: face symmetric, no focal deficit appreciated Skin: warm and dry MSK: normal ROM, no joint swelling/erythema Results & Data Results & Data ([facility]) Vital Signs (Past 12 Hours) Vital Signs Temp Pulse Pulse Resp BP BP Pulse Ox 07/20/20 11:30 37.6 C H 107 H 16 110/72 92 07/20/20 10:02 130 H 125/83 07/20/20 07:50 37.2 C 89 16 117/75 95 07/20/20 07:45 138 H 117/75 07/20/20 07:00 134 H 07/20/20 02:02 126 H
[2020-07-20] MEDS: CLINDAMYCIN 600 MG/54 ML BAG IV SCH ×2 (15:28→22:55)
[2020-07-20] MEDS: WARFARIN SOD 5 MG TAB PO SCH (15:30)
[2020-07-20] MEDS: lisinopril 20 MG TAB PO SCH (20:34)
[2020-07-21] MEDS: CLINDAMYCIN 600 MG/54 ML BAG IV SCH (06:29)
[2020-07-21] MEDS ORDERED: SODIUM CHLORIDE 0.9% 1000ML 1,000 ML IV ONE ×2 (08:01→09:28)
[2020-07-21 08:20] LABS: INR 1.5 (0.9-1.1); Prothrombin Time 14.7 Seconds (9.0-12.0)
[2020-07-21] MEDS ORDERED: CONSULT PHARMACY STA (08:58)
--- NOTE | 2020-07-21 09:09 | Hospitalist Progress Note ---
Date of Service July 21, 2020 Assessment & Plan (1) Sepsis: Appears to have an evolving sepsis picture since change of abx coverage from merrem/daptomycin to clindamycin since yesterday. She is now tachycardic, hypotensive and leukocytosis persists with rapid progression of cellulitis. See plan below. (2) Cellulitis of left lower leg: After 24 hours off merrem and daptomycin, she has rapid progression of erythema crossing left knee joint with persistent leukocytosis, tachycardia. Sepsis may be re-evolving. Repeat blood work now. Support hemodynamics with 1L NSS--BP improved from 73 systolic to 92/60, HR remained 120s. (of note, amiodarone was also started yesterday). I did consider cardioversion, however, patient was improved with bolus and repositioned and she refused DCCV if at all possible as she has gone through that previously. Clindamycin stopped and daptomycin restarted. Wound culture ordered as there is persistent drainage from site, although may be false negative as she has already been on abx for a couple of days. (3) Atrial fibrillation with rapid ventricular response: cardiology following patient, amiodarone started yesterday. 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 Hypotension is more likely secondary to worsening sepsis and once she is resuscitated, this may be added back. Cont coumadin, INR therapeutic. (4) Left leg weakness: Stroke workup on admission was negative and she denies any stroke like symptoms outside of this new leg weakness. Baseline ambulation is normal. Will improve sepsis picture immediately and then get PT/OT to evaluate her likely tomorrow to see if this improves with improvement in infection. (5) Reinfection by COVID-19 virus: She is asymptomatic. It is unlikely that this infection is contributing to clinical picture above, however, that is not completely clear. (6) Morbid obesity: Lifestyle changes strongly recommended. (7) Sleep apnea: CPAP qHS (8) Psoriasis: Betamethasone ointment per outpatient cylinder block mechanic. Likely the source of her cellulitis infection. (9) DVT prophylaxis: Coumadin Full Code Dispo-uncertain at this time. Yani Barron DO [facility] Hospitalist Admission and Anticipated Discharge Date Admission Date: July 19, 2020 Subjective 60 yo F presented with nausea, vomiting and LLE cellulitis. Left leg erythema is worse now crossing left knee joint. Leukocytosis persists on clindamycin (PCN allergic). She reports no chills but +fevers, Tm 37.6 at 2300. She denies pain, chest pain, SOB, abd pain, GI symptoms. She did report lightheadedness this morning while sitting in the chair and receiving her clindamycin infusion. She felt badly and said it was she typically has something on her stomach before taking medications. BP was 73 systolic. She is in atrial fibrillation with a rate of 120bpm. She was put back into bed with resolution of lightheadedness, again denying any chest pain or increased work of breathing. 1L bolus of NSS was administered. An appropriate sized cuff was tracked down for accuracy with BP measurement. Patient reports lots of drainage from the psoriatic wound on the posterior lower left leg. She is being treated by a cylinder block mechanic for her psoriasis. Review of Systems Review of Systems: All systems reviewed & are unremarkable except as noted in Subjective Physical Exam Physical Exam: CONSTITUTIONAL: obese, vitals as above, generally well- appearing EYES: normal conjunctivae, no scleral icterus ENT: external ear and nose normal, MMM, poor dentition. NECK: trachea midline RESPIRATORY: clear to auscultation bilaterally, no crackles, rales or wheezes, normal respiratory effort CARDIOVASCULAR: irregular rate and irregular rhythm, S1 and 2 heard without murmurs, gallops or rubs, no JVD, no peripheral edema GASTROINTESTINAL: soft, nontender, protuberant, nondistended, no guarding. MUSCULOSKELETAL: LLE weakness, otherwise, strength generally 5/5 throughout. f note, she is able to stand up oat the bedside with minimal assistance during this exam. She was not able to maneuver her left leg into bed without assistance, however. SKIN: warm and dry, LLE erythema progressed past her left knee joint to distal left thigh, no area of fluctuance, tender to touch. NEUROLOGIC: No facial palsy, no dysarthria. CN 2-12 grossly intact, no sensory deficit, normal cognition, normal speech. PSYCHIATRIC: alert cooperative and oriented to person, place and time. Results & Data Results & Data ([facility]) Vital Signs (Past 12 Hours) Vital Signs Temp Pulse Pulse Resp BP BP Pulse Ox 07/21/20 07:53 36.7 C 120 H 20 70/62 L 73/62 L 98 07/21/20 04:00 36.5 C 116 H 18 109/65 100 07/21/20 01:23 135 H 07/20/20 23:46 37.6 C H 106 H 18 116/64 95 07/20/20 22:49 91 H 18 96 Laboratory Results Short CBC 07/20/20 Range/Units 09:12 WBC 24.12 H (4.8-10.8) K/uL Hgb 11.4 L (12.0-16.0) g/dL Hct 34.9 L (37-47) % Plt Count 244 (130-400) K/uL BMP 07/20/20 09:12 Sodium 136 Potassium 3.6 Chloride 102 Carbon Dioxide 24 BUN 27 H Creatinine 1.84 H Glucose 121 H Calcium 8.8 Medications Administered Current Inpatient Medications Acetaminophen (Acetaminophen 325 Mg Tab) 650 mg PO Q4H PRN PRN Reason: Pain or Fever Stop: 08/18/20 03:22 Last Admin: 07/20/20 20:32 Dose: 650 mg Documented by: Amiodarone HCl (Amiodarone 200 Mg Tab) 200 mg PO TIDM [facility] Stop: 08/19/20 11:59 Last Admin: 07/20/20 18:14 Dose: 200 mg Documented by: Fluoxetine HCl (Fluoxetine Hcl 10 Mg Cap) 10 mg PO DAILY PRN PRN Reason: Anxiety Stop: 08/18/20 03:22 Lisinopril (Lisinopril 20 Mg Tab) 20 mg PO HS [facility] Stop: 08/18/20 20:59 Last Admin: 07/20/20 20:34 Dose: 20 mg Documented by: Metoprolol Tartrate (Metoprolol Tartrate 25 Mg Tab) 12.5 mg PO BID [facility] Stop: 08/18/20 08:59 Last Admin: 07/20/20 20:33 Dose: 12.5 mg Documented by: Metoprolol Tartrate (Metoprolol Tartrate 1 Mg/Ml Vial) 5 mg IV Q6 PRN PRN Reason: Tachycardia Stop: 08/18/20 05:59 Last Admin: 07/20/20 07:45 Dose: 5 mg Documented by: Miconazole Nitrate (Miconazole Nitrate Powder 43 Gm) 1 appln EXT PRN PRN PRN Reason: Affected Skin Folds Stop: 08/19/20 07:55 Last Admin: 07/20/20 09:15 Dose: 1 appln Documented by: Miscellaneous Information (Consult Pharmacy) 1 ea N/A NOW STA Stop: 07/21/20 08:59 Miscellaneous Information (Daptomycin Consult Active) 1 ea N/A UD PRN PRN Reason: Consult Stop: 08/20/20 09:13 Nitroglycerin (Nitroglycerin Sl 0.4 Mg/Tab Tab) 0.4 mg SL UD PRN PRN Reason: Chest Pain Stop: 08/18/20 03:22 Ondansetron HCl (Ondansetron Inj 2 Mg/Ml 2 Ml Vial) 4 mg IV Q6H PRN PRN Reason: Nausea Stop: 08/18/20 03:22 Polyethylene Glycol (Polyethylene (Miralax) 17 Gm Pack) 17 gm PO DAILY PRN PRN Reason: Constipation Stop: 08/18/20 03:22 Spironolactone ([facility] 25 Mg Tab) [facility] [place] Stop: 08/18/20 08:59 Last Admin: 07/20/20 09:15 Dose: 25 mg Documented by: Torsemide (Torsemide 20 Mg Tab) 20 mg PO QAM [facility] Stop: 08/18/20 08:59 Last Admin: 07/20/20 09:15 Dose: 20 mg Documented by: Vitamin D (Cholecalciferol 1,000 Units 25 Mcg Tab) 1,000 units PO Q2D [facility] Stop: 08/18/20 08:59 Last Admin: 07/19/20 08:52 Dose: 1,000 units Documented by: Warfarin Sodium (Warfarin Sod 5 Mg Tab) 5 mg PO SuTuWeThFrSa [facility] Stop: 08/18/20 15:59 Last Admin: 07/20/20 15:30 Dose: 5 mg Documented by: Warfarin Sodium (Warfarin Sod 10 Mg Tab) 10 mg PO Mo [facility] Stop: 08/23/20 15:59 (1) Sepsis Sepsis acute organ dysfunction status: unspecified Sepsis type: sepsis due to unspecified organism Qualified Code(s): A41.9 - Sepsis, unspecified organism
[2020-07-21] MEDS: AMIODARONE 200 MG TAB PO SCH ×2 (09:45→17:57)
[2020-07-21] MEDS: METOPROLOL TARTRATE 25 MG TAB PO SCH ×2 (09:45→20:20)
[2020-07-21] MEDS: DAPTOmycin 450 MG in SYRINGE 0 ML IV SCH (09:46)
[2020-07-21] MEDS: SPIRONOLACTONE 25 MG TAB PO SCH (09:46)
[2020-07-21] MEDS: CHOLECALCIFEROL 1,000 UNITS 25 MCG TAB PO SCH (09:49)
[2020-07-21 10:02] LABS: BUN Creatinine Ratio 18.7 (10-20); Calcium 8.4 mg/dl (8.5-10.1); Est GFR (African American) 32.2 ml/min; Est GFR (Non-African American) 27.8 ml/min; Magnesium 1.9 mg/dl (1.8-2.4); Potassium 3.3 mmol/L (3.5-5.1)
[2020-07-21 11:08] LABS: Basophils # (auto) 0.01 K/uL (0-0.2); Basophils % (auto) 0.1 %; Eosinophils # (auto) 0.08 K/uL (0-0.5); Eosinophils % (auto) 0.7 %; Hematocrit (blood only) 31.7 % (37-47); Hemoglobin 10.1 g/dL (12.0-16.0); Immature Granulocytes # (auto) 0.03 K/uL (0.00-0.02); Immature Granulocytes % (auto) 0.2 %; Lymphocytes # (auto) 0.94 K/uL (1.2-3.4); Lymphocytes % (auto) 7.7 %; Mean Corpuscular Hemoglobin 29.4 pg (25-34); Mean Corpuscular Hgb Conc 31.9 g/dL (32-36); Mean Corpuscular Volume 92.4 fL (80-100); Mean Platelet Volume 10.7 fL (7.4-10.4); Monocytes % (auto) 3.3 %; Neutrophils # (auto) 10.81 K/uL (1.4-6.5); Platelet Count 220 K/uL (130-400); RDW Coefficient of Variation 17.2 % (11.5-14.5); RDW Standard Deviation 58.2 fL (36.4-46.3); Red Blood Count 3.43 M/uL (4.2-5.4); White Blood Count 12.27 K/uL (4.8-10.8)
[2020-07-21] MEDS ORDERED: POTASSIUM CHLORIDE CRTAB 20 MEQ TABCR PO STA ×2 (11:12→21:45)
[2020-07-21] MEDS: SODIUM CHLORIDE 0.9% 1000ML 1,000 ML IV SCH ×2 (12:12→23:45)
--- NOTE | 2020-07-21 13:54 | Cardiology Progress Note ---
Date of Service July 21, 2020 Assessment & Plan (1) Cellulitis of left lower leg: (2) Sepsis: (3) Atrial fibrillation with rapid ventricular response: (4) Nausea: (5) Abdominal pain: As mentioned, the patient had hypotension this morning most likely on the basis of sepsis and worsening of her cellulitis. Antibiotics have been adjusted. She has been fluid resuscitated. Her amiodarone was put on hold but with her atrial fibrillation and high heart rates I think it should be restarted . Amiodarone will not have that big of an effect on her blood pressure is other medications such as beta blockers were diltiazem. Admission and Anticipated Discharge Date Admission Date: July 19, 2020 Subjective The patient is alert and oriented during my interview today. This morning she was hypotensive and there was evidence that her cellulitis had worsened. She has been IV fluid resuscitated and her antibiotics have been adjusted. She remains in atrial fibrillation with RVR. Review of Systems Review of Systems: All systems reviewed & are unremarkable except as noted in Subjective Physical Exam Physical Exam: General: no acute distress and stated age Head: normocephalic, no masses, lesions, tenderness or abnormalities Eyes: conjunctiva are pink and non-injected, sclera clear Neck: supple, no adenopathy, no bruits, normal jugular venous pulse, no hepatojugular reflux Chest: normal shape and normal respiratory effort Lungs: clear to auscultation and percussion Cardiac Exam: - irregular rate & rhythm, no murmurs gallops or rubs - normal S1, normal S2 Pulses: 2(+) throughout Abdomen: abdomen soft, non-tender, no abnormal masses and no hepatosplenomegaly Musculoskeletal: no gait disturbance, no joint inflammation, no deforming arthritis Extremities: Chronic lymphedema of both lower extremities with cellulitis of the left leg. Neuro: grossly normal exam Results & Data ([facility]) Vital Signs (Past 12 Hours) Vital Signs Temp Pulse Resp BP BP Pulse Ox 07/21/20 11:12 37 C 105 H 20 97/63 L 99 07/21/20 09:13 92/60 L 90/60 L 07/21/20 07:53 36.7 C 120 H 20 70/62 L 73/62 L 98 07/21/20 04:00 36.5 C 116 H 18 109/65 100 Laboratory Results Laboratory Results - last 24 hr 07/21/20 07/21/20 07/21/20 07:56 08:00 08:00 WBC 12.27 H D RBC 3.43 L Hgb 10.1 L Hct 31.7 L MCV 92.4 MCH 29.4 MCHC 31.9 L RDW Std Deviation 58.2 H RDW Coeff of Emmy 17.2 H Plt Count 220 MPV 10.7 H Immature Gran % (Auto) 0.2 Neut % (Auto) 88.0 Lymph % (Auto) 7.7 [place] % (Auto) 3.3 Eos % (Auto) 0.7 Baso % (Auto) 0.1 Neut # (Auto) 10.81 H Lymph # (Auto) 0.94 L [place] # (Auto) 0.40 Eos # (Auto) 0.08 Baso # (Auto) 0.01 Immature Gran # (Auto) 0.03 H PT 14.7 H INR 1.5 H Sodium 135 L Potassium 3.3 L Chloride 102 Carbon Dioxide 24 Anion Gap 9.0 BUN 36 H Creatinine 1.91 H Est Cr Clr Drug Dosing 55.0 Est GFR ( Amer) 32.2 Est GFR (Non-Af Amer) 27.8 BUN/Creatinine Ratio 18.7 Glucose 106 H Lactate Calcium 8.4 L Magnesium 1.9 07/21/20 09:36 WBC RBC Hgb Hct MCV MCH MCHC RDW Std Deviation RDW Coeff of Emmy Plt Count MPV Immature Gran % (Auto) Neut % (Auto) Lymph % (Auto) [place] % (Auto) Eos % (Auto) Baso % (Auto) Neut # (Auto) Lymph # (Auto) [place] # (Auto) Eos # (Auto) Baso # (Auto) Immature Gran # (Auto) PT INR Sodium Potassium Chloride Carbon Dioxide Anion Gap BUN Creatinine Est Cr Clr Drug Dosing Est GFR ( Amer) Est GFR (Non-Af Amer) BUN/Creatinine Ratio Glucose Lactate 2.0 Calcium Magnesium Medications Administered Current Inpatient Medications Acetaminophen (Acetaminophen 325 Mg Tab) 650 mg PO Q4H PRN PRN Reason: Pain or Fever Stop: 08/18/20 03:22 Last Admin: 07/20/20 20:32 Dose: 650 mg Documented by: Amiodarone HCl (Amiodarone 200 Mg Tab) 200 mg PO TIDM [facility] Stop: 08/19/20 11:59 Last Admin: 07/21/20 09:45 Dose: Not Given Documented by: Fluoxetine HCl (Fluoxetine Hcl 10 Mg Cap) 10 mg PO DAILY PRN PRN Reason: Anxiety Stop: 08/18/20 03:22 Daptomycin 450 mg/ Syringe 9 mls @ 4.5 mls/min IV Q24H [facility]; Protocol Stop: 07/28/20 09:59 Last Admin: 07/21/20 09:46 Dose: 4.5 mls/min Documented by: Sodium Chloride (Nss 1000ml) 1,000 mls @ 125 mls/hr IV .Q8H [facility] Stop: 07/22/20 03:14 Last Admin: 07/21/20 12:12 Dose: 125 mls/hr Documented by: Lisinopril (Lisinopril 20 Mg Tab) 20 mg PO HS [facility] Stop: 08/18/20 20:59 Last Admin: 07/20/20 20:34 Dose: 20 mg Documented by: Metoprolol Tartrate (Metoprolol Tartrate 25 Mg Tab) 12.5 mg PO BID [facility] Stop: 08/18/20 08:59 Last Admin: 07/21/20 09:45 Dose: Not Given Documented by: Metoprolol Tartrate (Metoprolol Tartrate 1 Mg/Ml Vial) 5 mg IV Q6 PRN PRN Reason: Tachycardia Stop: 08/18/20 05:59 Last Admin: 07/20/20 07:45 Dose: 5 mg Documented by: Miconazole Nitrate (Miconazole Nitrate Powder 43 Gm) 1 appln EXT PRN PRN PRN Reason: Affected Skin Folds Stop: 08/19/20 07:55 Last Admin: 07/20/20 09:15 Dose: 1 appln Documented by: Miscellaneous Information (Daptomycin Consult Active) 1 ea N/A UD PRN PRN Reason: Consult Stop: 08/20/20 09:13 Nitroglycerin (Nitroglycerin Sl 0.4 Mg/Tab Tab) 0.4 mg SL UD PRN PRN Reason: Chest Pain Stop: 08/18/20 03:22 Ondansetron HCl (Ondansetron Inj 2 Mg/Ml 2 Ml Vial) 4 mg IV Q6H PRN PRN Reason: Nausea Stop: 08/18/20 03:22 Polyethylene Glycol (Polyethylene (Miralax) 17 Gm Pack) 17 gm PO DAILY PRN PRN Reason: Constipation Stop: 08/18/20 03:22 Spironolactone (Spironolactone 25 Mg Tab) 25 mg PO QAM [facility] Stop: 08/18/20 08:59 Last Admin: 07/21/20 09:46 Dose: Not Given Documented by: Torsemide (Torsemide 20 Mg Tab) 20 mg PO QAM [facility] Stop: 08/18/20 08:59 Last Admin: 07/20/20 09:15 Dose: 20 mg Documented by: Vitamin D (Cholecalciferol 1,000 Units 25 Mcg Tab) 1,000 units PO Q2D [facility] Stop: 08/18/20 08:59 Last Admin: 07/21/20 09:49 Dose: 1,000 units Documented by: Warfarin Sodium (Warfarin Sod 5 Mg Tab) 5 mg PO SuTuWeThFrSa [facility] Stop: 08/18/20 15:59 Last Admin: 07/20/20 15:30 Dose: 5 mg Documented by: Warfarin Sodium (Warfarin Sod 10 Mg Tab) 10 mg PO Mo [facility] Stop: 08/23/20 15:59 (1) Sepsis Sepsis acute organ dysfunction status: unspecified Sepsis type: sepsis due to unspecified organism Qualified Code(s): A41.9 - Sepsis, unspecified organism
[2020-07-21 16:12] LABS: Hematocrit (blood only) 29.5 % (37-47); Hemoglobin 9.5 g/dL (12.0-16.0); Mean Corpuscular Hemoglobin 29.2 pg (25-34); Mean Corpuscular Hgb Conc 32.2 g/dL (32-36); Mean Corpuscular Volume 90.8 fL (80-100); Mean Platelet Volume 10.5 fL (7.4-10.4); Nucleated RBC # (auto) 0.03 K/uL (0-0); Nucleated RBC % (auto) 0.2 %; Platelet Count 202 K/uL (130-400); RDW Coefficient of Variation 17.1 % (11.5-14.5); RDW Standard Deviation 56.9 fL (36.4-46.3); Red Blood Count 3.25 M/uL (4.2-5.4); White Blood Count 13.22 K/uL (4.8-10.8)
[2020-07-21 16:34] LABS: BUN Creatinine Ratio 18.7 (10-20); Calcium 7.6 mg/dl (8.5-10.1); Creatinine Clr Calc Pharmacy 62.9 ml/min; Est GFR (African American) 37.9 ml/min; Est GFR (Non-African American) 32.7 ml/min; Magnesium 2.2 mg/dl (1.8-2.4); Potassium 3.6 mmol/L (3.5-5.1)
[2020-07-21] MEDS: WARFARIN SOD 5 MG TAB PO SCH (17:58)
--- NOTE | 2020-07-21 21:42 | Communication Note ---
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 She reports feeling "pins and needles" in a good way as if the feeling is coming back in her leg. She expressed gratitude for addressing her leg infection, which she has been very concerned about. She apparently had some issue with cefepime on admission but is tolerating daptomycin well. Clindamycin has been stopped. She still has some tachycardia and hypotension, and cardiology recommends restarting the amiodarone now. Cont to monitor overnight. Much improved since this morning. sms
--- NOTE | 2020-07-21 21:48 | Communication Note ---
Date of Service: July 21, 2020 Notified by RN of ritu concepcion, cardiac rate 140s, SBP 90s as per RN Patient complaining of right leg pain. AP Rapid Joshua concepcion PCU transfer for closer monitoring Digoxin 1 dose now May need Amiodarone infusion if without improvement. Analgesia for leg pain Will relay to AM provider.
[2020-07-21] MEDS ORDERED: POTASSIUM CHLORIDE 40 MEQ in SODIUM CHLORIDE 0.9% 1000ML 1,000 ML IV ONE (22:00)
[2020-07-21] MEDS ORDERED: DIGOXIN 250 MCG in SYRINGE 9 ML IV ONE (22:00)
[2020-07-21] MEDS ORDERED: ACETAMINOPHEN 1000 MG/100 ML IV IV ONE (22:06)
[2020-07-22] MEDS ORDERED: DIGOXIN 250 MCG in SYRINGE 9 ML IV ONE
[2020-07-22] MEDS ORDERED: POTASSIUM CHLORIDE 40 MEQ in SODIUM CHLORIDE 0.9% 1000ML 1,000 ML IV ONE (04:00)
[2020-07-22] MEDS: AMIODARONE 200 MG TAB PO SCH ×4 (05:27→16:41)
[2020-07-22 07:01] LABS: Basophils # (auto) 0.02 K/uL (0-0.2); Basophils % (auto) 0.2 %; Eosinophils # (auto) 0.27 K/uL (0-0.5); Eosinophils % (auto) 2.5 %; Hematocrit (blood only) 28.9 % (37-47); Hemoglobin 9.2 g/dL (12.0-16.0); Immature Granulocytes # (auto) 0.08 K/uL (0.00-0.02); Immature Granulocytes % (auto) 0.7 %; Lymphocytes # (auto) 1.28 K/uL (1.2-3.4); Lymphocytes % (auto) 11.6 %; Mean Corpuscular Hemoglobin 29.4 pg (25-34); Mean Corpuscular Hgb Conc 31.8 g/dL (32-36); Mean Corpuscular Volume 92.3 fL (80-100); Mean Platelet Volume 10.3 fL (7.4-10.4); Monocytes # (auto) 0.99 K/uL (0.11-0.59); Neutrophils # (auto) 8.35 K/uL (1.4-6.5); Platelet Count 199 K/uL (130-400); RDW Coefficient of Variation 17.2 % (11.5-14.5); Red Blood Count 3.13 M/uL (4.2-5.4); White Blood Count 10.99 K/uL (4.8-10.8)
[2020-07-22 07:11] LABS: Prothrombin Time 19.3 Seconds (9.0-12.0)
[2020-07-22 07:37] LABS: BUN Creatinine Ratio 21.7 (10-20); Creatinine Clr Calc Pharmacy 81.6 ml/min; Est GFR (African American) 51.8 ml/min; Est GFR (Non-African American) 44.7 ml/min; Potassium 4.1 mmol/L (3.5-5.1)
[2020-07-22] MEDS: METOPROLOL TARTRATE 25 MG TAB PO SCH ×4 (07:58→19:56)
[2020-07-22] MEDS: DAPTOmycin 450 MG in SYRINGE 0 ML IV SCH (10:32)
[2020-07-22] MEDS: ACETAMINOPHEN 325 MG TAB PO PRN ×3 (10:33→20:06)
--- NOTE | 2020-07-22 10:34 | Cardiology Progress Note ---
Date of Service July 22, 2020 Assessment & Plan (1) Cellulitis of left lower leg: (2) Sepsis: (3) Atrial fibrillation with rapid ventricular response: (4) Nausea: (5) Abdominal pain: The patient's cellulitis is improving. Her blood pressure is stable. Her white count is decreasing. She is alert and oriented. She is sitting in a chair and eating. At this point I am going to DC her IV fluid. She has had some high heart rates since yesterday and in addition to the amiodarone I have increased her metoprolol to 50 mg 3 times daily. During this hospital admission she has never had symptoms congruent with COVID-19. She did have COVID-19 in February and when she was admitted this time she had a positive PCR. She has been in isolation with the thought being that she may be a carrier or reinfection. As mentioned above she has never had symptoms suggesting COVID-19. I think to progress the patient along and possibly get her out of isolation especially, and if the first test was a false positive, I have reordered a repeat PCR for COVID-19. Admission and Anticipated Discharge Date Admission Date: July 19, 2020 Subjective Patient has no new complaints. She is comfortable sitting in a chair. Review of Systems Review of Systems: All systems reviewed & are unremarkable except as noted in Subjective Physical Exam Physical Exam: General: no acute distress and stated age Head: normocephalic, no masses, lesions, tenderness or abnormalities Eyes: conjunctiva are pink and non-injected, sclera clear Neck: supple, no adenopathy, no bruits, normal jugular venous pulse, no hepatojugular reflux Chest: normal shape and normal respiratory effort Lungs: clear to auscultation and percussion Cardiac Exam: - regular rate & rhythm, no murmurs gallops or rubs - normal S1, normal S2 Pulses: 2(+) throughout Abdomen: abdomen soft, non-tender, no abnormal masses and no hepatosplenomegaly Musculoskeletal: no gait disturbance, no joint inflammation, no deforming arthritis Extremities: Chronic lower extremity lymphedema, cellulitis of the left leg appears to be improving. Neuro: grossly normal exam Results & Data ([facility]) Vital Signs (Past 12 Hours) Vital Signs Temp Pulse Pulse Resp BP Pulse Ox 07/22/20 07:56 36.8 C 111 H 19 115/68 97 07/22/20 03:15 110 H 18 98 07/22/20 03:11 36.5 C 112 H 16 104/75 98 07/22/20 00:58 130 H 07/22/20 00:33 36.9 C 110 H 18 88/62 L 97 07/21/20 23:49 133 H 07/21/20 23:43 130 H 20 97 07/21/20 23:35 140 H Laboratory Results Laboratory Results - last 24 hr 07/21/20 07/21/20 07/21/20 08:00 16:04 16:04 WBC 12.27 H D 13.22 H RBC 3.43 L 3.25 L Hgb 10.1 L 9.5 L Hct 31.7 L 29.5 L MCV 92.4 90.8 MCH 29.4 29.2 MCHC 31.9 L 32.2 RDW Std Deviation 58.2 H 56.9 H RDW Coeff of Emmy 17.2 H 17.1 H Plt Count 220 202 MPV 10.7 H 10.5 H Immature Gran % (Auto) 0.2 Neut % (Auto) 88.0 Lymph % (Auto) 7.7 [place] % (Auto) 3.3 Eos % (Auto) 0.7 Baso % (Auto) 0.1 Neut # (Auto) 10.81 H Lymph # (Auto) 0.94 L [place] # (Auto) 0.40 Eos # (Auto) 0.08 Baso # (Auto) 0.01 Immature Gran # (Auto) 0.03 H Absolute Nucleated RBC 0.03 H Nucleated RBC % (auto) 0.2 PT INR Sodium 138 Potassium 3.6 Chloride 107 Carbon Dioxide 24 Anion Gap 7.0 BUN 31 H Creatinine 1.67 H Est Cr Clr Drug Dosing 62.9 Est GFR ( Amer) 37.9 Est GFR (Non-Af Amer) 32.7 BUN/Creatinine Ratio 18.7 Glucose 109 H Lactate Calcium 7.6 L Magnesium 2.2 TSH 07/21/20 07/21/20 07/22/20 16:04 22:03 06:49 WBC RBC Hgb Hct MCV MCH MCHC RDW Std Deviation RDW Coeff of Emmy Plt Count MPV Immature Gran % (Auto) Neut % (Auto) Lymph % (Auto) [place] % (Auto) Eos % (Auto) Baso % (Auto) Neut # (Auto) Lymph # (Auto) [place] # (Auto) Eos # (Auto) Baso # (Auto) Immature Gran # (Auto) Absolute Nucleated RBC Nucleated RBC % (auto) PT 19.3 H INR 2.0 H Sodium Potassium Chloride Carbon Dioxide Anion Gap BUN Creatinine Est Cr Clr Drug Dosing Est GFR ( Amer) Est GFR (Non-Af Amer) BUN/Creatinine Ratio Glucose Lactate 1.6 Calcium Magnesium TSH 0.341 07/22/20 07/22/20 06:49 06:49 WBC 10.99 H RBC 3.13 L Hgb 9.2 L Hct 28.9 L MCV 92.3 MCH 29.4 MCHC 31.8 L RDW Std Deviation 58.0 H RDW Coeff of Emmy 17.2 H Plt Count 199 MPV 10.3 Immature Gran % (Auto) 0.7 Neut % (Auto) 76.0 Lymph % (Auto) 11.6 [place] % (Auto) 9.0 Eos % (Auto) 2.5 Baso % (Auto) 0.2 Neut # (Auto) 8.35 H Lymph # (Auto) 1.28 [place] # (Auto) 0.99 H Eos # (Auto) 0.27 Baso # (Auto) 0.02 Immature Gran # (Auto) 0.08 H Absolute Nucleated RBC Nucleated RBC % (auto) PT INR Sodium 140 Potassium 4.1 Chloride 110 H Carbon Dioxide 23 Anion Gap 7.0 BUN 28 H Creatinine 1.29 H D Est Cr Clr Drug Dosing 81.6 Est GFR ( Amer) 51.8 Est GFR (Non-Af Amer) 44.7 BUN/Creatinine Ratio 21.7 H Glucose 94 Lactate Calcium 8.0 L Magnesium TSH Medications Administered Current Inpatient Medications Acetaminophen (Acetaminophen 325 Mg Tab) 650 mg PO Q4H PRN PRN Reason: Pain Stop: 08/21/20 10:22 Amiodarone HCl (Amiodarone 200 Mg Tab) 200 mg PO TIDM [facility] Stop: 08/21/20 03:49 Last Admin: 07/22/20 07:58 Dose: 200 mg Documented by: Fluoxetine HCl (Fluoxetine Hcl 10 Mg Cap) 10 mg PO DAILY PRN PRN Reason: Anxiety Stop: 08/18/20 03:22 Daptomycin 450 mg/ Syringe 9 mls @ 4.5 mls/min IV Q24H [facility]; Protocol Stop: 07/28/20 09:59 Last Admin: 07/21/20 09:46 Dose: 4.5 mls/min Documented by: Metoprolol Tartrate (Metoprolol Tartrate 25 Mg Tab) 25 mg PO TID [facility] Stop: 08/21/20 08:59 Miconazole Nitrate (Miconazole Nitrate Powder 43 Gm) 1 appln EXT PRN PRN PRN Reason: Affected Skin Folds Stop: 08/19/20 07:55 Last Admin: 07/20/20 09:15 Dose: 1 appln Documented by: Miscellaneous Information (Daptomycin Consult Active) 1 ea N/A UD PRN PRN Reason: Consult Stop: 08/20/20 09:13 Nitroglycerin (Nitroglycerin Sl 0.4 Mg/Tab Tab) 0.4 mg SL UD PRN PRN Reason: Chest Pain Stop: 08/18/20 03:22 Ondansetron HCl (Ondansetron Inj 2 Mg/Ml 2 Ml Vial) 4 mg IV Q6H PRN PRN Reason: Nausea Stop: 08/18/20 03:22 Polyethylene Glycol (Polyethylene (Miralax) 17 Gm Pack) 17 gm PO DAILY PRN PRN Reason: Constipation Stop: 08/18/20 03:22 Torsemide (Torsemide 20 Mg Tab) 20 mg PO QAM [facility] Stop: 08/18/20 08:59 Last Admin: 07/20/20 09:15 Dose: 20 mg Documented by: Vitamin D (Cholecalciferol 1,000 Units 25 Mcg Tab) 1,000 units PO Q2D [facility] Stop: 08/18/20 08:59 Last Admin: 07/21/20 09:49 Dose: 1,000 units Documented by: Warfarin Sodium (Warfarin Sod 5 Mg Tab) 5 mg PO SuTuWeThFrSa [facility] Stop: 08/18/20 15:59 Last Admin: 07/21/20 17:58 Dose: 5 mg Documented by: Warfarin Sodium (Warfarin Sod 10 Mg Tab) 10 mg PO Mo [facility] Stop: 08/23/20 15:59 (1) Sepsis Sepsis acute organ dysfunction status: unspecified Sepsis type: sepsis due to unspecified organism Qualified Code(s): A41.9 - Sepsis, unspecified organism
[2020-07-22] MEDS: WARFARIN SOD 5 MG TAB PO SCH (16:41)
--- NOTE | 2020-07-22 22:16 | Hospitalist Progress Note ---
Date of Service July 22, 2020 Assessment & Plan (1) Sepsis: Sepsis, POA. She was resuscitated and treated with broad spectrum antibiotics with improvement, however, when antibiotics were de-escalated, sepsis picture returned. Now resuscitated a second time and doing well, however, I would like to have the wound care nurse and infectious disease see her in order to ensure no further debridement of this wound needs to happen to ensure we have achieved good source control prior to de-escalating antibiotics again. Cont IV daptomycin through until ID and WOCN see her on Friday. Patient verbalized understanding and agreement of this plan. (2) Cellulitis of left lower leg: Improving, cont Daptomycin as above. (3) Atrial fibrillation with rapid ventricular response: cardiology following patient, amiodarone restarted yesterday after being held for hypotension in an evolving sepsis picture. She received one dose of digoxin overnight and was transferred into the PCU. Heart rate is improved and she is more stable today. Cont coumadin, INR therapeutic. (4) Left leg weakness: Improved with treatment of infection. PT/OT to work with her. (5) Reinfection by COVID-19 virus: She is asymptomatic. It is unlikely that this infection is contributing to clinical picture above, however, that is not completely clear. (6) Psoriasis: Betamethasone ointment per outpatient industrial relations director. Wound in lower left leg (POA) is the likely the source of her cellulitis infection. (7) Morbid obesity: Lifestyle changes strongly recommended. (8) Sleep apnea: CPAP qHS (9) DVT prophylaxis: Coumadin Full Code Dispo-uncertain at this time. Possibly home on Fri/ next week. Yani Barron DO [facility] Hospitalist Admission and Anticipated Discharge Date Admission Date: July 19, 2020 Subjective 60 yo F presented with nausea, vomiting and LLE cellulitis. Also has atrial fibrillation with RVR. She is still doing well clinically on the daptomycin. Some pain in her superficial wound on posterior left leg, some drainage still present. Growing staph species with sensitivities pending. Left leg weakness is improved and she is able to stand up and move around more independently. She is tolerating PO. Denies any issues with amiodarone that was restarted yesterday. BP and heart rate are improved. (transferred to PCU overnight for tachycardia) Review of Systems Review of Systems: All systems reviewed & are unremarkable except as noted in Subjective Physical Exam Physical Exam: CONSTITUTIONAL: obese, vitals as above, generally well- appearing EYES: normal conjunctivae, no scleral icterus ENT: external ear and nose normal, MMM, poor dentition. NECK: trachea midline RESPIRATORY: clear to auscultation bilaterally, no crackles, rales or wheezes, normal respiratory effort CARDIOVASCULAR: irregular rate and irregular rhythm, S1 and 2 heard without murmurs, gallops or rubs, no JVD, no peripheral edema GASTROINTESTINAL: soft, nontender, protuberant, nondistended, no guarding. MUSCULOSKELETAL: LLE weakness has improved-ambulating independently. SKIN: warm and dry, LLE still present but media relations specialist in color and more dissipated. There is still a small patch of erythema on her distal left thigh just superior to her knee, however, this is improved. Skin is normal temp now. There is an unstageable superficial wound on the posterior left calf with a white (purulent?) pocket, wound is >5cm in diameter and is painful. Some serous drainage is present. There are skin folds in this area and skin is dry and irritated. NEUROLOGIC: No facial palsy, no dysarthria. CN 2-12 grossly intact, no sensory deficit, normal cognition, normal speech. PSYCHIATRIC: alert cooperative and oriented to person, place and time. Results & Data Results & Data ([facility]) Vital Signs (Past 12 Hours) Vital Signs Temp Pulse Pulse Resp BP Pulse Ox 07/22/20 19:55 36.7 C 93 H 16 120/81 99 07/22/20 16:07 88 07/22/20 15:43 37.3 C 90 18 125/84 100 07/22/20 13:37 93 H 124/65 07/22/20 11:31 36.8 C 103 H 18 139/84 100 Laboratory Results Short CBC 07/22/20 Range/Units 06:49 WBC 10.99 H (4.8-10.8) K/uL Hgb 9.2 L (12.0-16.0) g/dL Hct 28.9 L (37-47) % Plt Count 199 (130-400) K/uL [facility] 07/22/20 06:49 Sodium 140 Potassium 4.1 Chloride 110 H Carbon Dioxide 23 BUN 28 H Creatinine 1.29 H D Glucose 94 Calcium 8.0 L Medications Administered Current Inpatient Medications Acetaminophen (Acetaminophen 325 Mg Tab) 650 mg PO Q4H PRN PRN Reason: Pain Stop: 08/21/20 10:22 Last Admin: 07/22/20 20:06 Dose: 650 mg Documented by: Amiodarone HCl (Amiodarone 200 Mg Tab) 200 mg PO TIDM [facility] Stop: 08/21/20 03:49 Last Admin: 07/22/20 16:41 Dose: 200 mg Documented by: Fluoxetine HCl (Fluoxetine Hcl 10 Mg Cap) 10 mg PO DAILY PRN PRN Reason: Anxiety Stop: 08/18/20 03:22 Daptomycin 450 mg/ Syringe 9 mls @ 4.5 mls/min IV Q24H [facility]; Protocol Stop: 07/28/20 09:59 Last Admin: 07/22/20 10:32 Dose: 4.5 mls/min Documented by: Metoprolol Tartrate (Metoprolol Tartrate 25 Mg Tab) 25 mg PO TID [facility] Stop: 08/21/20 08:59 Last Admin: 07/22/20 19:56 Dose: 25 mg Documented by: Miconazole Nitrate (Miconazole Nitrate Powder 43 Gm) 1 appln EXT PRN PRN PRN Reason: Affected Skin Folds Stop: 08/19/20 07:55 Last Admin: 07/20/20 09:15 Dose: 1 appln Documented by: Miscellaneous Information (Daptomycin Consult Active) 1 ea N/A UD PRN PRN Reason: Consult Stop: 08/20/20 09:13 Nitroglycerin (Nitroglycerin Sl 0.4 Mg/Tab Tab) 0.4 mg SL UD PRN PRN Reason: Chest Pain Stop: 08/18/20 03:22 Ondansetron HCl (Ondansetron Inj 2 Mg/Ml 2 Ml Vial) 4 mg IV Q6H PRN PRN Reason: Nausea Stop: 08/18/20 03:22 Polyethylene Glycol (Polyethylene (Miralax) 17 Gm Pack) 17 gm PO DAILY PRN PRN Reason: Constipation Stop: 08/18/20 03:22 Torsemide (Torsemide 20 Mg Tab) 20 mg PO QAM [facility] Stop: 08/18/20 08:59 Last Admin: 07/20/20 09:15 Dose: 20 mg Documented by: Vitamin D (Cholecalciferol 1,000 Units 25 Mcg Tab) 1,000 units PO Q2D [facility] Stop: 08/18/20 08:59 Last Admin: 07/21/20 09:49 Dose: 1,000 units Documented by: Warfarin Sodium (Warfarin Sod 5 Mg Tab) 5 mg PO SuTuWeThFrSa [facility] Stop: 08/18/20 15:59 Last Admin: 07/22/20 16:41 Dose: 5 mg Documented by: Warfarin Sodium (Warfarin Sod 10 Mg Tab) 10 mg PO Mo [facility] Stop: 08/23/20 15:59 (1) Sepsis Sepsis acute organ dysfunction status: unspecified Sepsis type: sepsis due to unspecified organism Qualified Code(s): A41.9 - Sepsis, unspecified organism
[2020-07-23 05:08] LABS: INR 2.5 (0.9-1.1); Prothrombin Time 23.5 Seconds (9.0-12.0)
[2020-07-23] MEDS: AMIODARONE 200 MG TAB PO SCH ×3 (08:55→17:05)
[2020-07-23] MEDS: CHOLECALCIFEROL 1,000 UNITS 25 MCG TAB PO SCH (08:55)
[2020-07-23] MEDS: METOPROLOL TARTRATE 25 MG TAB PO SCH ×3 (08:55→21:24)
[2020-07-23] MEDS: DAPTOmycin 450 MG in SYRINGE 0 ML IV SCH (10:39)
[2020-07-23] MEDS: SPIRONOLACTONE 25 MG TAB PO SCH (12:00)
[2020-07-23] MEDS: WARFARIN SOD 5 MG TAB PO SCH (17:05)
[2020-07-23] MEDS: ACETAMINOPHEN 325 MG TAB PO PRN ×2 (17:06→23:22)
[2020-07-23] MEDS ORDERED: lisinopril 20 MG TAB PO SCH (21:00)
[2020-07-23] MEDS: MICONAZOLE NITRATE POWDER 43 GM EXT PRN (23:23)
--- NOTE | 2020-07-23 23:24 | Hospitalist Progress Note ---
Date of Service July 23, 2020 Assessment & Plan (1) Sepsis: Sepsis, POA. She was resuscitated and treated with broad spectrum antibiotics with improvement, however, when antibiotics were de-escalated, sepsis picture returned. Now resuscitated a second time and doing well, however, I would like to have the wound care nurse and infectious disease see her in order to ensure no further debridement of this wound needs to happen to ensure we have achieved good source control prior to de-escalating antibiotics again, especially in light of the more complicated wound on the posterior leg. Also, [facility] MSS[facility] growing, don't want to change her to Ancef because of her recent "reaction" to a cephalosprorin earlier this admission. Cont IV daptomycin through until ID and WOCN see her on Friday. Patient verbalized understanding and agreement of this plan. (2) Cellulitis of left lower leg: Improving, cont Daptomycin as above. (3) Atrial fibrillation with rapid ventricular response: cardiology following patient, amiodarone restarted. Heart rate is improved to low 100s and she is more stable today. Cont coumadin, INR therapeutic. (4) Left leg weakness: Improved with treatment of infection. PT/OT to work with her. (5) Reinfection by COVID-19 virus: She is asymptomatic. It is unlikely that this infection is contributing to clinical picture above, however, that is not completely clear. (6) Psoriasis: Betamethasone ointment per outpatient security systems engineer. Wound in lower left leg (POA) is the likely the source of her cellulitis infection. (7) Morbid obesity: Lifestyle changes strongly recommended. (8) Sleep apnea: CPAP qHS (9) DVT prophylaxis: Coumadin Full Code Dispo-possibly home in 1-2 days. Infectious disease and wound care consults requested for Friday. Patient may need to follow-up [facility] wound care. Yani Barron DO [facility] Hospitalist Admission and Anticipated Discharge Date Admission Date: July 19, 2020 Subjective 60 yo F presented with nausea, vomiting and LLE cellulitis. Also has atrial fibrillation with RVR. She is still doing well clinically on the daptomycin. Some pain in her superficial wound on posterior left leg, more drainage today since torsemide has been held and she had some fluid resuscitation. Feels better since restarting her torsemide. Left leg weakness is improved and she is able to stand up and move around more independently. She is tolerating PO. Review of Systems Review of Systems: All systems reviewed & are unremarkable except as noted in Subjective Physical Exam Physical Exam: CONSTITUTIONAL: obese, vitals as above, generally well- appearing EYES: normal conjunctivae, no scleral icterus ENT: external ear and nose normal, MMM, poor dentition. NECK: trachea midline RESPIRATORY: clear to auscultation bilaterally, no crackles, rales or wheezes, normal respiratory effort CARDIOVASCULAR: irregular rate and irregular rhythm, S1 and 2 heard without murmurs, gallops or rubs, no JVD, no peripheral edema GASTROINTESTINAL: soft, nontender, protuberant, nondistended, no guarding. MUSCULOSKELETAL: LLE weakness has improved-ambulating independently. SKIN: warm and dry, Almost resolved with still an unstageable superficial wound on the posterior left calf with a white (purulent?) pocket, wound is >5cm in diameter and is painful. Some serous drainage is present. There are skin folds in this area and skin is dry and irritated. NEUROLOGIC: No facial palsy, no dysarthria. CN 2-12 grossly intact, no sensory deficit, normal cognition, normal speech. PSYCHIATRIC: alert cooperative and oriented to person, place and time. Results & Data Results & Data ([facility]) Vital Signs (Past 12 Hours) Vital Signs Temp Pulse Pulse Resp BP Pulse Ox 07/23/20 23:12 36.5 C 110 H 19 117/73 99 07/23/20 19:18 37.2 C 84 18 112/80 99 07/23/20 16:00 37.0 C 93 H 18 152/80 H 07/23/20 14:48 98 H 07/23/20 14:12 109 H 18 133/83 Medications Administered Current Inpatient Medications Acetaminophen (Acetaminophen 325 Mg Tab) 650 mg PO Q4H PRN PRN Reason: Pain Stop: 08/21/20 10:22 Last Admin: 07/23/20 23:22 Dose: 650 mg Documented by: Amiodarone HCl (Amiodarone 200 Mg Tab) 200 mg PO TIDM LEIF Stop: 08/21/20 03:49 Last Admin: 07/23/20 17:05 Dose: 200 mg Documented by: Fluoxetine HCl (Fluoxetine Hcl 10 Mg Cap) 10 mg PO DAILY PRN PRN Reason: Anxiety Stop: 08/18/20 03:22 Daptomycin 450 mg/ Syringe 9 mls @ 4.5 mls/min IV Q24H [facility]; Protocol Stop: 07/28/20 09:59 Last Admin: 07/23/20 10:39 Dose: 4.5 mls/min Documented by: Lisinopril (Lisinopril 20 Mg Tab) 20 mg PO HS [facility] Stop: 08/22/20 20:59 Last Admin: 07/23/20 21:24 Dose: 20 mg Documented by: Metoprolol Tartrate (Metoprolol Tartrate 25 Mg Tab) 25 mg PO TID [facility] Stop: 08/21/20 08:59 Last Admin: 07/23/20 21:24 Dose: 25 mg Documented by: Miconazole Nitrate (Miconazole Nitrate Powder 43 Gm) 1 appln EXT PRN PRN PRN Reason: Affected Skin Folds Stop: 08/19/20 07:55 Last Admin: 07/23/20 23:23 Dose: 1 appln Documented by: Miscellaneous Information (Daptomycin Consult Active) 1 ea N/A UD PRN PRN Reason: Consult Stop: 08/20/20 09:13 Nitroglycerin (Nitroglycerin Sl 0.4 Mg/Tab Tab) 0.4 mg SL UD PRN PRN Reason: Chest Pain Stop: 08/18/20 03:22 Ondansetron HCl (Ondansetron Inj 2 Mg/Ml 2 Ml Vial) 4 mg IV Q6H PRN PRN Reason: Nausea Stop: 08/18/20 03:22 Polyethylene Glycol (Polyethylene (Miralax) 17 Gm Pack) 17 gm PO DAILY PRN PRN Reason: Constipation Stop: 08/18/20 03:22 Spironolactone (Spironolactone 25 Mg Tab) 25 mg PO QAM [facility] Stop: 08/22/20 10:59 Last Admin: 07/23/20 12:00 Dose: 25 mg Documented by: Torsemide (Torsemide 20 Mg Tab) 20 mg PO QAM [facility] Stop: 08/18/20 08:59 Last Admin: 07/20/20 09:15 Dose: 20 mg Documented by: Vitamin D (Cholecalciferol 1,000 Units 25 Mcg Tab) 1,000 units PO Q2D [facility] Stop: 08/18/20 08:59 Last Admin: 07/23/20 08:55 Dose: 1,000 units Documented by: Warfarin Sodium (Warfarin Sod 5 Mg Tab) 5 mg PO [id number] [facility] Stop: 08/18/20 15:59 Last Admin: 07/23/20 17:05 Dose: 5 mg Documented by: Warfarin Sodium (Warfarin Sod 10 Mg Tab) 10 mg PO Mo [facility] Stop: 08/23/20 15:59 (1) Sepsis Sepsis acute organ dysfunction status: unspecified Sepsis type: sepsis due to unspecified organism Qualified Code(s): A41.9 - Sepsis, unspecified organism
[2020-07-24 06:43] LABS: INR 2.5 (0.9-1.1); Prothrombin Time 23.9 Seconds (9.0-12.0)
[2020-07-24 07:23] LABS: BUN Creatinine Ratio 14.7 (10-20); Creatinine Clr Calc Pharmacy 94.8 ml/min; Est GFR (African American) 64.2 ml/min; Est GFR (Non-African American) 55.4 ml/min; Potassium 3.7 mmol/L (3.5-5.1)
[2020-07-24] MEDS: METOPROLOL TARTRATE 25 MG TAB PO SCH (08:07)
[2020-07-24] MEDS: TORSEMIDE 20 MG TAB PO SCH (08:07)
[2020-07-24] MEDS: SPIRONOLACTONE 25 MG TAB PO SCH (08:07)
[2020-07-24] MEDS: AMIODARONE 200 MG TAB PO SCH (08:07)
[2020-07-24] MEDS: DAPTOmycin 450 MG in SYRINGE 0 ML IV SCH (10:15)
[2020-07-24] MEDS ORDERED: METOPROLOL TARTRATE 50 MG TAB PO SCH (14:00)
[2020-07-24] MEDS ORDERED: WARFARIN SOD 10 MG TAB PO SCH ×2 (16:00)
[2020-07-24] MEDS ORDERED: AMIODARONE 200 MG TAB PO SCH (17:00)
--- NOTE | 2020-07-25 13:32 | Communication Note ---
Date of Service: July 25, 2020 Patient and the pharmacy were notified of amiodarone 200 mg twice daily for 7 days followed by 200 mg daily and follow-up with cardiology within 1 week.
--- NOTE | 2020-08-03 08:14 | Discharge Summary ---
Date of Service July 24, 2020 Admission HPI Per Admitting Provider This is a 60-year-old female with past medical history significant for hyperlipidemia, hypothyroidism, obstructive sleep apnea, on CPAP, paroxysmal atrial fibrillation, chronic diastolic CHF, hypertension, and GERD, ckd stage 3, psoriasis brought in with lower extremity cellulitis. The patient says because of psoriasis, she gets on and off swelling or edema in the lower legs. In the last 2 days, it got worse. She is having some ambulatory dysfunction and fever and chills, so she came to the ER .She denies any cough. She gets some shortness of breath with ambulation. No headache, no blurred vision, no earache, no runny nose, no sore throat, no nausea, no abdominal pain. Normal bowel and bladder movements, currently sleepy and saturating fine on room air. She was diagnosed with COVID on 03/02/2020. She received antibiotic treatment for COVID.. She did not get any COVID shots. Today, her COVID is positive, but she says she did not go out of the house. Admission Exam Per Admitting Provider GENERAL: The patient is morbidly obese, not in acute distress. VITAL SIGNS: Temperature 37.2, pulse 114, respiratory rate 24, blood pressure 132/74, oxygen 97% on room air. HEENT: No pallor, no icterus. Pupils equal, round, reactive to light. Oral mucosa moist. NECK: No JVD. No neck masses. CARDIOVASCULAR: S1, S2 heard, regular rate and rhythm, no murmur, no gallop. RESPIRATORY SYSTEM: Normal AP diameter. No accessory muscle use. No wheezing, no crackles. ABDOMEN: Soft, bowel sounds present, nontender, nondistended. CENTRAL NERVOUS SYSTEM: Cranial nerves II through XII grossly intact, nonfocal. EXTREMITIES: Bilateral lower extremity lymphedema . Left lower extremity is erythematous. Principal Diagnosis Sepsis: Discharge Data Allergies Allergy/AdvReac Type Severity Reaction Status Date / Time codeine Allergy Severe SWELLING Verified 07/18/20 19:02 ALL OVER Penicillins Allergy Severe THROAT Verified 07/18/20 19:02 SWELLING Consultations 07/18/20 21:11 ED Decision to Admit Stat 07/19/20 08:00 Consult Cardiology Routine 07/23/20 14:41 Consult Infectious Diseases Routine Ordered Studies 07/18/20 18:31 CT abd pelvis wo con Stat 07/19/20 15:37 CT head/brain wo con Stat 07/19/20 15:47 CT angio chest PE protocol Stat 07/19/20 15:53 CT angio head w con Stat CT angio neck with con Stat Hospital Course (1) Sepsis: Sepsis, POA. She was resuscitated and treated with broad spectrum antibiotics with improvement, however, when antibiotics were de-escalated, sepsis picture returned. Her wound cultures were growing MSSA. Patient was treated with IV daptomycin during this hospitalization. Infectious disease was consulted. Her lower extremity cellulitis improved. Patient will need to follow-up with wound care as an outpatient. (2) Cellulitis of left lower leg: Completed course of daptomycin. Sepsis resolved. Lower extremity cellulitis improved significantly. (3) Atrial fibrillation with rapid ventricular response: Cardiology was consulted. Patient was started on amiodarone she was discharged on amiodarone 200 mg twice daily followed by 200 mg daily. Sotalol was discontinued at discharge. Patient will be following up with cardiology as an outpatient. (4) Left leg weakness: Improved with treatment of infection. (5) Reinfection by COVID-19 virus: She is asymptomatic. It is unlikely that this infection is contributing to clinical picture above, however, that is not completely clear. (6) Psoriasis: Betamethasone ointment per outpatient general education professor. Wound in lower left leg (POA) is the likely the source of her cellulitis infection. (7) Morbid obesity: Lifestyle changes strongly recommended. (8) Sleep apnea: CPAP qHS Total Time Total Time Spent Total Time Spent (In Minutes): 35 Discharge Plan Discharge Items Patient Disposition: Home - Home Health Services Reason For Visit: FEVER Discharge Diagnosis: Sepsis Activity: Resume your previous activity Non-emergency contact: Primary Care Provider Call non-emergency contact if: your symptoms worsen Follow-up/Referrals: Minh Reilly MD [Primary Care Provider] - Diet: Heart Healthy Addtl Attending Provider Instructions: Follow-up with primary care, cardiology and wound care as an outpatient. Appointments have been requested. Continue with quarantine for additional 5 more days. Pending Studies at Discharge: No Stand-Alone Forms: [employer], Smoking Cessation Medications and DC Order Prescriptions: New metoprolol tartrate 50 mg Tablet 50 mg PO TID Qty: 90 RF: 0 amiodarone 200 mg Tablet 200 mg PO BIDM Qty: 60 RF: 0 Continued torsemide 20 mg Tablet 20 mg PO QAM RF: 0 lisinopril 20 mg Tablet 20 mg PO HS RF: 0 spironolactone 25 mg Tablet 25 mg PO QAM RF: 0 warfarin 5 mg Tablet 5 mg PO UD RF: 0 fluoxetine 10 mg capsule 10 mg PO DAILY PRN (Reason: Anxiety) RF: 0 cholecalciferol (vitamin D3) [Vitamin D3] 25 mcg (1,000 unit) Tablet 0 mcg PO Q OTHER DAY RF: 0 betamethasone dipropionate 0.05 % ointment 1 applic TOPICAL DAILY PRN (Reason: itching/psoriasis flare) RF: 0 Discontinued sotalol 80 mg Tablet 80 mg PO BID RF: 0 metoprolol tartrate 25 mg Tablet 12.5 mg PO BID RF: 0 Discharge Orders: Discharge Order (Routine); Ordered 07/24/20 Ordered By: Mingo Alfaro Admission Data Admit Date/Time: 07/19/20 01:04 Attending Provider: Mingo Alfaro Admit Provider: Cameron Mon Primary Care Provider: Minh Reilly Other Providers: Cameron Mon ; Ted Wall ; Max Quiroz ; Carlos Manuel Huynh Other Interventions: Discharge Summary Assessment (RN) Last Done: 07/24/20 17:40
== END 2020-07-24 18:51 | disposition home health service (06) | DRG 871 ==
LOC: ED 17:26 → SUATTDRO 07-19 01:04 → 2N 07-19 01:04 → 2S 07-22 00:30
DX: Z87.891 Personal history of nicotine dependence; R59.0 Localized enlarged lymph nodes; Z79.899 Other long term (current) drug therapy; Z88.5 Allergy status to narcotic agent; G47.33 Obstructive sleep apnea (adult) (pediatric); Z82.3 Family history of stroke; R10.9 Unspecified abdominal pain; Z88.0 Allergy status to penicillin; Z86.16 Personal history of COVID-19; R11.0 Nausea; L03.116 Cellulitis of left lower limb; R79.1 Abnormal coagulation profile; E03.9 Hypothyroidism, unspecified; L40.9 Psoriasis, unspecified; U07.1 COVID-19; E66.01 Morbid (severe) obesity due to excess calories; I13.0 Hypertensive heart and chronic kidney disease with heart failure and stage 1 through stage 4 chronic kidney disease, or unspecified chronic kidney disease; I48.0 Paroxysmal atrial fibrillation; E55.9 Vitamin D deficiency, unspecified; I50.32 Chronic diastolic (congestive) heart failure; Z79.01 Long term (current) use of anticoagulants; Z68.44 Body mass index [BMI] 60.0-69.9, adult; F32.9 Major depressive disorder, single episode, unspecified; A41.9 Sepsis, unspecified organism; N18.30 Chronic kidney disease, stage 3 unspecified

== ENCOUNTER 2020-08-23 11:55 | Inpatient (IN) ==
--- NOTE | 2020-08-23 13:24 | Emergency Department Note ---
Impression & Plan MAGO (acute kidney injury), Elevated BUN, Anemia ED Provider Note NAME: KATHYA DISLA AGE: 60 SEX: F : 1960 ARRIVES VIA: Walk-In INFORMANT: Patient ED PROVIDER(S): Joseluis Wong DO CHIEF COMPLAINT: Abnormal blood work HPI: Patient is a 60-year-old female who presents to the ER with a past medical history of morbid obesity, cellulitis, A. fib RVR, diabetes, hypertension and nonischemic cardiomyopathy who was recently on Bactrim for a total of 14 days. Patient just finished it this past Friday. She denies any headache or change in vision. No new shortness of breath. No chest pain, belly pain, nausea, vomiting, and diarrhea. Patient had blood work done yesterday and had an elevation of her potassium and consequently was referred in. She denies all other complaints at this time. She has been taking her torsemide and spironolactone. ROS: See above HPI for pertinent positives & negatives. A total of 10 systems reviewed and were otherwise negative. PAST MEDICAL HISTORY:See Below PAST SURGICAL HISTORY:See Below FAMILY HISTORY:See Below SOCIAL HISTORY:See Below HOME MEDICATIONS:See Below ALLERGIES:See Below VITALS:See Below PHYSICAL EXAMINATION: GENERAL: Sitting up in bed, alert, well appearing, well nourished, no distress, non-toxic EYE EXAM: normal conjunctiva. OROPHARYNX: no exudate, no erythema, lips, buccal mucosa, and tongue normal and mucous membranes are moist NECK: supple, no nuchal rigidity, no adenopathy, non-tender LUNGS: Clear to auscultation. Normal chest wall mechanics HEART: no murmurs, S1 normal and S2 normal ABDOMEN: abdomen soft, non-tender, normo-active bowel sounds, no masses, no rebound or guarding. UPPER EXTREMITIES: upper extremities are grossly normal. LOWER EXTREMITIES: No pitting edema. NEURO EXAM: Normal sensorium, cranial nerves II-XII grossly intact, normal speech, no gross weakness of arms, no gross weakness of legs. MEDICAL DECISION MAKING: Patient is a 60-year-old female who presents the ER for weakness referred in by PCP for abnormal blood work.IV was established blood was obtained. Labs show mild anemia. No significant leukocytosis. BMP with an acute kidney injury at 2.97 up from a baseline about 1.5. LFTs bilirubin was unremarkable. Troponin was negative. Lipase unremarkable. UA was contaminated multiple serious cells. Covid was negative.Patient was given IV fluids updated bedside discussed with the hospitalist admitted for further work-up. Triage Nursing notes reviewed. Limited review of prior medical records performed Vital Signs: reviewed and remarkable for no significant abnormalities Differential diagnosis: Infection, dehydration, metabolic abnormality, hypo/hyperglycemia, electrolyte disturbance, anemia, hypoxia, cardiac sources, intracerebral event, toxicologic, neurologic, as well as other pathologies. ER treatment provided: See below Diagnostics interpreted by me: ECG: A. fib rate 88 Normal axis No PVCs Right bundle branch block T wave inversion QTC 474 Cardiac Monitoring: An order was placed for continuous cardiac monitoring. The monitor shows a rate of 82 with sinus rhythm. Laboratory studies: As stated above and show below. Imaging studies: See below Consultation(s): none Procedures: none Critical Care: None Past Med/Surg History Medical History (Updated 08/23/20 @ 18:46 by Joseluis Wong DO) Atrial fibrillation 02/2016 takes COUMADIN Chronic diastolic (congestive) heart failure GERD (gastroesophageal reflux disease) History of cardiomyopathy Tachycardia-induced, moderate LV function reduction, subsequently normalized with treatment. Maintained on Sotolol. History of cardioversion 2017 x 2 AT [facility]. History of diverticulitis s/p bowel resection Hx of congestive heart failure RELATED TO A FIB 2017 Hypertension Morbid obesity Psoriasis Sleep apnea CPAP Surgical History History of anesthesia reaction SLOW TO WAKE UP History of carpal tunnel release LEFT History of cholecystectomy History of colon surgery BOWEL RESECTION diverticulitis IN [facility] History of colonoscopy Hx of sinus surgery Family History Grandmother (Maternal) Family history of diabetes mellitus Social History Smoking Status: Never smoker Second Hand Exposure: No; Do You Dip or Chew Tobacco: No; Tobacco Cessation Education Requested by Patient: No Hx Alcohol Use: No Hx Substance Use: No Preferred Language: Greek Communication Ability: Effective Hearing Ability: Normal Human Resources Executive Assistant Required: No Beliefs That Will Affect Care: None Current Living Situation: Spouse Current Living Situation Comment: with How many Children do You have: 2 Feels Safe at Home: Yes Safety Concerns: Feels Safe At This Time caffeine: No Physical Activity Frequency: Does not Exercise Assistive Devices: Glasses Assistive Devices Comment: to bring in home cpap Allergies Allergies Allergy/AdvReac Type Severity Reaction Status Date / Time codeine Allergy Severe SWELLING Verified 08/15/20 14:26 ALL OVER Penicillins Allergy Severe THROAT Verified 08/15/20 14:26 SWELLING Home Meds Home Medications Medication Instructions Recorded Confirmed lisinopril 20 mg PO HS 06/03/19 08/23/20 spironolactone 25 mg PO QAM 06/03/19 08/23/20 torsemide 20 mg PO QAM 06/03/19 08/23/20 warfarin 5 mg PO UD 06/03/19 08/23/20 fluoxetine 10 mg PO DAILY PRN 07/18/20 08/23/20 amiodarone 200 mg tablet 200 mg PO PM tab 08/04/20 08/23/20 Previous Rx's Medication Instructions Recorded metoprolol tartrate 50 mg PO TID #90 tab 07/24/20 Results & Data (ED) Vital Signs Vital Signs - 24 hr 08/23/20 12:15 08/23/20 13:56 08/23/20 14:30 Temperature 36.4 C L Temperature Source Temporal Artery Scan Pulse Rate 98 H Pulse Rate [Apical] 78 Pulse Rate from SpO2 Sensor Pulse Rhythm Regular Pulse Rhythm [Apical] Irregular Respiratory Rate 21 18 Respiratory Effort / Characteristics Non-Labored Spontaneous Non-Labored Spontaneous Respiratory Depth Normal Normal Respiratory Pattern Regular Blood Pressure 115/78 Blood Pressure [Left Arm] 100/52 L Blood Pressure Mean 90 Blood Pressure Mean [Left Arm] 68 Pulse Oximetry 97 97 97 Oxygen Delivery Method Room Air Room Air Room Air Sepsis Recent Fever Within 48 Hours No Sepsis New/Unexplained Change in Mental Status No Sepsis Action Taken by Nursing No Action Required 08/23/20 15:01 Temperature Temperature Source Pulse Rate 92 H Pulse Rate [Apical] Pulse Rate from SpO2 Sensor 85 Pulse Rhythm Pulse Rhythm [Apical] Respiratory Rate 16 Respiratory Effort / Characteristics Respiratory Depth Respiratory Pattern Blood Pressure 141/51 H Blood Pressure [Left Arm] Blood Pressure Mean 81 Blood Pressure Mean [Left Arm] Pulse Oximetry 100 Oxygen Delivery Method Sepsis Recent Fever Within 48 Hours Sepsis New/Unexplained Change in Mental Status Sepsis Action Taken by Nursing Laboratory Data Result diagrams: 08/23/20 13:24 08/23/20 13:24 Lab Results 08/23/20 08/23/20 08/23/20 Range/Units 13:24 13:24 13:24 WBC 7.25 (4.8-10.8) K/uL RBC 3.31 L (4.2-5.4) M/uL Hgb 10.1 L (12.0-16.0) g/dL Hct 32.2 L (37-47) % MCV 97.3 (80-100) fL MCH 30.5 (25-34) pg MCHC 31.4 L (32-36) g/dL RDW Std Deviation 64.5 H (36.4-46.3) fL RDW Coeff of Emmy 18.3 H (11.5-14.5) % Plt Count 234 (130-400) K/uL MPV 10.2 (7.4-10.4) fL Immature Gran % (Auto) 0.3 % Neut % (Auto) 67.4 % Lymph % (Auto) 21.1 % [place] % (Auto) 8.1 % Eos % (Auto) 3.0 % Baso % (Auto) 0.1 % Neut # (Auto) 4.88 (1.4-6.5) K/uL Lymph # (Auto) 1.53 (1.2-3.4) K/uL [place] # (Auto) 0.59 (0.11-0.59) K/uL Eos # (Auto) 0.22 (0-0.5) K/uL Baso # (Auto) 0.01 (0-0.2) K/uL Immature Gran # (Auto) 0.02 (0.00-0.02) K/uL PT (9.0-12.0) Seconds INR (0.9-1.1) APTT 27.9 (21.0-31.0) Seconds PTT Ratio 1.1 Sodium 138 (136-145) mmol/L Potassium 4.8 (3.5-5.1) mmol/L Chloride 106 (98-107) mmol/L Carbon Dioxide 25 (21-32) mmol/L Anion Gap 7.0 (3-11) BUN 52 H (7-18) mg/dl Creatinine 2.97 H (0.6-1.2) mg/dl Est Cr Clr Drug Dosing Not Reportable Est GFR ( Amer) 18.9 ml/min Est GFR (Non-Af Amer) 16.3 ml/min BUN/Creatinine Ratio 17.3 (10-20) Glucose 104 H (70-99) mg/dl Calcium 9.1 (8.5-10.1) mg/dl Total Bilirubin 0.4 (0.2-1) mg/dl AST 18 (15-37) U/L ALT 24 (12-78) U/L Alkaline Phosphatase 108 (45-117) U/L Troponin I < 0.015 (0-0.045) ng/ml Total Protein 8.5 H (6.4-8.2) gm/dl Albumin 3.3 L (3.4-5.0) gm/dl Globulin 5.2 H (2.5-4.0) gm/dl Albumin/Globulin Ratio 0.6 L (0.9-2) Lipase 258 (73-393) U/L Urine Color Urine Appearance (Clear) Urine pH (4.5-7.5) Ur Specific [place]way (1.000-1.030) Urine Protein (Negative) Urine Glucose (UA) (Negative) Urine Ketones (Negative) Urine Blood (Negative) Urine Nitrite (Negative) Urine Bilirubin (Negative) Urine Urobilinogen (Negative) Ur Leukocyte Esterase (Negative) Urine WBC (Auto) (0-5) /hpf Urine RBC (Auto) (0-4) /hpf U Hyaline Cast (Auto) (0-5) /lpf U Epithel Cells (Auto) (0-5) /lpf Urine Bacteria (Auto) (Negative) Urine Yeast (None Prsent) COVID-19 Eval Order SARS-CoV-2 (PCR) (Negative) 08/23/20 08/23/20 08/23/20 Range/Units 13:24 13:26 13:56 WBC (4.8-10.8) K/uL RBC (4.2-5.4) M/uL Hgb (12.0-16.0) g/dL Hct (37-47) % MCV (80-100) fL MCH (25-34) pg MCHC (32-36) g/dL RDW Std Deviation (36.4-46.3) fL RDW Coeff of Emmy (11.5-14.5) % Plt Count (130-400) K/uL MPV (7.4-10.4) fL Immature Gran % (Auto) % Neut % (Auto) % Lymph % (Auto) % [place] % (Auto) % Eos % (Auto) % Baso % (Auto) % Neut # (Auto) (1.4-6.5) K/uL Lymph # (Auto) (1.2-3.4) K/uL [place] # (Auto) (0.11-0.59) K/uL Eos # (Auto) (0-0.5) K/uL Baso # (Auto) (0-0.2) K/uL Immature Gran # (Auto) (0.00-0.02) K/uL PT 13.2 H (9.0-12.0) Seconds INR 1.3 H (0.9-1.1) APTT (21.0-31.0) Seconds PTT Ratio Sodium (136-145) mmol/L Potassium (3.5-5.1) mmol/L Chloride (98-107) mmol/L Carbon Dioxide (21-32) mmol/L Anion Gap (3-11) BUN (7-18) mg/dl Creatinine (0.6-1.2) mg/dl Est Cr Clr Drug Dosing Est GFR ( Amer) ml/min Est GFR (Non-Af Amer) ml/min BUN/Creatinine Ratio (10-20) Glucose (70-99) mg/dl Calcium (8.5-10.1) mg/dl Total Bilirubin (0.2-1) mg/dl AST (15-37) U/L ALT (12-78) U/L Alkaline Phosphatase (45-117) U/L Troponin I (0-0.045) ng/ml Total Protein (6.4-8.2) gm/dl Albumin (3.4-5.0) gm/dl Globulin (2.5-4.0) gm/dl Albumin/Globulin Ratio (0.9-2) Lipase (73-393) U/L Urine Color Yellow Urine Appearance Clear (Clear) Urine pH 5.0 (4.5-7.5) Ur Specific [place] 1.011 (1.000-1.030) Urine Protein Negative (Negative) Urine Glucose (UA) Negative (Negative) Urine Ketones Negative (Negative) Urine Blood Negative (Negative) Urine Nitrite Negative (Negative) Urine Bilirubin Negative (Negative) Urine Urobilinogen Negative (Negative) Ur Leukocyte Esterase 1+ H (Negative) Urine WBC (Auto) 5-10 H (0-5) /hpf Urine RBC (Auto) 0-4 (0-4) /hpf U Hyaline Cast (Auto) 1-5 (0-5) /lpf U Epithel Cells (Auto) >30 H (0-5) /lpf Urine Bacteria (Auto) Negative (Negative) Urine Yeast Present A (None Prsent) COVID-19 Eval Order Covid19 at [facility] SARS-CoV-2 (PCR) (Negative) 08/23/20 Range/Units 13:56 WBC (4.8-10.8) K/uL RBC (4.2-5.4) M/uL Hgb (12.0-16.0) g/dL Hct (37-47) % MCV (80-100) fL MCH (25-34) pg MCHC (32-36) g/dL RDW Std Deviation (36.4-46.3) fL RDW Coeff of Emmy (11.5-14.5) % Plt Count (130-400) K/uL MPV (7.4-10.4) fL Immature Gran % (Auto) % Neut % (Auto) % Lymph % (Auto) % [place] % (Auto) % Eos % (Auto) % Baso % (Auto) % Neut # (Auto) (1.4-6.5) K/uL Lymph # (Auto) (1.2-3.4) K/uL [place] # (Auto) (0.11-0.59) K/uL Eos # (Auto) (0-0.5) K/uL Baso # (Auto) (0-0.2) K/uL Immature Gran # (Auto) (0.00-0.02) K/uL PT (9.0-12.0) Seconds INR (0.9-1.1) APTT (21.0-31.0) Seconds PTT Ratio Sodium (136-145) mmol/L Potassium (3.5-5.1) mmol/L Chloride (98-107) mmol/L Carbon Dioxide (21-32) mmol/L Anion Gap (3-11) BUN (7-18) mg/dl Creatinine (0.6-1.2) mg/dl Est Cr Clr Drug Dosing Est GFR ( Amer) ml/min Est GFR (Non-Af Amer) ml/min BUN/Creatinine Ratio (10-20) Glucose (70-99) mg/dl Calcium (8.5-10.1) mg/dl Total Bilirubin (0.2-1) mg/dl AST (15-37) U/L ALT (12-78) U/L Alkaline Phosphatase (45-117) U/L Troponin I (0-0.045) ng/ml Total Protein (6.4-8.2) gm/dl Albumin (3.4-5.0) gm/dl Globulin (2.5-4.0) gm/dl Albumin/Globulin Ratio (0.9-2) Lipase (73-393) U/L Urine Color Urine Appearance (Clear) Urine pH (4.5-7.5) Ur Specific [place]way (1.000-1.030) Urine Protein (Negative) Urine Glucose (UA) (Negative) Urine Ketones (Negative) Urine Blood (Negative) Urine Nitrite (Negative) Urine Bilirubin (Negative) Urine Urobilinogen (Negative) Ur Leukocyte Esterase (Negative) Urine WBC (Auto) (0-5) /hpf Urine RBC (Auto) (0-4) /hpf U Hyaline Cast (Auto) (0-5) /lpf U Epithel Cells (Auto) (0-5) /lpf Urine Bacteria (Auto) (Negative) Urine Yeast (None Prsent) COVID-19 Eval Order SARS-CoV-2 (PCR) NEGATIVE (Negative) Administered Medications Sodium Chloride (Nss 1000ml) 1,000 mls @ 80 mls/hr IV .[id number] Stop: 08/24/20 05:59 Last Admin: 08/23/20 18:08 Dose: 80 mls/hr Documented by: [id number] Discontinued Medications Sodium Chloride (Nss 1000ml) 1,000 mls @ 999 mls/hr IV .[id number] Stop: 08/23/20 15:20 Last Admin: 08/23/20 14:41 Dose: 999 mls/hr Documented by: [id number] Discharge Plan Visit Data Chief Complaint: Referred by Doctor Stated Complaint: SENT FOR ADMISSON-ABNORMAL KIDNEY FUNCTIONS ED Provider: Joseluis Wong Discharge Problem: MAGO (acute kidney injury), Elevated BUN, Anemia Patient Disposition: Admitted As Inpatient Discharge Instructions Interventions: ED Discharge Assessment Last Done: 08/23/20 16:59 Discharge Problem: Anemia Qualifiers: Anemia type: unspecified type Qualified Code(s): D64.9 - Anemia, unspecified
[2020-08-23 13:49] LABS: Partial Thromboplastin Ratio 1.1; Partial Thromboplastin Time 27.9 Seconds (21.0-31.0)
[2020-08-23 14:01] LABS: Alanine Aminotransferase 24 U/L (12-78); Albumin Level 3.3 gm/dl (3.4-5.0); Aspartate Aminotransferase 18 U/L (15-37); BUN Creatinine Ratio 17.3 (10-20); Blood Urea Nitrogen 52 mg/dl (7-18); Calcium 9.1 mg/dl (8.5-10.1); Carbon Dioxide 25 mmol/L (21-32); Chloride 106 mmol/L (98-107); Est GFR (African American) 18.9 ml/min; Est GFR (Non-African American) 16.3 ml/min; Glucose 104 mg/dl (70-99); Lipase 258 U/L (73-393); Potassium 4.8 mmol/L (3.5-5.1); Sodium 138 mmol/L (136-145)
[2020-08-23 14:06] LABS: Albumin Globulin Ratio 0.6 (0.9-2); Alkaline Phosphatase 108 U/L (45-117); Bilirubin,Total 0.4 mg/dl (0.2-1); Globulin 5.2 gm/dl (2.5-4.0); Total Protein 8.5 gm/dl (6.4-8.2); Troponin I < 0.015 ng/ml (0-0.045)
[2020-08-23 14:14] LABS: Basophils # (auto) 0.01 K/uL (0-0.2); Basophils % (auto) 0.1 %; Eosinophils # (auto) 0.22 K/uL (0-0.5); Hematocrit (blood only) 32.2 % (37-47); Hemoglobin 10.1 g/dL (12.0-16.0); Immature Granulocytes # (auto) 0.02 K/uL (0.00-0.02); Immature Granulocytes % (auto) 0.3 %; Lymphocytes # (auto) 1.53 K/uL (1.2-3.4); Lymphocytes % (auto) 21.1 %; Mean Corpuscular Hemoglobin 30.5 pg (25-34); Mean Corpuscular Hgb Conc 31.4 g/dL (32-36); Mean Corpuscular Volume 97.3 fL (80-100); Mean Platelet Volume 10.2 fL (7.4-10.4); Monocytes # (auto) 0.59 K/uL (0.11-0.59); Monocytes % (auto) 8.1 %; Neutrophils # (auto) 4.88 K/uL (1.4-6.5); Neutrophils % (auto) 67.4 %; Platelet Count 234 K/uL (130-400); RDW Coefficient of Variation 18.3 % (11.5-14.5); RDW Standard Deviation 64.5 fL (36.4-46.3); Red Blood Count 3.31 M/uL (4.2-5.4); White Blood Count 7.25 K/uL (4.8-10.8)
[2020-08-23] MEDS ORDERED: SODIUM CHLORIDE 0.9% 1000ML 1,000 ML IV ONE (14:20)
[2020-08-23 15:27] LABS: INR 1.3 (0.9-1.1)
--- NOTE | 2020-08-23 15:29 | History & Physical Report ---
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 Patient finished 14-day course of Bactrim on 08/21/2020 Today in ER vitals stable, K: 4.8, BUN: 52, Cr: 2.9, GFR: 60 Suspect MAGO secondary to Bactrim Rule out obstruction -renal ultrasound pending UA pending Gentle IVF Consider nephrology consult if no improvement (2) Atrial fibrillation: On Coumadin INR: 1.3 Currently rate controlled Continue amiodarone, metoprolol tartrate Increase Coumadin to 5mg tonight, and reassess INR in am to determine further dosing (3) HTN (hypertension): Hold lisinopril, spironolactone, torsemide secondary to MAGO (4) Chronic diastolic (congestive) heart failure: Hold spironolactone, torsemide secondary to MAGO Monitor I&O's (5) Cellulitis of left lower leg: Admission 07/2020 for LLE cellulitis with cultures MSSA. Initially treated with IV Dapto, cefdinir and then Bactrim Improvement of cellulitis. Hold on further antibiotics at this time (6) EVELYN on CPAP: Home CPAP at bedtime DVT Prophylaxis -On Coumadin, INR: 1.3, Add SQ Heparin until INR therapeutic Full Code as per discussion with pt Follows with Dr Reilly for routine care Pt was seen and care coordinated with Dr Cosme. See addendum History of Present Illness Chief Complaint: Abnormal labs Primary Care Provider: Minh Reilly MD Patient is 60-year-old female with PMH atrial fibrillation on Coumadin, h/o tachycardia induced cardiomyopathy in 2017 with subsequent normalization of EF, chronic diastolic CHF, HTN, HLD, CKD III, EVELYN, hypothyroidism secondary to medi cation, GERD, obesity presented to ER for abnormal labs -K: 5.7, Cr: 3.4 from outpatient labs on 08/22/2020. Patient with recent hospitalization at [facility] on 07/19/2020 - 07/24/2020 for sepsis, LLE cellulitis, wound cultures+ MSSA and was treated with daptomycin and discharged on cefdinir. During hospitalization patient had A. fib with RVR and amiodarone was started and sotalol was discontinued. Patient following with wound clinic and was started on Bactrim for 14 days. She finished Bactrim on 08/21/2020. She reports left lower extremity cellulitis is much improved and is not having any pain or discharge from site. Patient states otherwise feels at her baseline and would not have presented to ER if not directed secondary to abnormal labs. Denies fever/chills, diaphoresis, N/V/D/C, POWELL, dizziness, syncope, vision changes, neck pain, CP, SOB, orthopnea, palpitations, cough, sore throat, choking, otalgia, rhinorrhea, abdominal pain, paresthesias, weakness, extremity weakness, extremity edema, rashes, dysuria, urinary frequency, hematuria. Allergies Allergy/AdvReac Type Severity Reaction Status Date / Time codeine Allergy Severe SWELLING Verified 08/15/20 14:26 ALL OVER Penicillins Allergy Severe THROAT Verified 08/15/20 14:26 SWELLING Home Medications Medication Instructions Recorded Confirmed Type lisinopril 20 mg PO HS 06/03/19 08/23/20 History spironolactone 25 mg PO QAM 06/03/19 08/23/20 History torsemide 20 mg PO QAM 06/03/19 08/23/20 History warfarin 5 mg PO UD 06/03/19 08/23/20 History fluoxetine 10 mg PO DAILY PRN 07/18/20 08/23/20 History metoprolol tartrate 50 mg PO TID #90 tab 07/24/20 08/23/20 Rx amiodarone 200 mg tablet 200 mg PO PM tab 08/04/20 08/23/20 History Past Med/Surg History Medical History (Updated 08/23/20 @ 18:46 by Joseluis Wong DO) Atrial fibrillation 02/2016 takes COUMADIN Chronic diastolic (congestive) heart failure GERD (gastroesophageal reflux disease) History of cardiomyopathy Tachycardia-induced, moderate LV function reduction, subsequently normalized with treatment. Maintained on Sotolol. History of cardioversion 2017 x 2 AT [facility]. History of diverticulitis s/p bowel resection Hx of congestive heart failure RELATED TO A FIB 2017 Hypertension Morbid obesity Psoriasis Sleep apnea CPAP Surgical History History of anesthesia reaction SLOW TO WAKE UP History of carpal tunnel release LEFT History of cholecystectomy History of colon surgery BOWEL RESECTION diverticulitis IN [facility] History of colonoscopy Hx of sinus surgery Family History Grandmother (Maternal) Family history of diabetes mellitus Social History Smoking Status: Never smoker Second Hand Exposure: No; Do You Dip or Chew Tobacco: No; Tobacco Cessation Education Requested by Patient: No Hx Alcohol Use: No Hx Substance Use: No Preferred Language: Cook Islander Communication Ability: Effective Hearing Ability: Normal Grassroots Organizer Required: No Beliefs That Will Affect Care: None Current Living Situation: Spouse Current Living Situation Comment: with How many Children do You have: 2 Feels Safe at Home: Yes Safety Concerns: Feels Safe At This Time caffeine: No Physical Activity Frequency: Does not Exercise Assistive Devices: Glasses Assistive Devices Comment: to bring in home cpap Review of Systems Review of Systems: All systems reviewed & are unremarkable except as noted in HPI & below Physical Exam Physical Exam: General: no distress, obese Head: normocephalic, atraumatic Eyes: PERRL, EOM's intact, conjunctiva non-injected, anicteric ENT: normal inspection external ears, nose, mucous membranes moist Neck: supple, trachea midline Lungs: clear, no respiratory distress, no wheezing/rhonchi/rales CV: Irregularly irregular, pulse 92, trace pretibial edema Abd: Protuberant, normal BS, soft, non-tender Ext: no cyanosis, no calf tenderness, left lower extremity with faint erythema and scaling skin, no discharge, no red streaking, distal pulses palpable Neuro: A&O x 3, no focal deficits noted, normal affect Skin: warm, dry Results & Data Results & Data ([facility]) Vital Signs (Past 12 Hours) Vital Signs Temp Pulse Pulse Resp BP BP Pulse Ox 08/23/20 15:01 92 H 16 141/51 H 100 08/23/20 14:30 78 18 100/52 L 97 08/23/20 13:56 97 08/23/20 12:15 36.4 C L 98 H 21 115/78 97 Laboratory Results Short CBC 08/23/20 Range/Units 13:24 WBC 7.25 (4.8-10.8) K/uL Hgb 10.1 L (12.0-16.0) g/dL Hct 32.2 L (37-47) % Plt Count 234 (130-400) K/uL BMP 08/23/20 13:24 Sodium 138 Potassium 4.8 Chloride 106 Carbon Dioxide 25 BUN 52 H Creatinine 2.97 H Glucose 104 H Calcium 9.1 Cardiac Enzymes 08/23/20 Range/Units 13:24 Troponin I < 0.015 (0-0.045) ng/ml Liver Function 08/23/20 Range/Units 13:24 Total Bilirubin 0.4 (0.2-1) mg/dl AST 18 (15-37) U/L ALT 24 (12-78) U/L Alkaline Phosphatase 108 (45-117) U/L Albumin 3.3 L (3.4-5.0) gm/dl Code Status & VTE Plan VTE Prophylaxis Plan VTE Prophylaxis will be ordered: Yes Supervising Physician Co-Signing Physician Notes Patient is a 60-year-old female with history of atrial fibrillation on chronic anticoagulation with Coumadin, diastolic heart failure, CKD stage III and other medical problems who was recently treated for left lower extremity cellulitis presents for management of abnormal labs, recommended by PCP. Currently she is asymptomatic and denies any chest pain, dyspnea, dizziness, nausea, abdominal pain. She was noted to have subtherapeutic INR 1.3. Also noted MAGO with creatinine elevation at 2.97. She states that her outpatient labs showed hyperkalemia yesterday but currently noted to be within normal limits. On exam patient is morbidly obese, no apparent distress, normocephalic atraumatic, lungs are clear to auscultation, normal breath sounds, irregularly irregular rhythm, no murmur, trace pedal edema, abdomen soft, nontender, distended, alert, awake, oriented, grossly nonfocal deficits. Patient is admitted for management of MAGO on CKD 3. Will hold torsemide, Aldactone, lisinopril. Avoid nephrotoxic agents. Continue IV fluids. Check renal ultrasound for any obstruction. Also obtain urinalysis with microscopic. Agree with SQ heparin till INR is therapeutic. Continue Coumadin. Monitor volume status. Consider nephrology evaluation if needed. I personally reviewed the record. Patient is interviewed and examined at bedside. Patient's care is coordinated with Tabitha Rivera PA-C. Please refer to the documentation above for details of patient's pr esentation and for discussion of other issues.
[2020-08-23 15:42] LABS: Prothrombin Time 13.2 Seconds (9.0-12.0)
[2020-08-23 16:37] LABS: Appearance Urine Clear (Clear); Bacteria Urine Automated Negative (Negative); Bilirubin Urine Negative (Negative); Blood Urine Negative (Negative); Color Urine Yellow; Epithelial Cell Urine Auto >30 /lpf (0-5); Glucose Urine UA Negative (Negative); Ketones Urine Negative (Negative); Leukocyte Esterase Urine 1+ (Negative); Nitrite Urine Negative (Negative); Protein Urine Negative (Negative); RBC Urine Automated 0-4 /hpf (0-4); Specific Gravity Urine 1.011 (1.000-1.030); Urobilinogen Urine Negative (Negative)
[2020-08-23] MEDS ORDERED: METOPROLOL TARTRATE 50 MG TAB PO STA (17:14)
[2020-08-23] MEDS ORDERED: ACETAMINOPHEN 325 MG TAB PO PRN (17:30)
[2020-08-23] MEDS ORDERED: SODIUM CHLORIDE 0.9% 1000ML 1,000 ML IV SCH (17:30)
[2020-08-23] MEDS ORDERED: WARFARIN SOD 5 MG TAB PO ONE (18:00)
[2020-08-23] MEDS: AMIODARONE 200 MG TAB PO SCH (20:32)
[2020-08-23] MEDS: METOPROLOL TARTRATE 50 MG TAB PO SCH (20:32)
[2020-08-23] MEDS: HEPARIN SOD 5,000 UNIT/0.5 ML VIAL SQ SCH (20:33)
[2020-08-24] MEDS: HEPARIN SOD 5,000 UNIT/0.5 ML VIAL SQ SCH ×2 (05:25→12:33)
--- NOTE | 2020-08-24 06:54 | Electrocardiogram Report ---
Test Reason : Blood Pressure : / mmHG Vent. Rate : 088 BPM Atrial Rate : 227 BPM P-R Int : 000 ms QRS Dur : 142 ms QT Int : 392 ms P-R-T Axes : 000 048 017 degrees QTc Int : 474 ms Atrial fibrillation Right bundle branch block Abnormal ECG When compared with ECG of 19-JUL-2020 15:31, No significant change was found Confirmed by Stephan Nicole ([id number]) on 08/24/2020 6:54:01 AM Referred By: Confirmed By:Stephan Nicole
[2020-08-24 07:10] LABS: Hematocrit (blood only) 29.7 % (37-47); Hemoglobin 9.6 g/dL (12.0-16.0); Mean Corpuscular Hemoglobin 30.8 pg (25-34); Mean Corpuscular Hgb Conc 32.3 g/dL (32-36); Mean Corpuscular Volume 95.2 fL (80-100); Mean Platelet Volume 9.8 fL (7.4-10.4); Platelet Count 205 K/uL (130-400); RDW Coefficient of Variation 18.6 % (11.5-14.5); RDW Standard Deviation 63.6 fL (36.4-46.3); Red Blood Count 3.12 M/uL (4.2-5.4); White Blood Count 6.63 K/uL (4.8-10.8)
[2020-08-24 07:22] LABS: INR 1.4 (0.9-1.1); Prothrombin Time 13.9 Seconds (9.0-12.0)
[2020-08-24 07:50] LABS: BUN Creatinine Ratio 18.5 (10-20); Calcium 8.5 mg/dl (8.5-10.1); Creatinine Clr Calc Pharmacy 45.3 ml/min; Est GFR (African American) 26.3 ml/min; Est GFR (Non-African American) 22.7 ml/min; Potassium 4.7 mmol/L (3.5-5.1)
--- NOTE | 2020-08-24 08:03 | Cardiology Consultation ---
Date of Consultation August 24, 2020 Assessment & Plan (1) Atrial fibrillation: Currently atrial fib on film spooler and EKG. Patient asymptomatic. Initially offered cardioversion with LILLY as patient's INR is was subtherapeutic however she declined. We will focus on rate control at this time. As kidney function improves there is a possibility the patient will convert on her own. Do not feel comfortable rebolusing her with amio given her subtherapeutic INRs. 1. Cancel LILLY cardioversion 2. Continue amiodarone 200 mg daily 3. Continue metoprolol tartrate 50 mg 3 times daily 4. Continue heparin infusion with appropriate Coumadin dosing till therapeutic INR of 23. (2) Chronic diastolic (congestive) heart failure: Euvolemic on exam. Weights are stable. No orthopnea. Her lower extremity lymphedema is at baseline. 1. Given MAGO continue to hold torsemide. (3) MAGO (acute kidney injury): MAGO in the setting of recent antibiotic use. Gentle hydration and kidney function has been improving. We will continue to trend BMPs. Hold off on restarting home medications of lisinopril and spironolactone at this time. Continue to hold torsemide. (4) Lower extremity edema: Chronic bilateral lymphedema. Supervising Physician Co-Signing Physician Notes Patient seen and examined with Ana Lilia CORNEJO. Agree with findings and assessment as above. MAGO and electrolyte abnormalities likely due to recent treatment course with Bactrim. Asymptommatic afib. Pt does not want cardioversion due to reported previous adverse reaction. Will follow rate control strategy for now and hopefully with renal improvement will convert on her own. History of Present Illness Reason for Consultation: MAOG, HTN, Hyperkalemia Requesting Physician: Tyron Gleasonist Attending Physician: Vivian Paiz MD History of Present Illness 60-year-old female Who presented to the emergency department last evening after being referred by the undersigned due to lab work showing an MAGO with a serum creatinine of 3.4 and hyperkalemia with a potassium of 5.7. Patient was recently admitted to [facility] on 07/19/2020 to 07/24/2020 for sepsis, left lower extremity cellulitis, positive wound cultures with MSSA, treated with daptomycin and discharged home on cefdinir. During that admission patient did have an episode of atrial fibrillation with RVR and amiodarone was started, sotalol was discontinued. Patient was following with wound clinic and was placed on Bactrim for 14 days. She finished the Bactrim on 08/21/2020.Lab work in the emergency department showed a creatinine of 2.9 with a potassium of 4.8 suspected MAGO secondary to Bactrim patient will be obtaining a renal ultrasound to rule out obstruction. Lisinopril, spironolactone, torsemide was on hold. Gentle IV hydration provided overnight (2L). Lab work this morning showed a an improving serum creatinine of 2.26 with a potassium of 4.7 Today the patient is resting comfortably upon entrance into the room. Denies any acute complaints. Notes that yesterday she felt that she converted back to afib, but she denied any palpitations, stated that she just felt uneasy. No chest pain, shortness of breath, dizziness, syncope or near syncope. No orthopnea, PND, or unusual/increased lower extremity edema. No fever, chills, cough, hematochezia, melena, or hemoptysis. She is currently on Amiodarone 200 mg daily. Cardiac problems 1. Nonischemic cardiomyopathy (presumed) 2. Paroxysmal atrial fibrillation, [id number] score of 3 (female, CHF,HTN), on amiodarone and warfarin 3. Right bundle-branch block 4. Stage III CKD 5. EVELYN, on CPAP 6. Chronic diastolic CHF 7. Dyslipidemia, LDL goal below 100 8. Hypertension 9. History of COVID 03/02/2020, COVID retest 07/24/2020 positive Allergies Allergy/AdvReac Type Severity Reaction Status Date / Time codeine Allergy Severe SWELLING Verified 08/15/20 14:26 ALL OVER Penicillins Allergy Severe THROAT Verified 08/15/20 14:26 SWELLING sulfamethoxazole AdvReac Severe renal Verified 08/24/20 15:08 [From Bactrim] failure trimethoprim [From Bactrim] AdvReac Severe renal Verified 08/24/20 15:08 failure Home Medications Medication Instructions Recorded Confirmed Type lisinopril 20 mg PO HS 06/03/19 08/23/20 History spironolactone 25 mg PO QAM 06/03/19 08/23/20 History torsemide 20 mg PO QAM 06/03/19 08/23/20 History warfarin 5 mg PO UD 06/03/19 08/23/20 History fluoxetine 10 mg PO DAILY PRN 07/18/20 08/23/20 History metoprolol tartrate 50 mg PO TID #90 tab 07/24/20 08/23/20 Rx amiodarone 200 mg tablet 200 mg PO PM tab 08/04/20 08/23/20 History Patient History Medical History Atrial fibrillation 02/2016 takes COUMADIN Chronic diastolic (congestive) heart failure GERD (gastroesophageal reflux disease) History of cardiomyopathy Tachycardia-induced, moderate LV function reduction, subsequently normalized with treatment. Maintained on Sotolol. History of cardioversion 2017 x 2 AT [facility]. History of diverticulitis s/p bowel resection Hx of congestive heart failure RELATED TO A FIB 2016 Hypertension Morbid obesity Psoriasis Sleep apnea CPAP Surgical History History of anesthesia reaction SLOW TO WAKE UP History of carpal tunnel release LEFT History of cholecystectomy History of colon surgery BOWEL RESECTION diverticulitis IN [facility] History of colonoscopy Hx of sinus surgery Family History Grandmother (Maternal) Family history of diabetes mellitus Social History Smoking Status: Never smoker Second Hand Exposure: No; Do You Dip or Chew Tobacco: No; Tobacco Cessation Education Requested by Patient: No Hx Alcohol Use: No Hx Substance Use: No Preferred Language: Hungarian Communication Ability: Effective Hearing Ability: Normal Customer Account Technician Required: No Beliefs That Will Affect Care: None Current Living Situation: Spouse Current Living Situation Comment: with How many Children do You have: 2 Feels Safe at Home: Yes Safety Concerns: Feels Safe At This Time caffeine: No Physical Activity Frequency: Does not Exercise Assistive Devices: CPAP Assistive Devices Comment: to bring in home cpap Review of Systems Review of Systems: All systems reviewed & are unremarkable except as noted in HPI & below Physical Exam Physical Exam: General: No acute distress. A+Ox3. HEENT: Normocephalic. Atraumatic. PERRL. EOMI. Conjunctiva and sclera clear. NECK: No carotid bruits. Unable to assess neck veins due to body habitus. Heart: RRR. S1 and S2 noted without murmur, rubs, gallops. PMI non displaced. Lungs: Clear to auscultation. No wheezes, rhonchi, rales. Abdomen: Normal bowel sounds. Soft. Nontender. No masses or organomegaly. No abdominal bruits. Extremities: + lymphedema bilaterally. Left leg wrapped due to significant wound underneath. No clubbing or cyanosis. Pulses: radial=2/4 bilateral, dorsalis pedis = 2/4 bilateral. NEURO: No focal deficits. PSYCH: Normal. Results & Data ([facility]) Vital Signs (Past 12 Hours) Vital Signs Temp Pulse Pulse Resp BP Pulse Ox 08/24/20 07:32 97 H 08/24/20 07:09 36.7 C 67 18 103/69 98 08/24/20 03:29 36.6 C 74 18 114/77 98 08/23/20 22:32 36.5 C 96 H 20 115/74 94 EKG 08/23/2020 Afib with RBBB, 88 bpm EKG 08/14/2020 with [facility]us bradycardia, right bundle branch block, 56 beats per minute QTC 453 mill iseconds EKG 07/19/2020 AFib with RVR, right bundle branch block, 122 beats per minute (1) Atrial fibrillation Atrial fibrillation type: paroxysmal Qualified Code(s): I48.0 - Paroxysmal atrial fibrillation
[2020-08-24] MEDS: METOPROLOL TARTRATE 50 MG TAB PO SCH ×3 (08:31→21:03)
--- NOTE | 2020-08-24 08:41 | Ultrasound Report ---
ULTRASOUND KIDNEYS AND BLADDER CLINICAL HISTORY: Acute renal insufficiency. COMPARISON STUDY: Abdominal CT dated 07/18/2020. TECHNIQUE: Real-time, grayscale, and color flow sonography of the kidneys and bladder is performed. I mages are reviewed in the transverse and longitudinal planes. FINDINGS: Kidneys: The kidneys are atrophic. Echotexture is normal. The right kidney measures 10.0 cm in length and the left kidney measures 11.2 cm in length. There is no hydronephrosis. No shadowing renal calcu li are identified. A 3.1 cm cyst is noted in the right lower pole. There is no sonographic evidence o f contour deforming renal mass lesion. No perinephric fluid is identified. Bladder: The bladder largely decompressed. Question mild bladder wall thickening. Ureteral jets were not seen. IMPRESSION: 1. The kidneys are atrophic and without hydronephrosis. 2. The bladder is largely decompressed. Question mild bladder wall thickening which may be related to underdistention. Correlate with urinalysis. ACT 112: Negative or not required by law. Electronically signed by: Lee Guillory M.D. 08/24/2020 8:40 AM
[2020-08-24] MEDS ORDERED: Heparin IV Adult Wt-Based Standard *NO* Bolus Protocol IV SCH (11:30)
[2020-08-24 11:53] LABS: Partial Thromboplastin Ratio 1.1; Partial Thromboplastin Time 28.9 Seconds (21.0-31.0)
[2020-08-24] MEDS: HEPARIN SODIUM/DEXTROSE 25,000 UNITS/500 ML BAG IV SCH (12:21)
[2020-08-24 14:16] LABS: Basophils # (auto) 0.02 K/uL (0-0.2); Basophils % (auto) 0.3 %; Eosinophils # (auto) 0.24 K/uL (0-0.5); Eosinophils % (auto) 3.7 %; Immature Granulocytes # (auto) 0.02 K/uL (0.00-0.02); Immature Granulocytes % (auto) 0.3 %; Lymphocytes # (auto) 1.52 K/uL (1.2-3.4); Lymphocytes % (auto) 23.2 %; Monocytes % (auto) 7.6 %; Neutrophils # (auto) 4.26 K/uL (1.4-6.5); Neutrophils % (auto) 64.9 %
--- NOTE | 2020-08-24 15:12 | Hospitalist Progress Note ---
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 Patient finished 14-day course of Bactrim on 08/21/2020 Today in ER vitals stable, K: 4.8, BUN: 52, Cr: 2.9, GFR: 60 Suspect MAGO secondary to Bactrim Rule out obstruction -renal ultrasound pending UA pending Gentle IVF Consider nephrology consult if no improvement (2) Atrial fibrillation: On Coumadin INR: 1.3 Developed A. fib RVR Continue amiodarone 100 mg at bedtime, metoprolol tartrate 50 mg 3 times daily On Coumadin started with IV heparin bridge Cardiology consulted-appreciate input Discussed with cardiology, no plan for DC cardioversion, Patient will be continue to monitor on telemetry, medication adjustment for rate and rhythm control Acute renal failure : Creatinine 1.06 as per recent lab on 07/24/2020 Admitted with acute renal failure creatinine 2.9 Possible secondary to recent Bactrim use, Bactrim discontinued patient given gentle IV fluids Creatinine continues to improve to 2.2, Continue to follow electrolytes, will hold lisinopril /Aldactone /torsemide Avoid NSAIDs Hyperkalemia: Due to above Calcium level normalized no 4.7 Continue to hold lisinopril/Aldactone (3) HTN (hypertension): Blood pressure borderline low, on beta-jackie with holding parameters Hold lisinopril, spironolactone, torsemide secondary to acute renal failure /hyperkalemia (4) Chronic diastolic (congestive) heart failure: Hold spironolactone, torsemide secondary to MAGO Volume status appears to be stable, Monitor daily weight input and output (5) Cellulitis of left lower leg: Admission 07/2020 for LLE cellulitis with cultures MSSA. Initially treated with IV Dapto, cefdinir and then Bactrim(caused renal failure) Improvement of cellulitis. No open wound, no drainage, Area appears to be healing well No antibiotic treatment needed (6) EVELYN on CPAP: Home CPAP at bedtime DVT Prophylaxis -On Coumadin, INR: 1.3, Patient started with IV heparin bridge protocol as remains in A. fib Full Code as per discussion with pt Follows with Dr Reilly for routine care Admission and Anticipated Discharge Date Admission Date: August 23, 2020 Results & Data Results & Data ([facility]) Vital Signs (Past 12 Hours) Vital Signs Temp Pulse Pulse Resp BP Pulse Ox 08/24/20 11:42 36.5 C 86 18 92/65 L 99 08/24/20 07:32 97 H 08/24/20 07:09 36.7 C 67 18 103/69 98 08/24/20 03:29 36.6 C 74 18 114/77 98
[2020-08-24] MEDS ORDERED: WARFARIN SOD 5 MG TAB PO SCH (16:00)
[2020-08-24 19:08] LABS: Partial Thromboplastin Ratio 2.2
[2020-08-24 19:16] LABS: Partial Thromboplastin Time 57.8 Seconds (21.0-31.0)
[2020-08-24] MEDS: AMIODARONE 200 MG TAB PO SCH (21:03)
[2020-08-25] MEDS: HEPARIN SODIUM/DEXTROSE 25,000 UNITS/500 ML BAG IV SCH ×2 (01:09→13:58)
[2020-08-25 06:11] LABS: INR 1.5 (0.9-1.1); Partial Thromboplastin Ratio 2.8; Prothrombin Time 14.3 Seconds (9.0-12.0)
[2020-08-25 06:14] LABS: Partial Thromboplastin Time 72.8 Seconds (21.0-31.0)
[2020-08-25 06:21] LABS: BUN Creatinine Ratio 16.6 (10-20); Calcium 8.7 mg/dl (8.5-10.1); Est GFR (African American) 31.2 ml/min; Est GFR (Non-African American) 26.9 ml/min
[2020-08-25] MEDS: METOPROLOL TARTRATE 50 MG TAB PO SCH ×2 (08:26→14:35)
[2020-08-25] MEDS ORDERED: WARFARIN SOD 2.5 MG TAB PO ONE (12:39)
[2020-08-25 12:55] LABS: Partial Thromboplastin Ratio 2.7
[2020-08-25 12:57] LABS: Partial Thromboplastin Time 70.7 Seconds (21.0-31.0)
[2020-08-25] MEDS ORDERED: ENOXAPARIN 150 MG/ML SYR SQ SCH (14:00)
--- NOTE | 2020-08-25 14:37 | Hospitalist Progress Note ---
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 Patient finished 14-day course of Bactrim on 08/21/2020 Diuretics: Lisinopril, Aldactone, torsemide kept on hold Suspect MAGO secondary to Bactrim Renal ultrasound shows no evidence of obstruction Creatinine continues to improve: 1.9 today with normal calcium level Hyperkalemia Hyperkalemia could be due to Bactrim and acute renal failure Patient was also on potassium sparing diuretics: Lisinopril and Aldactone as well Patient is discharged home today, asked to continue to hold water pills, repeat basic metabolic panel on Friday, Diuretics will be resumed once renal function improves to approximate baseline (2) Atrial fibrillation: History of paroxysmal A. fib, on admission developed A. fib RVR On Coumadin INR was subtherapeutic Continue amiodarone 100 mg at bedtime, metoprolol tartrate 50 mg 3 times daily On Coumadin started with IV heparin bridge Cardiology consulted-appreciate input no Medication adjustment ordered, Patient is extremely anxious to be discharged home INR remains subtherapeutic 1.5, Will be discharged home on Lovenox bridge Repeat INR on Friday, Lovenox will be discontinued once INR is 2 Acute renal failure : Creatinine 1.06 as per recent lab on 07/24/2020 Admitted with acute renal failure creatinine 2.9 Possible secondary to recent Bactrim use, Bactrim discontinued patient given gentle IV fluids Creatinine continues to improve to 2.2-1.9 Asked to hold hold lisinopril /Aldactone /torsemide Avoid NSAIDs Repeat BMP on Friday, diuretics will be creatinine back to baseline Patient will need nephrology follow-up for CKD (3) HTN (hypertension): Blood pressure borderline low, on beta-jackie with holding parameters Hold lisinopril, spironolactone, torsemide secondary to acute renal failure /hyperkalemia Patient is discharged home, as did continue to hold lisinopril /Aldactone and torsemide BP 108/63 (4) Chronic diastolic (congestive) heart failure: Diuretics kept on hold secondary to acute renal failure Volume status remained stable Lisinopril/Aldactone/torsemide should be resumed as soon as possible once kidney function improves Patient follows with cardiology Dr. Mariscal, should follow-up with cardiology in 1 to 2 weeks If any symptoms of shortness of breath, leg swelling, patient should contact family physician's office (5) Cellulitis of left lower leg: Admission 07/2020 for LLE cellulitis with cultures MSSA. Initially treated with IV Dapto, cefdinir and then Bactrim(caused renal failure) Improvement of cellulitis. No open wound, no drainage, Area appears to be healing well No antibiotic treatment needed (6) EVELYN on CPAP: Home CPAP at bedtime DVT Prophylaxis -On Coumadin, INR: 1.5, Patient is discharged home today with Lovenox bridge Full Code as per discussion with pt Follows with Dr Reilly for routine care-hospital follow-up arranged Admission and Anticipated Discharge Date Admission Date: August 23, 2020 Subjective Follow-up visit for rapid A. fib RVR. Patient remains in rate controlled A. fib, States that she feels well no chest pain or shortness of breath (never had any s hortness of breath on admission as well) No dizzy spell or lightheadedness Not aware of irregular heartbeat, happy that it is right now rate controlled, No medication changes per cardiology She is extremely anxious, very tearful, wants to be discharged today, Her INR is subtherapeutic 1.5, currently on IV heparin, Admitted with acute renal failure after a long discussion, we discussed with pharmacy, given patient's GFR is 52, will be able to get Lovenox 150 SQ twice daily Patient will be discharged home today with Coumadin, and Lovenox bridge Review of Systems Review of Systems: All systems reviewed & are unremarkable except as noted in Subjective Physical Exam Constitutional: WD/WN, vitals as above + morbidly obese; no acute distress Eyes: PERRL, conjunctivae normal, anicteric sclerae ENMT: external ear and nose normal, oropharynx normal Neck: trachea midline, no thyromegaly Respiratory: normal respiratory effort, lungs clear to auscultation Cardiovascular: Rate/Rhythm: + irregularly irregular Extremities: no edema Gastrointestinal (Abdomen): normal bowel sounds, soft, nontender, no hepatosplenomegaly Musculoskeletal: no cyanosis or clubbing, extremities motor strength 5/5 Skin: no rashes, warm and dry Neurologic: PERRL, EOMI, accommodation nl, no face palsy, no dysarthria Psychiatric: Orientation: alert and oriented x 3 Affect: + anxious affect Results & Data Results & Data ([facility]) Vital Signs (Past 12 Hours) Vital Signs Temp Pulse Pulse Resp BP Pulse Ox 08/25/20 14:21 36.6 C 76 16 108/63 99 08/25/20 12:04 36.6 C 76 16 108/63 99 08/25/20 08:58 77 08/25/20 07:48 36.5 C 72 16 107/77 94 08/25/20 02:51 36.5 C 85 18 95/68 L 98 (1) Atrial fibrillation Atrial fibrillation type: paroxysmal Qualified Code(s): I48.0 - Paroxysmal atrial fibrillation
--- NOTE | 2020-08-25 14:38 | Discharge Summary ---
Date of Service August 25, 2020 Admission HPI Per Admitting Provider Patient is 60-year-old female with PMH atrial fibrillation on Coumadin, h/o tachycardia induced cardiomyopathy in 2017 with subsequent normalization of EF, chronic diastolic CHF, HTN, HLD, CKD III, EVELYN, hypothyroidism secondary to medication, GERD, obesity presented to ER for abnormal labs -K: 5.7, Cr: 3.4 from outpatient labs on 08/22/2020. Patient with recent hospitalization at [facility], [place] on 07/19/2020 - 07/24/2020 for seps is, LLE cellulitis, wound cultures+ MSSA and was treated with daptomycin and discharged on cefdinir. During hospitalization patient had A. fib with RVR and amiodarone was started and sotalol was discontinued. Patient following with wound clinic and was started on Bactrim for 14 days. She finished Bactrim on 08/21/2020. She reports left lower extremity cellulitis is much improved and is not having any pain or discharge from site. Patient states otherwise feels at her baseline and would not have presented to ER if not directed secondary to abnormal labs. Denies fever/chills, diaphoresis, N/V/D/C, POWELL, dizziness, syncope, vision changes, neck pain, CP, SOB, orthopnea, palpitations, cough, sore throat, choking, otalgia, rhinorrhea, abdominal pain, paresthesias, weakness, extremity weakness, extremity edema, rashes, dysuria, urinary frequency, hematuria. Principal Diagnosis Atrial fibrillation Acute renal failure Tonic diastolic heart failure Discharge Exam Constitutional WD/WN, vitals as above + morbidly obese; no acute distress Eyes PERRL, conjunctivae normal, anicteric sclerae ENMT external ear and nose normal, oropharynx normal Neck trachea midline, no thyromegaly Respiratory normal respiratory effort, lungs clear to auscultation Cardiovascular Rate/Rhythm: + irregularly irregular Extremities: no edema Gastrointestinal (Abdomen) normal bowel sounds, soft, nontender, no hepatosplenomegaly Musculoskeletal no cyanosis or clubbing, extremities motor strength 5/5 Skin no rashes, warm and dry Neurologic PERRL, EOMI, accommodation nl, no face palsy, no dysarthria Psychiatric Orientation: alert and oriented x 3 Affect: + anxious affect Discharge Data Allergies Allergy/AdvReac Type Severity Reaction Status Date / Time codeine Allergy Severe SWELLING Verified 08/15/20 14:26 ALL OVER Penicillins Allergy Severe THROAT Verified 08/15/20 14:26 SWELLING sulfamethoxazole AdvReac Severe renal Verified 08/24/20 15:08 [From Bactrim] failure trimethoprim [From Bactrim] AdvReac Severe renal Verified 08/24/20 15:08 failure Consultations 08/23/20 14:20 ED Decision to Admit Stat Ordered Studies 08/23/20 15:54 US renal/blad retro comp Urgent Hospital Course (1) Acute kidney injury superimposed on CKD: Patient is 60-year-old female with PMH atrial fibrillation on Coumadin, h/o tachycardia induced cardiomyopathy in 2017 with subsequent normalization of EF, chronic diastolic CHF, HTN, HLD, CKD III, EVELYN, hypothyroidism secondary to medication, GERD, obesity presented to ER for abnormal labs -K: 5.7, Cr: 3.4 from outpatient labs on 08/22/2020. Patient finished 14-day course of Bactrim on 08/21/2020 Diuretics: Lisinopril, Aldactone, torsemide kept on hold Suspect MAGO secondary to Bactrim Renal ultrasound shows no evidence of obstruction Creatinine continues to improve: 1.9 today with normal calcium level Hyperkalemia Hyperkalemia could be due to Bactrim and acute renal failure Patient was also on potassium sparing diuretics: Lisinopril and Aldactone as well Patient is discharged home today, asked to continue to hold water pills, repeat basic metabolic panel on Friday, Diuretics will be resumed once renal function improves to approximate baseline (2) Atrial fibrillation: History of paroxysmal A. fib, on admission developed A. fib RVR On Coumadin INR was subtherapeutic Continue amiodarone 100 mg at bedtime, metoprolol tartrate 50 mg 3 times daily On Coumadin started with IV heparin bridge Cardiology consulted-appreciate input no Medication adjustment ordered, Patient is extremely anxious to be discharged home INR remains subtherapeutic 1.5, Will be discharged home on Lovenox bridge Repeat INR on Friday, Lovenox will be discontinued once INR is 2 Acute renal failure : Creatinine 1.06 as per recent lab on 07/24/2020 Admitted with acute renal failure creatinine 2.9 Possible secondary to recent Bactrim use, Bactrim discontinued patient given gentle IV fluids Creatinine continues to improve to 2.2-1.9 Asked to hold hold lisinopril /Aldactone /torsemide Avoid NSAIDs Repeat BMP on Friday, diuretics will be creatinine back to baseline Patient will need nephrology follow-up for CKD (3) HTN (hypertension): Blood pressure borderline low, on beta-jackie with holding parameters Hold lisinopril, spironolactone, torsemide secondary to acute renal failure /hyperkalemia Patient is discharged home, as did continue to hold lisinopril /Aldactone and torsemide BP 108/63 (4) Chronic diastolic (congestive) heart failure: Diuretics kept on hold secondary to acute renal failure Volume status remained stable Lisinopril/Aldactone/torsemide should be resumed as soon as possible once kidney function improves Patient follows with cardiology Dr. Mariscal, should follow-up with cardiology in 1 to 2 weeks If any symptoms of shortness of breath, leg swelling, patient should contact family physician's office (5) Cellulitis of left lower leg: Admission 07/2020 for LLE cellulitis with cultures MSSA. Initially treated with IV Dapto, cefdinir and then Bactrim(caused renal failure) Improvement of cellulitis. No open wound, no drainage, Area appears to be healing well No antibiotic treatment needed (6) EVELYN on CPAP: Home CPAP at bedtime DVT Prophylaxis -On Coumadin, INR: 1.5, Patient is discharged home today with Lovenox bridge Full Code as per discussion with pt Follows with Dr Reilly for routine care-hospital follow-up arranged Total Time Total Time Spent Total Time Spent (In Minutes): 40mins Total Time Includes: Examination of the Patient, Discharge Planning, Medication Reconciliation and Communication With Other Providers Discharge Plan Discharge Items Patient Disposition: Home - Self-Care Reason For Visit: MAGO Discharge Diagnosis: Atrial fibrillation Acute renal failure Tonic diastolic heart failure Activity: Resume your previous activity Non-emergency contact: Primary Care Provider Call non-emergency contact if: you have any medication questions Follow-up/Referrals: Colin Mariscal DO [[employer] Engineer] - (Call to schedule an appointment in 1 to 2 weeks) Minh Reilly MD [Primary Care Provider] - (Date & Time 08/31/2020 9:00 AM Provider Antonio Scott MD [facility] ) Diet: Heart Healthy Addtl Attending Provider Instructions: Please take all medications as instructed on discharge list below. It is recommended that you follow-up with your primary care physician within 1-2 weeks of hospital discharge to ensure you are still doing well. Please call if you have any questions or problems. You can reach a [facility] hospitalist on duty at [facility] 24 hours a day by calling [phone] [facility] [employer] Provider Instructions: Lab work: Basic metabolic panel, PT/INR on 08/28/2020 Do not take Lovenox when your INR is 2 You are asked not to take lisinopril /Aldactone and/ torsemide until Friday, You will have lab work basic metabolic panel checked on Friday, You will need to establish with kidney specialist/nephrology for further follow- up with your kidney function Your water pills will be resumed if kidney numbers back to normal, please notify your family physician if you noticed swelling of your legs, shortness of breath or any other discomfort Continue to take Coumadin as instructed by Coumadin clinic. Pending Studies at Discharge: No Stand-Alone Forms: My [facility], Smoking Cessation Medications and DC Order Prescriptions: New enoxaparin [Lovenox] 150 mg/mL Syringe 150 mg subcut Q12H 4 Days Qty: 8 RF: 0 Continued amiodarone 200 mg tablet 200 mg PO PM RF: 0 torsemide 20 mg Tablet 20 mg PO QAM RF: 0 lisinopril 20 mg Tablet 20 mg PO HS RF: 0 spironolactone 25 mg Tablet 25 mg PO QAM RF: 0 warfarin 5 mg Tablet 5 mg PO UD RF: 0 fluoxetine 10 mg capsule 10 mg PO DAILY PRN (Reason: Anxiety) RF: 0 metoprolol tartrate 50 mg Tablet 50 mg PO TID Qty: 90 RF: 0 Discharge Orders: Discharge Order (Routine); Ordered 08/25/20 Ordered By: Vivian Paiz Admission Data Admit Date/Time: 08/23/20 15:04 Attending Provider: Vivian Paiz Admit Provider: Thomas Cosme Primary Care Provider: Minh Reilly Other Providers: Thomas Cosme
--- NOTE | 2020-08-26 06:42 | Electrocardiogram Report ---
Test Reason : Blood Pressure : / mmHG Vent. Rate : 085 BPM Atrial Rate : 312 BPM P-R Int : 000 ms QRS Dur : 138 ms QT Int : 400 ms P-R-T Axes : 000 069 025 degrees QTc Int : 476 ms Atrial fibrillation Right bundle branch block Abnormal ECG When compared with ECG of 23-AUG-2020 13:29, No significant change was found Confirmed by Stephan Nicole ([id number]) on 08/26/2020 6:41:26 AM Referred By: Colin Mariscal Confirmed By:Stephan Nicole
== END 2020-08-25 16:55 | disposition home or self-care (01) | DRG 683 ==
LOC: ED 11:55 → SUATTDRO 15:04 → 2N 15:04